=== PATIENT | male | born 1940 | race Caucasian/White ===

== ENCOUNTER 2018-01-20 17:06 | Observation (INO) ==
--- NOTE | 2018-01-20 18:30 | History & Physical Report ---
*Admission Date: 01/20/18 <Margo Manzanares - 01/20/18 18:52> *Chief complaint: low BP <Margo Manzanares 01/20/18 18:52> *History of present illness: Mr Cody is a 78 year old male with a history of HLP, CAD with AMI and CABG in 1991, AAA repair, Atrial fibrillation, recent left frontal lobe stroke 11/18/17 due to critical left ICA stenosis, rehab at [facility] 11/24-12/12/17 and carotid endarectomy 01/12/18 who presented to the office of [facility] with low BP and tachycardia. He was discharged from on O2 for "hypoxic respiratory failure" and with a sellers catheter for inablilty to void. He saw a urologist 01/18/2018 and was started on Flomax and sellers was discontinued. He was able to void after this but his BP decreased. Home Health noted SBP 70-90 with HR 120's. Lisinopril was put on hold. Other meds affecting his BP included metoprolol and Doxazosin. Thus he presented to [facility] for evaluation. He was found to be cool and clammy with bluish lips. BP was 118/70 and HR was regular at a rate of 120. O2 sat was 94%. He was alert and oriented, wearing O2, and walked to the office from his car. He denied CP and SOB. H&H were 12.5/40.2. noted that he was not eating or drinking very well since being home the past week. He had voided twice today. Pt was assessed by Dr. Zhao and decision made to adm him to [facility] for monitoring , gentle hydration, HR control, and med adjustment. <Margo Manzanares 01/20/18 18:52> [facility] History Medical History: Reports:: Aneurysm, Arrhythmia, Atherosclerotic Heart Disease, Atrial Fibrillation, BPH, Coronary Artery Disease, Cerebrovascular Accident, Depression, Home Oxygen, Hyperlipidemia, Hypertension Denies:: Diabetes Mellitus Type 2, Gastrointestinal Bleed, Seizures < Margo Manzanares 01/20/18 18:52> Other Medical History: Reports: Hypothyroidism <Margo Manzanares 01/20/18 18:52 > Laterality Cases: Left: Carotid Endarterectomy <ManzanaresMargo - 01/20/18 18:52 > Other Surgeries: Yes: CABG, Hernia Repair <Margo Manzanares Rustam 01/20/18 18:52> Comment: AAA repair 2000 <Margo Manzanares Rustam 01/20/18 18:52> - *Social History Smoking Status: Never smoker <Margo Manzanares 01/20/18 18:52> *Family Hx:: Cancer, Coronary Artery Disease, Diabetes <Margo Manzanares 18:52> Review of Systems - Constitutional Denies fever(s), Denies headache(s) <LeightonMargo Rustam 01/20/18 18:52> - ENT Denies ear pain, Denies sore throat <LeightonMargo Rustam 01/20/18 18:52> - *Cardiovascular Denies chest pain, Denies shortness of breath <LeightonMargo Rustam 01/20/18 18:52> - *Respiratory Denies chest congestion, Denies cough, Denies shortness of breath <Leighton Margo Easton 01/20/18 18:52> - *Gastrointestinal Denies abdominal pain, Denies constipation, Denies nausea, Denies vomiting < LeightonMargo Rustam 01/20/18 18:52> Comments: poor appetite <Margo Manzanares Rustam 01/20/18 18:52> - *Genitourinary Reports difficulty urinating, Denies blood in urine <Margo Manzanares Rustam 01/20/18 18:52> - *Musculoskeletal Comments: walking with a cane since his stroke <Margo Manzanares Rustam 01/20/18 18:52> - *Neurologic Reports weakness (right sided following stroke) <ManzanaresMargo - 01/20/18 18: 52> - Psychiatric Reports depression <LeightonMargo Rustam 01/20/18 18:52> Meds Home Medications Medication Instructions Recorded Confirmed Type Apixaban [Eliquis] 5 mg PO BID 01/21/18 01/21/18 History Aspirin [Aspirin 325mg Tab] 325 mg PO DAILY 01/21/18 01/21/18 History Atorvastatin Calcium [Atorvastatin 80 mg PO HS 01/21/18 01/21/18 History 80mg Tab] Febuxostat [Uloric 40mg Tab] 40 mg PO DAILY 01/21/18 01/21/18 History Fish Oil/Dha/Epa [Fish Oil 1,200 1 each PO DAILY 01/21/18 01/21/18 History mg Fish Oil] Fluoxetine HCl [Prozac] 10 mg PO DAILY 01/21/18 01/21/18 History Folic Acid [Folic Acid 1mg tablet] 1 mg PO DAILY 01/21/18 01/21/18 History Levothyroxine Sodium 25 mcg PO DAILY 01/21/18 01/21/18 History [Levothyroxine 25mcg (0.025mg) Tab] Metoprolol Tartrate [Lopressor 12.5 mg PO BID 01/21/18 01/21/18 History 25mg tablet] Tamsulosin HCl [Flomax] 0.4 mg PO DAILY 01/21/18 01/21/18 History Vitamin E Acid Succinate [Vitamin 400 units PO DAILY 01/21/18 01/21/18 History E 400 Unit Tab] <Sachin Ndiaye - 01/31/18 16:44> Allergies Allergy/AdvReac Type Severity Reaction Status Date / Time No Known Allergies Allergy Verified 01/21/18 07:50 <Sachin Ndiaye - 01/31/18 16:44> Exam Vital signs and Labs for Last 24 Hours: Temp Pulse Resp BP Pulse Ox 98.0 F 65 16 138/56 98 01/21/18 12:00 01/21/18 12:00 01/21/18 12:00 01/21/18 12:00 01/21/18 12:00 <Sachin Ndiaye - 01/31/18 16:44> Temp Pulse Resp BP Pulse Ox 98.4 F 130 H 20 102/65 98 01/20/18 17:44 01/20/18 17:44 01/20/18 17:44 01/20/18 17:44 01/20/18 17:44 <Margo Manzanares - 01/20/18 18:52> I & O for Last 24 hours: Intake & Output 01/18/18 01/19/18 01/20/18 01/21/18 11:59 11:59 11:59 11:59 Weight 213 lb 7 oz <Margo Manzanares 01/20/18 18:52> - Constitutional Comments: cyanosis of the lips; pale and skin cool and clammy <Margo Manzanares - 01/20/18 18:52> - *Routine HEENT Exam Head: Present: normocephalic, atraumatic <Margo Manzanares 01/20/18 18:52> Eye: Present: PERRL <Margo Manzanares 01/20/18 18:52> ENT: Present: mucous membranes moist, external ear normal, TM's clear bilaterally <Margo Manzanares 01/20/18 18:52> - *Routine Neck Exam Absent: lymphadenopathy, thyromegaly <Margo Manzanares 01/20/18 18:52> Comments: left neck scar appears to be healing; is clean and dry <Margo Manzanares 01/20/18 18:52> - *Routine Respiratory Exam Present: CTA bilaterally (A&P) <Margo Manzanares 01/20/18 18:52> - *Routine Cardiovascular Exam Present: RRR <Margo Manzanares 01/20/18 18:52> Comments: 120/min <Margo Manzanares 01/20/18 18:52> - *Routine Abdominal Exam Present: soft, normoactive bowel sounds, hernia (ventral) <Margo Manzanares 18:52> - *Routine Extremities Exam Present: edema. Absent: calf tenderness <Margo Manzanares 01/20/18 18:52> - *Routine Neurological Exam Present: alert, oriented X3, moving all extremities, normal speech. Absent: altered mental status <Margo Manzanares 01/20/18 18:52> Assessment and Plan (1) Hypotension Status: Acute Category: Medical Code(s): I95.9 - Hypotension, unspecified (2) Tachycardia Status: Acute Category: Medical Code(s): R00.0 - Tachycardia, unspecified (3) Hypovolemia Status: Acute Category: Medical Code(s): E86.1 - Hypovolemia (4) CAD (coronary artery disease) Status: Chronic Category: Medical Code(s): I25.10 - Atherosclerotic heart disease of [place] coronary artery without angina pectoris (5) Hypothyroidism Status: Chronic Category: Medical Code(s): E03.9 - Hypothyroidism, unspecified (6) Carotid arterial disease Status: Chronic Category: Medical Code(s): I77.9 - Disorder of arteries and arterioles, unspecified (7) History of recent stroke Status: Chronic Category: Medical Code(s): Z86.73 - Personal history of transient ischemic attack (TIA), and cerebral infarction without residual deficits (8) S/P carotid endarterectomy Status: Chronic Category: Surgical Code(s): Z98.890 - Other specified postprocedural states (9) BPH with obstruction/lower urinary tract symptoms Status: Acute Category: Medical Code(s): N40.1 - Benign prostatic hyperplasia with lower urinary tract symptoms; N13.8 - Other obstructive and reflux uropathy <Sachin Nidaye - 01/31/18 16:44> (1) Hypotension Status: Acute Category: Medical Code(s): I95.9 - Hypotension, unspecified (2) Tachycardia Status: Acute Category: Medical Code(s): R00.0 - Tachycardia, unspecified (3) Hypovolemia Status: Acute Category: Medical Code(s): E86.1 - Hypovolemia (4) CAD (coronary artery disease) Status: Chronic Category: Medical Code(s): I25.10 - Atherosclerotic heart disease of [place] coronary artery without angina pectoris (5) Hypothyroidism Status: Chronic Category: Medical Code(s): E03.9 - Hypothyroidism, unspecified (6) Carotid arterial disease Status: Chronic Category: Medical Code(s): I77.9 - Disorder of arteries and arterioles, unspecified (7) History of recent stroke Status: Chronic Category: Medical Code(s): Z86.73 - Personal history of transient ischemic attack (TIA), and cerebral infarction without residual deficits (8) S/P carotid endarterectomy Status: Chronic Category: Surgical Code(s): Z98.890 - Other specified postprocedural states (9) Chronic respiratory failure with hypoxia Status: Chronic Category: Medical Code(s): J96.11 - Chronic respiratory failure with hypoxia <Margo Manzanares - 01/21/18 06:33> - Assessment and plan all Dx Assessment and Plan for all problems:: Patient seen and examined. symptoms likely related to drug interaction. Will proceed per plan as outlined <Sachin Ndiaye - 01/31/18 16:44> See orders; gentle hydration; stat metoprolol and continue with 12.5 Bid. Heart , BP and O2 sat monitoring; stop doxazosin; may continue Lisinopril and Flomax in AM if BP is stable. Additional evaluation and treatment will be dependent on pt response <Margo Manzanares - 01/20/18 18:52>
[2018-01-20 18:43] LABS: Basophils % 0.5 % (0.1-2.0); Eosinophils # 0.2 K/mm3 (0.0-0.4); Eosinophils % 2.7 % (0.1-12.0); Hematocrit 42.8 % (42.0-52.0); Hemoglobin 13.9 g/dL (14.1-18.0); Lymphocytes # 1.8 K/mm3 (0.7-4.5); Lymphocytes % 20.6 K/mm3 (10-50); Mean Corpuscular HGB Conc 32.6 g/dL (31.8-35.4); Mean Corpuscular Hemoglobin 32.5 pg (27.0-31.2); Mean Corpuscular Volume 99.7 fl (80-94); Monocytes # 0.5 K/mm3 (0.1-1.0); Monocytes % 5.8 % (1.7-9.3); Neutrophils # 6.1 K/mm3 (1.8-7.8); Neutrophils % 70.5 % (37.0-80.0); Platelet Count 286 K/mm3 (142-424); Red Blood Count 4.29 M/mm3 (4.60-6.20); Red Cell Distribution Width 13.5 % (11.5-17.5); White Blood Count 8.7 K/mm3 (4.8-10.8)
[2018-01-20 19:04] LABS: Albumin Level 3.2 gm/dL (3.4-5.0); Albumin/Globulin Ratio 0.8 (1.1-1.8); Anion Gap 11.7 mEq/L (5-15); Bilirubin,Total 0.4 mg/dL (0.2-1.0); Calcium 9.1 mg/dL (8.5-10.1); Globulin 4.1 gm/dl (1.3-3.2); Potassium 4.7 mmoL/L (3.5-5.1); Total Protein,Serum 7.3 gm/dL (6.4-8.2)
--- NOTE | 2018-01-21 07:37 | Pharmacy Consult Notes ---
[facility] Pharmacy VTE Monitoring - Patient Demographics Admission date: 01/20/18 Report Date: 01/21/18 Time: 07:36 Allergies/Adverse Reactions: Patient Allergies INGREDIENT: NO KNOWN - NO KNOWN DRUG ALLERGY Allergy (Unknown, Uncoded 09/15/17 14:40) Height: 1.88 m Weight: 100.698 kg Patient Problems: Current Active Problems Hypotension (Acute) Tachycardia (Acute) Hypovolemia (Acute) CAD (coronary artery disease) (Chronic) Hypothyroidism (Chronic) Carotid arterial disease (Chronic) History of recent stroke (Chronic) S/P carotid endarterectomy (Chronic) Chronic respiratory failure with hypoxia (Chronic) - VTE Risk Labs: VTE Related Lab Results Hgb 13.9 g/dL (14.1-18.0) L 01/20/18 18:33 Hct 42.8 % (42.0-52.0) 01/20/18 18:33 Plt Count 286 K/mm3 (142-424) 01/20/18 18:33 BUN 31 mg/dL (7-18) H 01/20/18 18:33 Creatinine 1.43 mg/dL (0.70-1.30) H 01/20/18 18:33 Estimated Creat Clear 58 mL/min (0-300) 01/20/18 18:33 Was VTE Risk Assessment Performed: Yes VTE Score: 4 VTE Risk Level: Low Risk - Prophylaxis VTE Prophylaxis Ordered?: Yes Types of VTE Prophylaxis: TEDS Knee High, Pharmacological Location of Applied Device: Bilateral Lower Extremeties Pharmacologic Type: Other (ELIQUIS) - VTE Diagnosis Confirmed Treatment or plan recommended: Continue Current Treatment
--- NOTE | 2018-01-21 08:55 | Progress Note ---
Internal Medicine - PN: Subj *Date: 01/21/18 *Time: 13:37 Interval history: Rested fairly well and eager to go home. VSS have been stable. Has not been OOB to ambulate any Exam Vital signs and Labs for Last 24 Hours: Temp Pulse Resp BP Pulse Ox 98.3 F 57 L 20 128/59 97 01/21/18 04:00 01/21/18 06:00 01/21/18 06:00 01/21/18 06:00 01/21/18 06:00 Laboratory Results - last 24 hr 01/20/18 18:33: WBC 8.7, RBC 4.29 L, Hgb 13.9 L, Hct 42.8, MCV 99.7 H, MCH 32.5 H, MCHC 32.6, RDW 13.5, Plt Count 286, MPV 8.0, Neut % (Auto) 70.5, Lymph % ( Auto) 20.6, [place] % (Auto) 5.8, Eos % (Auto) 2.7, Baso % (Auto) 0.5, Neut # (Auto ) 6.1, Lymph # (Auto) 1.8, [place] # (Auto) 0.5, Eos # (Auto) 0.2, Baso # (Auto) 0.0 01/20/18 18:33: Sodium 142, Potassium 4.7, Chloride 105, Carbon Dioxide 30, Anion Gap 11.7, BUN 31 H, Creatinine 1.43 H, Estimated Creat Clear 58, Estimated GFR 48 L, Est GFR ( Amer) 58 L, Glucose 101, Calcium 9.1, Total Bilirubin 0.4, AST 29, ALT 34, Alkaline Phosphatase 187 H, Total Protein 7.3, Albumin 3.2 L, Globulin 4.1 H, Albumin/Globulin Ratio 0.8 L 01/20/18 18:33: Troponin I 0.04 I & O for Last 24 hours: Intake & Output 01/18/18 01/19/18 01/20/18 01/21/18 11:59 11:59 11:59 11:59 Intake Total 720 / 720 Output Total 1775 / 1775 Balance -1055 / -1055 Weight 222 lb - Constitutional Comments: sitting on edge of bed alert and in NAD - *Routine Neck Exam Comments: left CEA incision healing well - *Routine Respiratory Exam Present: CTA bilaterally - *Routine Cardiovascular Exam Present: RRR - *Routine Extremities Exam Comments: trace edema right leg Assessment and Plan (1) Hypotension Current visit: Yes Status: Acute Category: Medical Code(s): I95.9 - Hypotension, unspecified (2) Tachycardia Current visit: Yes Status: Acute Category: Medical Code(s): R00.0 - Tachycardia, unspecified (3) Hypovolemia Current visit: Yes Status: Acute Category: Medical Code(s): E86.1 - Hypovolemia (4) CAD (coronary artery disease) Current visit: Yes Status: Chronic Category: Medical Code(s): I25.10 - Atherosclerotic heart disease of [place] coronary artery without angina pectoris (5) Hypothyroidism Current visit: Yes Status: Chronic Category: Medical Code(s): E03.9 - Hypothyroidism, unspecified (6) Carotid arterial disease Current visit: Yes Status: Chronic Category: Medical Code(s): I77.9 - Disorder of arteries and arterioles, unspecified (7) History of recent stroke Current visit: Yes Status: Chronic Category: Medical Code(s): Z86.73 - Personal history of transient ischemic attack (TIA), and cerebral infarction without residual deficits (8) S/P carotid endarterectomy Current visit: Yes Status: Chronic Category: Surgical Code(s): Z98.890 - Other specified postprocedural states (9) BPH with obstruction/lower urinary tract symptoms Current visit: Yes Status: Acute Category: Medical Code(s): N40.1 - Benign prostatic hyperplasia with lower urinary tract symptoms; N13.8 - Other obstructive and reflux uropathy - Assessment and plan all Dx Assessment and Plan for all problems:: Admitting symptoms likely precipitated by medication interaction. He has done well over night . Will allow him to be OOB and ambulate this morning and if he is stable, will discharge home later today.
--- NOTE | 2018-01-24 22:17 | Discharge Summary ---
General - General Admission date:: 01/20/18 Discharge date: 01/21/18 HPI HPI: Mr Cody is a 78 year old male with a history of HLP, CAD with AMI and CABG in 1991, AAA repair, Atrial fibrillation, recent left frontal lobe stroke 11/18/17 due to critical left ICA stenosis, rehab at [facility] 11/24-12/12/17 and carotid endarectomy 01/12/18 who presented to the office of [facility] with low BP and tachycardia. He was discharged from on O2 for "hypoxic respiratory failure" and with a sellers catheter for inablilty to void. He saw a urologist 01/18/2018 and was started on Flomax and sellers was discontinued. He was able to void after this but his BP decreased. Home Health noted SBP 70-90 with HR 120's. Lisinopril was put on hold. Other meds affecting his BP included metoprolol and Doxazosin. Thus he presented to [facility] for evaluation. He was found to be cool and clammy with bluish lips. BP was 118/70 and HR was regular at a rate of 120. O2 sat was 94%. He was alert and oriented, wearing O2, and walked to the office from his car. He denied CP and SOB. H&H were 12.5/40.2. noted that he was not eating or drinking very well since being home the past week. He had voided twice today. Pt was assessed by Dr. Zhao and decision made to adm him to [facility] for monitoring , gentle hydration, HR control, and med adjustment. Hospital Course Hospital Course: The patient was started on gentle hydration and metoprolol 12.5 Bid. His heart, BP and O2 sats were monitored. His doxazosin was stopped. The patient rested fairly well throughout the night and was eager to go home. VSS were stable. It was felt his admitting symptoms were likely precipitated by medication interactions. He was stable to be discharged home. Objective Vital signs: Temp Pulse Resp BP Pulse Ox 98.0 F 65 16 138/56 98 01/21/18 12:00 01/21/18 12:00 01/21/18 12:00 01/21/18 12:00 01/21/18 12:00 Narrative: - Constitutional Comments: cyanosis of the lips; pale and skin cool and clammy - *Routine HEENT Exam Head: Present: normocephalic, atraumatic Eye: Present: PERRL ENT: Present: mucous membranes moist, external ear normal, TM's clear bilaterally - *Routine Neck Exam Absent: lymphadenopathy, thyromegaly Comments: left neck scar appears to be healing; is clean and dry - *Routine Respiratory Exam Present: CTA bilaterally (A&P) - *Routine Cardiovascular Exam Present: RRR Comments: 120/min - *Routine Abdominal Exam Present: soft, normoactive bowel sounds, hernia (ventral) - *Routine Extremities Exam Present: edema. Absent: calf tenderness - *Routine Neurological Exam Present: alert, oriented X3, moving all extremities, normal speech. Absent: altered mental status DS: Diagnosis - Discharge Diagnosis (1) Hypotension Status: Acute (2) Tachycardia Status: Acute (3) Hypovolemia Status: Acute (4) CAD (coronary artery disease) Status: Chronic (5) Hypothyroidism Status: Chronic (6) Carotid arterial disease Status: Chronic (7) History of recent stroke Status: Chronic (8) S/P carotid endarterectomy Status: Chronic (9) BPH with obstruction/lower urinary tract symptoms Status: Acute Discharge Plan - Patient Discharge Instructions ACTIVITY: Continue current activity DIET: continue same diet Patient Instructions: Tachycardia, DI for Hypotension - Follow up Plan Follow up with: Sachin Ndiaye MD [Primary Care Provider] - (as scheduled) Disposition: Home, Self-Retirement Medications: Home Medications Medication Instructions Recorded Confirmed Type Apixaban [Eliquis] 5 mg PO BID 01/21/18 01/21/18 History Aspirin [Aspirin 325mg Tab] 325 mg PO DAILY 01/21/18 01/21/18 History Atorvastatin Calcium [Atorvastatin 80 mg PO HS 01/21/18 01/21/18 History 80mg Tab] Febuxostat [Uloric 40mg Tab] 40 mg PO DAILY 01/21/18 01/21/18 History Fish Oil/Dha/Epa [Fish Oil 1,200 1 each PO DAILY 01/21/18 01/21/18 History mg Fish Oil] Fluoxetine HCl [Prozac] 10 mg PO DAILY 01/21/18 01/21/18 History Folic Acid [Folic Acid 1mg tablet] 1 mg PO DAILY 01/21/18 01/21/18 History Levothyroxine Sodium 25 mcg PO DAILY 01/21/18 01/21/18 History [Levothyroxine 25mcg (0.025mg) Tab] Metoprolol Tartrate [Lopressor 12.5 mg PO BID 01/21/18 01/21/18 History 25mg tablet] Tamsulosin HCl [Flomax] 0.4 mg PO DAILY 01/21/18 01/21/18 History Vitamin E Acid Succinate [Vitamin 400 units PO DAILY 01/21/18 01/21/18 History E 400 Unit Tab] Prescriptions/Medication Reconciliation: Continue Aspirin [Aspirin 325mg Tab] 325 mg PO DAILY Febuxostat [Uloric 40mg Tab] 40 mg PO DAILY Fluoxetine HCl [Prozac] 10 mg PO DAILY Folic Acid [Folic Acid 1mg tablet] 1 mg PO DAILY Levothyroxine Sodium [Levothyroxine 25mcg (0.025mg) Tab] 25 mcg PO DAILY Metoprolol Tartrate [Lopressor 25mg tablet] 12.5 mg PO BID Apixaban [Eliquis] 5 mg PO BID Atorvastatin Calcium [Atorvastatin 80mg Tab] 80 mg PO HS Fish Oil/Dha/Epa [Fish Oil 1,200 mg Fish Oil] 1 each PO DAILY Tamsulosin HCl [Flomax] 0.4 mg PO DAILY Vitamin E Acid Succinate [Vitamin E 400 Unit Tab] 400 units PO DAILY Discontinued Lisinopril [Lisinopril 20mg Tab] 20 mg PO DAILY Doxazosin Mesylate [Doxazosin 1mg Tab] 2 mg PO DAILY
== END 2018-01-21 13:40 | disposition home or self-care (01) ==
LOC: 2ND → ICU 19:24
PROVIDERS: ADMIT Family Medicine; ATTEND Family Medicine

== ENCOUNTER → 2018-02-16 11:30 | Outpatient (CLI) | payer MEDICARE, SELFPAY ==
--- NOTE | 2018-02-16 11:40 | XR_ITS ---
XR wrist RT min 3V HISTORY ITS.REASON: RT WRIST PAIN ORDERING PHYSICIAN: Margo Manzanares PATIENT AGE: 78 years Comparison: None FINDINGS: No fracture or dislocation. No lytic or blastic change. There is normal mineralization.. The joint spaces are well-preserved. No significant degenerative/arthritic changes. No erosive changes evident.. IMPRESSION: Negative wrist
== END ==
PROVIDERS: PCP Family Medicine; Visit Provider Nurse Practitioner Family
DX: M25.531 Pain in right wrist (principal)
CPT/HCPCS: 73110

== ENCOUNTER → 2018-03-12 10:23 | Outpatient (CLI) | payer MEDICARE, SELFPAY ==
--- NOTE | 2018-03-12 10:33 | CT_ITS ---
CT chest w con HISTORY: Mediastinal mass, or evidence of breath, abnormal radiograph ITS.REASON: MEDIASINAL MASS ORDERING PHYSICIAN: Sachin Ndiaye MD PATIENT AGE: 78 years COMPARISON: None TECHNIQUE: Axial images obtained following the administration of 75 mL of Isovue 370 . Sagittal, and coronal reformatted images are also generated and reviewed. All CT scans at the facility use one or more dose reduction, viz: automated exposure control; ma/kV adjustment per patient size (including targeted exams where dose is matched to indication; i.e. head); or iterative reconstruction technique. FINDINGS: There is mild enlargement of the lower pole of the thyroid gland on the right with hypoattenuation consistent with a 2 cm nodule. There is dilatation of ascending aorta measuring up to 4.4 cm. No obvious aortic dissection. There is mild dilatation of the root of the main pulmonary artery on the left. No large central pulmonary was. There has been prior CABG. There is extensive coronary artery calcification. No pericardial effusion. There is mild dilatation of the left atrial appendage. There are centrilobular emphysematous changes with prominent thickening of the intralobular septa of the lungs greater in the periphery consistent with interstitial lung disease/pulmonary fibrosis. There is thickening of the right major fissure superiorly. No large pulmonary nodules or masses are evident. Small nodules may easily be obscured by the pulmonary fibrotic changes. No pleural effusions. No acute bony anomalies Upper abdominal images demonstrate cholelithiasis and ventral abdominal wall hernia containing a loop of transverse colon. IMPRESSION: 1. Mild fusiform dilatation of the ascending aorta measuring up to 4.4 cm. 2. Mild dilatation of the left atrial appendage 3. Mild focal dilatation of the anterior aspect of the left aspect of the root of the main pulmonary artery 4. Diffuse pulmonary fibrosis/interstitial lung disease 5. 2 cm right thyroid nodule. This may be better evaluated with ultrasound 6. Upper abdomen images show cholelithiasis and ventral abdominal wall hernia containing colon
== END ==
PROVIDERS: PCP Family Medicine; Visit Provider Family Medicine
DX: J98.59 Other diseases of mediastinum, not elsewhere classified (principal)
CPT/HCPCS: 71260; Q9967

== ENCOUNTER → 2020-02-06 10:20 | Outpatient (CLI) | payer MEDICARE, SELFPAY ==
--- NOTE | 2020-02-06 10:35 | CT_ITS ---
PROCEDURE: CT CHEST W CON CLINCAL INDICATION: PULMONARY FIBROSIS Shortness of air with weakness and pulmonary fibrosis. COMPARISON: CHESTW CT chest w con from 03/12/2018 TECHNIQUE: IV Contrast: 75ml Optiray 350 Axial images obtained with sagittal and coronal reformats. All CT scans at the facility use one or more dose reduction, viz: automated exposure control, ma/kV adjustment per patient size (including targeted exams where dose is matched to indication, i.e. head), or iterative reconstruction technique. FINDINGS: HEART AND MEDIASTINAL STRUCTURES: Thyroid gland is enlarged on both sides as before. Atherosclerotic changes involve the thoracic aorta with mild prominence of the ascending aorta at 4.3 cm there are scattered small mediastinal and hilar lymph nodes. Coronary artery calcifications are present. There is cardiomegaly. There has been a prior CABG. There is a small hiatal hernia. There remains mild prominence of the left atrial appendage LUNGS AND PLEURAL SPACES: There is COPD with pulmonary fibrosis with mild paraseptal and centrilobular emphysema. There is a 9 mm nodular opacity in the right infrahilar region along the major fissure. There is some minimal pleural calcification in the left apex. There is some minimal honeycombing in the periphery of the lungs in the left lung base posteriorly. There is some mild chronic consolidation/pleural thickening along the major fissure superiorly on the right. BONY STRUCTURES: No acute bony abnormalities apparent. UPPER ABDOMEN: Small hiatal hernia. Cholelithiasis. Bilateral renal cysts. There is a ventral abdominal wall hernia as before. There appears to be a defect within mesh in the upper abdomen containing a loop of transverse colon without obstruction. This is incompletely imaged. ADDITIONAL FINDINGS: No other significant abnormalities. IMPRESSION: 1. Overall no significant change in the pulmonary fibrosis as described above. 2. The no change in the mild fusiform dilatation of the ascending aorta. 3. No change in the enlarged thyroid gland with possible nodule along the lower pole. 4. Other nonacute findings as described above including hiatal hernia, cholelithiasis, ventral abdominal wall hernia, coronary artery calcification and mild prominence of the left atrial appendage Dictated by: Dave Carranza MD 02/07/2020 09:08 Electronically signed by Dave Carranza MD in [place] 02/07/2020 09:08
== END ==
PROVIDERS: PCP Family Medicine; Visit Provider Family Medicine
DX: J84.10 Pulmonary fibrosis, unspecified (principal)
CPT/HCPCS: 71260; Q9967

== ENCOUNTER → 2020-04-26 09:59 | Outpatient (CLI) | payer MEDICARE, SELFPAY ==
[2020-04-26 14:24] LABS: Coronavirus 19 IgG Antibody Negative (Negative); Coronavirus 19 IgM Antibody Negative (Negative)
== END ==
PROVIDERS: Visit Provider Internal Medicine Gastroenterology
DX: Z01.818 Encounter for other preprocedural examination (principal); Z12.11 Encounter for screening for malignant neoplasm of colon
CPT/HCPCS: 36415; 86328

== ENCOUNTER 2020-04-27 11:21 | Day surgery (SDC) | payer MEDICARE, SELFPAY ==
[2020-04-23 14:54] VITALS: BMI 27.8
[2020-04-27] VITALS (7 sets, daily range): BP systolic 83–171; BP diastolic 43–81; PULSE 51–65; RESP 15–18; TEMP 36.3–36.6; O2SAT 91–98
--- NOTE | 2020-04-27 13:05 | HMH.ANESCL ---
[facility] Anesthesia Checklist - Patient Identification Patient Identification: Arm Band - Structural Data Admitted From: Home Planned Operative Procedure/s: colonoscopy Consent for Planned Operative Procedure(s) Verified: Yes Verified Documents: Surgical Consent, History and Physical - NPO Status Verified Time NPO: 00:00 - Additional verifications Anesthesia Reactions: No - Airway Assessment C-Spine Mobility Assessed: Yes (mp2) TMJ Mobility Assessed: Yes Dentition: Dentures-good fit - Neurological Assessment Level of Consciousness: Awake, Alert - Anesthesia Plan Anesthesia Risk discussed: Yes Anesthesia Plan: Verified ASA Class: III Anesthesia Type: MAC [facility] History I have reviewed the patient's past medical history: Yes Medical History: Reports:: Aneurysm, Arrhythmia, Atherosclerotic Heart Disease, Atrial Fibrillation, BPH, Coronary Artery Disease, Cerebrovascular Accident, Depression, Home Oxygen, Hyperlipidemia, Hypertension, Myocardial Infarction Denies:: Cancer, Diabetes Mellitus Type 1, Diabetes Mellitus Type 2, Gastrointestinal Bleed, Internal Pacemaker, MRSA, Seizures *Have you ever received a pneumonia vaccine?: Yes *Have you received a flu vaccine this season?: Yes Other Medical History: Reports: Cataracts, Hypothyroidism, Thyroid Disease Anesthesia experience/problems:: nac Laterality Cases: Left: Carotid Endarterectomy Other Surgeries: Yes: CABG, Hernia Repair, Other. No: Pacemaker Amputation: No Fractures: No - *Social History Smoking Status: Never smoker Tobacco Type: cigarettes # Packs/Day (cigarettes): 1 #Yrs smoked (if former smoker): 31 Alcohol Intake: never Substance Use Type: denies use *Occupational Status:: retired Housing: house Household Members: spouse *Travel in the last 8 weeks: None - Psychiatric History Pschychiatric History:: Reports:: Depression Family Hx:: No significant family history
--- NOTE | 2020-04-27 13:30 | HMH.PROC ---
[facility] Procedure Note Procedure Note:: Colonoscopy Procedure Report: Colonoscopy with cold snare polypectomy Endoscopist: Damian Milligan II, MD Referring physician: Colton Ndiaye MD Date of Procedure: April 27, 2020 Equipment: Olympus 180 variable stiffness pediatric colonoscope Sedation: MAC sedation Indication: Mr. Cody is an 80-year-old gentleman who is here for diagnostic colonoscopy secondary to iron deficiency anemia and Hemoccult positive stool. The patient did have a hemoglobin 12.7 and hematocrit 38.5. His iron level was 37.0. His alkaline phosphatase was minimally elevated (121). The patient is on Eliquis and baby aspirin. His bowel movements are dark because of his iron tablet. He reports no rectal bleeding, abdominal pain or change in bowel habits. He reports no family history of colon cancer. He has lost 17 pounds in the last 3 months and does have some reduced appetite. His last colonoscopy was more than 10 years ago. Procedure: Prior to the procedure, a history and physical exam was performed, and patient's medications and allergies were reviewed. The risks, benefits and alternatives of the sedation and procedure were discussed with the patient. All questions were answered and informed consent was obtained. The patient was brought to the procedure room. Patient identification and proposed procedure were verified by the physician and the nurse. The patient was placed in a left lateral decubitus position and the scope was passed under direct vision. Throughout the procedure, the patient's blood pressure, pulse, and oxygen saturations were monitored continuously. The colonoscopy was accomplished without difficulty. The patient tolerated the procedure well. Findings: On digital rectal examination there was normal rectal tone. There were no external hemorrhoids. The colonoscope was introduced through the anal canal to the rectum and advanced to the cecum. The ileocecal valve and appendiceal orifice were identified. The scope was advanced a short distance into the ileum which appeared grossly normal. The scope was then withdrawn into the colon. The cecum and ascending colon were normal. There was a diminutive 4 mm polyp in the transverse colon removed via cold snare polypectomy. There was moderate colonic redundancy. There were extensive scattered diverticuli throughout the colon but more predominantly and extensively in the descending and sigmoid colon (LEFT colon). There was some mild haustral edema/erythema in the sigmoid colon. The rectum itself was normal. Upon retroflexion within the rectum there were grade 2 internal hemorrhoids. The preparation was excellent throughout with Ralph Preparation Score of 9. The cecal time was 14 minutes. Impression: 1. Diminutive transverse colon polyp 2. Extensive pandiverticulosis 3. Grade 2 internal hemorrhoids Plan: There was no source for the patient's iron deficiency anemia or Hemoccult positive stool. I will discuss the findings with the patient and family and we may consider EGD for further evaluation. I will recommend bulk fiber supplementation. The patient will not require any further colonoscopy.
== END 2020-04-27 14:28 | disposition home or self-care (01) ==
LOC: OUTP 11:23
PROVIDERS: PCP Family Medicine; Visit Provider Internal Medicine Gastroenterology
PROC: 0DJD8ZZ Inspection of Lower Intestinal Tract, Via Natural or Artificial Opening Endoscopic (ICD-10-PCS; CPT 45378; principal; 2020-04-27 12:30)
DX: K63.5 Polyp of colon (principal); K57.30 Diverticulosis of large intestine without perforation or abscess without bleeding; K64.1 Second degree hemorrhoids; I25.10 Atherosclerotic heart disease of native coronary artery without angina pectoris; I48.91 Unspecified atrial fibrillation; N40.0 Benign prostatic hyperplasia without lower urinary tract symptoms; I25.2 Old myocardial infarction; E78.5 Hyperlipidemia, unspecified; I10 Essential (primary) hypertension; F32.9 Major depressive disorder, single episode, unspecified; Z99.81 Dependence on supplemental oxygen; Z86.73 Personal history of transient ischemic attack (TIA), and cerebral infarction without residual deficits
CPT/HCPCS: 45385; 88305

== ENCOUNTER → 2020-05-03 09:17 | Outpatient (CLI) | payer MEDICARE, SELFPAY ==
[2020-05-03 10:51] LABS: Coronavirus 19 IgG Antibody Negative (Negative); Coronavirus 19 IgM Antibody Negative (Negative)
== END ==
PROVIDERS: Visit Provider Internal Medicine Gastroenterology
DX: Z01.818 Encounter for other preprocedural examination (principal); D64.9 Anemia, unspecified
CPT/HCPCS: 36415; 86328

== ENCOUNTER 2020-05-04 09:51 | Day surgery (SDC) | payer MEDICARE, SELFPAY ==
[2020-05-01 10:33] VITALS: BMI 29.4
[2020-05-04 10:06] VITALS: BP 173/75; PULSE 60; RESP 20; TEMP 36.8; O2SAT 100
--- NOTE | 2020-05-04 11:15 | P.PN_ITS ---
[facility] Anesthesia Checklist - Structural Data Admitted From: Home Planned Operative Procedure/s: egd Consent for Planned Operative Procedure(s) Verified: Yes - Additional verifications Anesthesia Reactions: No - Airway Assessment C-Spine Mobility Assessed: Yes TMJ Mobility Assessed: Yes Dentition: Partials - Neurological Assessment Level of Consciousness: Awake, Alert, Appropriate - Anesthesia Plan Anesthesia Risk discussed: Yes Anesthesia Plan: Verified ASA Class: III Anesthesia Type: MAC [facility] History I have reviewed the patient's past medical history: Yes Medical History: Reports:: Aneurysm, Arrhythmia, Atherosclerotic Heart Disease, Atrial Fibrillation, BPH, Coronary Artery Disease, Cerebrovascular Accident, Depression, Home Oxygen, Hyperlipidemia, Hypertension, MRSA (nose), Myocardial Infarction Denies:: Cancer, Diabetes Mellitus Type 1, Diabetes Mellitus Type 2, Gastrointestinal Bleed, Internal Pacemaker, Seizures *Have you ever received a pneumonia vaccine?: Yes *Have you received a flu vaccine this season?: Yes Other Medical History: Reports: Cataracts, Hypothyroidism, Thyroid Disease Anesthesia experience/problems:: none Laterality Cases: Left: Carotid Endarterectomy Other Surgeries: Yes: CABG, Hernia Repair, Other. No: Pacemaker Amputation: No Fractures: No - *Social History Last grade of school completed: 9th or 10th Smoking Status: Former smoker Tobacco Type: cigarettes # Packs/Day (cigarettes): 1 #Yrs smoked (if former smoker): 31 Alcohol Intake: never Substance Use Type: denies use *Occupational Status:: retired Housing: house Household Members: spouse *Travel in the last 8 weeks: None - Psychiatric History Pschychiatric History:: Reports:: Depression Family Hx:: Cancer, Heart Attack, Hyperlipidemia, Hypertension
[2020-05-04 11:54] VITALS: O2SAT 95
--- NOTE | 2020-05-04 12:01 | HMH.PROC ---
[facility] Procedure Note Procedure Note:: Upper Endoscopy Procedure Report: Esophagogastroduodenoscopy with cold biopsies Endoscopost: Damian Milligan II, MD Referring Physician: Colton Ndiaye MD Date of Procedure: May 04, 2020 Equipment: Olympus GIF 180 standard upper endoscope Sedation: MAC sedation Indications: Mr. Cody is an 80-year-old gentleman with iron deficiency anemia and Hemoccult positive stool. His iron level was 37.0. He was taking Eliquis and baby aspirin. He had a colonoscopy with ga on April 27, 2020 that showed a diminutive polyp (mucosal prolapse polyp) and extensive pandiverticulosis but no source of bleeding. Upper endoscopy is performed for diagnostic purposes to exclude an upper GI tract source for chronic occult/obscure gastrointestinal blood loss. The patient reports no abdominal pain, dyspepsia or reflux. He has no dysphagia. Procedure: Prior to the procedure, a history and physical exam was performed, and patient's medications and allergies were reviewed. The risks, benefits and alternatives of the sedation and procedure were discussed with the patient. All questions were answered and informed consent was obtained. The patient was brought to the procedure room. Patient identification and proposed procedure were verified by the physician and the nurse. The patient was placed in a left lateral decubitus position and the scope was passed under direct vision. Throughout the procedure, the patient's blood pressure, pulse, and oxygen saturations were monitored continuously. The upper GI endoscopy was accomplished without difficulty. The patient tolerated the procedure well. Findings: The scope was passed directly into the upper esophagus and advanced to the third portion of the duodenum. The post bulbar duodenum and duodenal bulb were normal with normal mucosa and conniventes. Cold biopsies were taken from the post bulbar duodenum to rule out celiac disease. The scope was withdrawn through a normal duodenal bulb and pylorus into the stomach. There was mild linear reactive gastropathy of the prepyloric antrum. There was moderate gastric atrophy/atrophic gastritis of the body and fundus of the stomach. Cold biopsies were obtained from the gastric fundus. There was a diminutive 3 mm polyp in the gastric cardia that was removed via cold biopsy to rule out gastric carcinoid. Upon retroflexion there was no hiatal hernia. The scope was then withdrawn into the esophagus. There was no evidence of reflux esophagitis or Chou's. The remainder of the esophageal mucosa was normal. Impression: 1. Chronic atrophic gastritis with small 3 mm gastric polyp?rule out small gastric carcinoid Plan: Certainly chronic atrophic gastritis results in achlorhydria and in the setting of lack of HCl production from the parietal cells, iron is not absorbed as efficiently. I do feel that this is certainly a reason for some of the iron deficiency anemia but does not explain the Hemoccult positive stools. I am going to repeat Hemoccult testing. If he is strongly Hemoccult positive, I would consider video capsule/M2A video enteroscopy.
[2020-05-04 12:03] VITALS: BP 112/56; PULSE 41; RESP 18; TEMP 36.1; O2SAT 96
[2020-05-04 12:13] VITALS: BP 125/60; PULSE 43; RESP 18; O2SAT 96
[2020-05-04 12:23] VITALS: BP 139/80; PULSE 52; RESP 18; O2SAT 95
[2020-05-04 13:08] VITALS: BP 155/82; PULSE 53; RESP 18; O2SAT 96
--- NOTE | 2020-05-04 13:10 | SUR.PHASEII ---
Lab here to draw blood. Instructions given for collections of hemoccult samples. Order placed.
[2020-05-04 13:34] LABS: Basophils % 0.5 % (0.1-2.0); Eosinophils # 0.2 K/mm3 (0.0-0.4); Eosinophils % 2.3 % (0.1-12.0); Hematocrit 40.6 % (42.0-52.0); Hemoglobin 13.6 g/dL (14.1-18.0); Lymphocytes # 2.1 K/mm3 (0.7-4.5); Lymphocytes % 26.4 % (10-50); Mean Corpuscular HGB Conc 33.4 g/dL (31.8-35.4); Mean Corpuscular Hemoglobin 32.1 pg (27.0-31.2); Mean Corpuscular Volume 96.1 fl (80-94); Mean Platelet Volume 8.2 fl (7.4-10.4); Monocytes # 0.4 K/mm3 (0.1-1.0); Monocytes % 4.6 % (1.7-9.3); Neutrophils # 5.3 K/mm3 (1.8-7.8); Neutrophils % 66.1 % (37.0-80.0); Platelet Count 198 K/mm3 (142-424); Red Blood Count 4.22 M/mm3 (4.60-6.20); Red Cell Distribution Width 18.5 % (11.5-17.5); White Blood Count 7.9 K/mm3 (4.8-10.8)
[2020-05-04 13:40] LABS: Chloride 108 mmol/L (98-107); Sodium 142 mmol/L (136-145)
[2020-05-04 13:43] LABS: Alanine Aminotransferase 16 U/L (12-78); Alkaline Phosphatase 113 U/L (38-126); Aspartate Amino Transferase 25 U/L (17-59); Bilirubin,Total 0.6 mg/dl (0.2-1.3); Blood Urea Nitrogen 20 mg/dl (9-20); Carbon Dioxide 25 mmol/L (22.0-30.0); Creatinine Clearance Estimated 75 mL/min (50-200); Estimated Glomerular Filt Rate 64 ml/min (>60); GFR (African American) 78 ML/MIN (>60); Glucose 98 mg/dl (74-100); Iron 49 ug/dL (49-181)
[2020-05-04 13:44] LABS: Albumin Level 3.5 g/dl (3.5-5.0); Albumin/Globulin Ratio 1.1 (1.1-1.8); Globulin 3.2 g/dL (1.3-3.2); Total Protein,Serum 6.7 g/dl (6.3-8.2)
[2020-05-04 13:53] LABS: Total Iron Binding Capacity 266 ug/dL (261-462)
[2020-05-06 07:25] LABS: Antiparietal Cell Antibody 78.8 Units (0.0-20.0)
== END 2020-05-04 13:14 | disposition home or self-care (01) ==
LOC: OUTP 09:53
PROVIDERS: PCP Family Medicine; Visit Provider Internal Medicine Gastroenterology
PROC: 0DJ08ZZ Inspection of Upper Intestinal Tract, Via Natural or Artificial Opening Endoscopic (ICD-10-PCS; CPT 43235; principal; 2020-05-04 11:00)
DX: K29.40 Chronic atrophic gastritis without bleeding (principal); K31.7 Polyp of stomach and duodenum; I25.10 Atherosclerotic heart disease of native coronary artery without angina pectoris; I25.2 Old myocardial infarction; I48.91 Unspecified atrial fibrillation; I72.9 Aneurysm of unspecified site; I49.9 Cardiac arrhythmia, unspecified; F32.9 Major depressive disorder, single episode, unspecified; E78.5 Hyperlipidemia, unspecified; I10 Essential (primary) hypertension; E03.9 Hypothyroidism, unspecified; Z99.81 Dependence on supplemental oxygen
CPT/HCPCS: 43239; 36415; 80053; 82728; 83516; 83540; 83550; 85025; 88305; 88342

== ENCOUNTER → 2020-05-06 14:30 | Outpatient (CLI) | payer MEDICARE, SELFPAY ==
[2020-05-11 15:10] LABS: Occult Blood,Stool Negative (Negative)
== END ==
PROVIDERS: Visit Provider Internal Medicine Gastroenterology
DX: D64.9 Anemia, unspecified (principal)
CPT/HCPCS: 82272; G0328

== ENCOUNTER → 2020-05-07 14:33 | Outpatient (CLI) | payer MEDICARE, SELFPAY ==
[2020-05-11 15:10] LABS: Occult Blood,Stool Negative (Negative)
== END ==
PROVIDERS: Visit Provider Internal Medicine Gastroenterology
DX: D64.9 Anemia, unspecified (principal)
CPT/HCPCS: 82272; G0328

== ENCOUNTER → 2020-05-10 14:35 | Outpatient (CLI) | payer MEDICARE, SELFPAY ==
[2020-05-11 15:10] LABS: Occult Blood,Stool Negative (Negative)
== END ==
PROVIDERS: Visit Provider Internal Medicine Gastroenterology
DX: D64.9 Anemia, unspecified (principal)
CPT/HCPCS: 82272; G0328

== ENCOUNTER → 2020-11-05 13:30 | Outpatient (CLI) | payer MEDICARE, SELFPAY ==
--- NOTE | 2020-11-05 | CA_ITS ---
APPROVED REPORT EXAM: Comprehensive 2D, Doppler, and color-flow Echocardiogram [employer]: Mackenzie Kiser RCS, RVS Ht: 6 ft 2 in Wt: 205lbs BSA: 2.20 BP: 120/80 mmHg Indications: CAD S/P CABG, AFIB,HOME O2, HX- AAA WITH MULTIPLE HERNIA REPAIRS Echo Enhancing Agent Comments: TECHNICALLY DIFFICULT EXAM DUE TO ABN CARDIAC WINDOWS, NO SUBCOSTAL IMAGES AVAILABLE 2D Dimensions LVDs 4.24 cm LA Volume 141.70 mL LVOT 1.95 cm (M/F) 1.5-2.5 LA Volume Index 64.40 mL/m2 (M/F) 16-34 M-Mode Dimensions LA Diam 4.81 cm (1.9-4.0) LVDd 5.24 cm (3.5-5.7) Ao Diam 3.69 cm (2.0-3.7) LVDs 3.77 cm (3.5-5.7) EF (Teich) 53.90% EPSs 1.01 cm FS 28.10% EDV (Teich) 131.80 mL ESV (Teich) 60.80 mL LV Diastology E Decel Time 397.00 (160-240 msec) E/A Ratio 0.67 MED E' 5.60 (< 7 cm/sec) MED A' 7.60 cm/s E'/MED E' Ratio 10.59 (>14) Aortic Valve AoV Peak Zach. 173.00 (50-130 cm/s) AO Peak GR. 11.90 mmHg AO Mean GR. 5.70 (<5 mmHg) AO VTI 36.84 (18-25 cm) Mitral Valve MV E Max Zach. 59.00 (40-130 cm/s) MV A Velocity 88.00 (40-130 cm/s) E/A Ratio 0.67 MV Decel. Time 397.00 (160-240 ms) MV PHT 116.00 ms Pulmonary Valve PV Peak Velocity 92.00 (50-150 cm/s) Tricuspid Valve TR P. Velocity 262.00 cm/s RAP Estimate 10.00 mmHg RVSP 37.40 mmHg Left Ventricle Left atrium is mildly enlarged, left ventricle is normal size, mild concentric left ventricular hypertrophy, visually estimated ejection fraction approximately 35%, there is abnormal septal motion, grade 1 diastolic dysfunction seen with tissue Doppler evidence of raise left atrial pressure. Right Ventricle Right atrium and right ventricle are mildly enlarged with normal contractility. Aortic Valve Aortic valve is thickened and calcified leaflet continue to display mobility, there is no aortic stenosis or aortic insufficiency. Mitral Valve Mitral valve leaflets are minimally thickened, there is mild mitral regurgitation. Tricuspid Valve Tricuspid valve is grossly normal, there is mild tricuspid regurgitation, tricuspid regurgitation jet velocity is inadequate for calculation of the right ventricular systolic pressure. Pulmonic Valve Pulmonic valve is poorly visualized. Great Vessels Aortic root is normal size. Pericardium No significant pericardial effusion noted. Conclusion 1. Mildly enlarged left atrium, normal left ventricular size, mild concentric left ventricular hypertrophy, visually estimated ejection fraction 35%, there is abnormal septal motion. Grade 1 diastolic dysfunction seen with tissue Doppler evidence of raise left atrial pressure. 2. Thickened and calcified aortic valve without aortic stenosis or aortic insufficiency. 3. Mild mitral and tricuspid regurgitation. 4. No significant pericardial effusion noted. Electronically signed by : Kyle Mclain, 11/05/2020 21:03:21
== END ==
PROVIDERS: PCP Family Medicine; Visit Provider Internal Medicine Cardiovascular Disease
DX: R06.02 Shortness of breath (principal)
CPT/HCPCS: 93306

== ENCOUNTER 2020-12-11 01:32 | Emergency (ER) | payer MEDICARE, SELFPAY ==
[2020-12-11] VITALS (10 sets, daily range): BP systolic 143–178; BP diastolic 47–72; PULSE 53–73; RESP 18–20; TEMP 36.6–36.8; O2SAT 89–100; BMI 26.3
--- NOTE | 2020-12-11 02:07 | CT_ITS ---
PROCEDURE: CT ABDOMEN PELVIS W CON CLINICAL INDICATION: abd pain Abdominal pain and right groin pain COMPARISON: CT CHESTW CT chest w con from 03/12/2018 TECHNIQUE: IV Contrast: 75ML Isovue 370 Oral Contrast None Axial images obtained with sagittal and coronal reformats. All CT scans at the facility use one or more dose reduction, viz: automated exposure control, ma/kV adjustment per patient size (including targeted exams where dose is matched to indication, i.e. head), or iterative reconstruction technique. FINDINGS: LOWER THORAX: There is cardiomegaly. Coronary artery calcifications are present. There has been a prior median sternotomy. Interstitial edema noted in the lung bases. ABDOMEN & PELVIS: Cholelithiasis. The liver, spleen, adrenal glands, pancreas, has an unremarkable appearance. There are small bilateral renal cyst. Atheromatous changes are present involving the abdominal aorta. Distal abdominal iliac graft noted. There is diffuse colonic diverticulosis but no evidence of diverticulitis. There is a large right inguinal hernia containing loops of small and large bowel. The appendix is within the hernia. There is haziness of the abdominal fat within the hernia with also a small amount fluid. Small bowel feces sign noted in the right lower quadrant with mild prominence of small bowel loops in the right lower quadrant. There is a ventral hernia superiorly in the subxiphoid region containing a loop of transverse colon. This hernias contain anteriorly by mesh. Degenerative changes are present in the lumbar spine with 5 mm anterolisthesis of L5. IMPRESSION: 1. Large right inguinal hernia containing loops small and large bowel with fluid and proximal small bowel dilatation with fecalized contents consistent with delayed transit. Partial obstruction is considered. Please correlate clinically for possible incarceration. 2. Ventral abdominal wall hernia in the subxiphoid region containing a loop of transverse colon. No evidence the this is causing obstruction. This hernias contain anteriorly above mesh. 3. Cholelithiasis. 4. Colonic diverticulosis without diverticulitis. 5. Cardiomegaly with interstitial edema in the lung bases. Dictated by: Dave Carranza MD 12/11/2020 05:21 Dave Carranza MD in [place] 12/11/2020 05:21
[2020-12-11 02:31] LABS: Basophils # 0.1 K/mm3 (0-0.2); Basophils % 0.4 % (0.1-2.0); Eosinophils % 0.2 % (0.1-12.0); Hemoglobin 15.1 g/dL (14.1-18.0); Lymphocytes # 0.9 K/mm3 (0.7-4.5); Lymphocytes % 6.2 % (10-50); Mean Corpuscular HGB Conc 32.1 g/dL (31.8-35.4); Mean Corpuscular Hemoglobin 32.5 pg (27.0-31.2); Mean Corpuscular Volume 101.2 fl (80-94); Mean Platelet Volume 8.3 fl (7.4-10.4); Monocytes # 0.5 K/mm3 (0.1-1.0); Monocytes % 3.3 % (1.7-9.3); Neutrophils # 12.6 K/mm3 (1.8-7.8); Platelet Count 269 K/mm3 (142-424); Red Blood Count 4.64 M/mm3 (4.60-6.20); Red Cell Distribution Width 14.7 % (11.5-17.5)
[2020-12-11 02:43] LABS: MANUAL DIFFERENTIAL MANUAL DIFFERENTIAL (MANUAL DIFF)
[2020-12-11 02:51] LABS: Alanine Aminotransferase 21 U/L (12-78); Albumin Level 4.8 g/dl (3.5-5.0); Albumin/Globulin Ratio 1.1 (1.1-1.8); Alkaline Phosphatase 165 U/L (38-126); Amylase 103 U/L (30-110); Anion Gap 15.4 mEq/L (5-15); Aspartate Amino Transferase 34 U/L (17-59); Bilirubin,Total 0.9 mg/dl (0.2-1.3); Blood Urea Nitrogen 21 mg/dl (9-20); Calcium 10.1 mg/dl (8.4-10.2); Carbon Dioxide 25 mmol/L (22.0-30.0); Chloride 107 mmol/L (98-107); Creatinine Clearance Estimated 70 mL/min (50-200); Estimated Glomerular Filt Rate 64 ml/min (>60); GFR (African American) 78 ML/MIN (>60); Globulin 4.4 g/dL (1.3-3.2); Glucose 157 mg/dl (74-100); Potassium 4.4 mmoL/L (3.5-5.1); Sodium 143 mmol/L (136-145); Total Protein,Serum 9.2 g/dl (6.3-8.2)
[2020-12-11 02:55] LABS: Lipase 154 U/L (23-300)
[2020-12-11 02:57] LABS: C-Reactive Protein 1.7 mg/L (0-4)
[2020-12-11 03:11] LABS: Procalcitonin 0.041 ng/mL (0.0-2.0)
[2020-12-11 03:13] LABS: Erythrocyte Sedimentation Rate 16 mm/hr (0-20)
[2020-12-11 03:51] LABS: Lymphocytes % 3 % (10-50); Macrocytosis 1+; Monocytes % 1 % (2-9); Neutrophils % 96 % (42-76); Platelet Estimate Normal; Total Cells Counted 100
[2020-12-11 03:52] LABS: Stomatocytes 1+
[2020-12-11 04:04] LABS: Lactic Acid 1.5 mmol/L (0.7-2.1)
--- NOTE | 2020-12-11 04:08 | HMH.EDNVD ---
ED Disposition Clinical Impression: Inguinal hernia Qualifiers: Obstruction and gangrene presence: with obstruction but without gangrene Laterality: unilateral Recurrence: not specified as recurrent Qualified Code(s): K40.30 - Unilateral inguinal hernia, with obstruction, without gangrene, not specified as recurrent Disposition: Home, Self-Care Condition on Discharge: Good Instructions: DI for Groin Hernia Additional Instructions: see surg and pcp for follow up Referrals: Sachin Ndiaye MD [Primary Care Provider] - Scotty Abad MD [Staff Physician] - - Critical Care Critical Care Time: No Attestation: On 12/11/20, the high probability of a clinically significant, sudden or life threatening deterioration of the following system(s) required my full and direct attention, intervention and personal management. The time I documented below is in addition to time spent performing reported procedures but includes the following listed in this critical care notation. Medical Decision Making - Medical Records Medical records reviewed: Yes: I reviewed the patient's medical records. - Cr Inquiry Pt receiving controlled substance: No Vital Signs: 12/11/20 01:33 12/11/20 03:33 12/11/20 03:40 Temperature 97.8 F Temperature Source Oral Pulse Rate 58 L 53 L Pulse Rate [Right] 62 Respiratory Rate 20 Blood Pressure 178/61 H 143/50 H Blood Pressure [Right Arm] 172/68 H Blood Pressure Mean 92 81 Blood Pressure Mean [Right Arm] 102 02 Sat by Pulse Oximetry 94 L 90 L 95 Oxygen Delivery Method Room Air Oxygen Flow Rate (LPM) 12/11/20 03:45 12/11/20 04:00 12/11/20 04:01 Temperature Temperature Source Pulse Rate Pulse Rate [Right] Respiratory Rate Blood Pressure 147/51 H Blood Pressure [Right Arm] Blood Pressure Mean 83 Blood Pressure Mean [Right Arm] 02 Sat by Pulse Oximetry 89 L 99 99 Oxygen Delivery Method Oxygen Flow Rate (LPM) 12/11/20 04:15 12/11/20 04:30 12/11/20 04:31 Temperature Temperature Source Pulse Rate 53 L Pulse Rate [Right] Respiratory Rate Blood Pressure 150/47 H Blood Pressure [Right Arm] Blood Pressure Mean 90 Blood Pressure Mean [Right Arm] 02 Sat by Pulse Oximetry 100 99 100 Oxygen Delivery Method Nasal Cannula Oxygen Flow Rate (LPM) 2 - Lab Data Lab results reviewed: Yes: I reviewed the patient's lab results. Lab Results 12/11/20 02:20: WBC 14.0 H, RBC 4.64, Hgb 15.1, Hct 47.0, MCV 101.2 H, MCH 32.5 H, MCHC 32.1, RDW 14.7, Plt Count 269, MPV 8.3, Neut % (Auto) 90.0 H, Lymph % (Auto) 6.2 L, Barton % (Auto) 3.3, Eos % (Auto) 0.2, Baso % (Auto) 0.4, Neut # (Auto) 12.6 H, Lymph # (Auto) 0.9, Barton # (Auto) 0.5, Eos # (Auto) 0.0, Baso # (Auto) 0.1, Total Counted 100, Neutrophils % (Manual) 96 H, Lymphocytes % (Manual) 3 L, Monocytes % (Manual) 1 L, Platelet Estimate Normal, RBC Morphology Not Reportable, Macrocytosis 1+, Stomatocytes 1+, ESR 16 12/11/20 02:20: Sodium 143, Potassium 4.4, Chloride 107, Carbon Dioxide 25, Anion Gap 15.4 H, BUN 21 H, Creatinine 1.10, Estimated Creat Clear 70, Estimated GFR 64, Est GFR ( Amer) 78, Glucose 157 H, Calcium 10.1, Total Bilirubin 0.9, AST 34, ALT 21, Alkaline Phosphatase 165 H, C-Reactive Protein 1.7, Total Protein 9.2 H D, Albumin 4.8, Globulin 4.4 H, Albumin/Globulin Ratio 1.1, Amylase 103, Procalcitonin 0.041 12/11/20 02:20: Lipase 154 12/11/20 02:21: Lactate 1.5 Result diagrams: 12/11/20 02:20 12/11/20 02:20 Orders (Tests/Meds): ED MEDICATIONS Generic Name Dose Route Start Last Admin Trade Name Freq PRN Reason Stop Dose Admin Sodium Chloride 1,000 mls @ 999 mls/hr 12/11/20 02:15 12/11/20 02:15 Sod Chlor 0.9% 1000ml Bag IV 12/11/20 03:15 999 mls/hr .Q1H1M DHAVAL Administration Sodium Chloride 1,000 mls @ 999 mls/hr 12/11/20 03:45 12/11/20 03:41 Sod Chlor 0.9% 1000ml Bag IV 12/11/20 04:45 999 mls/hr .Q1H1M DHAVAL Admini
--- NOTE | 2020-12-11 04:37 | PC.NURSE ---
paged dr deluca
--- NOTE | 2020-12-11 04:43 | PC.NURSE ---
on phone with dr deluca at this time
--- NOTE | 2020-12-11 04:47 | PC.NURSE ---
paged dr denton
--- NOTE | 2020-12-11 04:48 | PC.NURSE ---
jacqui on phone with dr Abad @ this time
== END 2020-12-11 05:28 | disposition home or self-care (01) ==
PROVIDERS: Emergency Provider Emergency Medicine; PCP Family Medicine
DX: K40.30 Unilateral inguinal hernia, with obstruction, without gangrene, not specified as recurrent (principal); I10 Essential (primary) hypertension; E78.5 Hyperlipidemia, unspecified; I25.10 Atherosclerotic heart disease of native coronary artery without angina pectoris; I25.2 Old myocardial infarction; I48.91 Unspecified atrial fibrillation; Z86.73 Personal history of transient ischemic attack (TIA), and cerebral infarction without residual deficits; Z20.822 Contact with and (suspected) exposure to COVID-19; F33.1 Major depressive disorder, recurrent, moderate; Z87.891 Personal history of nicotine dependence; Z79.899 Other long term (current) drug therapy
CPT/HCPCS: 74177; 80053; 82150; 83605; 83690; 84145; 85007; 85025; 85651; 86140; 87040; 96365; 96375; 99284; J2405; Q9967; U0003

== ENCOUNTER → 2021-01-14 10:33 | Outpatient (CLI) | payer MEDICARE, SELFPAY ==
[2021-01-14 11:04] LABS: Basophils # 0.1 K/mm3 (0-0.2); Basophils % 0.6 % (0.1-2.0); Eosinophils # 0.2 K/mm3 (0.0-0.4); Eosinophils % 2.2 % (0.1-12.0); Hematocrit 42.3 % (42.0-52.0); Hemoglobin 13.5 g/dL (14.1-18.0); Lymphocytes # 2.2 K/mm3 (0.7-4.5); Lymphocytes % 27.7 % (10-50); Mean Corpuscular HGB Conc 31.8 g/dL (31.8-35.4); Mean Corpuscular Hemoglobin 32.1 pg (27.0-31.2); Mean Corpuscular Volume 100.9 fl (80-94); Mean Platelet Volume 7.7 fl (7.4-10.4); Monocytes # 0.5 K/mm3 (0.1-1.0); Monocytes % 6.2 % (1.7-9.3); Neutrophils # 5.1 K/mm3 (1.8-7.8); Neutrophils % 63.3 % (37.0-80.0); Platelet Count 230 K/mm3 (142-424); Red Blood Count 4.19 M/mm3 (4.60-6.20); Red Cell Distribution Width 14.5 % (11.5-17.5); White Blood Count 8.1 K/mm3 (4.8-10.8)
[2021-01-14 11:45] LABS: Chloride 107 mmol/L (98-107); Potassium 4.4 mmoL/L (3.5-5.1); Sodium 141 mmol/L (136-145)
[2021-01-14 11:48] LABS: Anion Gap 12.4 mEq/L (5-15); Blood Urea Nitrogen 26 mg/dl (9-20); Carbon Dioxide 26 mmol/L (22.0-30.0); Estimated Glomerular Filt Rate 58 ml/min (>60); GFR (African American) 70 ML/MIN (>60)
[2021-01-14 11:51] LABS: Coronavirus 19 IgG Antibody Positive (Negative); Coronavirus 19 IgM Antibody Negative (Negative)
[2021-01-14 11:54] LABS: Glucose 100 mg/dl (74-100)
[2021-01-14 20:35] LABS: Calcium 9.5 mg/dl (8.4-10.2)
== END ==
PROVIDERS: Visit Provider Surgery
DX: K40.90 Unilateral inguinal hernia, without obstruction or gangrene, not specified as recurrent (principal); I95.9 Hypotension, unspecified; Z01.812 Encounter for preprocedural laboratory examination; Z20.822 Contact with and (suspected) exposure to COVID-19
CPT/HCPCS: 36415; 80048; 85025; 86328

== ENCOUNTER 2021-01-15 09:26 | Day surgery (SDC) | payer MEDICARE, SELFPAY ==
[2021-01-09 14:05] VITALS: BMI 25.7
[2021-01-15] VITALS (9 sets, daily range): BP systolic 142–155; BP diastolic 57–74; PULSE 57–74; RESP 16–18; TEMP 36.6–36.8; O2SAT 94–100
--- NOTE | 2021-01-15 11:03 | HMH.ANESCL ---
[facility] Anesthesia Checklist - Patient Identification Patient Identification: Arm Band - Structural Data Admitted From: Home Planned Operative Procedure/s: right open inguinal hernia repair Consent for Planned Operative Procedure(s) Verified: Yes Verified Documents: Surgical Consent, History and Physical - NPO Status Verified Time NPO: 00:00 - Additional verifications Anesthesia Reactions: No Hx Blood Transfusions: No Blood Transfusion Reaction: No - Airway Assessment C-Spine Mobility Assessed: Yes (mp2) TMJ Mobility Assessed: Yes Dentition: Good Dentition - Neurological Assessment Level of Consciousness: Awake, Alert - Anesthesia Plan Anesthesia Risk discussed: Yes Anesthesia Plan: Verified ASA Class: III Anesthesia Type: General [facility] History I have reviewed the patient's past medical history: Yes Medical History: Reports:: Aneurysm, Arrhythmia, Atherosclerotic Heart Disease, Atrial Fibrillation, BPH, Coronary Artery Disease, Cerebrovascular Accident, Depression, Home Oxygen, Hyperlipidemia, Hypertension, MRSA, Myocardial Infarction Denies:: Cancer, Diabetes Mellitus Type 1, Diabetes Mellitus Type 2, Gastrointestinal Bleed, Internal Pacemaker, Seizures *Have you ever received a pneumonia vaccine?: Yes *Have you received a flu vaccine this season?: Yes Other Medical History: Reports: Cataracts, Hypothyroidism, Thyroid Disease. Denies: Blood Transfusion Reaction Anesthesia experience/problems:: nac Laterality Cases: Left: Carotid Endarterectomy Other Surgeries: Yes: CABG, Colonoscopy, Hernia Repair, Other. No: Pacemaker Amputation: No Fractures: No - *Social History Last grade of school completed: High school graduate Smoking Status: Former smoker Tobacco Type: cigarettes # Packs/Day (cigarettes): 1 #Yrs smoked (if former smoker): 31 Alcohol Intake: never Substance Use Type: denies use *Occupational Status:: retired Housing: house Household Members: spouse *Travel in the last 8 weeks: None - Psychiatric History Pschychiatric History:: Reports:: Depression Family Hx:: Cancer, Heart Attack, Hyperlipidemia, Hypertension
--- NOTE | 2021-01-15 15:06 | HMH.OPNOTE ---
Date of procedure: 01/15/21 Pre-op Diagnosis:: Right inguinal hernia Post-op Diagnosis:: Same Procedure performed:: Open repair of right inguinal hernia with placement of large sized Bard prefix mesh plug with onlay mesh Surgeon:: Scotty Abad MD Assistant Professor Nurse Education(s):: Sugey Pabon CUSTOM HOME INSTALLER:: Other Anesthesia: GETA Estimated blood loss (mL): 30 Clinical Note:: Patient is an 80-year-old male referred by the emergency department for essentially right inguinal hernia. His primary care provider is Dr. Colton Ndiaye. Patient had undergone apparent open aortic surgery via midline laparotomy many years ago. He developed a ventral incisional hernia and underwent laparoscopic repair by Dr. Morales using 18 x 24 cm [place] DualMesh in January 2002. He developed a very early recurrence and underwent open repair of recurrent massive hernia on 06/20/[address] Morales. At some point he underwent repair for recurrence by Dr. Levi sims in [place]. On 10/13/2008 patient had undergone open left inguinal hernia repair along with open repair of yet again recurrent ventral hernia by Dr. Morales using 10 x 15 cm Composix LP mesh. For some time patient states that he has had problems with abdominal pains and nausea occurring after eating. He was seen in the emergency department on 12/11/2020 with lower abdominal pain, increased swelling in the right groin, nausea. He underwent CT scan which revealed the following findings: 1. Large right inguinal hernia containing loops small and large bowel with fluid and proximal small bowel dilatation with fecalized contents consistent with delayed transit. Partial obstruction is considered. Please correlate clinically for possible incarceration. 2. Ventral abdominal wall hernia in the subxiphoid region containing a loop of transverse colon. No evidence the this is causing obstruction. This hernias contain anteriorly above mesh. 3. Cholelithiasis. 4. Colonic diverticulosis without diverticulitis. 5. Cardiomegaly with interstitial edema in the lung bases. He was able to be managed as an outpatient and sent for surgical consultation. Based on the CT scan findings and his clinical presentation it was felt the right inguinal hernia possibly has been causing him chronic partial obstruction and symptomatology. I feel that it may be reasonable to consider repair. Patient wished to pursue repair on right inguinal hernia without any surgical intervention on the apparent recurrent incisional hernia. Patient was seen by his car seat maker and deemed an acceptable risk to proceed. I did explain to him that he does have yet another recurrent incisional hernia in the upper mid abdomen. It is possible, although unlikely, that this is causing him some symptomatology. If this required repair he would require likely referral to tertiary facility for complex repair using separation abdominal components and possibly removal of the previously placed mesh. At this time he wishes to pursue merely repair of the right inguinal hernia. Operative findings:: Patient had a large indirect hernia as well as a direct hernia. Tissues were very attenuate. He may have had some degree of a hydrocele. Operative note:: Patient was taken the operating room. Was placed in supine position. General anesthesia was induced. Godfrey catheter was placed. Lower abdomen and perineum were prepped and draped in the standard surgical fashion. Oblique incision was made in the right inguinal area superior to landmarks identifying the inguinal ligament. Dissection was carried down through subcutaneous tissues and Tangela's fascia using electrocautery. External oblique muscle was cleaned free. External oblique muscle was opened sharply along the length of its fibers. The ilioinguinal nerve was identified and preserved. The cord structures were dissected free from the floor of the inguinal canal and encircled with a Pranav drain. Dissection was car
--- NOTE | 2021-01-15 15:35 | ECG_ITS ---
APPROVED REPORT Exam: Resting ECG HR:61 bpm ECG Measurements Heart Rate 61 AXES OK 184 P 49 QRSd 154 QRS -40 QT 496 T 102 QTc 499 Conclusion Normal sinus rhythm Left axis deviation Left bundle branch block Abnormal ECG Electronically signed by : Neil Yoo, 01/16/2021 17:35:16
--- NOTE | 2021-01-17 07:39 | HMH.ANESII ---
[facility] Anesthesia Record Part II Discharge Time: 15:59 Destination: Surgical Day Care (OP Surgery) PACU nurse assessment reviewed?: Yes Patient Condition:: Good Anesthesia Complications:: None Swallowing reflex intact?: Yes Cyanosis?: No Blood Pressure: 142/66 Pulse Rate: 70 Temperature: 97.8 F Mental Status: Alert & Oriented Pain level:: 0 Nausea and/or vomitting:: None Intake, IV Amount: 1,500
[2021-01-17 07:40] VITALS: BP 142/66; PULSE 70; TEMP 36.6
--- NOTE | 2021-01-17 12:13 | P.PN_ITS ---
[facility] Anesthesia Record Part I Intake, IV Amount: 1,500 Estimated blood loss (mL): 2 Urine output (mL): 0 Blood Pressure: 149/82 SaO2: 98 Pulse Rate: 90 Respiratory Rate: 12 Temperature: 99.3 F Patient is:: Awake, Drowsy
[2021-01-17 12:15] VITALS: BP 149/82; PULSE 90; RESP 12; TEMP 37.4; O2SAT 98
== END 2021-01-15 16:33 | disposition home or self-care (01) ==
PROVIDERS: PCP Family Medicine; Visit Provider Surgery
DX: K40.90 Unilateral inguinal hernia, without obstruction or gangrene, not specified as recurrent (principal); K80.20 Calculus of gallbladder without cholecystitis without obstruction; K43.2 Incisional hernia without obstruction or gangrene; K57.30 Diverticulosis of large intestine without perforation or abscess without bleeding; I51.7 Cardiomegaly; J81.1 Chronic pulmonary edema; I25.10 Atherosclerotic heart disease of native coronary artery without angina pectoris; I48.91 Unspecified atrial fibrillation; I10 Essential (primary) hypertension; E78.5 Hyperlipidemia, unspecified; I25.2 Old myocardial infarction; Z86.73 Personal history of transient ischemic attack (TIA), and cerebral infarction without residual deficits
CPT/HCPCS: 49507; 88302; 93005; 96374; J2405

== ENCOUNTER 2021-10-17 09:40 | Inpatient (IN) | payer MEDICARE, SELFPAY ==
[2021-10-17] VITALS (23 sets, daily range): BP systolic 104–145; BP diastolic 69–96; PULSE 88–121; RESP 16–26; TEMP 36.5–36.8; O2SAT 88–99; BMI 26.2; BMI 25.2
--- NOTE | 2021-10-17 09:38 | ECG_ITS ---
APPROVED REPORT Exam: Resting ECG HR:118 bpm ECG Measurements Heart Rate 118 AXES QRSd 167 QRS 141 QT 370 T -48 QTc 440 Conclusion ATRIAL FLUTTER/TACHYCARDIA WITH RAPID VENTRICULAR RESPONSE RIGHT AXIS DEVIATION [QRS AXIS > 100] LEFT BUNDLE BRANCH BLOCK [120+ ms QRS DURATION, 80+ ms Q/S IN V1/V2, 85+ ms R IN I/aVL/V5/V6] ABNORMAL ECG UNCONFIRMED REPORT Electronically signed by : Neil Yoo MD 10/17/2021 21:14:07
--- NOTE | 2021-10-17 09:48 | HMH.EDGENADL ---
ED Disposition Clinical Impression: Pneumonia Qualifiers: Pneumonia type: due to unspecified organism Laterality: bilateral Lung location: unspecified part of lung Qualified Code(s): J18.9 - Pneumonia, unspecified organism Atrial flutter Qualifiers: Atrial flutter type: typical Qualified Code(s): I48.3 - Typical atrial flutter Respiratory failure with hypoxia Qualifiers: Chronicity: acute Qualified Code(s): J96.01 - Acute respiratory failure with hypoxia Disposition: Admitted As Inpatient Condition on Discharge: [facility] - Critical Care Critical Care Time: No Attestation: On 10/17/21, the high probability of a clinically significant, sudden or life threatening deterioration of the following system(s) required my full and direct attention, intervention and personal management. The time I documented below is in addition to time spent performing reported procedures but includes the following listed in this critical care notation. Medical Decision Making - Medical Records Medical records reviewed: Yes: I reviewed the patient's medical records. MR Comment: Reviewed office note from Dr. Abad from today. Reviewed most recent echocardiogram result, see below. - Cr Inquiry Pt receiving controlled substance: No Vital Signs: 10/17/21 09:40 10/17/21 10:00 10/17/21 10:30 Temperature 97.7 F Temperature Source Oral Pulse Rate 120 H 121 H Pulse Rate [Right Radial] 118 H Respiratory Rate 17 25 H 26 H Blood Pressure 135/89 122/84 Blood Pressure [Right Arm] 125/81 Blood Pressure Mean [Right Arm] 95 Blood Pressure Source [Right Arm] Automatic Cuff Blood Pressure Position [Right Arm] Sitting 02 Sat by Pulse Oximetry 88 L 96 95 Oxygen Delivery Method Room Air Nasal Cannula Oxygen Flow Rate (LPM) 2 10/17/21 11:00 10/17/21 11:30 10/17/21 12:00 Temperature Temperature Source Pulse Rate 120 H 120 H 118 H Pulse Rate [Right Radial] Respiratory Rate 26 H 24 26 H Blood Pressure 128/82 126/88 131/84 Blood Pressure [Right Arm] Blood Pressure Mean [Right Arm] Blood Pressure Source [Right Arm] Blood Pressure Position [Right Arm] 02 Sat by Pulse Oximetry 95 96 94 L Oxygen Delivery Method Nasal Cannula Nasal Cannula Oxygen Flow Rate (LPM) 2 2 10/17/21 12:30 10/17/21 13:11 10/17/21 13:15 Temperature Temperature Source Pulse Rate 116 H 111 H 111 H Pulse Rate [Right Radial] Respiratory Rate 21 22 20 Blood Pressure 124/84 108/77 L 104/69 L Blood Pressure [Right Arm] Blood Pressure Mean [Right Arm] Blood Pressure Source [Right Arm] Blood Pressure Position [Right Arm] 02 Sat by Pulse Oximetry 93 L 94 L 95 Oxygen Delivery Method Oxygen Flow Rate (LPM) 10/17/21 14:00 10/17/21 14:30 Temperature Temperature Source Pulse Rate 111 H 114 H Pulse Rate [Right Radial] Respiratory Rate 25 H 21 Blood Pressure 120/81 118/81 Blood Pressure [Right Arm] Blood Pressure Mean [Right Arm] Blood Pressure Source [Right Arm] Blood Pressure Position [Right Arm] 02 Sat by Pulse Oximetry 98 Oxygen Delivery Method Oxygen Flow Rate (LPM) - Lab Data Lab Results 10/17/21 09:30: WBC 8.2, RBC 4.35 L, Hgb 14.8, Hct 46.1, MCV 105.8 H, MCH 34.0 H, MCHC 32.1, RDW 14.2, Plt Count 294, MPV 8.6, Neut % (Auto) 68.8, Lymph % (Auto) 22.7, [place] % (Auto) 5.2, Eos % (Auto) 2.4, Baso % (Auto) 0.9, Neut # (Auto) 5.7, Lymph # (Auto) 1.9, [place] # (Auto) 0.4, Eos # (Auto) 0.2, Baso # (Auto) 0.1 10/17/21 09:30: Sodium 140, Potassium 4.8, Chloride 106, Carbon Dioxide 27, Anion Gap 11.8, BUN 22 H, Creatinine 1.50 H, Estimated Creat Clear 51, Estimated GFR 45 L, Est GFR ( Amer) 54 L, Glucose 110 H, Calcium 9.0, Troponin I 0.04 H, TSH 7.77 H 10/17/21 09:45: NT-Pro-B Natriuret Pep 5170 H 10/17/21 10:07: SARS-CoV-2 (PCR) Not detected, Influenza A Untype (PCR) Not detected, Influenza Type B (PCR) Not detected Result diagrams: 10/17/21 09:30 10/17/21 09:30 Orders (Yslvie
--- NOTE | 2021-10-17 09:51 | XR_ITS ---
FINAL REPORT CLINICAL HISTORY: tachycardia, sob COMPARISON: January 20, 2018 FINDINGS: SINGLE VIEW CHEST. There is cardiomegaly. There has been median sternotomy. The mediastinum is unremarkable. There is worsening bilateral pulmonary opacities some of which may represent scarring/fibrosis. Superimposed pneumonia is not excluded. There is no pneumothorax. IMPRESSION: Worsening bilateral pulmonary opacities, some may represent scarring/fibrosis. Superimposed pneumonia not excluded. Follow-up radiographs or CT may be helpful. Reviewed, Interpreted and Dictated by Scotty Chacon III, MD Transcribed by Coreen Churchill Authenticated by Scotty Chacon III, MD on 10/17/2021 10:32:00 AM [facility]
--- NOTE | 2021-10-17 09:58 | PC.NURSE ---
rad at bedside
[2021-10-17 10:01] LABS: Basophils # 0.1 K/mm3 (0-0.2); Basophils % 0.9 % (0.1-2.0); Eosinophils # 0.2 K/mm3 (0.0-0.4); Eosinophils % 2.4 % (0.1-12.0); Hematocrit 46.1 % (42.0-52.0); Hemoglobin 14.8 g/dL (14.1-18.0); Lymphocytes # 1.9 K/mm3 (0.7-4.5); Lymphocytes % 22.7 % (10-50); Mean Corpuscular HGB Conc 32.1 g/dL (31.8-35.4); Mean Corpuscular Volume 105.8 fl (80-94); Mean Platelet Volume 8.6 fl (7.4-10.4); Monocytes # 0.4 K/mm3 (0.1-1.0); Monocytes % 5.2 % (1.7-9.3); Neutrophils # 5.7 K/mm3 (1.8-7.8); Neutrophils % 68.8 % (37.0-80.0); Platelet Count 294 K/mm3 (142-424); Red Blood Count 4.35 M/mm3 (4.60-6.20); Red Cell Distribution Width 14.2 % (11.5-17.5); White Blood Count 8.2 K/mm3 (4.8-10.8)
[2021-10-17 10:02] LABS: Chloride 106 mmol/L (98-107); Sodium 140 mmol/L (136-145)
[2021-10-17 10:03] LABS: Potassium 4.8 mmoL/L (3.5-5.1)
[2021-10-17 10:05] LABS: Blood Urea Nitrogen 22 mg/dl (9-20); Creatinine Clearance Estimated 51 mL/min (50-200); Estimated Glomerular Filt Rate 45 ml/min (>60); GFR (African American) 54 ML/MIN (>60)
[2021-10-17 10:06] LABS: Anion Gap 11.8 mEq/L (5-15); Carbon Dioxide 27 mmol/L (22.0-30.0); Glucose 110 mg/dl (74-100)
[2021-10-17 10:12] LABS: Coronavirus 19, PCR Not Detected (NotDetected); Influenza A, PCR Not Detected (NotDetected); Influenza B, PCR Not Detected (NotDetected)
[2021-10-17 10:17] LABS: Troponin I 0.04 ng/ml (0.00-0.034)
[2021-10-17 10:36] LABS: Thyroid Stimulating Hormone 7.77 uIU/mL (0.465-4.68)
[2021-10-17 10:37] LABS: NT Pro Brain Natriuretic Pep. 5170 pg/mL (0-450)
--- NOTE | 2021-10-17 11:00 | PC.NURSE ---
calling dr freeman at this time
--- NOTE | 2021-10-17 11:21 | CA_ITS ---
APPROVED REPORT EXAM: Comprehensive 2D, Doppler, and color-flow Echocardiogram Pipe Fitter Apprentice: Jessy Sales RT(R) Ht: 6 ft 2 in Wt: 204lbs BSA: 2.19 BP: 125/86 mmHg Indications: AFIB RVR, CP, COPD, ex smoker, hx CABG, hx AAA repair, SOB, HTN, HLD, CM, LBBB, CVA 2D Dimensions LVOT 2.00 cm (M/F) 1.5-2.5 LVEF (Bond's) 28.00 % M: 52 - 72 LV Volume 168.90 mL M: 62 - 150 LV Volume Index 77.12 mL/m2 M: 34 - 74 LA Volume 113.80 mL LA Volume Index 51.96 mL/m2 (M/F) 16-34 M-Mode Dimensions RVDd 3.15 cm (0.9-2.6) LA Diam 5.41 cm (1.9-4.0) LVDd 5.69 cm (3.5-5.7) Ao Diam 2.93 cm (2.0-3.7) LVDs 4.82 cm (3.5-5.7) IVSd 1.18 cm (0.6-1.1) PWd 1.10 cm (0.6-1.1) EF (Teich) 31.90% FS 15.30% EDV (Teich) 159.40 mL ESV (Teich) 108.60 mL LV Diastology E Decel Time 152.00 (160-240 msec) E/A Ratio 6.3 MED E' 4.10 (< 7 cm/sec) E'/MED E' Ratio 73.88 (>14) LAT E' 12.60 (<10 cm/sec) E/LAT E' Ratio 24.04 (>14) Mitral Valve MV E Max Zach. 303.00 (40-130 cm/s) MV A Velocity 48.00 (40-130 cm/s) E/A Ratio 6.32 MV Decel. Time 152.00 (160-240 ms) MV PHT 44.00 ms Tricuspid Valve TR P. Velocity 274.00 cm/s RAP Estimate 15.00 mmHg RVSP 45.10 mmHg Left Ventricle Left atrium is moderately enlarged, left ventricle is mildly dilated, severe reduced left ventricular systolic function, left ventricular ejection fraction of 25% left ventricle is globally hypokinetic, Doppler evidence of reduced left ventricular end-diastolic pressure. Right Ventricle Right atrium and right ventricle moderately enlarged, contractility of right ventricle is mildly reduced. Aortic Valve Aortic valve is thickened and calcified with restriction to leaflet mobility, aortic outflow Doppler is not indicative of significant aortic stenosis or aortic insufficiency. Mitral Valve Mitral valve leaflets are minimally thickened, there is moderate mitral regurgitation. Tricuspid Valve Tricuspid valve grossly normal, there is mild tricuspid regurgitation, tricuspid regurgitation jet velocity is inadequate for calculation of the right ventricular systolic pressure. Pulmonic Valve Pulmonic valve is poorly visualized. Great Vessels Aortic root is normal size. Inferior vena cava is poorly visualized. Pericardium No significant pericardial effusion noted. Conclusion 1. Biatrial enlargement, dilated left ventricle, mild concentric left ventricular hypertrophy, visually estimated ejection fraction 25% left ventricle is globally hypokinetic, Doppler evidence of raised left ventricular end-diastolic pressure. 2. Moderately enlarged right ventricle with mild reduced contractility. 3. Moderate mitral and mild tricuspid regurgitation. 4. No significant pericardial effusion noted. 5. Inferior vena cava is poorly visualized. Electronically signed by : Kyle Mclain MD 10/18/2021 12:50:12
--- NOTE | 2021-10-17 11:24 | PC.NURSE ---
echo lab aware of orders
--- NOTE | 2021-10-17 11:28 | PC.NURSE ---
David Mccarty at bedside
--- NOTE | 2021-10-17 11:38 | PC.NURSE ---
echo lab at bedside
--- NOTE | 2021-10-17 11:50 | HMH.CNCARD ---
History of Present Illness Consult date: 10/17/21 Requesting physician: Sachin Ndiaye Consult reason: atrial fibrillation (A. fib/flutter with RVR) Chief complaint: Tachycardia, Hypoxemia Additional Medical History:: 1. CAD A. Prior [place], 1985 B. CABG, four-vessel, 1991, Dr. Heath Cline, [facility] C. Cardiac catheterization 09/23/2021, unable to stent lesions. Medical therapy recommended. 2. History of abdominal aortic aneurysm, status post surgery, 11/20/2000, [facility] 3. Chronic atrial fibrillation, on Eliquis therapy A. History of stroke with right side affected, 2017 4. Carotid artery stenosis, status post left carotid endarterectomy, 12/2017 5. COVID antibody (+) , 12/2020 6. Right inguinal hernia, 12/2020 A. Open repair of right inguinal hernia with placement of large sized Bard prefix mesh plug with onlay mesh, Dr. Scotty Abad 7. Ischemic cardiomyopathy A. Echocardiogram, 10/2020, EF 30-35% with left atrial enlargement, concentric LVH and grade 1 diastolic dysfunction. 8. Hypertension 9. Hyperlipidemia History of present illness: Sent from the office of Dr. Abad for elevated heart rate and low oxygen saturation. Heart rate was 120 and pulse ox 87% on room air in the office. States that he was seeing Dr. Abad for problems with hernia. He states that he feels weak and short of breath, but these symptoms have been present since last summer. He has had a bad cold for 2 weeks with a productive cough but no fever, as has his . He has rhinorrhea, but no sore throat. Occasional twinges of chest pain, none currently. His says that on Thursday 5 days ago his heart rate was running 120. She called his primary care provider and spoke with Dr. Walsh. She says he was advised to drink plenty of fluids. He has been drinking close to 1/2 gallon of water a day as instructed. However, he says his heart rate has not changed since then, has continued to be tachycardic. No known exposures to COVID-19. He has been vaccinated and boosted against COVID-19. Neither he nor his have been tested for COVID-19 during this illness. He does not feel any different today than he has been feeling. He says he has been evaluated by his airport driver, Dr. Vincent. He says that he had a stress test before followed by a heart cath after . Heart cath was performed by Dr. Thompson at [facility]. He says he had 2 blockages of 80% but angioplasty was unsuccessful. He was started on Ranexa, Plavix, and amlodipine. He is not supposed to get his amlodipine unless his blood pressure is over 140. His says his blood pressure is usually lower than that and therefore he has only had 1 dose of amlodipine. The above per Dr. Jones. Recent events as noted above. Cardiology consulted for tachycardia (possibly A. fib/flutter) and history of cardiomyopathy with recent LHC at [facility] last month with inability to stent 80% rock-like lesions. Medical therapy recommended. Preliminary echo shows left atrial enlargement with severely reduced EF of approximately 20-30%. EKG is A. flutter with rate of 118 bpm and LBBB. Echo, 10/2020, LVEF 30-35% Pt denies chest pains. He has noted a congested cough recently and some increase in exertional SOA. [facility] History Medical History: Reports:: Aneurysm, Arrhythmia, Atherosclerotic Heart Disease, Atrial Fibrillation, BPH, Coronary Artery Disease, Cerebrovascular Accident, Depression, Home Oxygen, Hyperlipidemia, Hypertension, MRSA, Myocardial Infarction Denies:: Cancer, Diabetes Mellitus Type 1, Diabetes Mellitus Type 2, Gastrointestinal Bleed, Internal Pacemaker, Seizures *Have you ever received a pneumonia vaccine?: Yes *Have you received a flu vaccine this season?: Yes Other Medical History: Reports: Cataracts, Hypothyroidism, Thyroid Disease. Denies: Blood Transfusion Reaction Laterality Cases: Left: Carotid Endarterectomy
[2021-10-17 13:31] LABS: Troponin I 0.03 ng/ml (0.00-0.034)
--- NOTE | 2021-10-17 13:39 | PC.NURSE ---
Called and ordered pt lunch tray. Pt sitting up on side of bed eating lunch. No other needs at this time
--- NOTE | 2021-10-17 14:59 | CT_ITS ---
FINAL REPORT CLINICAL HISTORY: seizure FINDINGS: Axial images of the head were obtained without contrast. Coronal reformatted images were also obtained. This study was performed with techniques to keep radiation doses as low as reasonably achievable (ALARA). Individualized dose reduction techniques using automated exposure control or adjustment of mA and/or kV according to the patient''s size were employed. There is generalized age-appropriate atrophy. Periventricular low-attenuation areas are seen consistent with mild chronic ischemic changes. There is no evidence of intracranial hemorrhage or mass. There is no evidence of acute infarct. There is no evidence of shift of the midline structures. No skull abnormality is seen on the bone window images. IMPRESSION: Atrophy and mild periventricular chronic ischemic changes. No acute intracranial abnormality identified. Reviewed, Interpreted and Dictated by Scotty Chacon III, MD Transcribed by Coreen Churchill Authenticated by Scotty Chacon III, MD on 10/17/2021 03:34:35 PM [facility]
--- NOTE | 2021-10-17 15:00 | PC.NURSE ---
This nurse started Amiodarone bolus on pt. Pt sitting on side of bed when nurse left room. Once nurse got back to nurse's station, pt's screamed for help. Nursing staff entered room to find pt slumped over onto bed, with arms tensing to his side. Medication was stopped and disconnected immediately as staff laid pt back onto bed. V/S remained unchanged and WNL. Pt quickly aroused and become A&O x3. David Mccarty was notified of incident. He come to ED and stayed at bedside with this nurse as we began bolus again after pt and Dr Shabazz agreed. Pt tolerated bolus at this time with no incident. David Mccarty satisfied with result. Continuous drip started.
--- NOTE | 2021-10-17 15:16 | PC.NURSE ---
pt returned from rad
--- NOTE | 2021-10-17 15:29 | PC.NURSE ---
David Mccarty at bedside
[2021-10-17 16:54] LABS: Troponin I 0.03 ng/ml (0.00-0.034)
--- NOTE | 2021-10-17 16:58 | HMH.HP ---
*Admission Date: 10/17/21 <Jenny Hardin - 10/17/21 17:11> *Chief complaint: cough, SOA, tachycardia <Jenny Hardin - 10/17/21 17:11> *History of present illness: Mr. Cody is an 81-year-old male who has felt poorly for the past 2 weeks. He states he has had a cough and congestion along with some shortness of breath. His states his heart rate has been around 115-120bpm for the past 2 weeks. She states she did call the on-call physician at [facility] and spoke with Dr. Walsh. The patient had apparently not been eating or drinking and she was told to push the fluids. He has been drinking close to half a gallon of water a day, however he has continued to feel poorly and his heart rate has been increased. He was being seen this morning by Dr. Abad for problems with a hernia and was found to have an elevated heart rate and low oxygen saturation. His heart rate was 120 and his pulse ox was 87% on room air. They called the office of [facility] and the patient was instructed to go to the emergency room for further evaluation and treatment. He was found in the ER to be in atrial flutter and to have bilateral pneumonia. He has complained of some chest pain on and off over the past few weeks. His COVID test was negative. His split leather department supervisor is Dr. Simon and he had a stress test before followed by heart cath after . He had 2 blockages but angioplasty was unsuccessful, therefore he was started on Ranexa, Plavix, and amlodipine. Cardiology was consulted at [facility]. According to David Mccarty, his EKG showed atrial flutter with a rate of 118 bpm and a left bundle branch block. His preliminary echo showed a severely reduced EF of approximately 20 to 30%. An echo from 11/18 showed an EF of 30 to 35%. He was started on amiodarone and within 10 seconds of starting the medication, his states he slumped over and was not responding. She said his hands katrin up and she called for the nurse. The patient's vitals were apparently all normal during this episode and he had no tonic-clonic signs. He did wake back up and seemed fine. David Mccarty was called and they ran amiodarone again for 10 minutes and patient did not have the same reaction. It is unclear what caused this episode. He will be admitted and started on antibiotics and an amiodarone drip. Cardiology feels if he does not convert with medication they will cardiovert him tomorrow. <Jenny Hardin 10/17/21 17:11> [facility] History Medical History: Reports:: Aneurysm, Arrhythmia, Atherosclerotic Heart Disease, Atrial Fibrillation, BPH, Coronary Artery Disease, Cerebrovascular Accident, Depression, Home Oxygen, Hyperlipidemia, Hypertension, MRSA, Myocardial Infarction Denies:: Cancer, Diabetes Mellitus Type 1, Diabetes Mellitus Type 2, Gastrointestinal Bleed, Internal Pacemaker, Seizures <Jenny Hardin 10/17/21 17:11> *Have you ever received a pneumonia vaccine?: Yes <Jenny Hardin 10/17/21 17:11> *Have you received a flu vaccine this season?: Yes <Jenny Hardin 10/17/21 17:11> Other Medical History: Reports: Cataracts, Hypothyroidism, Thyroid Disease. Denies: Blood Transfusion Reaction <Jenny Hardin 10/17/21 17:11> Laterality Cases: Left: Carotid Endarterectomy <Jaziel Hardin10/17/21 17:11> Other Surgeries: Yes: CABG, Colonoscopy, Hernia Repair, Other. No: Pacemaker <Jenny Hardin 10/17/21 17:11> Amputation: No <Jenny Hardin 10/17/21 17:11> Fractures: No <Jaziel Hardin10/17/21 17:11> - *Social History Smoking Status: Former smoker <Jenny Hardin 10/17/21 17:11> Tobacco Type: cigarettes <Jenny Hardin 10/17/21 17:11> # Packs/Day (cigarettes): 1 <Jenny Hardin 10/17/21 17:11> #Yrs smoked (if former smoker): 31 <Jenny Hardin 10/17/21 17:11> Alcohol Intake: never <Jenny Hardin 10/17/21 17:11> Substance Use Type: denies use <Jenny Hardin 10/17/21 17:11> *Occupational Status:: retired <Jenny Hardin
--- NOTE | 2021-10-17 17:28 | PC.NURSE ---
Pt arrived to the floor at this time
[2021-10-18] VITALS (30 sets, daily range): BP systolic 62–138; BP diastolic 33–91; PULSE 61–111; RESP 12–30; TEMP 36.4–36.9; O2SAT 90–98; BMI 25.2
[2021-10-18 07:06] LABS: Anion Gap 11.3 mEq/L (5-15); Blood Urea Nitrogen 21 mg/dl (9-20); Carbon Dioxide 26 mmol/L (22.0-30.0); Chloride 105 mmol/L (98-107); Creatinine Clearance Estimated 56 mL/min (50-200); Estimated Glomerular Filt Rate 53 ml/min (>60); GFR (African American) 64 ML/MIN (>60); Glucose 113 mg/dl (74-100); Potassium 4.3 mmoL/L (3.5-5.1); Sodium 138 mmol/L (136-145)
--- NOTE | 2021-10-18 07:31 | P.CONPHA_ITS ---
[facility] Pharmacy VTE Monitoring - Patient Demographics Admission date: 10/17/21 Report Date: 10/18/21 Time: 07:31 Allergies/Adverse Reactions: Patient Allergies No Known Allergies Allergy (Verified 10/17/21 09:05) Height: 1.88 m Weight: 89 kg Patient Problems: Current Active Problems CAD (coronary artery disease) (Chronic) Carotid arterial disease (Chronic) S/P carotid endarterectomy (Chronic) Pneumonia (Acute) Atrial flutter (Acute) Respiratory failure with hypoxia (Acute) Atrial flutter with rapid ventricular response (Acute) Ischemic cardiomyopathy (Acute) Acute on chronic systolic congestive heart failure, NYHA class 3 (Acute) HTN (hypertension) (Acute) HLD (hyperlipidemia) (Acute) - VTE Risk Labs: VTE Related Lab Results Hgb 14.8 g/dL (14.1-18.0) 10/17/21 09:30 Hct 46.1 % (42.0-52.0) 10/17/21 09:30 Plt Count 294 K/mm3 (142-424) 10/17/21 09:30 BUN 21 mg/dl (9-20) H 10/18/21 06:09 Creatinine 1.30 mg/dl (0.66-1.25) H 10/18/21 06:09 Estimated Creat Clear 56 mL/min (50-200) 10/18/21 06:09 VTE Score: 5 VTE Risk Level: Low Risk - Prophylaxis VTE Prophylaxis Ordered?: Yes Types of VTE Prophylaxis: Pharmacological Pharmacologic Type: Other (ELIQUIS)
--- NOTE | 2021-10-18 07:53 | HMH.PNCARD ---
Subjective Date: 10/18/21 Time: 07:53 Principal diagnosis: Pneumonia, A. flutter with RVR, CAD Interval history: 81-year-old white male in bedside chair no acute distress. No complaints overnight. He continues on amiodarone without further episode of passing out that was experienced in the ER. Telemetry still shows tachycardia at about 110 bpm. Plan to proceed with cardioversion later this morning. Exam Vital signs and Labs for Last 24 Hours: Temp Pulse Resp BP Pulse Ox 98.4 F 111 H 27 H 130/81 95 10/18/21 00:00 10/18/21 06:00 10/18/21 06:00 10/18/21 06:00 10/18/21 06:00 Laboratory Results - last 24 hr 10/17/21 09:30: WBC 8.2, RBC 4.35 L, Hgb 14.8, Hct 46.1, MCV 105.8 H, MCH 34.0 H, MCHC 32.1, RDW 14.2, Plt Count 294, MPV 8.6, Neut % (Auto) 68.8, Lymph % (Auto) 22.7, [place] % (Auto) 5.2, Eos % (Auto) 2.4, Baso % (Auto) 0.9, Neut # (Auto) 5.7, Lymph # (Auto) 1.9, [place] # (Auto) 0.4, Eos # (Auto) 0.2, Baso # (Auto) 0.1 10/17/21 09:30: Sodium 140, Potassium 4.8, Chloride 106, Carbon Dioxide 27, Anion Gap 11.8, BUN 22 H, Creatinine 1.50 H, Estimated Creat Clear 51, Estimated GFR 45 L, Est GFR ( Amer) 54 L, Glucose 110 H, Calcium 9.0, Troponin I 0.04 H, TSH 7.77 H 10/17/21 09:45: NT-Pro-B Natriuret Pep 5170 H 10/17/21 10:07: SARS-CoV-2 (PCR) Not detected, Influenza A Untype (PCR) Not detected, Influenza Type B (PCR) Not detected 10/17/21 13:00: Troponin I 0.03 10/17/21 16:20: Troponin I 0.03 10/18/21 06:09: Sodium 138, Potassium 4.3, Chloride 105, Carbon Dioxide 26, Anion Gap 11.3, BUN 21 H, Creatinine 1.30 H, Estimated Creat Clear 56, Estimated GFR 53 L, Est GFR ( Amer) 64, Glucose 113 H, Calcium 9.0 I & O for Last 24 hours: Intake & Output 10/15/21 10/16/21 10/17/21 10/18/21 11:59 11:59 11:59 11:59 Intake Total 120 / 120 Balance 120 / 120 Weight 204 lb 196 lb 3.382 oz - *Routine Respiratory Exam Present: crackles - *Routine Cardiovascular Exam Present: tachycardia Progress Note: A&P (1) Atrial flutter with rapid ventricular response Status: Acute (2) Ischemic cardiomyopathy Status: Acute (3) Acute on chronic systolic congestive heart failure, NYHA class 3 Status: Acute (4) Pneumonia Status: Acute (5) CAD (coronary artery disease) Status: Chronic (6) Carotid arterial disease Status: Chronic (7) S/P carotid endarterectomy Status: Chronic (8) HTN (hypertension) Status: Acute (9) HLD (hyperlipidemia) Status: Acute Assessment and Plan for All Diagnoses:: 1. Atrial flutter with rapid ventricular response, rate is improved with amiodarone therapy. Plan to proceed with cardioversion later this morning. Patient has been on long-term apixaban for history of atrial flutter. 2. Ischemic cardiomyopathy, patient tolerating metoprolol and Entresto at this time. Recent cardiac cath last month at [facility] in [place] with recommendation for medical therapy. Continue aspirin and Plavix at this time. Echocardiogram performed yesterday with results pending at this time. 3. Bilateral pneumonia/fibrosis on chest x-ray, antibiotics per primary care team. 4. Possible acute on chronic systolic congestive heart failure with elevated BNP. Clinically patient denies shortness of breath. 5. Hypertension, controlled 6. Hyperlipidemia, on statin therapy
--- NOTE | 2021-10-18 08:14 | HMH.ACPN2 ---
<Jenny Hardin - Last Filed: 10/18/21 08:14> Internal Medicine - PN: Subj *Date: 10/18/21 *Time: 08:14 Interval history: Patient is feeling better this morning. His cough and shortness of breath has improved. He has been able to sit up in a chair. He did not rest well last night. He remains in atrial flutter.. Exam Vital signs and Labs for Last 24 Hours: Temp Pulse Resp BP Pulse Ox 98.4 F 111 H 27 H 130/81 95 10/18/21 00:00 10/18/21 06:00 10/18/21 06:00 10/18/21 06:00 10/18/21 06:00 Laboratory Results - last 24 hr 10/17/21 09:30: WBC 8.2, RBC 4.35 L, Hgb 14.8, Hct 46.1, MCV 105.8 H, MCH 34.0 H, MCHC 32.1, RDW 14.2, Plt Count 294, MPV 8.6, Neut % (Auto) 68.8, Lymph % (Auto) 22.7, [place] % (Auto) 5.2, Eos % (Auto) 2.4, Baso % (Auto) 0.9, Neut # (Auto) 5.7, Lymph # (Auto) 1.9, [place] # (Auto) 0.4, Eos # (Auto) 0.2, Baso # (Auto) 0.1 10/17/21 09:30: Sodium 140, Potassium 4.8, Chloride 106, Carbon Dioxide 27, Anion Gap 11.8, BUN 22 H, Creatinine 1.50 H, Estimated Creat Clear 51, Estimated GFR 45 L, Est GFR ( Amer) 54 L, Glucose 110 H, Calcium 9.0, Troponin I 0.04 H, TSH 7.77 H 10/17/21 09:45: NT-Pro-B Natriuret Pep 5170 H 10/17/21 10:07: SARS-CoV-2 (PCR) Not detected, Influenza A Untype (PCR) Not detected, Influenza Type B (PCR) Not detected 10/17/21 13:00: Troponin I 0.03 10/17/21 16:20: Troponin I 0.03 10/18/21 06:09: Sodium 138, Potassium 4.3, Chloride 105, Carbon Dioxide 26, Anion Gap 11.3, BUN 21 H, Creatinine 1.30 H, Estimated Creat Clear 56, Estimated GFR 53 L, Est GFR ( Amer) 64, Glucose 113 H, Calcium 9.0 I & O for Last 24 hours: Intake & Output 10/15/21 10/16/21 10/17/21 10/18/21 11:59 11:59 11:59 11:59 Intake Total 120 / 120 Balance 120 / 120 Weight 204 lb 196 lb 3.382 oz - Constitutional no acute distress - *Routine Respiratory Exam Present: decreased breath sounds, wheezes (less) - *Routine Cardiovascular Exam Present: irregularly irregular - *Routine Abdominal Exam Present: soft, normoactive bowel sounds. Absent: tenderness - *Routine Extremities Exam Absent: cyanosis, clubbing, edema - *Routine Skin Exam Present: warm. Absent: rash - *Routine Neurological Exam Present: alert, oriented X3 Assessment and Plan (1) Atrial flutter with rapid ventricular response Status: Acute Category: Medical Code(s): I48.92 - Unspecified atrial flutter (2) Ischemic cardiomyopathy Status: Acute Category: Medical Code(s): I25.5 - Ischemic cardiomyopathy (3) Acute on chronic systolic congestive heart failure, NYHA class 3 Status: Acute Category: Medical Code(s): I50.23 - Acute on chronic systolic (congestive) heart failure (4) Pneumonia Status: Acute Qualifiers: Pneumonia type: due to unspecified organism Laterality: bilateral Lung location: unspecified part of lung Qualified Code(s): J18.9 - Pneumonia, unspecified organism Category: Medical Code(s): J18.9 - Pneumonia, unspecified organism (5) CAD (coronary artery disease) Status: Chronic Category: Medical Code(s): I25.10 - Atherosclerotic heart disease of [place] coronary artery without angina pectoris (6) Carotid arterial disease Status: Chronic Category: Medical Code(s): I77.9 - Disorder of arteries and arterioles, unspecified (7) S/P carotid endarterectomy Status: Chronic Category: Surgical Code(s): Z98.890 - Other specified postprocedural states (8) HTN (hypertension) Status: Acute Category: Medical Code(s): I10 - Essential (primary) hypertension (9) HLD (hyperlipidemia) Status: Acute Category: Medical Code(s): E78.5 - Hyperlipidemia, unspecified - Assessment and plan all Dx Assessment and Plan for all problems:: We will continue with current treatment and cardiology plans to take the patient for cardioversion this morning. <Sachin Ndiaye - Last Filed: 10/18/21 08:36> Internal Medicine - PN: Subj *Date: 10/18/21 *[place]
--- NOTE | 2021-10-18 08:16 | ECG_ITS ---
APPROVED REPORT Exam: Resting ECG HR:110 bpm ECG Measurements Heart Rate 110 AXES QRSd 168 QRS 133 QT 391 T -48 QTc 456 Conclusion ATRIAL FIBRILLATION WITH RAPID VENTRICULAR RESPONSE RIGHT AXIS DEVIATION [QRS AXIS > 100] INTRAVENTRICULAR CONDUCTION DELAY [130+ ms QRS DURATION] ABNORMAL ECG UNCONFIRMED REPORT Electronically signed by : Neil Yoo MD 10/18/2021 16:46:52
--- NOTE | 2021-10-18 08:45 | HMH.ANESCL ---
[facility] Anesthesia Checklist - Patient Identification Patient Identification: Arm Band, Verbal (Name & ) - Structural Data Admitted From: Inpatient Planned Operative Procedure/s: NICOL/Cardioversion Consent for Planned Operative Procedure(s) Verified: Yes Verified Documents: Surgical Consent - NPO Status Verified Time NPO: 00:00 - Additional verifications Anesthesia Reactions: No Hx Blood Transfusions: No Blood Transfusion Reaction: No - Airway Assessment C-Spine Mobility Assessed: Yes TMJ Mobility Assessed: Yes - Neurological Assessment Level of Consciousness: Awake, Alert, Appropriate - Anesthesia Plan Anesthesia Risk discussed: Yes ASA Class: III Anesthesia Type: MAC [facility] History Medical History: Reports:: Aneurysm, Arrhythmia, Atherosclerotic Heart Disease, Atrial Fibrillation, BPH, Cardiomyopathy, Congestive Heart Failure, Coronary Artery Disease, Cerebrovascular Accident, Depression, Home Oxygen, Hyperlipidemia, Hypertension, Myocardial Infarction Denies:: Cancer, Diabetes Mellitus Type 1, Diabetes Mellitus Type 2, Gastrointestinal Bleed, Internal Pacemaker, MRSA, Seizures *Have you ever received a pneumonia vaccine?: No *Have you received a flu vaccine this season?: No Other Medical History: Reports: Cataracts, Hypothyroidism, Thyroid Disease. Denies: Blood Transfusion Reaction Anesthesia experience/problems:: none Laterality Cases: Left: Carotid Endarterectomy Other Surgeries: Yes: CABG, Colonoscopy, Hernia Repair, Other. No: Pacemaker Amputation: No Fractures: No - *Social History Smoking Status: Former smoker Tobacco Type: cigarettes # Packs/Day (cigarettes): 1 #Yrs smoked (if former smoker): 31 Alcohol Intake: never Substance Use Type: denies use *Occupational Status:: retired Housing: house Household Members: spouse *Travel in the last 8 weeks: None - Psychiatric History Pschychiatric History:: Reports:: Depression Family Hx:: Cancer, Heart Attack, Hyperlipidemia, Hypertension
--- NOTE | 2021-10-18 09:20 | PC.NURSE ---
back from label paster
--- NOTE | 2021-10-18 10:19 | HMH.CARDIO ---
[facility] Cardioversion Date: 10/18/21 Provider:: CLARK Armendariz Procedure Performed:: Synchronized electrical cardioversion Diagnosis:: Atrial flutter with rapid ventricular response Procedure Summary:: After informed consent was obtained, patient was transported to the cardiac [facility] where anesthesia provided sedation. Patient was then given a single 200 J synchronized shock which converted him from A. Flutter to normal sinus rhythm. Patient tolerated the procedure well. No complications noted. Complications:: None Conculsion:: Successful electrical cardioversion from atrial flutter to normal sinus rhythm.
--- NOTE | 2021-10-18 10:51 | HMH.PHAINT ---
MEDICATION RECONCILIATION COMPLETED ON PATIENT USING EXTERNAL FILL HISTORY FROM PHARMACY. -ALPHONSE SHINE, SOLOD
--- NOTE | 2021-10-18 14:58 | PC.NURSE ---
BP 80s/40s. Contacted Dr. Ndiaye, who requested that cardiology manage this issue. Called David Mccarty, who ordered a 250mL NS bolus, to HOLD Entresto tonight if SBP<100 and to HOLD Metoprolol tomorrow morning if HR<100.
--- NOTE | 2021-10-18 15:22 | PC.NURSE ---
per David Mccarty, pt is to receive Amiodarone 400mg po @ 1530 as scheduled.
--- NOTE | 2021-10-18 16:06 | PC.NURSE ---
SBP 80s. Start Jean Claude gtt and keep SBP>100 per David RODAS.
--- NOTE | 2021-10-18 16:25 | PC.NURSE ---
Jean Claude gtt started @ 30mcg/min
--- NOTE | 2021-10-18 16:45 | PC.NURSE ---
pt instructed to cough to induce sputum. Given sodium chloride to help induce sputum. left cup at cup bedside.
[2021-10-19] VITALS (14 sets, daily range): BP systolic 86–151; BP diastolic 52–85; PULSE 56–71; RESP 16–22; TEMP 36.4–36.9; O2SAT 91–99; BMI 25.2
--- NOTE | 2021-10-19 05:14 | PC.NURSE ---
Pt remains on Jean Claude gtt. Currently infusing @ 50 mcg/min. VSS at this time. Pt is on 2.5 L O2 NC. O2 sats 93%. Pt has denied any soa or syncope. Has ambulated to BR x1 this shift. Had small BM. No other concerns at this time. Will continue to monitor.
--- NOTE | 2021-10-19 09:53 | HMH.ACPN2 ---
Internal Medicine - PN: Subj *Date: 10/19/21 *Time: 09:53 Interval history: He was successfully cardioverted yesterday and remains in sinus rhythm on amiodarone which has been switched to oral dosing. He did become hypotensive last night and was started on Jean Claude-Synephrine drip per cardiology blood pressure has been stable. He feels better this morning. Denies shortness of breath or cough. He ate a good breakfast. O2 sats are stable on the gym but decrease into the 80s on room air. Exam Vital signs and Labs for Last 24 Hours: Temp Pulse Resp BP Pulse Ox 98.5 F 64 18 126/60 98 10/19/21 04:00 10/19/21 08:00 10/19/21 08:00 10/19/21 08:00 10/19/21 08:00 I & O for Last 24 hours: Intake & Output 10/16/21 10/17/21 10/18/21 10/19/21 11:59 11:59 11:59 11:59 Intake Total 120 / 120 2737 / 2737 Output Total 100 / 100 Balance 120 / 120 2637 / 2637 Weight 204 lb 196 lb 3.382 oz 196 lb 4 oz Microbiology Reports for the Last 24 Hours: Microbiology 10/18/21 17:20 Sputum - Expectorated Sputum Gram Stain - Final Narrative: He is sitting up in the chair and is alert and oriented. Color is improved. No respiratory distress. Chest with occasional rhonchi. No wheezes. Heart is regular. Abdomen soft and nondistended with no tenderness. Extremities no edema. Assessment and Plan (1) Atrial flutter with rapid ventricular response Status: Acute Category: Medical Code(s): I48.92 - Unspecified atrial flutter (2) Ischemic cardiomyopathy Status: Acute Category: Medical Code(s): I25.5 - Ischemic cardiomyopathy (3) Acute on chronic systolic congestive heart failure, NYHA class 3 Status: Acute Category: Medical Code(s): I50.23 - Acute on chronic systolic (congestive) heart failure (4) Pneumonia Status: Acute Qualifiers: Pneumonia type: due to unspecified organism Laterality: bilateral Lung location: unspecified part of lung Qualified Code(s): J18.9 - Pneumonia, unspecified organism Category: Medical Code(s): J18.9 - Pneumonia, unspecified organism (5) CAD (coronary artery disease) Status: Chronic Category: Medical Code(s): I25.10 - Atherosclerotic heart disease of [place] coronary artery without angina pectoris (6) Carotid arterial disease Status: Chronic Category: Medical Code(s): I77.9 - Disorder of arteries and arterioles, unspecified (7) S/P carotid endarterectomy Status: Chronic Category: Surgical Code(s): Z98.890 - Other specified postprocedural states (8) HTN (hypertension) Status: Acute Category: Medical Code(s): I10 - Essential (primary) hypertension (9) HLD (hyperlipidemia) Status: Acute Category: Medical Code(s): E78.5 - Hyperlipidemia, unspecified - Assessment and plan all Dx Assessment and Plan for all problems:: Jean Claude-Synephrine drip is being weaned. Entresto and metoprolol are being held pending further cardiology recommendations. Continue IV antibiotics treatments for pneumonia pending cultures. Monitor labs.
--- NOTE | 2021-10-19 19:30 | PC.NURSE ---
1000- bradley drip titrated to off at this time
[2021-10-20] VITALS (10 sets, daily range): BP systolic 90–120; BP diastolic 57–75; PULSE 57–107; RESP 16–22; TEMP 36.3–37.1; O2SAT 90–100; BMI 26.2
--- NOTE | 2021-10-20 08:08 | PC.NURSE ---
pt has rested well this shift, tele has shown BBB, HR has remained 57-73, systolic BP 102-139
[2021-10-20 08:58] LABS: Basophils # 0.1 K/mm3 (0-0.2); Basophils % 0.5 % (0.1-2.0); Eosinophils # 0.2 K/mm3 (0.0-0.4); Eosinophils % 1.9 % (0.1-12.0); Hematocrit 41.5 % (42.0-52.0); Hemoglobin 13.1 g/dL (14.1-18.0); Lymphocytes # 1.5 K/mm3 (0.7-4.5); Lymphocytes % 14.9 % (10-50); Mean Corpuscular HGB Conc 31.6 g/dL (31.8-35.4); Mean Corpuscular Hemoglobin 33.6 pg (27.0-31.2); Mean Corpuscular Volume 106.1 fl (80-94); Mean Platelet Volume 8.9 fl (7.4-10.4); Monocytes # 0.6 K/mm3 (0.1-1.0); Monocytes % 6.1 % (1.7-9.3); Neutrophils # 7.4 K/mm3 (1.8-7.8); Neutrophils % 76.5 % (37.0-80.0); Platelet Count 235 K/mm3 (142-424); Red Blood Count 3.91 M/mm3 (4.60-6.20); Red Cell Distribution Width 14.4 % (11.5-17.5); White Blood Count 9.7 K/mm3 (4.8-10.8)
[2021-10-20 09:09] LABS: Chloride 110 mmol/L (98-107); Potassium 4.4 mmoL/L (3.5-5.1); Sodium 139 mmol/L (136-145)
[2021-10-20 09:11] LABS: Blood Urea Nitrogen 27 mg/dl (9-20); Creatinine Clearance Estimated 58 mL/min (50-200); Estimated Glomerular Filt Rate 53 ml/min (>60); GFR (African American) 64 ML/MIN (>60)
[2021-10-20 09:12] LABS: Anion Gap 10.4 mEq/L (5-15); Calcium 8.4 mg/dl (8.4-10.2); Carbon Dioxide 23 mmol/L (22.0-30.0); Glucose 101 mg/dl (74-100); Magnesium 1.9 mg/dl (1.6-2.3)
--- NOTE | 2021-10-20 09:18 | HMH.ACPN2 ---
Internal Medicine - PN: Subj *Date: 10/20/21 *Time: 09:18 Interval history: States he rested really well last night and feels better this morning. Denies chest pain or shortness of breath. O2 sats are ranging in the upper 80s to low 90s with supplemental oxygen. Only minimal cough. He has been off Jean Claude-Synephrine for 24 hours blood pressure is stable. He is tolerating his diet. Exam Vital signs and Labs for Last 24 Hours: Temp Pulse Resp BP Pulse Ox 97.6 F 60 20 115/64 95 10/20/21 04:00 10/20/21 06:00 10/20/21 06:00 10/20/21 06:00 10/20/21 06:00 Laboratory Results - last 24 hr 10/20/21 08:30: WBC 9.7, RBC 3.91 L, Hgb 13.1 L, Hct 41.5 L, MCV 106.1 H, MCH 33.6 H, MCHC 31.6 L, RDW 14.4, Plt Count 235, MPV 8.9, Neut % (Auto) 76.5, Lymph % (Auto) 14.9, [place] % (Auto) 6.1, Eos % (Auto) 1.9, Baso % (Auto) 0.5, Neut # (Auto) 7.4, Lymph # (Auto) 1.5, [place] # (Auto) 0.6, Eos # (Auto) 0.2, Baso # (Auto) 0.1 10/20/21 08:30: Sodium 139, Potassium 4.4, Chloride 110 H, Carbon Dioxide 23, Anion Gap 10.4, BUN 27 H D, Creatinine 1.30 H, Estimated Creat Clear 58, Estimated GFR 53 L, Est GFR ( Amer) 64, Glucose 101 H, Calcium 8.4, Magnesium 1.9 I & O for Last 24 hours: Intake & Output 10/17/21 10/18/21 10/19/21 10/20/21 11:59 11:59 11:59 11:59 Intake Total 120 / 120 2737 / 2737 1163 / 1163 Output Total 100 / 100 Balance 120 / 120 2637 / 2637 1163 / 1163 Weight 204 lb 196 lb 3.382 oz 196 lb 4 oz 203 lb 14.841 oz Microbiology Reports for the Last 24 Hours: Microbiology 10/18/21 17:20 Sputum - Expectorated Sputum Gram Stain - Final 10/18/21 17:20 Sputum - Expectorated Sputum Sputum Culture - Preliminary Narrative: He is sitting up in the chair. He is alert and oriented. No respiratory distress. Lungs are clear to auscultation. Heart is regular. Abdomen soft and nondistended with no tenderness. Extremities no edema. Assessment and Plan (1) Atrial flutter with rapid ventricular response Status: Acute Category: Medical Code(s): I48.92 - Unspecified atrial flutter (2) Ischemic cardiomyopathy Status: Acute Category: Medical Code(s): I25.5 - Ischemic cardiomyopathy (3) Acute on chronic systolic congestive heart failure, NYHA class 3 Status: Acute Category: Medical Code(s): I50.23 - Acute on chronic systolic (congestive) heart failure (4) Pneumonia Status: Acute Qualifiers: Pneumonia type: due to unspecified organism Laterality: bilateral Lung location: unspecified part of lung Qualified Code(s): J18.9 - Pneumonia, unspecified organism Category: Medical Code(s): J18.9 - Pneumonia, unspecified organism (5) CAD (coronary artery disease) Status: Chronic Category: Medical Code(s): I25.10 - Atherosclerotic heart disease of [place] coronary artery without angina pectoris (6) Carotid arterial disease Status: Chronic Category: Medical Code(s): I77.9 - Disorder of arteries and arterioles, unspecified (7) S/P carotid endarterectomy Status: Chronic Category: Surgical Code(s): Z98.890 - Other specified postprocedural states (8) HTN (hypertension) Status: Acute Category: Medical Code(s): I10 - Essential (primary) hypertension (9) HLD (hyperlipidemia) Status: Acute Category: Medical Code(s): E78.5 - Hyperlipidemia, unspecified - Assessment and plan all Dx Assessment and Plan for all problems:: Continue current treatment. Morning labs are pending. Sputum culture is pending. We will discontinue IV fluids as he is eating well. Continue supplemental oxygen. Consider CT scan if he remains hypoxic
--- NOTE | 2021-10-20 15:34 | P.PN_ITS ---
Internal Medicine - PN: Subj *Date: 10/20/21 *Time: 15:34 Exam Vital signs and Labs for Last 24 Hours: Temp Pulse Resp BP Pulse Ox 97.6 F 60 20 115/64 90 L 10/20/21 04:00 10/20/21 12:00 10/20/21 06:00 10/20/21 06:00 10/20/21 08:00 Laboratory Results - last 24 hr 10/20/21 08:30: WBC 9.7, RBC 3.91 L, Hgb 13.1 L, Hct 41.5 L, MCV 106.1 H, MCH 33.6 H, MCHC 31.6 L, RDW 14.4, Plt Count 235, MPV 8.9, Neut % (Auto) 76.5, Lymph % (Auto) 14.9, [place] % (Auto) 6.1, Eos % (Auto) 1.9, Baso % (Auto) 0.5, Neut # (Auto) 7.4, Lymph # (Auto) 1.5, [place] # (Auto) 0.6, Eos # (Auto) 0.2, Baso # (Auto) 0.1 10/20/21 08:30: Sodium 139, Potassium 4.4, Chloride 110 H, Carbon Dioxide 23, Anion Gap 10.4, BUN 27 H D, Creatinine 1.30 H, Estimated Creat Clear 58, Estimated GFR 53 L, Est GFR ( Amer) 64, Glucose 101 H, Calcium 8.4, Magnesium 1.9 I & O for Last 24 hours: Intake & Output 10/17/21 10/18/21 10/19/21 10/20/21 23:59 23:59 23:59 23:59 Intake Total 120 / 120 2352 / 2497 1488 / 1548 60 / 60 Output Total 100 / 100 Balance 120 / 120 2252 / 2397 1488 / 1548 60 / 60 Weight 89 kg 89 kg 89.018 kg 92.5 kg Microbiology Reports for the Last 24 Hours: Microbiology 10/18/21 17:20 Sputum - Expectorated Sputum Gram Stain - Final 10/18/21 17:20 Sputum - Expectorated Sputum Sputum Culture - Preliminary Assessment and Plan (1) Atrial flutter with rapid ventricular response Status: Acute Category: Medical Code(s): I48.92 - Unspecified atrial flutter (2) Ischemic cardiomyopathy Status: Acute Category: Medical Code(s): I25.5 - Ischemic cardiomyopathy (3) Acute on chronic systolic congestive heart failure, NYHA class 3 Status: Acute Category: Medical Code(s): I50.23 - Acute on chronic systolic (congestive) heart failure (4) Pneumonia Status: Acute Qualifiers: Pneumonia type: due to unspecified organism Laterality: bilateral Lung location: unspecified part of lung Qualified Code(s): J18.9 - Pneumonia, unspecified organism Category: Medical Code(s): J18.9 - Pneumonia, unspecified organism (5) CAD (coronary artery disease) Status: Chronic Category: Medical Code(s): I25.10 - Atherosclerotic heart disease of [place] coronary artery without angina pectoris (6) Carotid arterial disease Status: Chronic Category: Medical Code(s): I77.9 - Disorder of arteries and arterioles, unspecified (7) S/P carotid endarterectomy Status: Chronic Category: Surgical Code(s): Z98.890 - Other specified postprocedural states (8) HTN (hypertension) Status: Acute Category: Medical Code(s): I10 - Essential (primary) hypertension (9) HLD (hyperlipidemia) Status: Acute Category: Medical Code(s): E78.5 - Hyperlipidemia, unspecified The patient's infection will respond to the chosen ABx?: Yes Is the patient receiving the right drug, dose, and route?: Yes Could a more targeted ABx be ordered?: No
--- NOTE | 2021-10-20 17:24 | ECG_ITS ---
APPROVED REPORT Exam: Resting ECG HR:105 bpm ECG Measurements Heart Rate 105 AXES QRSd 170 QRS 91 QT 414 T -58 QTc 475 Conclusion ATRIAL FIBRILLATION WITH RAPID VENTRICULAR RESPONSE BORDERLINE RIGHT AXIS DEVIATION [QRS AXIS > 90] INTRAVENTRICULAR CONDUCTION DELAY [130+ ms QRS DURATION] ABNORMAL ECG UNCONFIRMED REPORT Electronically signed by : Neil Yoo MD 10/21/2021 18:35:31
--- NOTE | 2021-10-20 17:36 | PC.NURSE ---
EKG ordered d/t possible rhythm change EKG read afib w/ RVR 1733- MD Shabazz contacted. Amio gtt ordered, pt back into stepdown
--- NOTE | 2021-10-20 18:05 | PC.NURSE ---
Amio bolus started at this time
--- NOTE | 2021-10-20 18:46 | PC.NURSE ---
Pt has required 2-4LNC this shift. Pt got up to go to the bathroom and dropped to 64% on RA but quickly rebounded to 90% in less than a minute with 4LNC. Pt did go back into afib RVR (SEE PREVIOUS NOTE FOR DETAILS). No other acute changes or complaints, will continue to monitor.
[2021-10-21] VITALS (18 sets, daily range): BP systolic 90–136; BP diastolic 46–90; PULSE 63–134; RESP 18–20; TEMP 36.3–37.1; O2SAT 91–100; BMI 22.9
--- NOTE | 2021-10-21 06:52 | PC.NURSE ---
Amiodarone drip was titrated to 0.5mg/min @ 00:20. Pt has tolerated well. Pt rested well this shift. Pt remains on 3L NC with O2 sats >90%. Pt has had no c/o of pain. Pt has been ambulating to bathroom independently with no issues. Pt's rhythm remains in A-fib at this time.
--- NOTE | 2021-10-21 08:23 | CT_ITS ---
FINAL REPORT TECHNIQUE: Axial images through the chest were performed by computed tomography before and after the administration of IV contrast. This study was performed with techniques to keep radiation doses as low as reasonably achievable, (ALARA). Individualized dose reduction techniques using automated exposure control or adjustment of mA and/or kV according to the patient's size were employed. CLINICAL HISTORY: pneumonia, fibrosis FINDINGS: There is no axillary adenopathy. The mediastinal vasculature is adequately opacified. No pulmonary artery filling defects are seen. There is no hilar or mediastinal adenopathy. The heart size is normal. There is no pericardial effusion. There are small to moderate bilateral pleural effusions. Limited images of the upper abdomen demonstrates gallstones in the dependent portion of the gallbladder. There are patchy ground-glass opacities throughout both lungs. No suspicious infiltrate or nodule identified. IMPRESSION: No pulmonary embolism. Bilateral pleural effusions. Bilateral patchy airspace infiltrates. 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 Reviewed, Interpreted and Dictated by Radhames Gong MD Transcribed by Coreen Churchill Authenticated by Radhames Gong MD on 10/22/2021 06:56:[address] [facility]
--- NOTE | 2021-10-21 08:26 | HMH.ACPN2 ---
<Margo Manzanares - Last Filed: 10/21/21 08:26> Internal Medicine - PN: Subj *Date: 10/21/21 *Time: 08:26 Interval history: Patient again developed atrial fib flutter and was restarted on amiodarone drip. Also requiring O2 to maintain sats greater than 90. Patient denies chest pain and shortness of breath. He is hungry for breakfast. He states he did sleep during the night. Exam Vital signs and Labs for Last 24 Hours: Temp Pulse Resp BP Pulse Ox 98.7 F 100 H 18 116/66 100 10/21/21 06:00 10/21/21 06:00 10/21/21 06:00 10/21/21 06:00 10/21/21 06:00 Laboratory Results - last 24 hr 10/20/21 08:30: WBC 9.7, RBC 3.91 L, Hgb 13.1 L, Hct 41.5 L, MCV 106.1 H, MCH 33.6 H, MCHC 31.6 L, RDW 14.4, Plt Count 235, MPV 8.9, Neut % (Auto) 76.5, Lymph % (Auto) 14.9, [place] % (Auto) 6.1, Eos % (Auto) 1.9, Baso % (Auto) 0.5, Neut # (Auto) 7.4, Lymph # (Auto) 1.5, [place] # (Auto) 0.6, Eos # (Auto) 0.2, Baso # (Auto) 0.1 10/20/21 08:30: Sodium 139, Potassium 4.4, Chloride 110 H, Carbon Dioxide 23, Anion Gap 10.4, BUN 27 H D, Creatinine 1.30 H, Estimated Creat Clear 58, Estimated GFR 53 L, Est GFR ( Amer) 64, Glucose 101 H, Calcium 8.4, Magnesium 1.9 I & O for Last 24 hours: Intake & Output 10/18/21 10/19/21 10/20/21 10/21/21 11:59 11:59 11:59 11:59 Intake Total 120 / 120 2737 / 2737 1403 / 1403 720 / 720 Output Total 100 / 100 0 / 0 Balance 120 / 120 2637 / 2637 1403 / 1403 720 / 720 Weight 196 lb 3.382 oz 196 lb 4 oz 203 lb 14.841 oz 179 lb 0.246 oz Microbiology Reports for the Last 24 Hours: Microbiology 10/18/21 17:20 Sputum - Expectorated Sputum Gram Stain - Final 10/18/21 17:20 Sputum - Expectorated Sputum Sputum Culture - Final Normal Respiratory Marion - Constitutional no acute distress - *Routine Respiratory Exam Present: CTA bilaterally, diminished air movement (In bases) - *Routine Cardiovascular Exam Present: irregular rhythm - *Routine Abdominal Exam Present: soft, normoactive bowel sounds. Absent: tenderness - *Routine Extremities Exam Present: edema (Trace bilaterally) - *Routine Neurological Exam Present: alert, oriented X3 Assessment and Plan (1) Atrial flutter with rapid ventricular response Status: Acute Category: Medical Code(s): I48.92 - Unspecified atrial flutter (2) Ischemic cardiomyopathy Status: Acute Category: Medical Code(s): I25.5 - Ischemic cardiomyopathy (3) Acute on chronic systolic congestive heart failure, NYHA class 3 Status: Acute Category: Medical Code(s): I50.23 - Acute on chronic systolic (congestive) heart failure (4) Pneumonia Status: Acute Qualifiers: Pneumonia type: due to unspecified organism Laterality: bilateral Lung location: unspecified part of lung Qualified Code(s): J18.9 - Pneumonia, unspecified organism Category: Medical Code(s): J18.9 - Pneumonia, unspecified organism (5) CAD (coronary artery disease) Status: Chronic Category: Medical Code(s): I25.10 - Atherosclerotic heart disease of [place] coronary artery without angina pectoris (6) Carotid arterial disease Status: Chronic Category: Medical Code(s): I77.9 - Disorder of arteries and arterioles, unspecified (7) S/P carotid endarterectomy Status: Chronic Category: Surgical Code(s): Z98.890 - Other specified postprocedural states (8) HTN (hypertension) Status: Acute Category: Medical Code(s): I10 - Essential (primary) hypertension (9) HLD (hyperlipidemia) Status: Acute Category: Medical Code(s): E78.5 - Hyperlipidemia, unspecified (10) Hypoxia Status: Acute Category: Medical Code(s): R09.02 - Hypoxemia - Assessment and plan all Dx Assessment and Plan for all problems:: We will do a chest CT. Cardiology to follow as well. Continue with amiodarone drip as directed. Remains on Zithromax and Rocephin. <Sachin Ndiaye - Last Filed: 10/21/21 13:24> Inte
--- NOTE | 2021-10-21 09:44 | HMH.ITSTN ---
Spoke with nurse and patient is on a drip untill 6pm tonight so she will have to come down with patient. At this time she unable to come down and will call me when she is able.
--- NOTE | 2021-10-21 11:34 | HMH.PNCARD ---
Subjective Date: 10/21/21 Time: 11:34 Principal diagnosis: Pneumonia, A. flutter with RVR, CAD Interval history: This is an 81-year-old white gentleman who was admitted to the hospital and found to be in atrial flutter with RVR. The patient was cardioverted on Thursday and has subsequently went back into atrial fibrillation. He is on an amiodarone drip and remains in atrial fibrillation/flutter with a heart rate around 110 beats this morning. He denies any chest pain or pressure. He denies any shortness of breath. He denies any palpitations or racing of the heart. He does complain of some mild edema in his bilateral lower extremities. He denies any fever, chills, nausea, vomiting, diarrhea, PND or orthopnea. The patient does have ischemic cardiomyopathy with an ejection fraction of 25%. Exam Vital signs and Labs for Last 24 Hours: Temp Pulse Resp BP Pulse Ox 98.7 F 100 H 18 116/66 100 10/21/21 06:00 10/21/21 06:00 10/21/21 06:00 10/21/21 06:00 10/21/21 06:00 I & O for Last 24 hours: Intake & Output 10/18/21 10/19/21 10/20/21 10/21/21 23:59 23:59 23:59 23:59 Intake Total 2352 / 2497 1488 / 1548 1020 / 1020 Output Total 100 / 100 0 / 0 Balance 2252 / 2397 1488 / 1548 1020 / 1020 0 / 0 Weight 196 lb 3.382 oz 196 lb 4 oz 203 lb 14.841 oz 179 lb 0.246 oz Microbiology Reports for the Last 24 Hours: Microbiology 10/18/21 17:20 Sputum - Expectorated Sputum Gram Stain - Final 10/18/21 17:20 Sputum - Expectorated Sputum Sputum Culture - Final Normal Respiratory Marion Narrative: Laboratory strip shows atrial fibrillation with a rate of 110. - Constitutional no acute distress, average body habitus - *Routine HEENT Exam Head: Present: normocephalic, atraumatic Eye: Present: EOMI, PERRL ENT: Present: mucous membranes moist - *Routine Neck Exam Present: supple, full ROM, normal carotid upstroke. Absent: JVD, carotid bruit, lymphadenopathy - *Routine Respiratory Exam Present: CTA bilaterally - *Routine Cardiovascular Exam Present: Normal S1, Normal S2, tachycardia, irregularly irregular. Absent: murmur - *Routine Abdominal Exam Present: soft, normoactive bowel sounds. Absent: tenderness, distended - *Routine Extremities Exam Present: edema (Trace bilateral lower extremity edema), full ROM, pulses intact, normal capillary refill. Absent: cyanosis, clubbing - *Routine Skin Exam Present: intact, warm. Absent: erythema, rash - *Routine Neurological Exam Present: alert, oriented X3, CN II-XII intact. Absent: sensory deficit, motor deficit Progress Note: A&P (1) Atrial flutter with rapid ventricular response Status: Acute (2) Ischemic cardiomyopathy Status: Acute (3) Acute on chronic systolic congestive heart failure, NYHA class 3 Status: Acute (4) Pneumonia Status: Acute (5) CAD (coronary artery disease) Status: Chronic (6) Carotid arterial disease Status: Chronic (7) S/P carotid endarterectomy Status: Chronic (8) HTN (hypertension) Status: Acute (9) HLD (hyperlipidemia) Status: Acute (10) Hypoxia Status: Acute Assessment and Plan for All Diagnoses:: Plan: 1. The patient was in atrial flutter with RVR. He was cardioverted on Thursday and went into sinus rhythm. He has since went back into atrial flutter/fibrillation with RVR and has been put on an amiodarone drip. The patient remains in atrial fibrillation with a heart rate around 110 this morning. After his metoprolol his heart rate did decrease to around the 80s and 90s but is now back in the low 100s. Continue the amiodarone drip for now. 2. The patient does have ischemic cardiomyopathy. He is on metoprolol and Entresto. The patient had a recent cardiac catheterization at [facility] [place] in [place] which recommended medical management. He remains on aspirin and Plavix at this time. His echocardiogram here shows he has an ejection fraction th
--- NOTE | 2021-10-21 12:02 | ECG_ITS ---
APPROVED REPORT Exam: Resting ECG HR:65 bpm ECG Measurements Heart Rate [address] 223 P 8 QRSd 177 QRS 144 QT 485 T -25 QTc 496 Conclusion SINUS RHYTHM WITH FIRST DEGREE AV BLOCK RIGHT AXIS DEVIATION [QRS AXIS > 100] LEFT BUNDLE BRANCH BLOCK [120+ ms QRS DURATION, 80+ ms Q/S IN V1/V2, 85+ ms R IN I/aVL/V5/V6] ABNORMAL ECG UNCONFIRMED REPORT Electronically signed by : Neil Yoo MD 10/21/2021 18:32:18
--- NOTE | 2021-10-21 13:49 | PC.NURSE ---
charles bañuelos stated that felix wants the amio drip to continue until he has his pacemaker placed tomorrow.
--- NOTE | 2021-10-21 16:22 | PC.NURSE ---
patient has done okay this shift. noted earlier around 0900 patient heart rate increased to 134. morning dose of metoprolol given and heart rate went back to normal sinus in the 60s at 1200. plan to keep on amiodarone until pacemaker procedure. patient is independent. at times bp noted to be on lower side but patient remains unsymptomatic. has been at bedside. no complaints noted besides desire to go home. rings out as needed. remains on o2. vitals stable.
[2021-10-22] VITALS (22 sets, daily range): BP systolic 101–153; BP diastolic 58–86; PULSE 58–75; RESP 15–25; TEMP 36.3–36.8; O2SAT 92–100; BMI 25.9
--- NOTE | 2021-10-22 | IR_ITS ---
APPROVED REPORT Patient Location: Inpatient Physical Science Technician: THANG Villatoro RT (R) PROCEDURES 1. Pocket formation for biventricular pacemaker generator with cardiac resynchronization/defibrillator therapy. 2. Placement of atrial sensing and pacing lead into the right atrial appendage. 3. Placement of a right ventricular sensing, pacing and shocking lead in the right ventricular apex. 4. Placement of left ventricular sensing pacing lead via the coronary sinus. 5. Permanent cardiac resynchronization therapy with ICD implantation/biventricular pacemaker. INDICATION Systolic Congestive Heart Failure, ejection <35%, Wide QRS >120ms, [place] Heart Assoication Class 3 Congestive Heart Failure Informed consent was obtained prior to the procedure. COMPLICATIONS None Estimated Blood Loss: Less than 10 ML TECHNIQUE 1% Lidocaine with epinephrine used to anesthetized the left anterior aspect of the chest. Scalpel was used to make the initial cutaneous incision while electrocautery was used to dissect down tinto the fascia. The fascia was lifted off the pectoralis muscle and digitally manipulated creating a pocket for the defibrillator. The patient was then placed in Trendelenburg position and the subclavian vein was accessed 3 times via the Selinger technique. A 8 [place] sheath was placed under fluoroscopic guidance into the subclavian vein. The dilator was removed from the sheath. Using fluoroscopic guidance, the ventricular lead was placed into the right ventricular apex, screwed and secured into place. Electronic interrogation proved acceptable thresholds and voltage within the lead. Using 3-0 silk, the ventricular lead was then secured into place and sheath peeled away. Following this, a 9.5 [place] sheath and dilator was then placed over one of the wires while keeping the other wire in place within the subclavian vein. The dilator was removed from the sheath. Using fluoroscopic guidance, contrast was used to visualize the coronary sinus, the left ventricular lead was placed into the coronary sinus. Electronic interrogation proved acceptable thresholds and voltage within the lead. Using 3-0 silk, the left ventricular lead was then secured into place and sheath peeled away.An additional 6 [place] fresh sheath and dilator was placed over the existing wire. Using fluoroscopic guidance, the atrial lead was then placed into the right atrial appendage and screwed and secured in place. Electrical interrogation demonstrated acceptable thresholds and voltage number. The atrial lead was then secured into place using 3-0 silk and sheath peeled away. 1 gram of Ancef was used to flush the pocket. All 3 leads were connected to generator and tested via computer. The defibrillator then secured to the fascia. Monocryl was used to close the subcutaneous layers while bruce were used to close the cutaneous layer. A pressure dressing was placed and the patient was transferred to the postop holding area in stable condition for postoperative care. INTERROGATION Generator Model number: Vigilant X4 INFECTION CONTROL PREVENTIONIST-D IS-1/DF4/IS4 G247 Generator Serial number: [id number] Atrial lead model number: Ingevity +IS-1 Bi Positive Fix RA/RV 52cm 7841 Atrial lead serial number: [id number] P-wave: 3.9 mV Impedence: 514 Ohms Threshold: 1.2V @ 0.4ms Current: 2.4 mA Left Ventricular lead model number: Acuity X4 Straight LVA Quad Electrode IS4 Passive 86 cm 4671 Left Ventricular lead serial number: [id number] R-wave: 14.0 mV Impedence: 769 Ohms Threshold: 2.0V @ 1.0ms Current: 2.6 mA Right Ventricular lead model number: [place] 4-FRONT Acitve Fix Dual Coil 59cm 0675 Right Ventricular lead serial number: [id number]
[2021-10-22 05:46] LABS: Basophils % 0.5 % (0.1-2.0); Eosinophils # 0.2 K/mm3 (0.0-0.4); Eosinophils % 2.6 % (0.1-12.0); Hematocrit 40.1 % (42.0-52.0); Hemoglobin 12.6 g/dL (14.1-18.0); Lymphocytes # 1.9 K/mm3 (0.7-4.5); Lymphocytes % 20.6 % (10-50); Mean Corpuscular HGB Conc 31.3 g/dL (31.8-35.4); Mean Corpuscular Hemoglobin 33.4 pg (27.0-31.2); Mean Corpuscular Volume 106.6 fl (80-94); Mean Platelet Volume 8.5 fl (7.4-10.4); Monocytes # 0.5 K/mm3 (0.1-1.0); Monocytes % 5.8 % (1.7-9.3); Neutrophils # 6.4 K/mm3 (1.8-7.8); Neutrophils % 70.5 % (37.0-80.0); Platelet Count 288 K/mm3 (142-424); Red Blood Count 3.76 M/mm3 (4.60-6.20); Red Cell Distribution Width 14.7 % (11.5-17.5); White Blood Count 9.1 K/mm3 (4.8-10.8)
[2021-10-22 05:54] LABS: Alanine Aminotransferase 22 U/L (12-78); Alkaline Phosphatase 121 U/L (38-126); Aspartate Amino Transferase 29 U/L (17-59); Bilirubin,Direct 0.1 mg/dl (0.0-0.4); Bilirubin,Indirect 0.5 mg/dL (0.0-0.9); Bilirubin,Total 0.6 mg/dl (0.2-1.3); Bilirubin,Unconjugated 0.5 mg/dL (0.0-1.1); Chol/HDL Ratio 3.6 (1-3.5); Cholesterol 94 mg/dl (140-200); HDL Cholesterol 26 mg/dl (40-60); Total Protein,Serum 6.1 g/dl (6.3-8.2); Triglycerides 70 mg/dl (30-150); VLDL Cholesterol 14 mg/dL (0-40)
[2021-10-22 05:57] LABS: Anion Gap 10.7 mEq/L (5-15); Blood Urea Nitrogen 30 mg/dl (9-20); Calcium 8.7 mg/dl (8.4-10.2); Carbon Dioxide 22 mmol/L (22.0-30.0); Chloride 109 mmol/L (98-107); Creatinine Clearance Estimated 48 mL/min (50-200); Estimated Glomerular Filt Rate 49 ml/min (>60); GFR (African American) 59 ML/MIN (>60); Glucose 99 mg/dl (74-100); Potassium 4.7 mmoL/L (3.5-5.1); Sodium 137 mmol/L (136-145)
[2021-10-22 06:16] LABS: Direct LDL Cholesterol 48.74 mg/dL (100-129)
--- NOTE | 2021-10-22 08:29 | HMH.ACPN2 ---
<Margo Manzanares - Last Filed: 10/22/21 08:29> Internal Medicine - PN: Subj *Date: 10/22/21 *Time: 08:29 Interval history: Patient states he is doing great. He did sleep. He is n.p.o. for TAILMAN-D today. Currently in sinus rhythm and on amiodarone drip. Patient denies chest pain and shortness of breath. O2 sats stable at 93 and greater on oxygen per nasal cannula at 3 L/min CT of the chest completed 10/21/2021 with the following results: IMPRESSION: No pulmonary embolism. Bilateral pleural effusions. Bilateral patchy airspace infiltrates. 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 Exam Vital signs and Labs for Last 24 Hours: Temp Pulse Resp BP Pulse Ox 97.6 F 63 15 121/73 96 10/22/21 08:00 10/22/21 08:00 10/22/21 08:00 10/22/21 08:00 10/22/21 08:00 Laboratory Results - last 24 hr 10/22/21 05:17: WBC 9.1, RBC 3.76 L, Hgb 12.6 L, Hct 40.1 L, MCV 106.6 H, MCH 33.4 H, MCHC 31.3 L, RDW 14.7, Plt Count 288, MPV 8.5, Neut % (Auto) 70.5, Lymph % (Auto) 20.6, [place] % (Auto) 5.8, Eos % (Auto) 2.6, Baso % (Auto) 0.5, Neut # (Auto) 6.4, Lymph # (Auto) 1.9, [place] # (Auto) 0.5, Eos # (Auto) 0.2, Baso # (Auto) 0.0 10/22/21 05:17: Sodium 137, Potassium 4.7, Chloride 109 H, Carbon Dioxide 22, Anion Gap 10.7, BUN 30 H, Creatinine 1.40 H, Estimated Creat Clear 48, Estimated GFR 49 L, Est GFR ( Amer) 59, Glucose 99, Calcium 8.7 10/22/21 05:17: Total Bilirubin 0.6, Direct Bilirubin 0.1, Conjugated Bilirubin 0.0, Indirect Bilirubin 0.5, Unconjugated Bilirubin 0.5, AST 29, ALT 22, Alkaline Phosphatase 121, Total Protein 6.1 L D, Albumin 3.0 L, Triglycerides 70, Cholesterol 94 L, LDL Cholesterol Direct 48.74 L, VLDL Cholesterol 14, HDL Cholesterol 26 L, Cholesterol/HDL Ratio 3.6 H I & O for Last 24 hours: Intake & Output 10/19/21 10/20/21 10/21/21 10/22/21 11:59 11:59 11:59 11:59 Intake Total 2737 / 2737 1403 / 1403 960 / 960 501 / 501 Output Total 100 / 100 0 / 0 300 / 300 Balance 2637 / 2637 1403 / 1403 960 / 960 201 / 201 Weight 196 lb 4 oz 203 lb 14.841 oz 179 lb 0.246 oz 202 lb 9.677 oz Microbiology Reports for the Last 24 Hours: Microbiology 10/18/21 17:20 Sputum - Expectorated Sputum Gram Stain - Final 10/18/21 17:20 Sputum - Expectorated Sputum Sputum Culture - Final Normal Respiratory Marion - Constitutional no acute distress Comments: Appears comfortable - *Routine Respiratory Exam Present: crackles (Fine bibasilar) - *Routine Cardiovascular Exam Present: RRR - *Routine Abdominal Exam Present: soft, normoactive bowel sounds. Absent: tenderness - *Routine Extremities Exam Present: edema. Absent: calf tenderness - *Routine Neurological Exam Present: alert, oriented X3 Assessment and Plan (1) Atrial flutter with rapid ventricular response Status: Acute Category: Medical Code(s): I48.92 - Unspecified atrial flutter (2) Ischemic cardiomyopathy Status: Acute Category: Medical Code(s): I25.5 - Ischemic cardiomyopathy (3) Acute on chronic systolic congestive heart failure, NYHA class 3 Status: Acute Category: Medical Code(s): I50.23 - Acute on chronic systolic (congestive) heart failure (4) Pneumonia Status: Acute Qualifiers: Pneumonia type: due to unspecified organism Laterality: bilateral Lung location: unspecified part of lung Qualified Code(s): J18.9 - Pneumonia, unspecified organism Category: Medical Code(s): J18.9 - Pneumonia, unspecified organism (5) CAD (coronary artery disease) Status: Chronic Category: Medical Code(s): I25.10 - Atherosclerotic heart disease of [place] coronary artery without angina pectoris (6) Carotid arterial disease Status: Chronic Category: Medical Code(s): I77.9 - Disorder of arteries and arterioles, unspecified (7) S/P carotid endarterectomy Status: Chronic Category: Surgical Code(s): Z98.890 - Other specified postprocedural stat
--- NOTE | 2021-10-22 08:46 | HMH.PNCARD ---
Subjective Date: 10/22/21 Time: 08:30 Principal diagnosis: Pneumonia, A. flutter with RVR, CAD Interval history: This is an 81-year-old white gentleman who was admitted to the hospital and found to be in atrial fibrillation with RVR. He was cardioverted on Thursday and then went back into atrial fibrillation over the weekend. He is on amiodarone drip currently. The patient has converted back to sinus rhythm. He remains in sinus rhythm with a heart rate in the 60s this morning. He remains on the amiodarone drip. He is currently awaiting placement of a HOSPICE MUSIC THERAPY-D this morning for ischemic cardiomyopathy with an ejection fraction of 25%. He denies any chest pain or pressure. He denies any shortness of breath or edema this morning. He denies any fever, chills, nausea, vomiting, diarrhea, PND or orthopnea. He denies any palpitations or racing of the heart. Exam Vital signs and Labs for Last 24 Hours: Temp Pulse Resp BP Pulse Ox 97.6 F 63 15 121/73 96 10/22/21 08:00 10/22/21 08:00 10/22/21 08:00 10/22/21 08:00 10/22/21 08:00 Laboratory Results - last 24 hr 10/22/21 05:17: WBC 9.1, RBC 3.76 L, Hgb 12.6 L, Hct 40.1 L, MCV 106.6 H, MCH 33.4 H, MCHC 31.3 L, RDW 14.7, Plt Count 288, MPV 8.5, Neut % (Auto) 70.5, Lymph % (Auto) 20.6, [place] % (Auto) 5.8, Eos % (Auto) 2.6, Baso % (Auto) 0.5, Neut # (Auto) 6.4, Lymph # (Auto) 1.9, [place] # (Auto) 0.5, Eos # (Auto) 0.2, Baso # (Auto) 0.0 10/22/21 05:17: Sodium 137, Potassium 4.7, Chloride 109 H, Carbon Dioxide 22, Anion Gap 10.7, BUN 30 H, Creatinine 1.40 H, Estimated Creat Clear 48, Estimated GFR 49 L, Est GFR ( Amer) 59, Glucose 99, Calcium 8.7 10/22/21 05:17: Total Bilirubin 0.6, Direct Bilirubin 0.1, Conjugated Bilirubin 0.0, Indirect Bilirubin 0.5, Unconjugated Bilirubin 0.5, AST 29, ALT 22, Alkaline Phosphatase 121, Total Protein 6.1 L D, Albumin 3.0 L, Triglycerides 70, Cholesterol 94 L, LDL Cholesterol Direct 48.74 L, VLDL Cholesterol 14, HDL Cholesterol 26 L, Cholesterol/HDL Ratio 3.6 H I & O for Last 24 hours: Intake & Output 10/19/21 10/20/21 10/21/21 10/22/21 23:59 23:59 23:59 23:59 Intake Total 1488 / 1548 1020 / 1020 480 / 540 261 / 261 Output Total 0 / 0 300 / 300 Balance 1488 / 1548 1020 / 1020 480 / 540 -39 / -39 Weight 196 lb 4 oz 203 lb 14.841 oz 179 lb 0.246 oz 202 lb 9.677 oz Microbiology Reports for the Last 24 Hours: Microbiology 10/18/21 17:20 Sputum - Expectorated Sputum Gram Stain - Final 10/18/21 17:20 Sputum - Expectorated Sputum Sputum Culture - Final Normal Respiratory Marion Narrative: Telemetry strip shows sinus rhythm with a rate of 63. - Constitutional no acute distress, average body habitus - *Routine HEENT Exam Head: Present: normocephalic, atraumatic Eye: Present: EOMI, PERRL ENT: Present: mucous membranes moist - *Routine Neck Exam Present: supple, full ROM, normal carotid upstroke. Absent: JVD, carotid bruit, lymphadenopathy - *Routine Respiratory Exam Present: CTA bilaterally - *Routine Cardiovascular Exam Present: RRR, Normal S1, Normal S2, murmur - *Routine Abdominal Exam Present: soft, normoactive bowel sounds. Absent: tenderness, distended - *Routine Extremities Exam Present: full ROM, pulses intact, normal capillary refill. Absent: cyanosis, clubbing, edema - *Routine Skin Exam Present: intact, warm. Absent: erythema, rash - *Routine Neurological Exam Present: alert, oriented X3, CN II-XII intact. Absent: sensory deficit, motor deficit Progress Note: A&P (1) Ischemic cardiomyopathy Status: Acute (2) Atrial flutter with rapid ventricular response Status: Resolved (3) Acute on chronic systolic congestive heart failure, NYHA class 3 Status: Acute (4) Pneumonia Status: Acute (5) CAD (coronary artery disease) Status: Chronic (6) Carotid arterial disease Status: Chronic (7) S/P carotid endarterectomy Status: Chronic (8) HTN (hy
--- NOTE | 2021-10-22 09:50 | PC.NURSE ---
pt to cathlab for pacemaker insertion
--- NOTE | 2021-10-22 09:51 | HMH.ANESCL ---
[facility] Anesthesia Checklist - Patient Identification Patient Identification: Arm Band - Structural Data Admitted From: Inpatient Planned Operative Procedure/s: Biventricular Pacemaker Placement Consent for Planned Operative Procedure(s) Verified: Yes Verified Documents: Surgical Consent, History and Physical - NPO Status Verified Time NPO: 00:00 - Additional verifications Anesthesia Reactions: No Hx Blood Transfusions: No Blood Transfusion Reaction: No - Airway Assessment C-Spine Mobility Assessed: Yes (mp2) TMJ Mobility Assessed: Yes Dentition: Edentulous - Neurological Assessment Level of Consciousness: Awake, Alert - Anesthesia Plan Anesthesia Risk discussed: Yes Anesthesia Plan: Verified ASA Class: III Anesthesia Type: MAC [facility] History I have reviewed the patient's past medical history: Yes Medical History: Reports:: Aneurysm, Arrhythmia, Atherosclerotic Heart Disease, Atrial Fibrillation, BPH, Cardiomyopathy, Congestive Heart Failure, Coronary Artery Disease, Cerebrovascular Accident, Depression, Home Oxygen, Hyperlipidemia, Hypertension, Myocardial Infarction Denies:: Cancer, Diabetes Mellitus Type 1, Diabetes Mellitus Type 2, Gastrointestinal Bleed, Internal Pacemaker, MRSA, Seizures *Have you ever received a pneumonia vaccine?: No *Have you received a flu vaccine this season?: No Other Medical History: Reports: Cataracts, Hypothyroidism, Thyroid Disease. Denies: Blood Transfusion Reaction Anesthesia experience/problems:: none Laterality Cases: Left: Carotid Endarterectomy Other Surgeries: Yes: CABG, Colonoscopy, Hernia Repair, Other. No: Pacemaker Amputation: No Fractures: No - *Social History Smoking Status: Former smoker Tobacco Type: cigarettes # Packs/Day (cigarettes): 1 #Yrs smoked (if former smoker): 31 Alcohol Intake: never Substance Use Type: denies use *Occupational Status:: retired Housing: house Household Members: spouse *Travel in the last 8 weeks: None - Psychiatric History Pschychiatric History:: Reports:: Depression Family Hx:: Cancer, Heart Attack, Hyperlipidemia, Hypertension
--- NOTE | 2021-10-22 11:49 | XR_ITS ---
FINAL REPORT CLINICAL HISTORY: post pacemaker FINDINGS: There is moderate cardiomegaly. There are multiple sternotomy wires. There is a left-sided biventricular pacemaker. The mediastinum is normal. There are bilateral airspace infiltrates with diffuse interstitial opacity concerning for acute pneumonia or edema. There is a small left pleural effusion. There is no pneumothorax. There is no osseous abnormality. IMPRESSION: Bilateral airspace infiltrates and diffuse interstitial opacity concerning for acute pneumonia or edema. Pacemaker in place without pneumothorax. Reviewed, Interpreted and Dictated by Radhames Gong MD Transcribed by Kalin Bo Authenticated by Radhames Gong MD on 10/22/2021 12:45:12 PM [facility]
--- NOTE | 2021-10-22 18:50 | PC.NURSE ---
pt complains of right eye pain as if he has an eyelash inside the lid. Nothing seen during assessment. Sclera is inflammed and eye is watering. Dr. Ndiaye updated and thinks that he has a corneal abrasion. 4x4 gauze folded in half and taped over the eye for protection and rest. Erythromycin ointment will be applied tomorrow when available from pharmacy.
[2021-10-23] VITALS: BP 137/70; PULSE 60; PULSE 66; RESP 20; TEMP 36.8; O2SAT 96
--- NOTE | 2021-10-23 03:47 | PC.NURSE ---
Pt had no c/o throughout shift. pt has rested quietly throughout shift. Paced on tele VSS
[2021-10-23 04:00] VITALS: BP 134/66; PULSE 64; PULSE 70; RESP 19; TEMP 37.2; O2SAT 95
[2021-10-23 04:42] VITALS: BMI 26.6
[2021-10-23 08:00] VITALS: BP 132/62; PULSE 70; RESP 18; TEMP 36.8; O2SAT 91; O2SAT 95
--- NOTE | 2021-10-23 08:35 | HMH.ACPN2 ---
<Margo Manzanares - Last Filed: 10/23/21 08:35> Internal Medicine - PN: Subj *Date: 10/23/21 *Time: 08:35 Interval history: Patient states he feels good. He slept till 3 AM. He enjoyed breakfast. He is sitting up in a chair at bedside talking with his . He denies chest pain and shortness of air. He continues with oxygen though. Site of pacer is slightly sore. O2 sats are 95% on 3 L of nasal oxygen. Repeat chest x-ray yesterday revealed bilateral airspace infiltrates and diffuse interstitial opacity concerning for acute pneumonia or edema. Exam Vital signs and Labs for Last 24 Hours: Temp Pulse Resp BP Pulse Ox 98.9 F 64 19 134/66 95 10/23/21 04:00 10/23/21 04:00 10/23/21 04:00 10/23/21 04:00 10/23/21 04:00 I & O for Last 24 hours: Intake & Output 10/20/21 10/21/21 10/22/21 10/23/21 11:59 11:59 11:59 11:59 Intake Total 1403 / 1403 960 / 960 501 / 501 565 / 565 Output Total 0 / 0 300 / 300 150 / 150 Balance 1403 / 1403 960 / 960 201 / 201 415 / 415 Weight 203 lb 14.841 oz 179 lb 0.246 oz 202 lb 9.677 oz 207 lb 7.28 oz - Constitutional no acute distress Comments: Appears comfortable sitting in comfort chair at bedside talking with his . He has completed his breakfast. - *Routine Respiratory Exam Present: crackles (Few fine bibasilar crackles greater on the left.) - *Routine Cardiovascular Exam Present: RRR (Paced rhythm) - *Routine Abdominal Exam Present: soft, normoactive bowel sounds. Absent: tenderness - *Routine Extremities Exam Present: edema (Left lower leg). Absent: calf tenderness - *Routine Neurological Exam Present: alert, oriented X3 Assessment and Plan (1) Ischemic cardiomyopathy Status: Acute Category: Medical Code(s): I25.5 - Ischemic cardiomyopathy (2) Atrial flutter with rapid ventricular response Status: Resolved Category: Medical Code(s): I48.92 - Unspecified atrial flutter (3) Acute on chronic systolic congestive heart failure, NYHA class 3 Status: Acute Category: Medical Code(s): I50.23 - Acute on chronic systolic (congestive) heart failure (4) Pneumonia Status: Acute Qualifiers: Pneumonia type: due to unspecified organism Laterality: bilateral Lung location: unspecified part of lung Qualified Code(s): J18.9 - Pneumonia, unspecified organism Category: Medical Code(s): J18.9 - Pneumonia, unspecified organism (5) CAD (coronary artery disease) Status: Chronic Category: Medical Code(s): I25.10 - Atherosclerotic heart disease of [place] coronary artery without angina pectoris (6) Carotid arterial disease Status: Chronic Category: Medical Code(s): I77.9 - Disorder of arteries and arterioles, unspecified (7) S/P carotid endarterectomy Status: Chronic Category: Surgical Code(s): Z98.890 - Other specified postprocedural states (8) HTN (hypertension) Status: Acute Category: Medical Code(s): I10 - Essential (primary) hypertension (9) HLD (hyperlipidemia) Status: Acute Category: Medical Code(s): E78.5 - Hyperlipidemia, unspecified (10) Hypoxia Status: Acute Category: Medical Code(s): R09.02 - Hypoxemia (11) Paroxysmal atrial fibrillation Status: Acute Category: Medical Code(s): I48.0 - Paroxysmal atrial fibrillation - Assessment and plan all Dx Assessment and Plan for all problems:: We will try to wean from oxygen. If okay with cardiology may discharge with home O2 if necessary. <Sachin Ndiaye - Last Filed: 10/26/21 22:26> Internal Medicine - PN: Subj *Date: 10/26/21 *Time: 22:25 Exam Vital signs and Labs for Last 24 Hours: Temp Pulse Resp BP Pulse Ox 98.3 F 70 18 132/62 82 L 10/23/21 08:00 10/23/21 08:00 10/23/21 08:00 10/23/21 08:00 10/23/21 09:37 Assessment and Plan (1) Ischemic cardiomyopathy Status: Acute Category: Medical Code(s): I25.5 - Ischemic cardiomyopathy (2) Acute on chronic systolic jared
[2021-10-23 09:37] VITALS: O2SAT 82
--- NOTE | 2021-10-23 09:43 | HMH.PNCARD ---
Subjective Date: 10/23/21 Time: 09:00 Principal diagnosis: Pneumonia, A. flutter with RVR, CAD Interval history: This is an 81-year-old white gentleman who was admitted to the hospital and was found to be in atrial fibrillation with RVR. The patient has converted to sinus rhythm. And is on metoprolol for atrial fibrillation suppression. His amiodarone has been stopped since having the FINISHER PLATE-D placed and he was LV pacing only which we hope is enough to keep him out of atrial fibrillation. The patient did undergo FINISHER PLATE-D placement yesterday for ischemic cardiomyopathy. He tolerated the procedure well. He does have some soreness at the insertion site with palpation but denies any pain. He denies any chest pain or pressure. He denies any shortness of breath or edema. He denies any fever, chills, nausea, vomiting, diarrhea, PND or orthopnea. He states that he feels better today already than he did yesterday. Exam Vital signs and Labs for Last 24 Hours: Temp Pulse Resp BP Pulse Ox 98.3 F 70 18 132/62 82 L 10/23/21 08:00 10/23/21 08:00 10/23/21 08:00 10/23/21 08:00 10/23/21 09:37 I & O for Last 24 hours: Intake & Output 10/20/21 10/21/21 10/22/21 10/23/21 23:59 23:59 23:59 23:59 Intake Total 1020 / 1020 480 / 540 826 / 826 240 / 240 Output Total 0 / 0 300 / 450 150 / 150 Balance 1020 / 1020 480 / 540 526 / 376 90 / 90 Weight 203 lb 14.841 oz 179 lb 0.246 oz 202 lb 9.677 oz 207 lb 7.28 oz Narrative: Telemetry strip is sinus rhythm with a rate of 70. - Constitutional no acute distress, average body habitus - *Routine HEENT Exam Head: Present: normocephalic, atraumatic Eye: Present: EOMI, PERRL ENT: Present: mucous membranes moist - *Routine Neck Exam Present: supple, full ROM, JVD. Absent: carotid bruit, normal carotid upstroke, lymphadenopathy - *Routine Respiratory Exam Present: CTA bilaterally - *Routine Cardiovascular Exam Present: RRR, Normal S1, Normal S2, murmur - *Routine Abdominal Exam Present: soft, normoactive bowel sounds. Absent: tenderness, distended - *Routine Extremities Exam Present: full ROM, pulses intact, normal capillary refill. Absent: cyanosis, clubbing, edema - *Routine Skin Exam Present: intact, warm. Absent: erythema, rash - *Routine Neurological Exam Present: alert, oriented X3, CN II-XII intact. Absent: sensory deficit, motor deficit Progress Note: A&P (1) Ischemic cardiomyopathy Status: Acute (2) Acute on chronic systolic congestive heart failure, NYHA class 3 Status: Acute (3) Pneumonia Status: Acute (4) CAD (coronary artery disease) Status: Chronic (5) Carotid arterial disease Status: Chronic (6) S/P carotid endarterectomy Status: Chronic (7) HTN (hypertension) Status: Acute (8) HLD (hyperlipidemia) Status: Acute (9) Hypoxia Status: Acute (10) Paroxysmal atrial fibrillation Status: Acute Assessment and Plan for All Diagnoses:: Plan: 1. The patient was in atrial fibrillation with RVR. He has converted to sinus rhythm. He is on metoprolol currently for suppression of his atrial fibrillation. The amiodarone has been stopped since having the FINISHER PLATE-D placed. Dr. Shabazz is hopeful that if he continues to ventricular pace/LV paced then he will stay out of atrial fibrillation. 2. The patient is on long-term anticoagulation with Eliquis for paroxysmal atrial fibrillation. This has been restarted. 3. The patient does have ischemic cardiomyopathy. He is on Entresto and metoprolol. Recent cardiac catheterization at [facility] in [place] recommended medical management. Because of his ischemic cardiomyopathy, wide left bundle branch block, atrial fibrillation with RVR and hypotension the patient underwent FINISHER PLATE-D placement to help improve his ejection fraction. 4. The patient's blood pressure is well controlled. 5. His LDL goal is less than 55. His LDL is currently 48. He is on a statin. 6. His burk
--- NOTE | 2021-10-23 10:12 | SW/DCPLANNER ---
Addendum entered by Deedee Jean-Baptiste 10/23/21 11:46: [facility]/ [facility] has stated that services will begin tomorrow for this patient. Addendum entered by Deedee Jean-Baptiste 10/23/21 10:48: [facility]/ [facility] has stated that O2 will be delivered. Original Note: The plan is for this patient to discharge home with his . Patient will need home O2 + portable tank prior to discharge: information has been faxed to [facility]. I will follow up with [facility] once patient information/order is reviewed. Patient information/order will also be faxed to [facility] for PT,OT and assisted. I will follow up with [facility] once information is reviewed. This patient will discharge home later today.
--- NOTE | 2021-10-28 22:15 | HMH.DCSUM ---
General - General Admission date:: 10/17/21 <Sachin Ndiaye - 11/10/21 15:10> 10/17/21 <Jenny Hardin - 10/28/21 22:29> Discharge date: 10/23/21 <Jenny Hardin - 10/28/21 22:29> HPI HPI: Mr. Cody is an 81-year-old male who has felt poorly for the past 2 weeks. He states he has had a cough and congestion along with some shortness of breath. His states his heart rate has been around 115-120bpm for the past 2 weeks. She states she did call the on-call physician at [facility] and spoke with Dr. Walsh. The patient had apparently not been eating or drinking and she was told to push the fluids. He has been drinking close to half a gallon of water a day, however he has continued to feel poorly and his heart rate has been increased. He was being seen this morning by Dr. Abad for problems with a hernia and was found to have an elevated heart rate and low oxygen saturation. His heart rate was 120 and his pulse ox was 87% on room air. They called the office of [facility] and the patient was instructed to go to the emergency room for further evaluation and treatment. He was found in the ER to be in atrial flutter and to have bilateral pneumonia. He has complained of some chest pain on and off over the past few weeks. His COVID test was negative. His centerpuncher is Dr. Simon and he had a stress test before followed by heart cath after . He had 2 blockages but angioplasty was unsuccessful, therefore he was started on Ranexa, Plavix, and amlodipine. Cardiology was consulted at [facility]. According to David Mccarty, his EKG showed atrial flutter with a rate of 118 bpm and a left bundle branch block. His preliminary echo showed a severely reduced EF of approximately 20 to 30%. An echo from 11/18 showed an EF of 30 to 35%. He was started on amiodarone and within 10 seconds of starting the medication, his states he slumped over and was not responding. She said his hands katrin up and she called for the nurse. The patient's vitals were apparently all normal during this episode and he had no tonic-clonic signs. He did wake back up and seemed fine. David Mccarty was called and they ran amiodarone again for 10 minutes and patient did not have the same reaction. It is unclear what caused this episode. He will be admitted and started on antibiotics and an amiodarone drip. Cardiology feels if he does not convert with medication they will cardiovert him tomorrow. <Jenny Hardin - 10/28/21 22:29> Hospital Course Hospital Course: The patient was started on antibiotics for his pneumonia. Cardiology kept him on an amiodarone drip and recommended starting Entresto, metoprolol, Lasix, and spironolactone if his blood pressure and heart rate would tolerate. They felt if his LVEF was less than 35% after 3 months, he would be a candidate for AICD implantation. The patient's cough and shortness of breath improved but he remained in atrial flutter. He was therefore cardioverted by cardiology. He was successfully cardioverted and remained in normal sinus rhythm, however he became hypotensive and had to be started on Jean Claude-Synephrine. His blood pressure stabilized and his drip was weaned. He was able to tolerate a diet. His oxygen continued to remain in the upper 80s and low 90s with supplemental oxygen. He therefore had a chest CT which showed no PE, but bilateral pleural effusions and bilateral patchy airspace infiltrates. Radiology felt this was acute pneumonia superimposed on chronic fibrosis. On 10/21/2021, the patient again developed atrial fib/flutter and was restarted on an amiodarone drip. His echo showed an EF of 25%. Dr. Shabazz recommended he have an AICD placed due to his ischemic cardiomyopathy. They also felt if the patient had any hope of improving his ejection fraction, he would need cardiac resynchronization therapy. The patient did convert back into sinus rhythm, but his amio
== END 2021-10-23 13:24 | disposition home health service (06) | DRG 226 ==
LOC: ER 11:12 → ICU 12:42 → 2ND 19:29
PROVIDERS: Internal Medicine; Internal Medicine Cardiovascular Disease; Nurse Practitioner Family; Admitting Provider Family Medicine; Emergency Provider Emergency Medicine; PCP Family Medicine; Visit Provider Family Medicine
PROC: 0JH609Z Insertion of Cardiac Resynchronization Defibrillator Pulse Generator into Chest Subcutaneous Tissue and Fascia, Open Approach (ICD-10-PCS; CPT 33249; principal; 2021-10-22 10:00)
DX: I48.3 Typical atrial flutter (principal); J18.9 Pneumonia, unspecified organism; I50.23 Acute on chronic systolic (congestive) heart failure; I69.153 Hemiplegia and hemiparesis following nontraumatic intracerebral hemorrhage affecting right non-dominant side; I48.0 Paroxysmal atrial fibrillation; I25.5 Ischemic cardiomyopathy; I25.10 Atherosclerotic heart disease of native coronary artery without angina pectoris; Z20.822 Contact with and (suspected) exposure to COVID-19; Z99.81 Dependence on supplemental oxygen; Z95.1 Presence of aortocoronary bypass graft; Z79.899 Other long term (current) drug therapy; I11.0 Hypertensive heart disease with heart failure; Z79.01 Long term (current) use of anticoagulants
CPT/HCPCS: 33249; 36415; 70450; 71045; 71270; 80048; 80061; 80076; 83735; 83880; 84443; 84484; 85025; 87070; 87205; 92960; 93005; 93306; 96365; 96367; 99284; C1769; C1882; C1895; C1898; C1900; C9803; J0282; J0456; J0696; J2704; J7060; Q9967; U0003; U0005

== ENCOUNTER → 2021-10-28 14:49 | Outpatient (CLI) | payer MEDICARE, SELFPAY ==
[2021-10-28 15:17] LABS: Basophils # 0.1 K/mm3 (0-0.2); Basophils % 0.5 % (0.1-2.0); Eosinophils # 0.2 K/mm3 (0.0-0.4); Eosinophils % 1.7 % (0.1-12.0); Lymphocytes # 1.6 K/mm3 (0.7-4.5); Lymphocytes % 16.5 % (10-50); Mean Corpuscular HGB Conc 31.6 g/dL (31.8-35.4); Mean Corpuscular Volume 104.3 fl (80-94); Mean Platelet Volume 8.2 fl (7.4-10.4); Monocytes # 0.6 K/mm3 (0.1-1.0); Monocytes % 5.7 % (1.7-9.3); Neutrophils # 7.3 K/mm3 (1.8-7.8); Neutrophils % 75.7 % (37.0-80.0); Platelet Count 279 K/mm3 (142-424); Red Blood Count 3.93 M/mm3 (4.60-6.20); Red Cell Distribution Width 14.6 % (11.5-17.5); White Blood Count 9.6 K/mm3 (4.8-10.8)
[2021-10-28 16:31] LABS: Chloride 105 mmol/L (98-107)
[2021-10-28 16:32] LABS: Potassium 4.5 mmoL/L (3.5-5.1); Sodium 137 mmol/L (136-145)
[2021-10-28 16:34] LABS: Blood Urea Nitrogen 22 mg/dl (9-20); Estimated Glomerular Filt Rate 53 ml/min (>60); GFR (African American) 64 ML/MIN (>60)
[2021-10-28 16:35] LABS: Anion Gap 9.5 mEq/L (5-15); Calcium 8.1 mg/dl (8.4-10.2); Carbon Dioxide 27 mmol/L (22.0-30.0); Glucose 105 mg/dl (74-100)
== END ==
PROVIDERS: PCP Family Medicine; Visit Provider Nurse Practitioner Family
DX: E78.5 Hyperlipidemia, unspecified (principal); I10 Essential (primary) hypertension; I25.10 Atherosclerotic heart disease of native coronary artery without angina pectoris; I25.5 Ischemic cardiomyopathy; I48.0 Paroxysmal atrial fibrillation; I50.23 Acute on chronic systolic (congestive) heart failure; I77.9 Disorder of arteries and arterioles, unspecified; R06.00 Dyspnea, unspecified; R42 Dizziness and giddiness; Z86.73 Personal history of transient ischemic attack (TIA), and cerebral infarction without residual deficits; Z98.890 Other specified postprocedural states
CPT/HCPCS: 36415; 80048; 85025

== ENCOUNTER → 2021-10-30 14:25 | Day surgery (SDC) | payer MEDICARE, SELFPAY ==
[2021-10-30 14:52] VITALS: BP 128/80; PULSE 94; RESP 18; TEMP 37.1; O2SAT 99
[2021-10-30 15:25] VITALS: BP 116/59; PULSE 70; RESP 22; O2SAT 96
--- NOTE | 2021-10-30 15:29 | SUR.OPER ---
cardioversion performed in post op. pt placed on zoll defibrillator.
[2021-10-30 15:35] VITALS: BP 109/55; PULSE 70; RESP 18; O2SAT 100
[2021-10-30 15:45] VITALS: BP 116/62; PULSE 70; RESP 20; O2SAT 100
[2021-10-30 15:48] VITALS: O2SAT 100
== END ==
PROVIDERS: PCP Family Medicine; Visit Provider Internal Medicine
DX: I48.0 Paroxysmal atrial fibrillation (principal)
CPT/HCPCS: 92960

== ENCOUNTER → 2021-12-04 15:14 | Outpatient (CLI) | payer MEDICARE, SELFPAY ==
--- NOTE | 2021-12-04 15:18 | XR_ITS ---
FINAL REPORT CLINICAL HISTORY: PNM COMPARISON: October 22, 2021 FINDINGS: Two views of the chest were obtained. There is cardiomegaly. There has been median sternotomy. A left subclavian ICD is present. There is mild pulmonary vascular congestion. The mediastinum is normal. There are bilateral pulmonary opacities which is likely edema which has improved. There is no pneumothorax. The bony thorax is intact. IMPRESSION: Mild pulmonary vascular congestion. Findings of pulmonary edema have improved from the prior. Reviewed, Interpreted and Dictated by Scotty Chacon III, MD Transcribed by Coreen Churchill Authenticated by Scotty Chacon III, MD on 12/04/2021 04:02:20 PM [facility]
[2021-12-04 16:10] LABS: Basophils # 0.1 K/mm3 (0-0.2); Eosinophils # 0.2 K/mm3 (0.0-0.4); Eosinophils % 2.7 % (0.1-12.0); Hematocrit 46.7 % (42.0-52.0); Hemoglobin 14.6 g/dL (14.1-18.0); Lymphocytes # 2.1 K/mm3 (0.7-4.5); Lymphocytes % 24.4 % (10-50); Mean Corpuscular HGB Conc 31.2 g/dL (31.8-35.4); Mean Corpuscular Hemoglobin 33.2 pg (27.0-31.2); Mean Corpuscular Volume 106.4 fl (80-94); Mean Platelet Volume 8.8 fl (7.4-10.4); Monocytes # 0.5 K/mm3 (0.1-1.0); Neutrophils # 5.8 K/mm3 (1.8-7.8); Neutrophils % 65.8 % (37.0-80.0); Platelet Count 250 K/mm3 (142-424); Red Blood Count 4.39 M/mm3 (4.60-6.20); Red Cell Distribution Width 15.4 % (11.5-17.5); White Blood Count 8.8 K/mm3 (4.8-10.8)
[2021-12-04 19:53] LABS: C-Reactive Protein 7.5 mg/L (0-4)
[2021-12-08 21:07] LABS: Anti-Cyclic Citrullinated Pept 13 units (0-19)
[2021-12-10 09:56] LABS: Cytoplasmic (C-ANCA) <1:20 titer (Neg:<1:20); Perinuclear (P-ANCA) <1:20 titer (Neg:<1:20)
[2021-12-11 11:30] LABS: Aspergillus fumigatus IgG Negative (Negative); Pigeon Serum Abs Negative (Negative)
[2021-12-31 21:43] LABS: Antinuclear Antibodies, IFA POSITIVE
== END ==
PROVIDERS: PCP Family Medicine; Visit Provider Internal Medicine Pulmonary Disease
DX: R06.02 Shortness of breath (principal); J84.9 Interstitial pulmonary disease, unspecified; R06.00 Dyspnea, unspecified; J45.909 Unspecified asthma, uncomplicated
CPT/HCPCS: 36415; 71046; 85025; 86038; 86140; 86200; 86256; 86331; 86431; 86602; 86606; 86609

== ENCOUNTER → 2021-12-25 07:16 | Outpatient (CLI) | payer MEDICARE, SELFPAY ==
--- NOTE | 2021-12-25 07:16 | CT_ITS ---
FINAL REPORT CLINICAL HISTORY: chf..soa COMPARISON: 10/21/2021 FINDINGS: Thin section axial CT images of the chest were obtained with contrast. High-resolution protocol was used with inspiration, expiration, and prone imaging. 3D reformatted images were also obtained. This study was performed with techniques to keep radiation doses as low as reasonably achievable (ALARA). Individualized dose reduction techniques using automated exposure control or adjustment of mA and/or kV according to the patient's size were employed. The patient is status post median sternotomy. A left subclavian pacemaker is present. There are severe coronary artery calcifications. There is no axillary mass or adenopathy. There is moderate to severe interstitial fibrosis, greatest in the periphery. This appears stable as compared to the prior exam. There is mild emphysema. There is no significant honeycombing. There is no evidence of bronchiectasis. There is no significant air trapping on the expiration images. There has been partial improvement of the ground-glass opacities seen on the prior exam. Limited images of the upper abdomen demonstrate gallstones in the gallbladder. IMPRESSION: Stable interstitial fibrosis. Partial improvement of ground-glass opacity seen on the prior exam. Cholelithiasis. Reviewed, Interpreted and Dictated by Scotty Chacon III, MD Transcribed by Berkley Wiley Authenticated by Scotty Chacon III, MD on 12/25/2021 10:07:46 AM [facility]
[2021-12-25 08:55] VITALS: PULSE 68; PULSE 70
[2021-12-26 14:13] LABS: Anti-Centromere B Antibodies <0.2 AI (0.0-0.9); Anti-DNA (DS) Ab Qn 9 IU/mL (0-9); Antiscleroderma-70 Antibodies <0.2 AI (0.0-0.9); Sjogren's Anti-SS-A <0.2 AI (0.0-0.9); Sjogren's Anti-SS-B <0.2 AI (0.0-0.9); Smith/RNP Antibodies <0.2 AI (0.0-0.9)
[2021-12-28 19:12] LABS: Antiproteinase 3 (PR-3) Abs <3.5 U/mL (0.0-3.5); Myeloperoxidase Antibody <9.0 U/mL (0.0-9.0)
== END ==
PROVIDERS: PCP Family Medicine; Visit Provider Internal Medicine Pulmonary Disease
DX: R06.02 Shortness of breath (principal); J84.9 Interstitial pulmonary disease, unspecified; J84.10 Pulmonary fibrosis, unspecified
CPT/HCPCS: 36415; 71250; 83520; 86225; 86235; 94060; 94618; 94640; 94727; 94729

== ENCOUNTER → 2022-01-29 11:14 | Outpatient (CLI) | payer MEDICARE, SELFPAY | PROVIDERS: Visit Provider Internal Medicine Pulmonary Disease | DX: R06.02 Shortness of breath (principal) | CPT/HCPCS: 94762 ==

== ENCOUNTER 2022-02-03 12:18 | Emergency (ER) | payer MEDICARE, SELFPAY ==
[2022-02-03 12:19] VITALS: BP 156/86; PULSE 70; RESP 16; TEMP 36.8; O2SAT 98; BMI 26.0
--- NOTE | 2022-02-03 12:25 | HMH.EDGENADL ---
ED Disposition Clinical Impression: Transient hypotension Disposition: Home, Self-Care Condition on Discharge: Fair Additional Instructions: Please follow-up with your primary care doctor and/or your food production machine operator to discuss management of your blood pressure medications. Your blood pressure today in the emergency department was normal. I recommend that you decrease your metoprolol dose from 50 mg twice a day to 25 mg twice a day. Electrolytes and other blood work did not show anything immediately dangerous. Please return to the emergency department if you feel worse in any way. Referrals: Sachin Ndiaye MD [Primary Care Provider] - - Critical Care Critical Care Time: No Attestation: On , the high probability of a clinically significant, sudden or life threatening deterioration of the following system(s) required my full and direct attention, intervention and personal management. The time I documented below is in addition to time spent performing reported procedures but includes the following listed in this critical care notation. Medical Decision Making - Medical Records Medical records reviewed: Yes: I reviewed the patient's medical records. - Cr Inquiry Pt receiving controlled substance: No Vital Signs: 02/03/22 12:19 Temperature 98.2 F Temperature Source Oral Pulse Rate [Right Radial] 70 Respiratory Rate 16 Blood Pressure [Right Arm] 156/86 H Blood Pressure Mean [Right Arm] 109 Blood Pressure Source [Right Arm] Automatic Cuff Blood Pressure Position [Right Arm] Sitting 02 Sat by Pulse Oximetry 98 Oxygen Delivery Method Room Air - Lab Data Lab results reviewed: Yes: I reviewed the patient's lab results. Lab Results 02/03/22 12:40: WBC 9.7, RBC 4.30 L, Hgb 14.8, Hct 46.4, MCV 107.9 H, MCH 34.4 H, MCHC 31.9, RDW 16.6, Plt Count 114 L, MPV 8.8, Neut % (Auto) 79.2, Lymph % (Auto) 14.2, Turner % (Auto) 4.3, Eos % (Auto) 1.4, Baso % (Auto) 0.8, Neut # (Auto) 7.7, Lymph # (Auto) 1.4, Turner # (Auto) 0.4, Eos # (Auto) 0.1, Baso # (Auto) 0.1 02/03/22 12:40: Sodium 136, Potassium 4.6, Chloride 103, Carbon Dioxide 31 H, Anion Gap 6.6, BUN 39 H, Creatinine 1.40 H, Estimated GFR 49 L, Est GFR ( Amer) 59, Glucose 92, Calcium 8.2 L, Total Bilirubin 1.1, AST 121 H, ALT 157 H, Alkaline Phosphatase 94, Total Protein 5.6 L, Albumin 2.9 L, Globulin 2.7, Albumin/Globulin Ratio 1.1 Result diagrams: 02/03/22 12:40 02/03/22 12:40 Orders (Tests/Meds): ORDERS Category Date Time Status ECG Request by /Ena Stat Y 02/03/22 12:27 Ordered - ECG Data Tracing #1 I reviewed this ECG and interpreted as documented below: The patient's EKG was performed at 12:38 PM. It shows a paced rhythm with a ventricular rate of 70 bpm. The remainder is difficult to interpret due to the pacing. No acute disease is seen. Normal Sinus Rhythm: No (Atrial ventricular pacing) Medical Decision Narrative: The patient's work-up in the emergency department did not reveal any life-threatening or dangerous causes for the patient's symptoms. His blood pressure in the emergency department is not low. It appears that this is an intermittent issue. It may have to do with the patient's blood pressure medications. However, it does not appear that he needs immediate life saving intervention in the emergency department for this. He will be discharged in stable condition with instructions to follow-up with his primary care and or food production machine operator to discuss management of antihypertensive medication. General Adult HPI - General Stated complaint: low bp, lightheaded Time Seen by Provider: 02/03/22 12:25 Mode of Arrival: Family Vehicle Source of Information: Patient, Spouse - History of Present Illness HPI narrative: The patient presents to the emergency department accompanied by his because he has had several episodes of near syncope in the last week and today his blood pressure was in the 80s. The patient is on blood p
--- NOTE | 2022-02-03 12:28 | ECG_ITS ---
APPROVED REPORT Exam: Resting ECG HR:70 bpm ECG Measurements Heart Rate 70 AXES OH 236 P 246 QRSd 180 QRS 153 QT 425 T -31 QTc 445 Conclusion ELECTRONIC ATRIAL PACEMAKER ELECTRONIC VENTRICULAR PACEMAKER ABNORMAL RHYTHM ECG UNCONFIRMED REPORT Electronically signed by : Neil Yoo MD 02/04/2022 21:10:25
[2022-02-03 12:58] LABS: Basophils # 0.1 K/mm3 (0-0.2); Basophils % 0.8 % (0.1-2.0); Eosinophils # 0.1 K/mm3 (0.0-0.4); Eosinophils % 1.4 % (0.1-12.0); Hematocrit 46.4 % (42.0-52.0); Hemoglobin 14.8 g/dL (14.1-18.0); Lymphocytes # 1.4 K/mm3 (0.7-4.5); Lymphocytes % 14.2 % (10-50); Mean Corpuscular HGB Conc 31.9 g/dL (31.8-35.4); Mean Corpuscular Hemoglobin 34.4 pg (27.0-31.2); Mean Corpuscular Volume 107.9 fl (80-94); Mean Platelet Volume 8.8 fl (7.4-10.4); Monocytes # 0.4 K/mm3 (0.1-1.0); Monocytes % 4.3 % (1.7-9.3); Neutrophils # 7.7 K/mm3 (1.8-7.8); Neutrophils % 79.2 % (37.0-80.0); Platelet Count 114 K/mm3 (142-424); Red Cell Distribution Width 16.6 % (11.5-17.5); White Blood Count 9.7 K/mm3 (4.8-10.8)
[2022-02-03 13:00] VITALS: BP 130/71; PULSE 70; RESP 20; O2SAT 99
[2022-02-03 13:05] LABS: Alanine Aminotransferase 157 U/L (12-78); Albumin Level 2.9 g/dl (3.5-5.0); Albumin/Globulin Ratio 1.1 (1.1-1.8); Alkaline Phosphatase 94 U/L (38-126); Anion Gap 6.6 mEq/L (5-15); Aspartate Amino Transferase 121 U/L (17-59); Bilirubin,Total 1.1 mg/dl (0.2-1.3); Blood Urea Nitrogen 39 mg/dl (9-20); Calcium 8.2 mg/dl (8.4-10.2); Carbon Dioxide 31 mmol/L (22.0-30.0); Chloride 103 mmol/L (98-107); Estimated Glomerular Filt Rate 49 ml/min (>60); GFR (African American) 59 ML/MIN (>60); Globulin 2.7 g/dL (1.3-3.2); Glucose 92 mg/dl (74-100); Potassium 4.6 mmoL/L (3.5-5.1); Sodium 136 mmol/L (136-145); Total Protein,Serum 5.6 g/dl (6.3-8.2)
[2022-02-03 13:29] VITALS: BP 130/71; PULSE 70; RESP 16; TEMP 36.8; O2SAT 98
== END 2022-02-03 13:45 | disposition home or self-care (01) ==
PROVIDERS: Emergency Provider Emergency Medicine; PCP Family Medicine
DX: I95.89 Other hypotension (principal); I48.0 Paroxysmal atrial fibrillation; I25.10 Atherosclerotic heart disease of native coronary artery without angina pectoris; E78.5 Hyperlipidemia, unspecified; I10 Essential (primary) hypertension; I25.2 Old myocardial infarction; Z87.891 Personal history of nicotine dependence; Z79.899 Other long term (current) drug therapy
CPT/HCPCS: 80053; 85025; 93005; 99283

== ENCOUNTER → 2022-02-10 12:57 | Outpatient (CLI) | payer MEDICARE, SELFPAY ==
[2022-02-10 21:34] LABS: Free T4 (Free Thyroxine) 1.91 ng/dl (0.78-2.19)
[2022-02-10 23:52] LABS: Thyroid Stimulating Hormone 5.61 uIU/mL (0.465-4.68)
== END ==
PROVIDERS: PCP Family Medicine; Visit Provider Physician Assistant
DX: E78.5 Hyperlipidemia, unspecified (principal); I25.10 Atherosclerotic heart disease of native coronary artery without angina pectoris; I25.5 Ischemic cardiomyopathy; I48.0 Paroxysmal atrial fibrillation; I50.23 Acute on chronic systolic (congestive) heart failure; I77.9 Disorder of arteries and arterioles, unspecified; R06.00 Dyspnea, unspecified; R42 Dizziness and giddiness; Z86.73 Personal history of transient ischemic attack (TIA), and cerebral infarction without residual deficits; Z95.810 Presence of automatic (implantable) cardiac defibrillator; Z98.890 Other specified postprocedural states; I11.0 Hypertensive heart disease with heart failure
CPT/HCPCS: 36415; 84439; 84443

== ENCOUNTER → 2022-02-12 13:32 | Outpatient (CLI) | payer MEDICARE, SELFPAY ==
--- NOTE | 2022-02-12 13:32 | US_ITS ---
FINAL REPORT CLINICAL HISTORY: dysphagia FINDINGS: THYROID ULTRASOUND The right lobe of the thyroid measures 3.4 x 1.6 x 1.3 cm. The left lobe of the thyroid measures 3.1 x 1.6 x 0.9 cm. The parenchyma shows normal echogenicity. There is a 5 mm calcification in the left lobe of the thyroid consistent with a TI-RADS 1. IMPRESSION: Single 5 mm TI-RADS 1 calcification in the left lobe of the thyroid. No follow-up required. Reviewed, Interpreted and Dictated by Scotty Chacon III, MD Transcribed by Kalin Bo Authenticated by Scotty Chacon III, MD on 02/13/2022 02:42:47 PM [facility]
== END ==
PROVIDERS: PCP Family Medicine; Visit Provider Internal Medicine
DX: I10 Essential (primary) hypertension; I25.10 Atherosclerotic heart disease of native coronary artery without angina pectoris; R06.00 Dyspnea, unspecified; R13.10 Dysphagia, unspecified; R42 Dizziness and giddiness
CPT/HCPCS: 76536

== ENCOUNTER 2022-04-09 20:36 | Inpatient (IN) | payer MEDICARE, SELFPAY ==
[2022-04-09 20:43] VITALS: BMI 23.8
--- NOTE | 2022-04-09 20:43 | PC.NURSE ---
patient up to floor via EMS @ this time.
[2022-04-09 20:45] VITALS: BP 157/90; PULSE 76; RESP 20; TEMP 37; O2SAT 87; BMI 23.9
[2022-04-09 21:59] VITALS: O2SAT 95
--- NOTE | 2022-04-09 22:19 | XR_ITS ---
PROCEDURE INFORMATION: Exam: XR Chest Exam date and time: 04/09/2022 10:21 PM Age: 82 years old Clinical indication: Other: Hypoxia; Prior surgery; Surgery date: 6+ months; Surgery type: Pacemaker, open heart TECHNIQUE: Imaging protocol: Radiologic exam of the chest. Views: 1 view. COMPARISON: CT HR CHEST X3 12/25/2021 7:26 AM FINDINGS: Tubes, catheters and devices: Multi lead left-sided cardiac pacemaker. Lungs: Extensive interstitial opacities in both lungs could reflect interstitial edema versus interstitial pneumonia. Granulomatous change. Pleural spaces: Tiny bilateral pleural effusions. Heart/Mediastinum: Cardiomegaly. Bones/joints: Midline sternotomy. IMPRESSION: Interstitial opacities bilaterally could reflect edema versus pneumonia. Correlate clinically.
--- NOTE | 2022-04-09 22:41 | HMH.HP ---
*Admission Date: 04/09/22 *Chief complaint: Respiratory problems *History of present illness: This 82-year-old white male is a patient of Dr. Colton Castellanos. He is seen in consultation by Dr. Debbie Poon, field applications specialist at [facility]. He has been diagnosed with pulmonary fibrosis. He became acutely ill 2 days ago. His says he has spells where he nearly passes out. He was taken by ambulance to [facility] in [place]. He has been hospitalized there for several days. Dr. Poon was contacted regarding the patient and he agreed to transfer to [facility] for further evaluation and treatment. The patient arrived at [facility] late on the evening of 04/09/2002. He states that he is not feeling that badly right now. His describes the spells. He was on IV antibiotics at [place]: Cefepime 1 g IV every 12 hours and azithromycin 500 mg p.o. daily. He has been on 5 L by nasal cannula according to the record that accompanies him. He has coronary artery disease and has had CABG with four-vessel bypass in 1991 he is also had left carotid angioplasty in 2018 he had an aortic aneurysm repair in 2000. He is under the care of Dr. Shabazz, cardiology. He has had a pacer defibrillator placed in September 2021. He is on multiple cardiac medications including digoxin, clopidogrel, amiodarone, Eliquis, ranolazine, and metoprolol. He takes Ofev 150 mg twice a day for his pulmonary fibrosis. [facility] History Medical History: Reports:: Aneurysm, Arrhythmia, Atherosclerotic Heart Disease, Atrial Fibrillation, BPH, Cardiomyopathy, Congestive Heart Failure, Coronary Artery Disease, Cerebrovascular Accident, Depression, Home Oxygen, Hyperlipidemia, Hypertension, Internal Pacemaker, Myocardial Infarction Denies:: Cancer, Diabetes Mellitus Type 1, Diabetes Mellitus Type 2, Gastrointestinal Bleed, MRSA, Seizures *Have you ever received a pneumonia vaccine?: Yes *Have you received a flu vaccine this season?: Yes Other Medical History: Reports: Cataracts, Hypothyroidism, Thyroid Disease. Denies: Blood Transfusion Reaction Laterality Cases: Left: Carotid Endarterectomy Other Surgeries: Yes: CABG, Cardiac Surgery, Colonoscopy, Hernia Repair, Pacemaker, Other Amputation: No Fractures: No - *Social History Last grade of school completed: 7th or 8th Smoking Status: Former smoker Tobacco Type: cigarettes # Packs/Day (cigarettes): 1 #Yrs smoked (if former smoker): 31 Alcohol Intake: never Substance Use Type: denies use *Occupational Status:: unemployed, disabled Housing: house Household Members: spouse *Travel in the last 8 weeks: None - Psychiatric History Pschychiatric History:: Reports:: Depression Family Hx:: Cancer, Heart Attack, Hyperlipidemia, Hypertension Review of Systems - Constitutional Denies anorexia, Denies body ache(s), Denies chills - Eyes Denies change in vision - ENT Reports abnormal hearing, Reports poor balance - *Cardiovascular Reports chest pain (When he coughs), Denies chest pain at rest - *Respiratory Reports coughing up blood - *Gastrointestinal Denies abdominal pain, Denies change in bowel habits - *Genitourinary Denies difficulty urinating - *Musculoskeletal Reports abnormal walking, Reports muscle weakness, Denies joint pain - Integumentary/Breasts Denies bleeding lesions - *Neurologic Reports unsteadiness, Reports localized weakness (Legs), Reports frequent falls, Reports tremor(s) (Mainly right hand and arm), Denies memory loss - Psychiatric Reports anxiety - Endocrine Denies rapid, pounding, or irregular heartbeat - Hematologic/Lymphatic Reports easy bruising - Allergic/Immunologic Denies GI upset with certain foods Meds Home Medications Medication Instructions Recorded Confirmed Type Apixaban [Eliquis] 5 mg PO BID 01/21/18 04/09/22 History Atorvastatin Calcium [Lipitor 80mg 80 mg PO HS 01/21/18 04/09/22 History Tab
[2022-04-09 22:48] LABS: ABG Base Excess -3.9 mmol/L (-2.4-2.3); ABG HCO3 20.5 mmhg (22.0-26.0); ABG Oxygen Saturation 98 % (90-100); ABG PCO2 32.1 mmhg (35.0-45.0); ABG PH 7.42 mmol/L (7.35-7.45); ABG PO2 107.1 mmhg (80-100); ABG TCO2 21.5 mmhg (23-27)
[2022-04-09 22:51] LABS: Allen's Test Acceptable; Oxygen 100 %; Source Left Radial
[2022-04-09 23:00] VITALS: O2SAT 93
--- NOTE | 2022-04-09 23:00 | PC.NURSE ---
Pt made aware of need and instructed for sputum sample. Specimen cup left at bedside. Pt to call out when sample collected.
--- NOTE | 2022-04-09 23:12 | HMH.ITSTN ---
Spoke to RN @2311, per MD CT scan to be done in the morning.
[2022-04-09 23:20] LABS: MANUAL DIFFERENTIAL MANUAL DIFFERENTIAL (MANUAL DIFF)
[2022-04-09 23:20] LABS: Adenovirus,PCR Not Detected (NotDetected); Bordetella Pertussis Not Detected (NotDetected); Chlamydophila Pneumoniae, PCR Not Detected (NotDetected); Coronavirus 19, PCR Not Detected (NotDetected); Coronavirus 229E Not Detected (NotDetected); Coronavirus NL63 Not Detected (NotDetected); Coronavirus OC43 Not Detected (NotDetected); Coronovirus HKU1,PCR Not Detected (NotDetected); Human Metapneumovirus Not Detected (NotDetected); Influenza A, PCR Not Detected (NotDetected); Influenza AH1, 2009 Not Detected (NotDetected); Influenza AH1, PCR Not Detected (NotDetected); Influenza AH3,PCR Not Detected (NotDetected); Influenza B, PCR Not Detected (NotDetected); Mycoplasma Pneumoniae, PCR Not Detected (NotDetected); Parainfluenza 1, PCR Not Detected (NotDetected); Parainfluenza 2, PCR Not Detected (NotDetected); Parainfluenza 3, PCR Not Detected (NotDetected); Parainfluenza 4, PCR Not Detected (NotDetected); Respiratory Syncytial Virus Not Detected (NotDetected); Rhinovirus/Enterovirus Not Detected (NotDetected)
[2022-04-09 23:30] LABS: Basophils % 0.3 % (0.1-2.0); Eosinophils # 0.1 K/mm3 (0.0-0.4); Eosinophils % 0.7 % (0.1-12.0); Hematocrit 40.6 % (42.0-52.0); Hemoglobin 12.4 g/dL (14.1-18.0); Lymphocytes # 0.7 K/mm3 (0.7-4.5); Lymphocytes % 5.1 % (10-50); Mean Corpuscular HGB Conc 30.7 g/dL (31.8-35.4); Mean Corpuscular Hemoglobin 33.3 pg (27.0-31.2); Mean Corpuscular Volume 108.5 fl (80-94); Mean Platelet Volume 9.6 fl (7.4-10.4); Monocytes # 0.4 K/mm3 (0.1-1.0); Monocytes % 3.2 % (1.7-9.3); Neutrophils # 12.7 K/mm3 (1.8-7.8); Neutrophils % 90.8 % (37.0-80.0); Platelet Count 215 K/mm3 (142-424); Red Blood Count 3.74 M/mm3 (4.60-6.20); Red Cell Distribution Width 15.1 % (11.5-17.5)
[2022-04-09 23:41] LABS: NT Pro Brain Natriuretic Pep. 5500 pg/mL (0-450)
[2022-04-09 23:47] LABS: Alanine Aminotransferase 28 U/L (12-78); Alkaline Phosphatase 118 U/L (38-126); Anion Gap 10.6 mEq/L (5-15); Aspartate Amino Transferase 56 U/L (17-59); Bilirubin,Total 0.8 mg/dl (0.2-1.3); Blood Urea Nitrogen 35 mg/dl (9-20); Calcium 8.9 mg/dl (8.4-10.2); Carbon Dioxide 28 mmol/L (22.0-30.0); Chloride 105 mmol/L (98-107); Creatinine Clearance Estimated 52 mL/min (50-200); Estimated Glomerular Filt Rate 53 ml/min (>60); GFR (African American) 64 ML/MIN (>60); Globulin 3.1 g/dL (1.3-3.2); Glucose 174 mg/dl (74-100); Potassium 5.6 mmoL/L (3.5-5.1); Sodium 138 mmol/L (136-145); Total Protein,Serum 6.1 g/dl (6.3-8.2)
[2022-04-09 23:55] VITALS: O2SAT 93
[2022-04-10] VITALS (14 sets, daily range): BP systolic 129–152; BP diastolic 62–81; PULSE 70–71; RESP 17–20; TEMP 36.4–36.9; O2SAT 92–99; BMI 23.9
[2022-04-10 00:21] LABS: Thyroid Stimulating Hormone 1.01 uIU/mL (0.465-4.68)
[2022-04-10 00:40] LABS: Vitamin B12 738 pg/mL (239-931)
[2022-04-10 00:50] LABS: Magnesium 2.1 mg/dl (1.6-2.3); Phosphorous 3.8 mg/dl (2.5-4.5)
[2022-04-10 00:55] LABS: C-Reactive Protein 132.5 mg/L (0-4)
--- NOTE | 2022-04-10 01:31 | PC.NURSE ---
2049 Pt arrived to floor on 5L nc with optimizer satting 87%. Pt titrated up to 6L nc [facility] optimizer. 2239 Dr Poon ordered to place pt on nc, goal of o2 >90%. Switch to highflow nc if not able to reach 90%. 2249 RT placed pt on 15 L nc. 2301 pt sat 100%, titrated down to 10 l nc. 0000 pt sat 99%, titrated down to 8L nc. 0020 Pt sat 99, titrated down to 6 nc. Pt sat 93% at this time.
[2022-04-10 02:00] LABS: Lymphocytes % 5 % (10-50); Monocytes % 7 % (2-9); Neutrophils % 88 % (42-76); Total Cells Counted 100
[2022-04-10 02:01] LABS: Hypochromasia 2+; Platelet Estimate Normal
--- NOTE | 2022-04-10 05:34 | PC.NURSE ---
Pt a+o x3. Pt is confused about the past few days. Pt has been titrated down to 5 L nc, tolerating well with sats >90%. Pt has not voiced any complaints to staff. at bedside. Call light within reach.
--- NOTE | 2022-04-10 07:17 | HMH.PHAVTE ---
[facility] Pharmacy VTE Monitoring - Patient Demographics Admission date: 04/09/22 Report Date: 04/10/22 Time: 07:17 Allergies/Adverse Reactions: Patient Allergies No Known Allergies Allergy (Verified 02/10/22 15:28) Height: 1.88 m Weight: 84.504 kg Patient Problems: Current Active Problems Muscle weakness (Acute) Tremor (Acute) Pulmonary fibrosis (Acute) Acute on chronic systolic congestive heart failure, NYHA class 3 (Acute) Automatic implantable cardioverter-defibrillator in situ (Acute) - VTE Risk Labs: VTE Related Lab Results Hgb 12.4 g/dL (14.1-18.0) L 04/09/22 23:04 Hct 40.6 % (42.0-52.0) L 04/09/22 23:04 Plt Count 215 K/mm3 (142-424) 04/09/22 23:04 BUN 35 mg/dl (9-20) H 04/09/22 23:04 Creatinine 1.30 mg/dl (0.66-1.25) H 04/09/22 23:04 Estimated Creat Clear 52 mL/min (50-200) 04/09/22 23:04 - Prophylaxis VTE Prophylaxis Ordered?: Yes Types of VTE Prophylaxis: TEDS Knee High, Pharmacological Location of Applied Device: Bilateral Lower Extremeties Pharmacologic Type: Other (ELIQUIS)
--- NOTE | 2022-04-10 07:46 | HMH.PHAINT ---
MEDICATION RECONCILIATION COMPLETED ON PATIENT USING EXTERNAL FILL HISTORY FROM PHARMACY AND LIST FROM CARDIOLOGY OFFICE. -SOLO DELGADOD
--- NOTE | 2022-04-10 08:00 | CT_ITS ---
FINAL REPORT CLINICAL HISTORY: Hypoxia, soa COMPARISON: December 25, 2021 FINDINGS: Axial images were obtained from the lung apex to the mid abdomen by computed tomography. Coronal reformatted images were obtained. This study was performed with techniques to keep radiation doses as low as reasonably achievable, (ALARA). Individualized dose reduction techniques using automated exposure control or adjustment of mA and/or kV according to the patient's size were employed. There is a left upper anterior chest wall pacemaker. There is no axillary adenopathy. There is no hilar or mediastinal adenopathy. Heart size is normal. There is dense vascular calcification. There is marked calcification of the coronary arteries. There is no pericardial or pleural effusion. Images of the upper abdomen demonstrate multiple gallstones in a contracted gallbladder. There is a large amount of ingested material in the stomach. There is moderate bilateral chronic pulmonary fibrosis. There are patchy ground-glass opacities bilaterally probably due to superimposed pneumonitis. IMPRESSION: Chronic fibrosis with worsening ground-glass opacities probably due to acute infectious or inflammatory pneumonitis. Mild edema would be an alternative consideration. Cholelithiasis. Reviewed, Interpreted and Dictated by Radhames Gong MD Transcribed by Kalin Bo Authenticated and [facility]
--- NOTE | 2022-04-10 09:11 | HMH.ACPN2 ---
<Jenny Hardin - Last Filed: 04/10/22 09:11> Internal Medicine - PN: Subj *Date: 04/10/22 *Time: 09:11 Interval history: Patient states he is feeling a little bit better today. He has had no syncopal episodes this morning. He denies any chest pain. He feels like his shortness of breath is improved. He is tired because he did not sleep all night. Exam Vital signs and Labs for Last 24 Hours: Temp Pulse Resp BP Pulse Ox 97.7 F 70 17 129/69 96 04/10/22 08:00 04/10/22 08:00 04/10/22 08:00 04/10/22 08:00 04/10/22 08:00 Laboratory Results - last 24 hr 04/09/22 22:06: Specimen Source Left radial, O2 % 100, ABG pH 7.42, ABG pCO2 32.1 L, ABG pO2 107.1 H, ABG HCO3 20.5 L, ABG Total CO2 21.5 L, ABG O2 Saturation 98, ABG Base Excess -3.9 L, Dave Test Acceptable 04/09/22 23:04: Sodium 138, Potassium 5.6 H, Chloride 105, Carbon Dioxide 28, Anion Gap 10.6, BUN 35 H, Creatinine 1.30 H, Estimated Creat Clear 52, Estimated GFR 53 L, Est GFR ( Amer) 64, Glucose 174 H, Calcium 8.9, Total Bilirubin 0.8, AST 56, ALT 28, Alkaline Phosphatase 118, Total Protein 6.1 L, Albumin 3.0 L, Globulin 3.1, Albumin/Globulin Ratio 1.0 L 04/09/22 23:04: WBC 14.0 H, RBC 3.74 L, Hgb 12.4 L, Hct 40.6 L, MCV 108.5 H, MCH 33.3 H, MCHC 30.7 L, RDW 15.1, Plt Count 215, MPV 9.6, Neut % (Auto) 90.8 H, Lymph % (Auto) 5.1 L, Stephenson % (Auto) 3.2, Eos % (Auto) 0.7, Baso % (Auto) 0.3, Neut # (Auto) 12.7 H, Lymph # (Auto) 0.7, Stephenson # (Auto) 0.4, Eos # (Auto) 0.1, Baso # (Auto) 0.0, Total Counted 100, Neutrophils % (Manual) 88 H, Lymphocytes % (Manual) 5 L, Monocytes % (Manual) 7, Platelet Estimate Normal, Hypochromasia 2+ 04/09/22 23:04: Phosphorus 3.8, Magnesium 2.1, C-Reactive Protein 132.5 H 04/09/22 23:04: NT-Pro-B Natriuret Pep 5500 H 04/09/22 23:04: Vitamin B12 738, TSH 1.01 04/09/22 23:04: Digoxin 1.10 04/09/22 23:06: Chlamy pneumoniae PCR Not detected, Adenovirus (PCR) Not detected, B. pertussis DNA (PCR) Not detected, Coronavirus OC43 (PCR) Not detected, Coronavirus HKU1 (PCR) Not detected, Coronavirus 229E (PCR) Not detected, SARS-CoV-2 (PCR) Not detected, Coronavirus NL63 (PCR) Not detected, Human Metapneumovir PCR Not detected, Influenza A (H1) PCR Not detected, Influ A (H1N1/09) PCR Not detected, Influenza A (H3) PCR Not detected, Influenza Type A (PCR) Not detected, Influenza Type B (PCR) Not detected, M. pneumoniae (PCR) Not detected, Parainfluenza 1 (PCR) Not detected, Parainfluenza 2 (PCR) Not detected, Parainfluenza 3 (PCR) Not detected, Parainfluenza 4 (PCR) Not detected, RSV (PCR) Not detected, Entero/Rhino (PCR) Not detected I & O for Last 24 hours: Intake & Output 04/07/22 04/08/22 04/09/22 04/10/22 11:59 11:59 11:59 11:59 Intake Total 590 / 590 Output Total 100 / 100 Balance 490 / 490 Weight 186 lb 4.8 oz Radiology Reports for the Last 24 Hours: CXR - Interstitial opacities bilaterally could reflect edema versus pneumonia. - Constitutional no acute distress - *Routine Respiratory Exam Present: rales (Bibasilar) - *Routine Cardiovascular Exam Present: RRR - *Routine Abdominal Exam Present: soft, normoactive bowel sounds. Absent: tenderness - *Routine Extremities Exam Absent: cyanosis, clubbing, edema - *Routine Skin Exam Present: warm. Absent: rash - *Routine Neurological Exam Present: alert, oriented X3 Assessment and Plan (1) Pulmonary fibrosis Status: Acute Category: Medical Code(s): J84.10 - Pulmonary fibrosis, unspecified (2) Acute on chronic systolic congestive heart failure, NYHA class 3 Status: Acute Category: Medical Code(s): I50.23 - Acute on chronic systolic (congestive) heart failure (3) Muscle weakness Status: Acute Category: Medical Code(s): M62.81 - Muscle weakness (generalized) (4) Automatic implantable cardioverter-defibrillator in situ Status: Acute Category: Medical Code(s): Z95.810 - Presence of automatic (implantable) cardiac defibrillator (5
--- NOTE | 2022-04-10 09:31 | HMH.PULMCON ---
*Admission Date: 04/09/22 *Reason for consult:: Acute on chronic hypoxic respiratory failure *History of present illness: Mr. Cody is a 82-year-old male history of CT ILD recently started on Ofev, CAD, A. fib RVR was transferred from an outside hospital for acute on chronic hypoxic respiratory failure and was transferred for further management [facility] History Medical History: Reports:: Aneurysm, Arrhythmia, Atherosclerotic Heart Disease, Atrial Fibrillation, BPH, Cardiomyopathy, Congestive Heart Failure, Coronary Artery Disease, Cerebrovascular Accident, Depression, Home Oxygen, Hyperlipidemia, Hypertension, Internal Pacemaker, Myocardial Infarction Denies:: Cancer, Diabetes Mellitus Type 1, Diabetes Mellitus Type 2, Gastrointestinal Bleed, MRSA, Seizures *Have you ever received a pneumonia vaccine?: Yes *Have you received a flu vaccine this season?: Yes Other Medical History: Reports: Cataracts, Hypothyroidism, Thyroid Disease. Denies: Blood Transfusion Reaction Laterality Cases: Left: Carotid Endarterectomy Other Surgeries: Yes: CABG, Cardiac Surgery, Colonoscopy, Hernia Repair, Pacemaker, Other Amputation: No Fractures: No - *Social History Last grade of school completed: 7th or 8th Smoking Status: Former smoker Tobacco Type: cigarettes # Packs/Day (cigarettes): 1 #Yrs smoked (if former smoker): 31 Alcohol Intake: never Substance Use Type: denies use *Occupational Status:: unemployed, disabled Housing: house Household Members: spouse *Travel in the last 8 weeks: None - Psychiatric History Pschychiatric History:: Reports:: Depression Family Hx:: Cancer, Heart Attack, Hyperlipidemia, Hypertension ROS - Cons Reports anorexia, Reports fatigue, Reports lack of energy, Reports weakness - ENT Reports difficulty swallowing - Card Reports shortness of breath, Reports shortness of breath with activity, Reports leg swelling - Resp Respiratory: Reports shortness of breath, Denies chest congestion, Denies cough, Reports dyspnea, Reports dyspnea on exertion, Denies excessive phlegm production, Denies pain on inspiration, Denies snoring, Denies wheezing - GI Gastrointestingal: Reports: nausea - Musk Musculoskeletal: Reports muscle weakness - Psych Denies thoughts of hurting/killing others, Denies thoughts of hurting/killing yourself Meds Home Medications Medication Instructions Recorded Confirmed Type Apixaban [Eliquis] 5 mg PO BID 01/21/18 04/09/22 History Atorvastatin Calcium [Lipitor 80mg 80 mg PO HS 01/21/18 04/09/22 History Tab] Fish Oil/Dha/Epa [Fish Oil 1,200 1 each PO DAILY 01/21/18 04/09/22 History mg Fish Oil] Fluoxetine HCl [Prozac] 10 mg PO DAILY 01/21/18 04/09/22 History Folic Acid [Folic Acid 1mg tablet] 1 mg PO DAILY 01/21/18 04/09/22 History Tamsulosin HCl [Flomax] 0.4 mg PO DAILY 01/21/18 04/09/22 History Vitamin E Acid Succinate [Vitamin 400 units PO DAILY 01/21/18 04/09/22 History E 400 Unit Tab] Ferrous Sulfate 325 mg PO DAILY 01/15/21 04/09/22 History Mecobalamin [B12 Active] 1,000 mcg PO DAILY 01/15/21 04/09/22 History Multivitamin [One-Daily 1 each PO DAILY 01/15/21 04/09/22 History Multi-Vitamin] Vit C/E/Zn/Coppr/Lutein/Zeaxan 1 each PO DAILY 01/15/21 04/09/22 History [Preservision Areds 2 Softgel] Levothyroxine Sodium 125 mcg PO DAILY 10/18/21 04/09/22 History [Levothyroxine 125mcg (0.125mg) Tab] Digoxin 125 mcg PO DAILY 10/30/21 04/09/22 History clopidogrel 75 mg tablet 75 mg PO DAILY #30 tab 11/22/21 04/09/22 Rx ondansetron HCl 4 mg tablet 4 mg PO Q8H PRN #30 tab 03/10/22 04/09/22 Rx loperamide 2 mg capsule 2 mg PO Q8H PRN #30 cap 03/14/22 04/09/22 Rx Amiodarone HCl [Pacerone 200mg Tab] 200 mg PO DAILY 04/09/22 04/09/22 History Ranolazine [Ranexa 500mg ER tablet] 500 mg PO BID 04/09/22 04/09/22 History Metoprolol Succinate [Metoprolol 50 mg PO BID 04/10/22 04/10/22 History Succinate 50mg Tablet*] Nintedanib Esylate [Ofev] 150 mg PO BID 0
--- NOTE | 2022-04-10 10:15 | HMH.CNCARD ---
History of Present Illness Consult date: 04/10/22 Requesting physician: Tressa Zhao Consult reason: shortness of breath Chief complaint: SOA, Pulmonary Fibrosis, CAD, AICD Additional Medical History:: 1. CAD A. Prior MA, 1985 B. CABG, four-vessel, 1991, Dr. Heath Cline, [facility], 09/23/2021, [facility], Dr. Roshan Cheney 50% left main 80% proximal LAD supplying a diagonal branch. Unsuccessful Attempt at balloon angioplasty. Cutting balloon would not cross. Medical therapy recommended. [place] to LAD, patent. Sequentaial SVG to Ramus and OM branches, patent. Occluded RCA and SVG to RCA but large, brisk left to right collaterals. LVEDP of 17 mm Hg. Recommended medical therapy with plavix and continued apixaban therapy for one month then stop plavix and switch back to ASA 81 mg. 2. History of abdominal aortic aneurysm, status post surgery, 11/20/2000, [facility] 3. Chronic atrial fibrillation, on Eliquis therapy A. History of stroke with right side affected, 2017 B. Cardioverted to NSR, 10/19/2021 but reverted back to A. flutter thereafter requiring IV Amiodarone then oral amiodarone for maintenance of NSR 4. Carotid artery stenosis, status post left carotid endarterectomy, 12/2017 5. COVID antibody (+) , 12/2020 6. Right inguinal hernia, 12/2020 A. Open repair of right inguinal hernia with placement of large sized Bard prefix mesh plug with onlay mesh, Dr. Scotty Abad 7. Ischemic cardiomyopathy with systolic congestive heart failure A. Echocardiogram, 10/2020, EF 30-35% with left atrial enlargement, concentric LVH and grade 1 diastolic dysfunction. B. [employer] BICYCLE RACER-D implanted, 10/22/2021 8. Hypertension 9. Hyperlipidemia 10. Essential tremor 11. 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 Colton Castellanos. He is seen in consultation by Dr. Debbie Poon, ocularist at [facility]. He has been diagnosed with pulmonary fibrosis. He became acutely ill 2 days ago. His says he has spells where he nearly passes out. He was taken by ambulance to [facility] in [place]. He has been hospitalized there for several days. Dr. Poon was contacted regarding the patient and he agreed to transfer to [facility] for further evaluation and treatment. The patient arrived at [facility] late on the evening of 04/09/2002. He states that he is not feeling that badly right now. His describes the spells. He was on IV antibiotics at [place]: Cefepime 1 g IV every 12 hours and azithromycin 500 mg p.o. daily. He has been on 5 L by nasal cannula according to the record that accompanies him. He has coronary artery disease and has had CABG with four-vessel bypass in 1991 he is also had left carotid angioplasty in 2017 he had an aortic aneurysm repair in 2000. He is under the care of Dr. Shabazz, cardiology. He has had a pacer defibrillator placed in September 2021. He is on multiple cardiac medications including digoxin, clopidogrel, amiodarone, Eliquis, ranolazine, and metoprolol. He takes Ofev 150 mg twice a day for his pulmonary fibrosis. The above per Jenny Hardin PA-C, for Dr. Zhao. Patient relates recent nausea, vomiting and diarrhea after starting Ofev for pulmonary fibrosis. He has decreased his intake and began losing weight with subsequent episodes of lightheadedness dizziness and likely near syncopal episodes due to low blood pressure. states home blood pressure readings have been as low as 70s and 80s systolic at times. Even his metoprolol has been intermittently held due to low blood pressure. He discontinued the Ofev about 2 weeks after starting it but the side effects have been slow to improve. He does relate a cough recently with some chest soreness related to mindy
--- NOTE | 2022-04-10 10:41 | PC.NURSE ---
Rounded on pt, dr in room at this time. No needs voiced.
--- NOTE | 2022-04-10 11:30 | PC.NURSE ---
pt up to chair for lunch. family at bedside. no needs/concerns voiced at this time.
--- NOTE | 2022-04-10 13:41 | PC.NURSE ---
rounded on patient. assisted marsha brown rn with getting patient up to chair for lunch. patient and family at bedside had no concerns, or questions at this time in regards to meds or plan of care. . encouraged them to ring out as needed.
--- NOTE | 2022-04-10 15:04 | SW/DCPLANNER ---
Addendum entered by [facility] 04/11/22 13:39: [facility]/ [facility] stated that information/order was reviewed and services will start first of next week. Addendum entered by [facility] 04/11/22 11:09: Patient/family has decided to discharge home with home health services due to improvement. Patient information/order will be faxed to [facility]. I will follow up with [facility] once patient information/order is reviewed. Patient may discharge home later today. Addendum entered by [facility] 04/11/22 09:48: [facility]/ [facility] CM stated that they do not have beds available this AM. Patient information will be faxed to [facility]/ [facility]. Original Note: I spoke with this patient and his regarding plans once medically stable for discharge. Patient and both agreed that patient could benefit from SNF level of care once medically stable for discharge. stated that they are interested in swingbed unit at [facility] or [facility]. I explained to patient/ that PT/OT will evaluate once ordered by MD and once they give their recommendations I will follow up with patient, family and facilities. Per [facility] CM Dept they are accepting swingbeds at this time. Patient information has been faxed pending PT/OT evaluation.. [facility] fax: [phone]
--- NOTE | 2022-04-10 15:38 | PC.NURSE ---
Pt is A/O x4. He has been up to chair a few times, and has tolerated it well. He is eating well during meal times. There are no changes since last assessment.
--- NOTE | 2022-04-10 17:09 | HMH.PTEV ---
Physical Therapy Evaluation Rehab PT IP Evaluation Start: 04/10/22 15:14 Freq: ONCE Status: Active Protocol: Document 04/10/22 16:56 LOUISA (Rec: 04/10/22 17:08 LOUISA [id number]) Subjective/History History History This is the initial IP PT evaluation for Scotty Cody. Pt is an 82 y/o male w/ extensive hx of cardiovascular problems including CABG, pacemaker/defibrillator, aneurysm, CVA, CHF, cardiomyopathy, and pulmonary fibrosis. Pt was admitted from [facility] for Pulmonary care. Subjective Subjective Pt and describe falling spells at home. Reports pt does not trrip, he will get up , walk for 20-30 seconds and then looks like he is in a different world and then start to collapse - This sounded like orthostatic hypotension BP's were taken, sitting, standing and after walking. BP seated 158/97, stand 146/72, after walk 120/ 64 Rehab PT IP Eval Objective Appearance Patient Behavior Appropriate,Cooperative Patient Orientation Place,Name,Birthday,Year, Situation Difficulty following instructions none Speech Pattern Clear,Appropriate Ambulation Patient Able to Ambulate Yes Ambulation Observation IP General Gait Pattern Observation No Deviations/Normal Ambulation Distance (feet) 25 Ambulation Assistive Device Rolling Walker Ambulation Ability Supervision/Stand by,Contact Guard/Hand Hold Balance Ability to Arise Able, uses arms to help Standing Balance Steady, wide stance Dynamic Sitting Balance Ability Good Dynamic Standing Balance Ability Fair Transfers Bed Transfer Ability Independent,Supervision/Stand by Chair Transfer Ability Independent,Supervision/Stand by Sit to Stand Bed Transfer Ability Independent,Supervision/Stand by Sit to Stand Chair Transfer Ability Independent,Supervision/Stand by ROM All Extremities PT ROM Status WFL MMT All Extremities PT MMT
[2022-04-11] VITALS: BP 155/75; PULSE 70; PULSE 78; RESP 16; TEMP 36.7; O2SAT 96
[2022-04-11 04:00] VITALS: BP 143/74; PULSE 70; RESP 16; TEMP 36.6; O2SAT 97
[2022-04-11 05:00] VITALS: BMI 23.5
--- NOTE | 2022-04-11 05:45 | PC.NURSE ---
No acute changes. Pt tolerating 4 L nc well with sats >90%. Pt has not voiced any complaints to staff. at bedside. Call light within reach. Bed alarm on for pt safety.
[2022-04-11 08:00] VITALS: BP 124/63; PULSE 70; RESP 18; TEMP 36.6; O2SAT 95
--- NOTE | 2022-04-11 08:08 | P.PN_ITS ---
Subjective Date: 04/11/22 Time: 08:08 Principal diagnosis: SOA Interval history: 82-year-old white male sitting in bed in no acute distress. Breathing has significantly improved with significant diuresis last evening. Still with some lower extremity edema. Exam Vital signs and Labs for Last 24 Hours: Temp Pulse Resp BP Pulse Ox 97.9 F 70 16 143/74 H 97 04/11/22 04:00 04/11/22 04:00 04/11/22 04:00 04/11/22 04:00 04/11/22 04:00 I & O for Last 24 hours: Intake & Output 04/08/22 04/09/22 04/10/22 04/11/22 11:59 11:59 11:59 11:59 Intake Total 590 / 590 1050 / 1050 Output Total 100 / 500 2600 / 2600 Balance 490 / 90 -1550 / -1550 Weight 186 lb 4.65 oz 183 lb 6.4 oz - Constitutional no acute distress - *Routine Respiratory Exam Present: crackles Comments: Fibrotic crackles noted throughout. - *Routine Cardiovascular Exam Present: RRR - *Routine Extremities Exam Present: edema. Absent: cyanosis, clubbing - *Routine Neurological Exam Present: alert, oriented X3 Progress Note: A&P (1) Pulmonary fibrosis Status: Acute (2) Acute on chronic systolic congestive heart failure, NYHA class 3 Status: Acute (3) Muscle weakness Status: Acute (4) Automatic implantable cardioverter-defibrillator in situ Status: Acute (5) Tremor Status: Acute Assessment and Plan for All Diagnoses:: 1. SOA likely multifactorial (Pulmonary fibrosis, CHF and possible pulmonary infection). Improved with diuresis overnight. Will hold off on further diuretic due to CARLEEN. 2. Pulmonary fibrosis, per Pulmonary 3. Paroxysmal atrial fibrillation/flutter with telemetry showing continued sinus rhythm with pacing, controlled on amiodarone, beta-krystian, digoxin and eliquis. 4. Ischemic cardiomyopathy with implanted [place] [employer] device. Continue metoprolol, ranexa, digoxin and plavix. 5. Acute on chronic systolic congestive heart failure, AM labs pending. Due to CARLEEN will hold any additional lasix today. Recommend lasix 20 mg and spironolactone 25 mg daily PRN for edema, wt gain along with worsening SOA. 6. Mild hyperkalemia, resolved with diuresis. 7. Mild anemia, stable. 8. CKD, stage II, slightly worse after diuresis with BUN 58, Cr 1.9 and GFR 34 wants patient to go to rehab due to unsteadiness at home recently. Nothing further to add at this time. Follow up in office in 2-4 wks. Home med recommendations: plavix 75 mg daily Amiodarone 200 mg daily digoxin 0.125 mg daily metoprolol succinate 50 mg daily Ranexa 500 mg BID eliquis 5 mg BID atorvastatin 80 mg daily Lasix 20 mg and spironolactone 25 mg daily PRN edema, wt gain, SOA BMP in one week.
[2022-04-11 08:29] LABS: Basophils % 0.1 % (0.1-2.0); Eosinophils % 0.1 % (0.1-12.0); Hematocrit 39.9 % (42.0-52.0); Hemoglobin 12.5 g/dL (14.1-18.0); Lymphocytes # 1.4 K/mm3 (0.7-4.5); Lymphocytes % 8.9 % (10-50); Mean Corpuscular HGB Conc 31.4 g/dL (31.8-35.4); Mean Corpuscular Hemoglobin 33.4 pg (27.0-31.2); Mean Corpuscular Volume 106.6 fl (80-94); Mean Platelet Volume 8.8 fl (7.4-10.4); Monocytes # 0.9 K/mm3 (0.1-1.0); Monocytes % 5.8 % (1.7-9.3); Neutrophils # 13.1 K/mm3 (1.8-7.8); Neutrophils % 85.1 % (37.0-80.0); Platelet Count 307 K/mm3 (142-424); Red Blood Count 3.75 M/mm3 (4.60-6.20); White Blood Count 15.4 K/mm3 (4.8-10.8)
[2022-04-11 08:34] LABS: MANUAL DIFFERENTIAL MANUAL DIFFERENTIAL (MANUAL DIFF)
--- NOTE | 2022-04-11 08:34 | HMH.ACPN2 ---
<Jenny Hardin - Last Filed: 04/11/22 08:34> Internal Medicine - PN: Subj *Date: 04/11/22 *Time: 08:34 Interval history: Patient is feeling much better today. Breathing has improved. He denies any pain. He slept well and is eating well. Exam Vital signs and Labs for Last 24 Hours: Temp Pulse Resp BP Pulse Ox 97.8 F 70 18 124/63 95 04/11/22 08:00 04/11/22 08:00 04/11/22 08:00 04/11/22 08:00 04/11/22 08:00 I & O for Last 24 hours: Intake & Output 04/08/22 04/09/22 04/10/22 04/11/22 11:59 11:59 11:59 11:59 Intake Total 590 / 590 1290 / 1290 Output Total 100 / 500 2600 / 2600 Balance 490 / 90 -1310 / -1310 Weight 186 lb 4.65 oz 183 lb 6.4 oz - Constitutional no acute distress - *Routine Respiratory Exam Present: decreased breath sounds, CTA bilaterally - *Routine Cardiovascular Exam Present: RRR - *Routine Abdominal Exam Present: soft, normoactive bowel sounds. Absent: tenderness - *Routine Extremities Exam Present: edema (trace). Absent: cyanosis, clubbing - *Routine Skin Exam Present: warm. Absent: rash - *Routine Neurological Exam Present: alert, oriented X3 Assessment and Plan (1) Pulmonary fibrosis Status: Acute Category: Medical Code(s): J84.10 - Pulmonary fibrosis, unspecified (2) Acute on chronic systolic congestive heart failure, NYHA class 3 Status: Acute Category: Medical Code(s): I50.23 - Acute on chronic systolic (congestive) heart failure (3) Muscle weakness Status: Acute Category: Medical Code(s): M62.81 - Muscle weakness (generalized) (4) Automatic implantable cardioverter-defibrillator in situ Status: Acute Category: Medical Code(s): Z95.810 - Presence of automatic (implantable) cardiac defibrillator (5) Tremor Status: Acute Category: Medical Code(s): R25.1 - Tremor, unspecified - Assessment and plan all Dx Assessment and Plan for all problems:: Patient has diuresed well. Additional Lasix has been ordered today by cardiology. Pulmonology to follow as well. Possible discharge home today. <ZeldaSachin Segura - Last Filed: 04/14/22 23:53> Internal Medicine - PN: Subj *Date: 04/14/22 *Time: 23:53 Exam Vital signs and Labs for Last 24 Hours: Temp Pulse Resp BP Pulse Ox 97.7 F 70 17 142/77 H 97 04/11/22 11:30 04/11/22 12:00 04/11/22 11:30 04/11/22 11:30 04/11/22 11:30 I & O for Last 24 hours: Intake & Output 04/12/22 04/13/22 04/14/22 04/15/22 11:59 11:59 11:59 11:59 Intake Total 240 / 240 Balance 240 / 240 Microbiology Reports for the Last 24 Hours: Microbiology 04/09/22 23:04 Blood Blood Culture - Final NO GROWTH AFTER 5 DAYS 04/09/22 23:04 Blood Blood Culture - Final NO GROWTH AFTER 5 DAYS Assessment and Plan (1) Pulmonary fibrosis Status: Acute Category: Medical Code(s): J84.10 - Pulmonary fibrosis, unspecified (2) Acute on chronic systolic congestive heart failure, NYHA class 3 Status: Acute Category: Medical Code(s): I50.23 - Acute on chronic systolic (congestive) heart failure (3) Muscle weakness Status: Acute Category: Medical Code(s): M62.81 - Muscle weakness (generalized) (4) Automatic implantable cardioverter-defibrillator in situ Status: Acute Category: Medical Code(s): Z95.810 - Presence of automatic (implantable) cardiac defibrillator (5) Tremor Status: Acute Category: Medical Code(s): R25.1 - Tremor, unspecified - Assessment and plan all Dx Assessment and Plan for all problems:: Patient seen and examined this AM. Concur with above. He is ready for discharge.
[2022-04-11 08:36] LABS: Chloride 103 mmol/L (98-107); Sodium 139 mmol/L (136-145)
[2022-04-11 08:39] LABS: Blood Urea Nitrogen 58 mg/dl (9-20); Calcium 9.1 mg/dl (8.4-10.2); Carbon Dioxide 30 mmol/L (22.0-30.0); Creatinine Clearance Estimated 35 mL/min (50-200); Estimated Glomerular Filt Rate 34 ml/min (>60); GFR (African American) 41 ML/MIN (>60); Glucose 128 mg/dl (74-100)
[2022-04-11 08:48] VITALS: PULSE 70
[2022-04-11 09:01] LABS: Lymphocytes % 16 % (10-50); Monocytes % 2 % (2-9); Neutrophils % 82 % (42-76); Total Cells Counted 100
[2022-04-11 09:02] LABS: Macrocytosis 2+; Platelet Estimate Normal
--- NOTE | 2022-04-11 09:20 | HMH.PULMPN ---
Internal Medicine - PN: Subj *Date: 04/11/22 *Time: 11:00 Interval history: No acute respiratory vents overnight. Patient admits continued improvement in her symptoms. Exam - Constitutional Constitutional:: Present: no acute distress, comfortable - HENMT Exam HENMT: Present: normocephalic - Eye Exam Eyes:: Present: normal appearance both eyes and related structures - Neck Exam Neck:: Present: normal visual inspection - Respiratory Exam Respiratory:: Present: able to speak in complete sentences, no respiratory distress, respiratory distress, rales. Absent: wheezing - Cardiovascular Exam Cardiac:: Present: S1, S2 - GI Exam GI:: Present: soft - Skin Exam Skin: Present: warm, no rash - Neurological Exam Neurological: Present: alert, awake, normal cognition - Extremities Exam Extremities: Present: no cyanosis, no clubbing, edema Assessment and Plan (1) Pulmonary fibrosis Status: Acute Category: Medical Code(s): J84.10 - Pulmonary fibrosis, unspecified (2) Acute on chronic systolic congestive heart failure, NYHA class 3 Status: Acute Category: Medical Code(s): I50.23 - Acute on chronic systolic (congestive) heart failure (3) Muscle weakness Status: Acute Category: Medical Code(s): M62.81 - Muscle weakness (generalized) (4) Automatic implantable cardioverter-defibrillator in situ Status: Acute Category: Medical Code(s): Z95.810 - Presence of automatic (implantable) cardiac defibrillator (5) Tremor Status: Acute Category: Medical Code(s): R25.1 - Tremor, unspecified - Assessment and plan all Dx Assessment and Plan for all problems:: #Acute on chronic hypoxic respiratory failure: #CHF exacerbation: 82-year-old female history of pulmonary fibrosis, CT ILD, chronic A. fib,CHF with a EF of 30-35%, presented with acute on chronic hypoxic respiratory failure. He was admitted at [facility], got a CT PE negative for pulmonary embolism initiated on broad-spectrum antibiotics did not see any clinical improvement and was [facility]. CT chest reviewed and compared with most recent HRCT, bilateral diffuse interstitial changes with honeycombing and lower lobe predominant groundglass changes present right lower lobe, which appears to be slightly worse from prior. No dense consolidation noted. Continued noted to have lymphadenopathy unchanged from prior. Physical exam on admission revealed bilateral worsening lower extremity edema. BNP elevated. Patient could not tolerate Ofev and have discontinued the medication. He is also currently receiving amiodarone however his pulmonary fibrosis was seen on his CAT scan since 2018 prior to initiation of amiodorone. On admissio n Mild leukocytosis with white count of 14. BNP elevated. BUN/creatinine stable from his most recent hospital admission from January. CRP elevated at 132.5. Comprehensive respiratory viral PCR negative. Interval update: Patient received Lasix yesterday adequate diuresis, creatinine increased to 1.9. We will hold off on diuresis today. Continue to receive prednisone 40 mg daily along with cefepime. Wean antibiotics levofloxacin. Culture so far negative. Clinically patient appears to be having significant improvement patient stated he is almost back to his baseline with respect to his respiratory status. Plan: -Continue nasal oxygen supplementation to maintain O2 saturation goal of 89% and above. Currently on 4 L saturating 90% and above. Patient home oxygen therapy include 3 to 4 L. -Wean antibiotics to levofloxacin -Continue prednisone 40 mg daily x14 days -DuoNebs every 6 hours as needed. -Recommend strict I's and O's and low salt diet -F/U cardiology recs #Thank you for involving pulmonary in this patient care. We will continue to follow. Appreciate primary team's support in managing non-pulmonary comorbidities
[2022-04-11 11:30] VITALS: BP 142/77; PULSE 70; RESP 17; TEMP 36.5; O2SAT 97
[2022-04-11 12:00] VITALS: PULSE 70
--- NOTE | 2022-04-11 12:20 | PC.NURSE ---
Pt has to get IV abx before he is able to leave. He is currently getting medication.
--- NOTE | 2022-04-11 13:44 | PC.NURSE ---
Pt has about 20 mins left on IV abx.
--- NOTE | 2022-04-11 13:51 | HMH.PHAINT ---
DISCHARGE MEDICATION COUNSELING PROVIDED. DISCUSSED THE FOLLOWING: -PREDNISONE (TAKE DAILY PREFERABLY IN THE MORNING, SHORT-COURSE THERAPY, MAY CAUSE UPSET STOMACH, INSOMNIA) -SPIRONOLACTONE (TAKE DAILY NEEDED FOR EDEMA, BREAST PAIN, POTASSIUM SPARING EFFECT, DIZZINESS/LIGHTHEADEDNESS) -FUROSEMIDE (TAKE DAILY NEEDED FOR EDEMA, POTASSIUM WASTING EFFECT, DIZZINESS/LIGHTHEADEDNESS) -LEVOFLOXACIN (TAKE DAILY WITH OR WITHOUT FOOD, MAY CAUSE UPSET STOMACH, DIARRHEA, RISK OF TENDON RUPTURE)
--- NOTE | 2022-04-13 23:14 | HMH.DCSUM ---
General - General Admission date:: 04/09/22 <ZeldaSachin Colton - 04/15/22 22:36> 04/09/22 <CullenJenny edwards - 04/13/22 23:23> Discharge date: 04/11/22 <Jenny Hardin - 04/13/22 23:23> HPI HPI: This 82-year-old white male is a patient of Dr. Colton Castellanos. He is seen in consultation by Dr. Debbie Poon, floor hand at [facility]. He has been diagnosed with pulmonary fibrosis. He became acutely ill 2 days ago. His says he has spells where he nearly passes out. He was taken by ambulance to [facility] in [place]. He has been hospitalized there for several days. Dr. Poon was contacted regarding the patient and he agreed to transfer to [facility] for further evaluation and treatment. The patient arrived at [facility] late on the evening of 04/09/2002. He states that he is not feeling that badly right now. His describes the spells. He was on IV antibiotics at [place]: Cefepime 1 g IV every 12 hours and azithromycin 500 mg p.o. daily. He has been on 5 L by nasal cannula according to the record that accompanies him. He has coronary artery disease and has had CABG with four-vessel bypass in 1991 he is also had left carotid angioplasty in 2017 he had an aortic aneurysm repair in 2000. He is under the care of Dr. Shabazz, cardiology. He has had a pacer defibrillator placed in September 2021. He is on multiple cardiac medications including digoxin, clopidogrel, amiodarone, Eliquis, ranolazine, and metoprolol. He takes Ofev 150 mg twice a day for his pulmonary fibrosis. <CullenJenny edwards - 04/13/22 23:23> Hospital Course Hospital Course: The patient was admitted and initial chest x-ray showed interstitial opacities bilaterally reflecting edema versus pneumonia. A chest CT was ordered and it showed chronic fibrosis with worsening groundglass opacities possibly due to acute infectious or inflammatory pneumonitis. Mild edema was also a consideration. The patient had no further syncopal episodes and denied any chest pain. His shortness of breath did begin improving. His respiratory panel was negative. He was seen by pulmonology. His chest CT compared with most recent HRCT showed bilateral diffuse interstitial changes with honeycombing and lower lobe predominant groundglass changes present in the right lower lobe. Physical exam revealed bilateral worsening lower extremity edema and his BNP was elevated. He could not tolerate the Ofev and it was therefore discontinued. His CRP was elevated 132.5. Pulmonology felt the patient's respiratory failure was likely a combination of volume overload and IPF exacerbation. He wanted him continued on cefepime and Zithromax along with prednisone 40 mg daily for 14 days. He was given IV Lasix as well as duo nebs. Cardiology was also consulted. They agreed with the IV Lasix. Patient had an implanted [place] [employer]D device. Interrogation showed brief atrial tachycardia episodes and one brief nonsustained V. tach episode. They did not feel any further cardiac testing would be needed. By 04/11/2022, the patient's breathing had significantly improved with diuresis. Diuretics were held due to renal function. Cardiology did recommend Lasix 20 mg daily and spironolactone 25 mg daily as needed for edema. He was continued on prednisone along with cefepime. Pulmonology felt his antibiotics could be weaned to Levaquin. The patient's wanted the patient discharged to rehab facility, however no beds were available at the swing bed unit in [facility]. The patient and his family decided to discharge home with home health services. <Jenny Hardin - 04/13/22 23:23> Objective Vital signs: Temp Pulse Resp BP Pulse Ox 97.7 F 70 17 142/77 H 97 04/11/22 11:30 04/11/22 12:00 04/11/22 11:30 04/11/22 11:30 04/11/22 11:30 <Sachin Ndiaye - 04/15/22 22:36> Temp Pulse Resp BP Pu
--- NOTE | 2022-04-14 15:33 | CARE MANAGER ---
Spoke with patient family regarding discharge interview, she states that patient is good and has no needs at this time.
[2022-04-18 22:33] LABS: MRSA DNA PCR NEGATIVE
== END 2022-04-11 14:43 | disposition home health service (06) | DRG 196 ==
PROVIDERS: Internal Medicine Pulmonary Disease; Physician Assistant; Admitting Provider Family Medicine; PCP Family Medicine; Visit Provider Family Medicine
DX: J84.10 Pulmonary fibrosis, unspecified (principal); I50.23 Acute on chronic systolic (congestive) heart failure; J96.21 Acute and chronic respiratory failure with hypoxia; I42.9 Cardiomyopathy, unspecified; I48.20 Chronic atrial fibrillation, unspecified; I13.0 Hypertensive heart and chronic kidney disease with heart failure and stage 1 through stage 4 chronic kidney disease, or unspecified chronic kidney disease; Z20.822 Contact with and (suspected) exposure to COVID-19; I25.10 Atherosclerotic heart disease of native coronary artery without angina pectoris; Z95.1 Presence of aortocoronary bypass graft; I48.91 Unspecified atrial fibrillation; N40.0 Benign prostatic hyperplasia without lower urinary tract symptoms; I50.9 Heart failure, unspecified; Z86.73 Personal history of transient ischemic attack (TIA), and cerebral infarction without residual deficits; Z99.81 Dependence on supplemental oxygen; Z95.810 Presence of automatic (implantable) cardiac defibrillator; Z86.16 Personal history of COVID-19; I65.29 Occlusion and stenosis of unspecified carotid artery; N18.2 Chronic kidney disease, stage 2 (mild); I25.2 Old myocardial infarction
CPT/HCPCS: 36415; 71045; 71250; 80048; 80053; 80162; 82607; 82803; 83735; 83880; 84100; 84443; 85007; 85014; 85018; 85025; 85048; 85049; 86140; 87040; 87081; 87581; 87632; 87641; 87798; 94640; 94760; 94761; 97116; 97162; 97165; 97530; C9803; J0456; J1956; U0003; U0005

== ENCOUNTER → 2022-05-06 09:41 | Outpatient (CLI) | payer MEDICARE, SELFPAY ==
[2022-05-06 10:35] VITALS: PULSE 70; PULSE 74
== END ==
PROVIDERS: PCP Family Medicine; Visit Provider Internal Medicine Pulmonary Disease
DX: R06.00 Dyspnea, unspecified (principal)
CPT/HCPCS: 94060; 94618; 94640; 94727; 94729

== ENCOUNTER 2022-06-27 17:20 | Inpatient (IN) | payer MEDICARE, SELFPAY ==
[2022-06-27 16:50] VITALS: BMI 23.4
[2022-06-27 16:51] VITALS: RESP 16; RESP 31; O2SAT 100
[2022-06-27 16:57] VITALS: PULSE 70; O2SAT 100
--- NOTE | 2022-06-27 17:02 | EXP.HP ---
History of Present Illness *Admission Date: 06/27/22 *Reason for visit:: shortness of breath *History of present illness: Mr. Cody is an 82yo male with a hx of pulmonary fibrosis and CHF. Patient's states he was doing well and actually saw Dr. Ndiaye in the office on 06/24/2022. He had also been to see pulmonology recently for follow-up on his interstitial pulmonary fibrosis. He is oxygen dependent using anywhere from 3 to 5 L/min depending on his level of activity. He was just recently hospitalized in [place] 2 weeks prior for an episode of congestive heart failure. He was given several doses of Lasix and his breathing got better after diuresis and he was discharged. His states on he began getting more short of breath. This morning he was not able to breathe and his oxygen saturations were in the 30s. She called 911 and he was rushed to [place]. He was given 2 doses of Lasix and placed on BiPAP. He does feel like his breathing is better at this time. He was transferred to [facility] to be placed under the care of Dr. Ndiaye. [facility] Medical History Automatic implantable cardioverter-defibrillator in situ CAD (coronary artery disease) Carotid arterial disease CHF (congestive heart failure), NYHA class II Dizziness Dyspnea Dyspnea on exertion History of atrial flutter HLD (hyperlipidemia) HTN (hypertension) Hypothyroidism ILD (interstitial lung disease) Ischemic cardiomyopathy Ischemic cardiomyopathy with implantable cardioverter-defibrillator (ICD) On home oxygen therapy Paroxysmal atrial fibrillation Pulmonary fibrosis Pulmonary fibrosis, unspecified Respiratory failure with hypoxia Shortness of breath Surgical History History of AAA (abdominal aortic aneurysm) repair History of carotid endarterectomy History of colonoscopy History of coronary artery bypass graft History of esophagogastroduodenoscopy (EGD) History of hernia repair History of implantable cardiac defibrillator (ICD) S/P carotid endarterectomy Family History Hyperlipidemia Heart attack Cancer Hypertension Social History Smoking Status: Former smoker pack-years: 31 second hand exposure: No alcohol intake: never substance use type: denies use current occupational status: unemployed and disabled Travel in the last 8 weeks: None household members: spouse housing: house lives independently: Yes marital status: current occupational exposures/hazards: No caffeine: Yes Review of Systems Constitutional Constitutional: Reports fatigue, Denies headache(s) and Reports weakness Eyes Eyes: Denies blurry vision and Denies diplopia ENT Ears, Nose, Mouth, and Throat: Denies headache(s), Denies nasal congestion, Denies sore throat and Reports vertigo *Cardiovascular Cardiovascular: Denies chest pain, Reports dyspnea and Reports leg edema *Respiratory Respiratory: Denies cough and Reports dyspnea *Gastrointestinal Gastrointestinal: Reports abdominal pain, Denies loose stools, Denies nausea and Denies vomiting *Genitourinary Genitourinary: Denies difficulty urinating, Denies dysuria and Reports oliguria *Musculoskeletal Musculoskeletal: Denies arthralgias and Denies myalgias *Neurologic Neurologic: Denies headache(s), Reports vertigo and Reports weakness Endocrine Endocrine: Reports fatigue Meds Home Medications and Allergies Home Medications Medication Instructions Recorded Confirmed Type apixaban 5 mg tablet 5 mg PO BID AFIB 01/21/18 06/27/22 History atorvastatin 80 mg tablet 80 mg PO HS Cholesterol 01/21/18 06/27/22 History fish oil-dha-epa 1,200 mg-144 1 each PO DAILY Supplement 01/21/18 06/27/22 History mg-216 mg capsule fluoxetine 10 mg capsule 10 mg PO PEG
--- NOTE | 2022-06-27 17:11 | PC.NURSE ---
orders requested at this time from Dr Ndiaye face to face
[2022-06-27 19:16] LABS: Coronavirus 19, PCR Not Detected (NotDetected); Influenza A, PCR Not Detected (NotDetected); Influenza B, PCR Not Detected (NotDetected)
[2022-06-27 20:00] VITALS: BP 146/63; PULSE 70; PULSE 95; RESP 22; TEMP 36.2; O2SAT 100
[2022-06-27 21:02] VITALS: RESP 16; RESP 36
[2022-06-27 22:00] VITALS: BP 152/73; PULSE 70; RESP 20; O2SAT 98
[2022-06-28] VITALS (15 sets, daily range): BP systolic 105–150; BP diastolic 63–91; PULSE 70–71; RESP 14–26; TEMP 36.6–36.8; O2SAT 92–99; BMI 23.2
--- NOTE | 2022-06-28 06:26 | PC.NURSE ---
pt has rested well t/o shift, has tolerated bipap well with O2 sats 95-100%, has been incontinent of bowel one time this shift, SBP 122-152, no complaints of pain or SOA
[2022-06-28 06:46] LABS: Basophils % 0.1 % (0.1-2.0); Hematocrit 33.5 % (42.0-52.0); Hemoglobin 11.1 g/dL (14.1-18.0); Lymphocytes # 1.3 K/mm3 (0.7-4.5); Mean Corpuscular HGB Conc 33.1 g/dL (31.8-35.4); Mean Corpuscular Volume 99.9 fl (80-94); Mean Platelet Volume 9.6 fl (7.4-10.4); Monocytes # 0.6 K/mm3 (0.1-1.0); Monocytes % 5.3 % (1.7-9.3); Neutrophils # 8.7 K/mm3 (1.8-7.8); Neutrophils % 82.5 % (37.0-80.0); Platelet Count 207 K/mm3 (142-424); Red Blood Count 3.36 M/mm3 (4.60-6.20); Red Cell Distribution Width 17.1 % (11.5-17.5); White Blood Count 10.5 K/mm3 (4.8-10.8)
[2022-06-28 06:55] LABS: Chloride 104 mmol/L (98-107); Potassium 4.1 mmoL/L (3.5-5.1); Sodium 144 mmol/L (136-145)
[2022-06-28 06:58] LABS: Alanine Aminotransferase 17 U/L (12-78); Albumin Level 3.1 g/dl (3.5-5.0); Albumin/Globulin Ratio 1.1 (1.1-1.8); Alkaline Phosphatase 133 U/L (38-126); Anion Gap 10.1 mEq/L (5-15); Aspartate Amino Transferase 33 U/L (17-59); Bilirubin,Total 1.4 mg/dl (0.2-1.3); Blood Urea Nitrogen 31 mg/dl (9-20); Carbon Dioxide 34 mmol/L (22.0-30.0); Creatinine Clearance Estimated 51 mL/min (50-200); Estimated Glomerular Filt Rate 53 ml/min (>60); GFR (African American) 64 ML/MIN (>60); Globulin 2.8 g/dL (1.3-3.2); Total Protein,Serum 5.9 g/dl (6.3-8.2)
[2022-06-28 06:59] LABS: Calcium 8.6 mg/dl (8.4-10.2); Glucose 115 mg/dl (74-100)
--- NOTE | 2022-06-28 11:45 | P.CONPHA_ITS ---
[facility] Pharmacy VTE Monitoring Patient Demographics Admission date: 06/27/22 Report Date: 06/28/22 Time: 11:45 Patient Allergies No Known Allergies Allergy (Verified 06/19/22 13:24) Height: 1.88 m Weight: 82.236 kg Current Active Problems (Updated 06/27/22 @ 17:10 by CLARK Montejo) Ischemic cardiomyopathy with implantable cardioverter-defibrillator (ICD) (Acu te) HTN (hypertension) (Acute) HLD (hyperlipidemia) (Acute) CHF (congestive heart failure), NYHA class II (Acute) CAD (coronary artery disease) (Chronic) Hypothyroidism (Chronic) Pulmonary fibrosis, unspecified (Acute) On home oxygen therapy (Chronic) Respiratory failure with hypoxia (Acute) VTE Risk Labs: VTE Related Lab Results Hgb 11.1 g/dL (14.1-18.0) L 06/28/22 05:30 Hct 33.5 % (42.0-52.0) L 06/28/22 05:30 Plt Count 207 K/mm3 (142-424) 06/28/22 05:30 BUN 31 mg/dl (9-20) H 06/28/22 05:30 Creatinine 1.30 mg/dl (0.66-1.25) H 06/28/22 05:30 Estimated Creat Clear 51 mL/min (50-200) 06/28/22 05:30 Was VTE Risk Assessment Performed: Yes VTE Score: 4 VTE Risk Level: Low Risk Prophylaxis VTE Prophylaxis Ordered?: Yes Types of VTE Prophylaxis: Pharmacological Pharmacologic Type: Other (ELIQUIS)
--- NOTE | 2022-06-28 11:48 | HMH.PHAINT1 ---
Pharmacy Intervention Comments: MEDICATION RECONCILIATION COMPLETED ON PATIENT USING EXTERNAL FILL HISTORY FROM PHARMACY. -[facility]PHON[facility] SHINE, SOLOD
--- NOTE | 2022-06-28 13:46 | EXP.PN ---
Subjective *Date: 06/28/22 *Time: 13:46 Interval history: And was compliant with wearing his BiPAP. He has been weaned to nasal cannula this morning and is tolerating this well with satisfactory O2 sats in the mid to upper 90s. He has not been out of bed. He denies chest pain. Exam Data for Last 24 hours Vital signs and Labs for Last 24 Hours: Temp Pulse Resp BP Pulse Ox FiO2 97.8 F 70 26 H 105/91 L 92 L 40 06/28/22 12:00 06/28/22 12:00 06/28/22 12:00 06/28/22 12:00 06/28/22 12:00 06/28/22 03:35 Laboratory Results - last 24 hr 06/27/22 19:15: SARS-CoV-2 (PCR) Not detected, Influenza A Untype (PCR) Not detected, Influenza Type B (PCR) Not detected 06/28/22 05:30: WBC 10.5, RBC 3.36 L, Hgb 11.1 L, Hct 33.5 L, MCV 99.9 H, MCH 33.0 H, MCHC 33.1, RDW 17.1, Plt Count 207, MPV 9.6, Neut % (Auto) 82.5 H, Lymph % (Auto) 12.0, Dillon % (Auto) 5.3, Eos % (Auto) 0.0 L, Baso % (Auto) 0.1, Neut # (Auto) 8.7 H, Lymph # (Auto) 1.3, Dillon # (Auto) 0.6, Eos # (Auto) 0.0, Baso # (Auto) 0.0 06/28/22 05:30: Sodium 144, Potassium 4.1, Chloride 104, Carbon Dioxide 34 H, Anion Gap 10.1, BUN 31 H, Creatinine 1.30 H, Estimated Creat Clear 51, Estimated GFR 53 L, Est GFR ( Amer) 64, Glucose 115 H, Calcium 8.6, Total Bilirubin 1.4 H, AST 33, ALT 17, Alkaline Phosphatase 133 H, Total Protein 5.9 L, Albumin 3.1 L, Globulin 2.8, Albumin/Globulin Ratio 1.1 I & O for Last 24 hours: Intake & Output 06/26/22 06/27/22 06/28/22 06/29/22 11:59 11:59 11:59 11:59 Intake Total 1370 / 1370 480 / 480 Output Total 925 / 1225 300 / 300 Balance 445 / 145 180 / 180 Weight 181 lb 4.8 oz Constitutional Comments: He is resting comfortably in bed. Color is good. No respiratory distress. He is in good spirits. Lungs reveal generally diminished breath sounds. No rales or wheezes. Heart is regular. Extremities show trace pretibial edema. Assessment and Plan *Assessment and plan (1) Respiratory failure with hypoxia: Status: Acute Qualifiers: Chronicity: acute Qualified Code(s): J96.01 - Acute respiratory failure with hypoxia Category: Medical Code(s): J96.91 - Respiratory failure, unspecified with hypoxia (2) CHF (congestive heart failure), NYHA class II: Status: Acute Qualifiers: Congestive heart failure type: systolic Congestive heart failure chronicity: chronic Qualified Code(s): I50.22 - Chronic systolic (congestive) heart failure Category: Medical Code(s): I50.9 - Heart failure, unspecified (3) Ischemic cardiomyopathy with implantable cardioverter-defibrillator (ICD): Status: Acute Category: Medical Code(s): I25.5 - Ischemic cardiomyopathy; Z95.810 - Presence of automatic (implantable) cardiac defibrillator (4) HTN (hypertension): Status: Acute Qualifiers: Hypertension type: primary hypertension Qualified Code(s): I10 - Essential (primary) hypertension Category: Medical Code(s): I10 - Essential (primary) hypertension (5) HLD (hyperlipidemia): Status: Acute Qualifiers: Hyperlipidemia type: mixed hyperlipidemia Qualified Code(s): E78.2 - Mixed hyperlipidemia Category: Medical Code(s): E78.5 - Hyperlipidemia, unspecified (6) CAD (coronary artery disease): Status: Chronic Qualifiers: Coronary Disease-Associated Artery/Lesion type: [place] artery [place] vs. transplanted heart: [place] heart Associated angina: without angina Qualified Code(s): I25.10 - Atherosclerotic heart disease of [place] coronary artery without angina pectoris Category: Medical Code(s): I25.10 - Atherosclerotic heart disease of [place] coronary artery without angina pectoris (7) Hypothyroidism: Status: Chronic Category: Medical Code(s): E03.9 - Hypothyroidism, unspecified (8) Pulmonary fibrosis, unspecified: Status: Acute Category: Medical
--- NOTE | 2022-06-28 18:20 | PC.NURSE ---
Patient has been up to the chair for most of the day today, has been on 5LNC for most of the day and tolerated well, lung sounds diminished t/o, resp unlabored, HR reg, given lasix with good results, denies any cp or soa, vss, bed in lowest position with call light in reach.
[2022-06-29] VITALS (8 sets, daily range): BP systolic 107–140; BP diastolic 57–61; PULSE 67–70; RESP 14–24; TEMP 36.5–36.8; O2SAT 92–99; BMI 22.8
--- NOTE | 2022-06-29 05:49 | PC.NURSE ---
pt has rested well this shift. A&OX4. O2 sats remain >90% on 5L per NC. no c/o pain or SOA this shift. has remained at bedside t/o his shift. CB in reach.
--- NOTE | 2022-06-29 08:08 | XR_ITS ---
PROCEDURE INFORMATION: Exam: XR Chest Exam date and time: 06/29/2022 8:43 AM Age: 82 years old Clinical indication: Shortness of breath; Additional info: Chf, pulmonary fibrosis TECHNIQUE: Imaging protocol: Radiologic exam of the chest. Views: 1 view. Portable AP exam 8:43 a.m. COMPARISON: CT CHEST WO CON 04/10/2022 7:54 AM FINDINGS: Lungs: Chronic interstitial lung disease similar to prior exam from 04/10/2022. Ground-glass disease seen on the prior CT is not well demonstrated on plain x-ray. There is worsened left basilar/retrocardiac airspace disease today with medial left diaphragm partially obscured, suggesting retrocardiac atelectasis or consolidation. Mild hypoventilation/low lung volumes. Prominence of the central bronchovascular markings and peribronchial thickening, which could be mild vascular congestion. Pulmonary ground-glass disease seen on the prior CT is not well demonstrated on portable chest x-ray. Pleural spaces: Chronic left apical pleural thickening/scarring with calcific pleural plaque. No significant pleural effusion visualized. No pneumothorax. Heart/Mediastinum: Chronic cardiomegaly. Left subclavian pacer/AICD. Mediastinal surgical changes post CABG. Calcified plaques in the aortic arch. Bones/joints: Osteopenia. Sternotomy wires.There are spinal degenerative changes, with multilevel disc narrrowing and spondylosis. IMPRESSION: 1. Chronic cardiomegaly, surgical changes post CABG, AICD/pacer device, mild vascular congestion. 2. Chronic diffuse bilateral interstitial lung disease. Worsened left basilar/retrocardiac airspace opacity compared with the prior exam, which could be atelectasis or consolidation such as pneumonia. 3. Additional nonemergency and chronic findings as above.
[2022-06-29 08:40] LABS: Chloride 101 mmol/L (98-107)
[2022-06-29 08:41] LABS: Potassium 3.7 mmoL/L (3.5-5.1); Sodium 142 mmol/L (136-145)
[2022-06-29 08:43] LABS: Alanine Aminotransferase 19 U/L (12-78); Alkaline Phosphatase 122 U/L (38-126); Anion Gap 8.7 mEq/L (5-15); Aspartate Amino Transferase 37 U/L (17-59); Bilirubin,Total 1.1 mg/dl (0.2-1.3); Blood Urea Nitrogen 34 mg/dl (9-20); Carbon Dioxide 36 mmol/L (22.0-30.0); Creatinine Clearance Estimated 46 mL/min (50-200); Estimated Glomerular Filt Rate 49 ml/min (>60); GFR (African American) 59 ML/MIN (>60)
[2022-06-29 08:44] LABS: Albumin Level 3.1 g/dl (3.5-5.0); Albumin/Globulin Ratio 1.1 (1.1-1.8); Calcium 8.5 mg/dl (8.4-10.2); Globulin 2.7 g/dL (1.3-3.2); Glucose 104 mg/dl (74-100); Total Protein,Serum 5.8 g/dl (6.3-8.2)
--- NOTE | 2022-06-29 09:14 | EXP.PN ---
Subjective *Date: 06/29/22 *Time: 09:14 Interval history: He rested well last night on 5 L of nasal cannula. No new complaints this morning. He sat up in the chair most of the day yesterday and tolerated well. He is still dyspneic with exertion. Good urine output. His weight is down 5 pounds from admission. Exam Data for Last 24 hours Vital signs and Labs for Last 24 Hours: Temp Pulse Resp BP Pulse Ox FiO2 98.1 F 70 21 140/61 92 L 40 06/29/22 08:00 06/29/22 08:38 06/29/22 08:00 06/29/22 08:00 06/29/22 08:00 06/28/22 03:35 Laboratory Results - last 24 hr 06/29/22 07:58: Sodium 142, Potassium 3.7, Chloride 101, Carbon Dioxide 36 H, Anion Gap 8.7, BUN 34 H, Creatinine 1.40 H, Estimated Creat Clear 46, Estimated GFR 49 L, Est GFR ( Amer) 59, Glucose 104 H, Calcium 8.5, Total Bilirubin 1.1, AST 37, ALT 19, Alkaline Phosphatase 122, Total Protein 5.8 L, Albumin 3.1 L, Globulin 2.7, Albumin/Globulin Ratio 1.1 I & O for Last 24 hours: Intake & Output 06/26/22 06/27/22 06/28/22 06/29/22 11:59 11:59 11:59 11:59 Intake Total 1370 / 1370 1010 / 1010 Output Total 925 / 1225 2800 / 2800 Balance 445 / 145 -1790 / -1790 Weight 181 lb 4.8 oz 177 lb 14.4 oz Constitutional Comments: He appears in no distress at rest. Chest with coarse breath sounds but no rales or wheezes. Extremities no edema. Assessment and Plan *Assessment and plan (1) Respiratory failure with hypoxia: Status: Acute Qualifiers: Chronicity: acute Qualified Code(s): J96.01 - Acute respiratory failure with hypoxia Category: Medical Code(s): J96.91 - Respiratory failure, unspecified with hypoxia (2) CHF (congestive heart failure), NYHA class II: Status: Acute Qualifiers: Congestive heart failure type: systolic Congestive heart failure chronicity: chronic Qualified Code(s): I50.22 - Chronic systolic (congestive) heart failure Category: Medical Code(s): I50.9 - Heart failure, unspecified (3) Ischemic cardiomyopathy with implantable cardioverter-defibrillator (ICD): Status: Acute Category: Medical Code(s): I25.5 - Ischemic cardiomyopathy; Z95.810 - Presence of automatic (implantable) cardiac defibrillator (4) HTN (hypertension): Status: Acute Qualifiers: Hypertension type: primary hypertension Qualified Code(s): I10 - Essential (primary) hypertension Category: Medical Code(s): I10 - Essential (primary) hypertension (5) HLD (hyperlipidemia): Status: Acute Qualifiers: Hyperlipidemia type: mixed hyperlipidemia Qualified Code(s): E78.2 - Mixed hyperlipidemia Category: Medical Code(s): E78.5 - Hyperlipidemia, unspecified (6) CAD (coronary artery disease): Status: Chronic Qualifiers: Coronary Disease-Associated Artery/Lesion type: [place] artery [place] vs. transplanted heart: [place] heart Associated angina: without angina Qualified Code(s): I25.10 - Atherosclerotic heart disease of [place] coronary artery without angina pectoris Category: Medical Code(s): I25.10 - Atherosclerotic heart disease of [place] coronary artery without angina pectoris (7) Hypothyroidism: Status: Chronic Category: Medical Code(s): E03.9 - Hypothyroidism, unspecified (8) Pulmonary fibrosis, unspecified: Status: Acute Category: Medical Code(s): J84.10 - Pulmonary fibrosis, unspecified (9) On home oxygen therapy: Status: Chronic Category: Medical Code(s): Z99.81 - Dependence on supplemental oxygen Plan Continue diuresis. Renal function and electrolytes are stable. Follow-up pulmonary and cardiology consults tomorrow.
--- NOTE | 2022-06-29 17:07 | PC.NURSE ---
Patient VSS, O2 5L NC sats >96% decreased O2 to 4L NC sats >94%. Lung sounds diminished and clear. Family at bedside. Had shower today tolerated well. Shows no s/s of acute distress, call light within reach, bed at lowest level for safety.
--- NOTE | 2022-06-29 17:27 | PC.NURSE ---
O2 sat 4L NC >95 decreased to 3L NC
[2022-06-30] VITALS (9 sets, daily range): BP systolic 107–131; BP diastolic 62–75; PULSE 70–72; RESP 16–23; TEMP 36.7–36.9; O2SAT 91–94; BMI 22.8
--- NOTE | 2022-06-30 04:29 | PC.NURSE ---
Pt has rested well this shift. No complaints of discomfort. Remains on O2 NC ranging 3-4L. O2 sats low to mid 90s while at rest. With any exertion, O2 sats decline as low as 79%. Pt has used urinal. Total urine output 500 ml thus far. Urine is dark with strong odor. Call ight within reach. remains at bedside.
[2022-06-30 06:30] LABS: Chloride 100 mmol/L (98-107); Potassium 3.7 mmoL/L (3.5-5.1); Sodium 140 mmol/L (136-145)
[2022-06-30 06:33] LABS: Anion Gap 8.7 mEq/L (5-15); Blood Urea Nitrogen 42 mg/dl (9-20); Calcium 8.1 mg/dl (8.4-10.2); Carbon Dioxide 35 mmol/L (22.0-30.0); Creatinine Clearance Estimated 50 mL/min (50-200); Estimated Glomerular Filt Rate 53 ml/min (>60); GFR (African American) 64 ML/MIN (>60); Glucose 88 mg/dl (74-100)
--- NOTE | 2022-06-30 08:38 | EXP.PN ---
Subjective *Date: 06/30/22 *Time: 13:37 Interval history: Patient feels he is better. Remains on O2 at 4 L/min per nasal cannula with O2 sats at 94%. He has been eating satisfactory. He is voiding QS. CXR 06/29/2022 IMPRESSION: 1. Chronic cardiomegaly, surgical changes post CABG, AICD/pacer device, mild vascular congestion. 2. Chronic diffuse bilateral interstitial lung disease. Worsened left basilar/retrocardiac airspace opacity compared with the prior exam, which could be atelectasis or consolidation such as pneumonia. 3. Additional nonemergency and chronic findings as above. Exam Data for Last 24 hours Vital signs and Labs for Last 24 Hours: Temp Pulse Resp BP Pulse Ox FiO2 98.4 F 70 18 113/68 94 L 40 06/30/22 08:00 06/30/22 08:00 06/30/22 08:00 06/30/22 08:00 06/30/22 08:00 06/28/22 03:35 Laboratory Results - last 24 hr 06/29/22 07:58: Sodium 142, Potassium 3.7, Chloride 101, Carbon Dioxide 36 H, Anion Gap 8.7, BUN 34 H, Creatinine 1.40 H, Estimated Creat Clear 46, Estimated GFR 49 L, Est GFR ( Amer) 59, Glucose 104 H, Calcium 8.5, Total Bilirubin 1.1, AST 37, ALT 19, Alkaline Phosphatase 122, Total Protein 5.8 L, Albumin 3.1 L, Globulin 2.7, Albumin/Globulin Ratio 1.1 06/30/22 05:41: Sodium 140, Potassium 3.7, Chloride 100, Carbon Dioxide 35 H, Anion Gap 8.7, BUN 42 H, Creatinine 1.30 H, Estimated Creat Clear 50, Estimated GFR 53 L, Est GFR ( Amer) 64, Glucose 88, Calcium 8.1 L I & O for Last 24 hours: Intake & Output 06/27/22 06/28/22 06/29/22 06/30/22 11:59 11:59 11:59 11:59 Intake Total 1370 / 1370 1010 / 1010 1180 / 1180 Output Total 925 / 925 3750 / 3750 1225 / 1225 Balance 445 / 445 -2740 / -2740 -45 / -45 Weight 181 lb 4.8 oz 177 lb 14.4 oz 178 lb Constitutional Constitutional: no acute distress Comments: Sitting up in the bed and appears comfortable. is at bedside. *Routine Respiratory Exam Respiratory: Present crackles (Bibasilar Crackles greater on the left.) *Routine Cardiovascular Exam Cardiovascular: Present other (Paced rhythm) *Routine Abdominal Exam Abdominal: Present soft and normoactive bowel sounds; Absent tenderness or distended *Routine Extremities Exam Extremities: Present edema *Routine Neurological Exam Neurological: Present alert and oriented X3 Assessment and Plan *Assessment and plan (1) Respiratory failure with hypoxia: Status: Acute Qualifiers: Chronicity: acute Qualified Code(s): J96.01 - Acute respiratory failure with hypoxia Category: Medical Code(s): J96.91 - Respiratory failure, unspecified with hypoxia (2) CHF (congestive heart failure), NYHA class II: Status: Acute Qualifiers: Congestive heart failure type: systolic Congestive heart failure chronicity: chronic Qualified Code(s): I50.22 - Chronic systolic (congestive) heart failure Category: Medical Code(s): I50.9 - Heart failure, unspecified (3) Pneumonia: Status: Acute Qualifiers: Laterality: bilateral Lung location: unspecified part of lung Pneumonia type: due to unspecified organism Qualified Code(s): J18.9 - Pneumonia, unspecified organism Category: Medical Code(s): J18.9 - Pneumonia, unspecified organism (4) Pulmonary fibrosis, unspecified: Status: Acute Category: Medical Code(s): J84.10 - Pulmonary fibrosis, unspecified (5) Ischemic cardiomyopathy with implantable cardioverter-defibrillator (ICD): Status: Acute Category: Medical Code(s): I25.5 - Ischemic cardiomyopathy; Z95.810 - Presence of automatic (implantable) cardiac defibrillator (6) HTN (hypertension): Status: Acute Qualifiers: Hypertension type: primary hypertension Qualified Code(s): I10 - Essential (primary) hypertension Category: Medical Code(s): I10 - Essential (primary) hypertension (7) CAD (coronary artery disease): Statu
--- NOTE | 2022-06-30 10:28 | EXP.CARD.CON ---
History of Present Illness History of Present Illness Consult date: 06/30/22 Requesting physician: Sachin Ndiaye Consult reason: shortness of breath Chief complaint: Shortness of breath Additional Medical History:: Pulmonary fibrosis-oxygen dependent usually wears anywhere between 3 to 5 L Dyspnea on exertion Chronic systolic heart failure [place] heart association class III-status post AICD-[place] [employer]-D Coronary artery disease Recent stroke Next hyperlipidemia History of ischemic cardiomyopathy Carotid artery disease-status post carotid endarterectomy PAF-on Eliquis Primary hypertension Episodes of hypotension Echo 09/2021 Conclusion 1.? Biatrial enlargement, dilated left ventricle, mild concentric left ventricular hypertrophy, visually estimated ejection fraction 25% left ventricle is globally hypokinetic, Doppler evidence of raised left ventricular end-diastolic pressure. 2.? Moderately enlarged right ventricle with mild reduced contractility. 3.? Moderate mitral and mild tricuspid regurgitation. 4.? No significant pericardial effusion noted. 5.? Inferior vena cava is poorly visualized. LHC 09/23/2021 at [facility], Dr. Roshan Cheney showed: 50% left main, 80% proximal LAD supplying a diagonal branch. Unsuccessful Attempt at balloon angioplasty. Cutting balloon would not cross. Medical therapy recommended. [place] to LAD is patent. Sequential SVG to Ramus and OM branches, patent. Occluded RCA and SVG to RCA but large, brisk left to right collaterals. LVEDP 17 mmHg. History of present illness: 82-year-old white male with previous history as noted above was transferred to [facility] from [facility] with complaint of worsening shortness of breath x3 days. Patient reports 2 weeks ago he was hospitalized in [facility] for acute exacerbation of CHF. Reports was diuresed with IV Lasix and symptoms improved. reports after discharge was doing well up until evening when patient became short of air while on oxygen and at rest. She states Thursday he started experiencing increased swelling in lower extremities and continued to have shortness of breath worse than his baseline. states that his oxygen saturation dropped into the 30s prompting her to call EMS. Upon arrival to ED patient was giving 2 doses of IV Lasix and placed on BiPAP. Patient was transferred to this facility for higher level of care and management under Dr. Rosario and for cardiology evaluation. Patient currently reports he feels much better. States lower extremity edema is resolving. Patient's sats are in the low 90s on 3 L nasal cannula. Patient denies chest pain. [facility] Medical History Automatic implantable cardioverter-defibrillator in situ CAD (coronary artery disease) Carotid arterial disease CHF (congestive heart failure), NYHA class II Dizziness Dyspnea Dyspnea on exertion History of atrial flutter HLD (hyperlipidemia) HTN (hypertension) Hypothyroidism ILD (interstitial lung disease) Ischemic cardiomyopathy Ischemic cardiomyopathy with implantable cardioverter-defibrillator (ICD) On home oxygen therapy Paroxysmal atrial fibrillation Pulmonary fibrosis Pulmonary fibrosis, unspecified Respiratory failure with hypoxia Shortness of breath Surgical History History of AAA (abdominal aortic aneurysm) repair History of carotid endarterectomy History of colonoscopy History of coronary artery bypass graft History of esophagogastroduodenoscopy (EGD) History of hernia repair History of implantable cardiac defibrillator (ICD) S/P carotid endarterectomy Family History Hyperlipidemia Heart attack Cancer Hypertension Social History Smoking Status: Former smoker pack-years: 31 second hand expo
--- NOTE | 2022-06-30 10:46 | CA_ITS ---
APPROVED REPORT EXAM: Comprehensive 2D, Doppler, and color-flow Echocardiogram Dean Of Students: Jessy Sales, RT(R) Ht: 6 ft 2 in Wt: 178lbs BSA: 2.07 BP: 113/68 mmHg Indications: CHF, AFIB, CABG, AAA repair, CM, CVA, LBBB, pulmonary fibrosis, o2 dependent, AICD, 25% ef on echo 09/29/21 2D Dimensions LVOT 2.10 cm (M/F) 1.5-2.5 LA Volume 64.50 mL LA Volume Index 31.31 mL/m2 (M/F) 16-34 M-Mode Dimensions RVDd 3.00 cm (0.9-2.6) LA Diam 3.93 cm (1.9-4.0) LVDd 5.16 cm (3.5-5.7) Ao Diam 2.90 cm (2.0-3.7) LVDs 3.99 cm (3.5-5.7) IVSd 1.18 cm (0.6-1.1) PWd 0.91 cm (0.6-1.1) EF (Teich) 45.30% FS 22.70% EDV (Teich) 127.20 mL ESV (Teich) 69.60 mL LV Diastology E Decel Time 150.00 (160-240 msec) E/A Ratio 0.3 MED E' 7.20 (< 7 cm/sec) E'/MED E' Ratio 3.36 (>14) LAT E' 7.60 (<10 cm/sec) E/LAT E' Ratio 3.18 (>14) Mitral Valve MV E Max Zach. 24.00 (40-130 cm/s) MV A Velocity 79.00 (40-130 cm/s) E/A Ratio 0.31 MV Decel. Time 150.00 (160-240 ms) MV PHT 44.00 ms Tricuspid Valve TR P. Velocity 295.00 cm/s RAP Estimate 15.00 mmHg RVSP 49.90 mmHg Left Ventricle Left atrium is mildly enlarged, left ventricle is normal size mild concentric left ventricular hypertrophy, estimated ejection fraction approximately 45% there is abnormal septal motion. Diastolic parameters are inconclusive. Right Ventricle Right atrium and right ventricle are normal size and contractility, there is an AICD lead seen in right ventricle. Aortic Valve Aortic valve is thickened and calcified without aortic stenosis or aortic insufficiency. Mitral Valve Mitral valve leaflets are minimally thickened, there is mild mitral regurgitation. Tricuspid Valve Tricuspid valve is grossly normal, there is mild tricuspid regurgitation, tricuspid regurgitation jet velocity is inadequate for calculation of the right ventricular systolic pressure. Pulmonic Valve Pulmonic valve is poorly visualized. Great Vessels Aortic root is normal size. Inferior vena cava is not well visualized. Pericardium No significant pericardial effusion noted. Conclusion 1. Mildly enlarged left atrium, normal left ventricular size, mild concentric left ventricular hypertrophy, estimated ejection fraction 45% there is abnormal septal motion. Diastolic parameters are inconclusive. 2. AICD lead seen in right ventricle. 3. Mild mitral and tricuspid regurgitation. 4. No significant pericardial effusion. 5. Inferior vena cava is poorly visualized. Electronically signed by : Kyle Mclain MD 07/01/2022 06:00:26
--- NOTE | 2022-06-30 11:57 | ECG_ITS ---
APPROVED REPORT Exam: Resting ECG HR:70 bpm ECG Measurements Heart Rate 70 AXES IL 239 P 234 QRSd 161 QRS 158 QT 450 T 79 QTc 470 Conclusion ELECTRONIC ATRIAL PACEMAKER ELECTRONIC VENTRICULAR PACEMAKER ABNORMAL RHYTHM ECG UNCONFIRMED REPORT Electronically signed by : Neil Yoo MD 07/01/2022 19:59:05
--- NOTE | 2022-06-30 13:01 | XR_ITS ---
FINAL REPORT CLINICAL HISTORY: Pneumonia COMPARISON: 06/29/2022 FINDINGS: A single view of the chest was obtained. There is cardiomegaly. The patient is status post median sternotomy. A left subclavian ICD is present. There is pulmonary vascular congestion. There are persistent bilateral pulmonary opacities which may represent pneumonia or edema. There is partially improved aeration at the left lung base. There is no pneumothorax. There is no acute osseous abnormality. IMPRESSION: Persistent bilateral pulmonary opacities may represent pneumonia or edema with partially improved aeration at the lung base. Reviewed, Interpreted and Dictated by Scotty Chacon III, MD Transcribed by Berkley Wiley Authenticated and [facility]
--- NOTE | 2022-06-30 14:14 | EXP.PULM.CON ---
History of Present Illness History of present illness: Mr. Cody is a 82-year-old male prior smoker greater than [id number] smoker history of pulmonary fibrosis, A. fib presented to hospital with 2-day history of worsening respiratory distress not associated with cough or any productive phlegm, associated with worsening lower extremity swelling and weight gain. [facility] Medical History (Updated 06/30/22 @ 14:15 by Megan Poon MD) Acute and chronic respiratory failure with hypoxia Automatic implantable cardioverter-defibrillator in situ CAD (coronary artery disease) Carotid arterial disease CHF (congestive heart failure), NYHA class II Dizziness Dyspnea Dyspnea on exertion History of atrial flutter HLD (hyperlipidemia) HTN (hypertension) Hypothyroidism ILD (interstitial lung disease) Ischemic cardiomyopathy Ischemic cardiomyopathy with implantable cardioverter-defibrillator (ICD) On home oxygen therapy Paroxysmal atrial fibrillation Pneumonia Pulmonary fibrosis Pulmonary fibrosis, unspecified Respiratory failure with hypoxia Shortness of breath Surgical History History of AAA (abdominal aortic aneurysm) repair History of carotid endarterectomy History of colonoscopy History of coronary artery bypass graft History of esophagogastroduodenoscopy (EGD) History of hernia repair History of implantable cardiac defibrillator (ICD) S/P carotid endarterectomy Family History Hyperlipidemia Heart attack Cancer Hypertension Social History Smoking Status: Former smoker pack-years: 31 second hand exposure: No alcohol intake: never substance use type: denies use current occupational status: unemployed and disabled Travel in the last 8 weeks: None household members: spouse housing: house lives independently: Yes marital status: current occupational exposures/hazards: No caffeine: Yes Review of Systems Constitutional Constitutional: Reports fatigue, Denies headache(s), Reports weakness and Reports weight gain Eyes Eyes: Denies eye discharge, Denies dry eyes, Denies irritation and Denies itchy eyes ENT Ears, Nose, Mouth, and Throat: Denies headache(s), Denies lip swelling and Denies throat swelling *Cardiovascular Cardiovascular: Reports dyspnea, Reports dyspnea on exertion and Reports leg edema *Respiratory Respiratory: Denies change in phlegm color, Denies chest congestion, Reports cough, Reports dyspnea, Reports dyspnea on exertion, Denies excessive phlegm production, Denies hemoptysis, Denies pain on inspiration, Denies pain with cough and Denies wheezing *Gastrointestinal Gastrointestinal: Denies abdominal pain, Denies belching and Denies cramping *Musculoskeletal Musculoskeletal: Reports back pain, Reports myalgias and Reports other (No small joint swelling or Pain) *Neurologic Neurologic: Denies headache(s) and Reports weakness Psychiatric Psychiatric: Denies homicidal ideation and Denies suicidal ideation Endocrine Endocrine: Reports fatigue and Denies heat intolerance Hematologic/Lymphatic Hematologic/Lymphatic: Denies easy bleeding and Denies lymphadenopathy Allergic/Immunologic Allergic/Immunologic: Denies itchy eyes, Denies lip swelling, Denies throat swelling and Denies wheezing Pulmonology Exam Inpatient Vital signs and Labs for Last 24 Hours: Temp Pulse Resp BP Pulse Ox FiO2 98.0 F 70 18 118/64 93 L 40 06/30/22 12:00 06/30/22 12:00 06/30/22 12:00 06/30/22 12:00 06/30/22 12:00 06/28/22 03:35 Laboratory Results - last 24 hr 06/30/22 05:41: Sodium 140, Potassium 3.7, Chloride 100, Carbon Dioxide 35 H, Anion Gap 8.7, BUN 42 H, Creatinine 1.30 H, Estimated Creat Clear 50, Estimated GFR 53 L, Est GFR ( Amer) 64, Glucose 88, Calcium 8.1 L I & O for Labs for Last 24 Hours: Intake & Output
--- NOTE | 2022-06-30 17:57 | PC.NURSE ---
shift summary: GCS 15. Sat in chair for aprox 4hrs today. Bilateral lungs diminished. Dry hacky cough that is non-productive. AV paced on tele with rate 70. On 3L NC with O2 sat > 90%. Wears 3-5L continuously @ home. Tolerates a cardiac diet. Had large BM today. Uses urinal. Denies n/v/d, pain, and dyspnea. Mild edema to RLE.
[2022-07-01] VITALS: BP 117/65; PULSE 70; RESP 18; TEMP 36.9; O2SAT 89
[2022-07-01 00:05] VITALS: O2SAT 92
[2022-07-01 04:00] VITALS: BP 110/58; PULSE 65; PULSE 70; RESP 18; TEMP 36.4; O2SAT 97
[2022-07-01 04:15] VITALS: BMI 22.7
--- NOTE | 2022-07-01 04:57 | PC.NURSE ---
Pt has rested well this shift. No complaints stated. Currently on 3.5 L O2 NC. Pt has had some episodes of o2 sats declining to upper 80s shortly, but O2 rebounds quickly. Crackles noted to bilateral bases. Urine output has declined. Call light within reach. remains at bedside.
[2022-07-01 06:19] LABS: Chloride 99 mmol/L (98-107); Potassium 3.7 mmoL/L (3.5-5.1); Sodium 141 mmol/L (136-145)
[2022-07-01 06:22] LABS: Anion Gap 10.7 mEq/L (5-15); Blood Urea Nitrogen 39 mg/dl (9-20); Carbon Dioxide 35 mmol/L (22.0-30.0); Creatinine Clearance Estimated 50 mL/min (50-200); Estimated Glomerular Filt Rate 53 ml/min (>60); GFR (African American) 64 ML/MIN (>60)
[2022-07-01 06:23] LABS: Calcium 8.2 mg/dl (8.4-10.2); Glucose 84 mg/dl (74-100)
[2022-07-01 08:00] VITALS: BP 101/50; PULSE 70; RESP 18; TEMP 36.7; O2SAT 92; O2SAT 95
--- NOTE | 2022-07-01 08:34 | EXP.PN ---
Subjective *Date: 07/02/22 *Time: 08:16 Interval history: Patient states he is feeling better today. He had a good breakfast. He sat up in the chair yesterday. He was able to have a shower this morning and tolerated well. Remains on oxygen at 3-1/2 L/min with satisfactory O2 sats. He denies chest pain. Bowels did move yesterday. He is voiding QS. Patient was seen by cardiology yesterday with the following plan: Acute on chronic systolic heart failure-[place] [facility] IV on presentation, currently III -EF 09/2021 noted to be at 25 -Repeat echo pending, prelim shows EF 20-25 -AICD device downloaded today- Positive heart logic at 32, no new events, afib burden < 1 percent. -Continue Lasix 40mg QD. Add entresto , start with once a day. If tolerates then will increase to BID (hx of hypotension). Cannot tolerate BB due to weakness -Start aldactone 25mg QD -Consider Jardiance prior to DC home. CAD ccs 0 -See recent cath report above -Continue Plavix 75mg QD -Continue Lipitor 80mg QD -No bb-cannot tolerate Hx of PAF -Contnue Eliquis -Continue Dig and amio. Patient has been unable to achieve rate control without amio. Of note, he is on lowest tolerated dose for rate control. Pulmonary is following for pulmonary fibrosis. Discussed continuing Amio with Dr. Shabazz, he feels its reasonable to do so at this time. Patient was also seen by pulmonology who recommended to continue to Try and decrease oxygen, To maintain O2 sats 90% and above; to wean antibiotics to Augmentin to complete a total 7-day course, and to continue diuretic therapy with daily IV Lasix. Exam Data for Last 24 hours Vital signs and Labs for Last 24 Hours: Temp Pulse Resp BP Pulse Ox FiO2 98.1 F 70 18 101/50 L 92 L 40 07/01/22 08:00 07/01/22 08:00 07/01/22 08:00 07/01/22 08:00 07/01/22 08:00 06/28/22 03:35 Laboratory Results - last 24 hr 07/01/22 05:53: Sodium 141, Potassium 3.7, Chloride 99, Carbon Dioxide 35 H, Anion Gap 10.7, BUN 39 H, Creatinine 1.30 H, Estimated Creat Clear 50, Estimated GFR 53 L, Est GFR ( Amer) 64, Glucose 84, Calcium 8.2 L I & O for Last 24 hours: Intake & Output 06/28/22 06/29/22 06/30/22 07/01/22 11:59 11:59 11:59 11:59 Intake Total 1370 / 1370 1010 / 1010 1180 / 1180 720 / 720 Output Total 925 / 925 3750 / 3750 1500 / 1500 1550 / 1550 Balance 445 / 445 -2740 / -2740 -320 / -320 -830 / -830 Weight 181 lb 4.8 oz 177 lb 14.4 oz 178 lb 177 lb 8 oz Constitutional Constitutional: no acute distress Comments: Sitting up in the bed and appears comfortable. *Routine Respiratory Exam Respiratory: Present decreased breath sounds ( less on the left) and crackles (Bilateral basilar) *Routine Cardiovascular Exam Cardiovascular: Present RRR (Paced) *Routine Abdominal Exam Abdominal: Present soft and normoactive bowel sounds; Absent tenderness *Routine Extremities Exam Extremities: Present edema (Trace bilateral) *Routine Neurological Exam Neurological: Present alert and oriented X3 Assessment and Plan *Assessment and plan (1) Acute and chronic respiratory failure with hypoxia: Status: Acute Category: Medical Code(s): J96.21 - Acute and chronic respiratory failure with hypoxia (2) CHF (congestive heart failure), NYHA class II: Status: Acute Qualifiers: Congestive heart failure chronicity: chronic Congestive heart failure type: systolic Qualified Code(s): I50.22 - Chronic systolic (congestive) heart failure Category: Medical Code(s): I50.9 - Heart failure, unspecified (3) Pulmonary fibrosis, unspecified: Status: Acute Category: Medical Code(s): J84.10 - Pulmonary fibrosis, unspecified (4) Pneumonia: Status: Acute Qualifiers: Laterality: left Lung location: lower lobe of lung Pneumonia type: due to unspecified organism Qualified Code(s): J18.9 - Pneumonia, unspecified organism Category:
--- NOTE | 2022-07-01 08:42 | EXP.CARD.PN ---
Subjective Subjective Date: 07/01/22 Time: 08:00 Principal diagnosis: acute on chronic systolic heart failure Interval history: Patient reports feeling well today, denies any complaint. SOA has greatly improved, maintaining saturation in the low 90s on 3 Liters, good uop noted, le edema resolved. Requesting to go home. BP stable in the low 100s. Exam Data for Last 24 hours Vital signs and Labs for Last 24 Hours: Temp Pulse Resp BP Pulse Ox FiO2 98.1 F 70 18 101/50 L 92 L 40 07/01/22 08:00 07/01/22 08:00 07/01/22 08:00 07/01/22 08:00 07/01/22 08:00 06/28/22 03:35 Laboratory Results - last 24 hr 07/01/22 05:53: Sodium 141, Potassium 3.7, Chloride 99, Carbon Dioxide 35 H, Anion Gap 10.7, BUN 39 H, Creatinine 1.30 H, Estimated Creat Clear 50, Estimated GFR 53 L, Est GFR ( Amer) 64, Glucose 84, Calcium 8.2 L I & O for Last 24 hours: Intake & Output 06/28/22 06/29/22 06/30/22 07/01/22 23:59 23:59 23:59 23:59 Intake Total 1780 / 1780 1060 / 1060 1080 / 1080 Output Total 2500 / 2500 1925 / 2125 2275 / 2375 100 / 100 Balance -720 / -720 -865 / -1065 -1195 / -1295 -100 / -100 Weight 181 lb 4.8 oz 177 lb 14.4 oz 177 lb 15.667 oz 177 lb 8 oz Constitutional Constitutional: no acute distress *Routine Respiratory Exam Respiratory: Present symmetric chest movement Comments: mild wheezing present *Routine Cardiovascular Exam Cardiovascular: Present RRR, Normal S1 and Normal S2 *Routine Abdominal Exam Abdominal: Present soft and normoactive bowel sounds; Absent tenderness *Routine Extremities Exam Extremities: Present full ROM and normal capillary refill; Absent edema *Routine Skin Exam Skin: Present intact, dry and warm Detailed Neck Exam: Thyroids Thyroid: Absent bruit Progress Note: A&P Assessment and plan (1) Acute and chronic respiratory failure with hypoxia: Status: Acute (2) Pneumonia: Status: Acute Assessment and Plan Assessment and Plan for All Diagnoses:: Acute on chronic systolic heart failure-[place] [facility] IV on presentation, currently III -EF 09/2021 noted to be at 25 -Repeat echo pending, prelim shows EF 20-25 -AICD device downloaded today- Positive heart logic at 32, no new events, afib burden < 1 percent. -Continue Lasix 40mg QD. Add entresto , start with once a day. If tolerates then will increase to BID (hx of hypotension). Cannot tolerate BB due to weakness -Start aldactone 25mg QD -Consider Jardiance prior to DC home. 07/01- Symptoms greatly improved, maintaining sats low 90s on 3 liters, LE edema resolved. Echo 06/30 45%. Tolerated the addition of entreso and aldactone. Continue both, see med list below. CAD ccs 0 -See recent cath report above -Continue Plavix 75mg QD -Continue Lipitor 80mg QD -No bb-cannot tolerate Hx of PAF -Contnue Eliquis -Continue Dig and amio. Patient has been unable to achieve rate control without amio. Of note, he is on lowest tolerated dose for rate control. Pulmonary is following for pulmonary fibrosis. Discussed continuing Amio with Dr. Shabazz, he feels its reasonable to do so at this time. Hx of pulmonary fibrosis -Sees Dr. Poon who is following HTN with epidsodes of hypotension -Well controlled 07/01- Patient BP systolic in the low 100s but patient is asymptomatic. Would like to keep patient on entresto if we can, if BP remains low and patient experiences dizziness can add midodrine for BP support HLD -Lipitor 80mg QD. CV stable for dc home. Please have patient follow up in office on Thursday, get labs Thursday morning before office visit. I placed the orders. Continue the below cardiac medications. IF bp runs low can consider addition of midodrine. Cardiac meds to continue: Lasix 40mg QD Entresto / QD, will try to increase to BID as BP can tolerate Aldactone 25mg QD Consider addition of jardiance later Plavix 75mg QD Lipitor 80mg QD Eliquis 5mg BID Dig .125mcg QD Amio 200mg QD
[2022-07-01 09:05] VITALS: PULSE 70
--- NOTE | 2022-07-01 10:16 | EXP.PULM.PN ---
Subjective *Date: 07/01/22 *Time: 10:16 Interval history: No acute respiratory vents overnight. Admits continued improvement in symptoms. Pulmonology Exam Inpatient Vital signs and Labs for Last 24 Hours: Temp Pulse Resp BP Pulse Ox FiO2 98.1 F 70 18 101/50 L 92 L 40 07/01/22 08:00 07/01/22 09:05 07/01/22 08:00 07/01/22 08:00 07/01/22 08:00 06/28/22 03:35 Laboratory Results - last 24 hr 07/01/22 05:53: Sodium 141, Potassium 3.7, Chloride 99, Carbon Dioxide 35 H, Anion Gap 10.7, BUN 39 H, Creatinine 1.30 H, Estimated Creat Clear 50, Estimated GFR 53 L, Est GFR ( Amer) 64, Glucose 84, Calcium 8.2 L I & O for Labs for Last 24 Hours: Intake & Output 06/28/22 06/29/22 06/30/22 07/01/22 23:59 23:59 23:59 23:59 Intake Total 1780 / 1780 1060 / 1060 1080 / 1080 Output Total 2500 / 2500 1925 / 2125 2275 / 2375 100 / 100 Balance -720 / -720 -865 / -1065 -1195 / -1295 -100 / -100 Weight 181 lb 4.8 oz 177 lb 14.4 oz 177 lb 15.667 oz 177 lb 8 oz Head: Present normocephalic and atraumatic ENT: Present normal exam, normal oropharynx and mucous membranes moist Neck: Present normal inspection and full ROM Respiratory: Present able to speak in complete sentences; Absent respiratory distress, wheezes, crackles or diminished air movement Cardiac: Present S1/S2, Tachycardia and radial pulses present GI: Present soft and distention; Absent tenderness or guarding Skin: Present intact; Absent cyanosis or jaundice Neuro: Present alert, awake and oriented x 3 Extremities: Present normal inspection; Absent clubbing or cyanosis Psychiatric: Present normal affect and cooperative Assessment and Plan *Assessment and plan (1) Acute and chronic respiratory failure with hypoxia: Status: Acute Category: Medical Code(s): J96.21 - Acute and chronic respiratory failure with hypoxia (2) Pneumonia: Status: Acute Qualifiers: Pneumonia type: due to unspecified organism Laterality: left Lung location: lower lobe of lung Qualified Code(s): J18.9 - Pneumonia, unspecified organism Category: Medical Code(s): J18.9 - Pneumonia, unspecified organism Plan #Acute on chronic respiratory failure: #Interstitial lung disease: #Pneumonia: 82-year-old male prior smoker greater than [id number] smoking history, history of AIF ILD pulmonary fibrosis chronic hypoxic respiratory failure, CHF (EF 20 to 25%), A. fib RVR presented hospital with worsening respiratory distress. Patient denies any fevers or chills, cough or productive phlegm. Denies any known sick contacts. Admits to worsening lower extremity swelling and weight gain prior to this admission. Patient has similar admissions recently that improved within 24 to 48 hours with diuretics. Patient did not receive any steroids on this admission. Chest x-ray from admission and today patient with bilateral diffuse increased interstitial markings highly concerning for volume overload with no evidence of dense consolidation. The reported retrocardiac opacity cannot be Readily appreciated. No evidence of leukocytosis. Afebrile. Hemodynamically stable. Receiving 40 IV Lasix. Patient examination today on 4 L saturating 98%. Weaned to 2.5 L with saturations maintained at 94% and above. Interval update: Antibiotics weaned to Augmentin extubated continue to receive diuresis with continued improvement in respiratory symptoms. Patient saturating 95% on 3 L nasal cannula, weaned to 2 L, resting saturations stayed 92% and above. Plan: -Continue oxygen supplementation to maintain O2 saturation goal of 90% and above - Augmentin to complete a total of 7-day course -Continue diuretic therapy, patient currently receiving IV Lasix daily. Patient will benefit from scheduled diuretics upon discharge as he has been having multiple admissions recently for volume overload while he was on as needed Lasix #Thank for involving pulmonary in this patient care. We will follow
[2022-07-01 12:00] VITALS: BP 122/64; PULSE 70; RESP 20; TEMP 36.6; O2SAT 96
[2022-07-01 12:07] VITALS: BMI 22.8
--- NOTE | 2022-07-02 08:43 | EXP.DC.SUM ---
General Admission date:: 06/27/22 Discharge date: 07/01/22 HPI HPI HPI: Mr. Cody is an 82yo male with a hx of pulmonary fibrosis and CHF. Patient's stated he was doing well and actually saw Dr. Ndiaye in the office on 06/24/2022. He had also been to see pulmonology recently for follow-up on his interstitial pulmonary fibrosis. He was oxygen dependent using anywhere from 3 to 5 L/min depending on his level of activity. He was just recently hospitalized in [place] 2 weeks prior for an episode of congestive heart failure. He was given several doses of Lasix and his breathing got better after diuresis and he was discharged. His stated on he began getting more short of breath. The morning of admission he was not able to breathe and his oxygen saturations were in the 30s. She called 911 and he was rushed to [facility]. He was given 2 doses of Lasix and placed on BiPAP. He then felt like his breathing was better at this time. He was transferred to [facility] to be placed under the care of Dr. Ndiaye. Hospital Course Hospital Course Hospital Course: On admission patient was on BiPAP and continued on diuretics. He was weaned to nasal cannula the following morning and was tolerating well with satisfactory O2 sats in the mid to upper 90s. Diuresis continued. Laboratory data was satisfactory. He was able to sit up in a chair. He was seen by cardiology who agreed with continuing 40 of Lasix daily. Entresto was added daily with plans to increase if vital signs remained stable. Also spironolactone 25 mg was added daily. Jardiance was to be considered. Also patient was to continue with Eliquis, digoxin, and amiodarone. These seem to control his heart rate. Patient was also seen in consultation by pulmonology who noted bilateral diffuse increased interstitial markings with latest chest x-ray. He felt this was highly concerning for volume overload with no evidence of dense consolidation. Plan was to wean antibiotics to Augmentin to complete a total 7-day course and to continue with diuretic therapy. He felt patient would benefit with at least every other day schedule diuretics after discharge. And on 07/01/2022 cardiology felt patient was stable to be discharged to home from cardiovascular standpoint. He was to follow-up with them with labs the following week. Patient was also followed by pulmonology who noted decrease in O2 to 3 L per nasal cannula with sats about 92%. He also felt patient was stable to be discharged home. On 07/01/2022 patient was discharged to home in stable and satisfactory condition. He will continue with nasal oxygen at home. See discharge orders. To follow-up with Dr. Ndiaye in the office as well. Meds as listed on reconciliation sheet. Exam Data for Last 24 hours Vital signs and Labs for Last 24 Hours: Temp Pulse Resp BP Pulse Ox FiO2 97.9 F 70 20 122/64 96 40 07/01/22 12:00 07/01/22 12:00 07/01/22 12:00 07/01/22 12:00 07/01/22 12:00 06/28/22 03:35 I & O for Last 24 hours: Intake & Output 06/29/22 06/30/22 07/01/22 07/02/22 11:59 11:59 11:59 11:59 Intake Total 1010 / 1010 1180 / 1180 720 / 720 Output Total 3750 / 3750 1500 / 1500 1970 / 1970 400 / 400 Balance -2740 / -2740 -320 / -320 -1250 / -1250 -400 / -400 Weight 177 lb 14.4 oz 178 lb 177 lb 8 oz 178 lb Narrative: Constitutional Constitutional: no acute distress Comments: Sitting up in the bed and appears comfortable. *Routine Respiratory Exam Respiratory: Present decreased breath sounds ( less on the left) and crackles (Bilateral basilar) *Routine Cardiovascular Exam Cardiovascular: Present RRR (Paced) *Routine Abdominal Exam Abdominal: Present soft and normoactive bowel sounds; Absent tenderness *Routine Extremities Exam Extremities: Present edema (Trace bilateral) *Routine Neurological Exam Neurological: Present alert and oriented X3 Results Data Completed and Pending Complet
--- NOTE | 2022-07-02 15:21 | CARE MANAGER ---
Spoke with patient regarding post-discharge phone interview. No problems noted and no new orders.
== END 2022-07-01 14:12 | disposition home or self-care (01) | DRG 291 ==
PROVIDERS: Admitting Provider Family Medicine; PCP Family Medicine; Visit Provider Family Medicine
DX: I11.0 Hypertensive heart disease with heart failure (principal); I50.23 Acute on chronic systolic (congestive) heart failure; J96.01 Acute respiratory failure with hypoxia; I25.5 Ischemic cardiomyopathy; I25.10 Atherosclerotic heart disease of native coronary artery without angina pectoris; Z95.810 Presence of automatic (implantable) cardiac defibrillator; J84.10 Pulmonary fibrosis, unspecified; Z95.1 Presence of aortocoronary bypass graft; I48.0 Paroxysmal atrial fibrillation; Z79.01 Long term (current) use of anticoagulants; Z79.899 Other long term (current) drug therapy; Z99.81 Dependence on supplemental oxygen
CPT/HCPCS: 36415; 71045; 80048; 80053; 85025; 93005; 93306; 94660; 94760; C9803; J0692; U0003; U0005

== ENCOUNTER → 2022-07-07 10:24 | Outpatient (CLI) | payer MEDICARE, SELFPAY ==
[2022-07-07 11:30] LABS: Basophils # 0.1 K/mm3 (0-0.2); Basophils % 0.6 % (0.1-2.0); Eosinophils # 0.2 K/mm3 (0.0-0.4); Eosinophils % 1.7 % (0.1-12.0); Hematocrit 39.2 % (42.0-52.0); Hemoglobin 12.5 g/dL (14.1-18.0); Lymphocytes # 1.8 K/mm3 (0.7-4.5); Lymphocytes % 16.4 % (10-50); Mean Corpuscular HGB Conc 31.9 g/dL (31.8-35.4); Mean Corpuscular Hemoglobin 31.8 pg (27.0-31.2); Mean Corpuscular Volume 99.8 fl (80-94); Mean Platelet Volume 8.7 fl (7.4-10.4); Monocytes # 0.6 K/mm3 (0.1-1.0); Monocytes % 5.1 % (1.7-9.3); Neutrophils # 8.2 K/mm3 (1.8-7.8); Neutrophils % 76.3 % (37.0-80.0); Platelet Count 275 K/mm3 (142-424); Red Blood Count 3.93 M/mm3 (4.60-6.20); Red Cell Distribution Width 16.7 % (11.5-17.5); White Blood Count 10.8 K/mm3 (4.8-10.8)
[2022-07-07 12:00] LABS: Chloride 99 mmol/L (98-107); Sodium 141 mmol/L (136-145)
[2022-07-07 12:01] LABS: Potassium 3.9 mmoL/L (3.5-5.1)
[2022-07-07 12:03] LABS: Anion Gap 12.9 mEq/L (5-15); Blood Urea Nitrogen 30 mg/dl (9-20); Carbon Dioxide 33 mmol/L (22.0-30.0); Estimated Glomerular Filt Rate 42 ml/min (>60); GFR (African American) 50 ML/MIN (>60)
[2022-07-07 12:04] LABS: Glucose 107 mg/dl (74-100)
== END ==
PROVIDERS: PCP Family Medicine; Visit Provider Physician Assistant
DX: E78.2 Mixed hyperlipidemia (principal); I25.10 Atherosclerotic heart disease of native coronary artery without angina pectoris; I25.5 Ischemic cardiomyopathy; I48.0 Paroxysmal atrial fibrillation; I50.22 Chronic systolic (congestive) heart failure; I50.23 Acute on chronic systolic (congestive) heart failure; I65.23 Occlusion and stenosis of bilateral carotid arteries; J84.10 Pulmonary fibrosis, unspecified; R41.0 Disorientation, unspecified; Z95.810 Presence of automatic (implantable) cardiac defibrillator; Z98.890 Other specified postprocedural states; I11.0 Hypertensive heart disease with heart failure
CPT/HCPCS: 36415; 80048; 85025

== ENCOUNTER → 2022-09-08 12:42 | Outpatient (CLI) | payer MEDICARE, SELFPAY ==
[2022-09-08 13:25] VITALS: PULSE 67; PULSE 70
== END ==
PROVIDERS: PCP Family Medicine; Visit Provider Internal Medicine Pulmonary Disease
DX: R06.09 Other forms of dyspnea (principal)
CPT/HCPCS: 94060; 94640

== ENCOUNTER → 2023-03-11 09:53 | Outpatient (CLI) | payer MEDICARE, SELFPAY ==
--- NOTE | 2023-03-11 10:17 | PC.NURSE ---
Pt attempted FVC multiple times, stated he did not think he could tolerate the test or 6MWT. Pt's oxygen on 3.5L was 89%.
== END ==
PROVIDERS: PCP Internal Medicine; Visit Provider Internal Medicine Pulmonary Disease
DX: R06.02 Shortness of breath (principal)

== ENCOUNTER → 2023-04-22 09:44 | Outpatient (CLI) | payer MEDICARE, SELFPAY ==
--- NOTE | 2023-04-22 10:06 | PC.NURSE ---
Pt unable to complete PFT due to just being diagnosed with a respiratory infection, was started on antibiotics and steroids. Scheduling called to book pt back in 3 weeks.
== END ==
PROVIDERS: PCP Internal Medicine; Visit Provider Internal Medicine Pulmonary Disease
DX: R06.02 Shortness of breath (principal)

== ENCOUNTER → 2023-05-13 14:46 | Outpatient (CLI) | payer MEDICARE, SELFPAY | PROVIDERS: PCP Family Medicine; Visit Provider Internal Medicine Pulmonary Disease | DX: R06.09 Other forms of dyspnea (principal) | CPT/HCPCS: 94060 ==

== ENCOUNTER → 2023-05-20 10:45 | Outpatient (CLI) | payer MEDICARE, SELFPAY ==
[2023-05-20 12:29] LABS: Alanine Aminotransferase 78 U/L (12-78); Albumin Level 3.6 g/dl (3.5-5.0); Alkaline Phosphatase 171 U/L (38-126); Aspartate Amino Transferase 115 U/L (17-59); Bilirubin,Direct 0.3 mg/dl (0.0-0.4); Bilirubin,Indirect 0.5 mg/dL (0.0-0.9); Bilirubin,Total 0.8 mg/dl (0.2-1.3); Bilirubin,Unconjugated 0.5 mg/dL (0.0-1.1); Total Protein,Serum 6.6 g/dl (6.3-8.2)
[2023-05-20 12:45] LABS: Free Thyroxine Index 5.1 ug/dL (5.93-13.13); T4 (Thyroxine) 12.5 ug/dl (5.53-11.0); Triiodothryronine (T3) Uptake 41 % (23.5-40.5)
[2023-05-20 15:26] LABS: Thyroid Stimulating Hormone 9.69 uIU/mL (0.465-4.68)
== END ==
PROVIDERS: PCP Family Medicine; Visit Provider Nurse Practitioner Family
DX: Z79.899 Other long term (current) drug therapy (principal)
CPT/HCPCS: 36415; 80076; 84436; 84443; 84479

== ENCOUNTER → 2023-06-30 13:36 | Outpatient (CLI) | payer MEDICARE, SELFPAY ==
[2023-06-30 15:14] LABS: Chloride 104 mmol/L (98-107)
[2023-06-30 15:15] LABS: Potassium 4.5 mmoL/L (3.5-5.1); Sodium 138 mmol/L (136-145)
[2023-06-30 15:17] LABS: Alanine Aminotransferase 26 U/L (12-78); Alkaline Phosphatase 132 U/L (38-126); Anion Gap 8.5 mEq/L (5-15); Aspartate Amino Transferase 41 U/L (17-59); Bilirubin,Total 0.7 mg/dl (0.2-1.3); Blood Urea Nitrogen 24 mg/dl (9-20); Carbon Dioxide 30 mmol/L (22.0-30.0); Estimated Glomerular Filt Rate 48 ml/min (>60); GFR (African American) 59 ML/MIN (>60)
[2023-06-30 15:18] LABS: Albumin Level 3.2 g/dl (3.5-5.0); Albumin/Globulin Ratio 1.3 (1.1-1.8); Calcium 8.4 mg/dl (8.4-10.2); Globulin 2.5 g/dL (1.3-3.2); Glucose 80 mg/dl (74-100); Total Protein,Serum 5.7 g/dl (6.3-8.2)
[2023-07-02 16:39] LABS: C-Reactive Protein 9.3 mg/L (0-4)
== END ==
PROVIDERS: PCP Family Medicine; Visit Provider Internal Medicine Pulmonary Disease
DX: J84.9 Interstitial pulmonary disease, unspecified (principal); R06.09 Other forms of dyspnea
CPT/HCPCS: 36415; 80053; 86140

== ENCOUNTER 2023-10-06 12:50 | Outpatient (CLI) | payer MEDICARE, SELFPAY ==
--- NOTE | 2023-10-06 12:58 | CT_ITS ---
FINAL REPORT CLINICAL HISTORY: interstitial lung disease COMPARISON: March 2022 FINDINGS: Axial images through the chest was performed by computed tomography. Sagittal and coronal reformatted images were obtained and reviewed. High-resolution technique was performed with supine and prone inspiration and expiration. There is a left chest wall pacemaker. The heart size is normal. There is moderate to severe interstitial fibrosis greatest in the periphery. There are multiple areas of honeycombing which are greatest in the periphery. There is no evidence of bronchiectasis or air trapping. No effusions are identified. Images through the upper abdomen demonstrate multiple gallstones. IMPRESSION: Moderate to severe interstitial fibrosis. No evidence of bronchiectasis. Reviewed, Interpreted and Dictated by Scotty Chacon III, MD Transcribed by Kalin Bo Authenticated and [facility]
[2023-10-06 14:20] VITALS: PULSE 104; PULSE 109
[2023-10-06] MEDS: ALBUTEROL 0.083% 2.5 MG/3 ML NEB IH (14:20)
== END 2023-10-06 23:59 ==
PROVIDERS: PCP Family Medicine; Visit Provider Internal Medicine Pulmonary Disease
DX: J84.10 Pulmonary fibrosis, unspecified (principal); J84.9 Interstitial pulmonary disease, unspecified; J96.11 Chronic respiratory failure with hypoxia; Z99.81 Dependence on supplemental oxygen
CPT/HCPCS: 71250; 94060; 94618; 94640

== ENCOUNTER 2023-10-13 16:55 | Inpatient (IN) | payer MEDICARE, SELFPAY ==
[2023-10-13] VITALS (14 sets, daily range): BP systolic 99–136; BP diastolic 43–71; PULSE 68–89; RESP 16–36; TEMP 36.9; O2SAT 83–100; BMI 18.6
--- NOTE | 2023-10-13 17:04 | ECG_ITS ---
APPROVED REPORT Exam: Resting ECG HR:74 bpm ECG Measurements Heart Rate 74 AXES AL 244 P 252 QRSd 156 QRS 183 QT 386 T 240 QTc 414 Conclusion ELECTRONIC ATRIAL PACEMAKER ELECTRONIC VENTRICULAR PACEMAKER MARKED ST DEPRESSION, CONSIDER SUBENDOCARDIAL INJURY [0.2+ mV ST DEPRESSION] ACUTE [place] UNCONFIRMED REPORT Electronically signed by : Neil Yoo MD 10/14/2023 08:36:37
--- NOTE | 2023-10-13 17:08 | XR_ITS ---
PROCEDURE INFORMATION: Exam: XR Chest Exam date and time: 10/13/2023 5:07 PM Age: 83 years old Clinical indication: Condition or disease; Lung condition and disease; Hypoxia; Shortness of breath; Additional info: SOA, hypox TECHNIQUE: Imaging protocol: Radiologic exam of the chest. Views: 1 view. COMPARISON: CT HR CHEST X3 10/06/2023 1:11 PM FINDINGS: Lungs: Low lung volumes. Coarse bilateral pulmonary opacities are again seen and have slightly worsened. Pleural spaces: Normal No pleural effusion. No pneumothorax. Heart/Mediastinum: Mild cardiomegaly. Pacer leads extend to the right atrium, right ventricle, and left ventricle. Left chest wall pacemaker/AICD in place. Status post CABG. Vasculature: Tortuous atherosclerotic thoracic aorta. Bones/joints: Status post sternotomy. IMPRESSION: Low lung volumes. Coarse bilateral pulmonary opacities are again seen and have slightly worsened. Findings are consistent with interstitial lung disease. Cannot exclude superimposed infection.
[2023-10-13] MEDS: IPRATROPIUM/ALBUTEROL 3 ML NEB 6 ML IH (17:19)
[2023-10-13] MEDS: METHYLPREDNISOLONE SOD SUCC 125MG VIAL 125 MG IV (17:20)
[2023-10-13] MEDS: MAGNESIUM SULFATE IN WATER 2 GM/50 ML PIGGYBACK IV (17:30)
[2023-10-13] MEDS: VANCOMYCIN CONSULT REQUEST 1 EACH NOTAPPLIC (17:30)
[2023-10-13 17:33] LABS: Basophils % 0.2 % (0.1-2.0); Eosinophils % 0.1 % (0.1-12.0); Hemoglobin 16.2 g/dL (14.1-18.0); Lymphocytes % 7.3 % (10-50); MANUAL DIFFERENTIAL MANUAL DIFFERENTIAL (MANUAL DIFF); Mean Corpuscular HGB Conc 31.8 g/dL (31.8-35.4); Mean Corpuscular Hemoglobin 34.4 pg (27.0-31.2); Mean Corpuscular Volume 108.3 fl (80-94); Monocytes # 0.4 K/mm3 (0.1-1.0); Monocytes % 3.2 % (1.7-9.3); Neutrophils # 12.3 K/mm3 (1.8-7.8); Neutrophils % 89.3 % (37.0-80.0); Platelet Count 190 K/mm3 (142-424); Red Blood Count 4.71 M/mm3 (4.60-6.20); Red Cell Distribution Width 14.8 % (11.5-17.5); White Blood Count 13.8 K/mm3 (4.8-10.8)
[2023-10-13] MEDS: AMPICILLIN/SULBACTAM 3 GM in 0.9 % SODIUM CHLORIDE 100 ML IV (17:34)
[2023-10-13 17:37] LABS: VBG Base Excess -1.2 mmol/L (-2.4-2.3); VBG HCO3 25.7 mmol/L (23-30); VBG Oxygen Saturation 46.2 % (50-70); VBG PCO2 57.5 mmol/L (35-51); VBG PH 7.27 mmol/L (7.31-7.41); VBG PO2 28.6 mmol/L (28-40); VBG Total CO2 27.5 mmol/L (23-27)
[2023-10-13 17:37] LABS: Chloride 100 mmol/L (98-107); Sodium 137 mmol/L (136-145)
[2023-10-13 17:38] LABS: Potassium 4.4 mmoL/L (3.5-5.1)
[2023-10-13 17:40] LABS: Alanine Aminotransferase 234 U/L (12-78); Albumin Level 3.6 g/dl (3.5-5.0); Albumin/Globulin Ratio 1.1 (1.1-1.8); Alkaline Phosphatase 159 U/L (38-126); Anion Gap 13.4 mEq/L (5-15); Aspartate Amino Transferase 246 U/L (17-59); Blood Urea Nitrogen 42 mg/dl (9-20); Carbon Dioxide 28 mmol/L (22.0-30.0); Creatinine Clearance Estimated 33 mL/min (50-200); Estimated Glomerular Filt Rate 41 ml/min (>60); GFR (African American) 50 ML/MIN (>60); Globulin 3.4 g/dL (1.3-3.2)
[2023-10-13 17:41] LABS: Calcium 8.9 mg/dl (8.4-10.2); Glucose 130 mg/dl (74-100)
[2023-10-13] MEDS: VANCOMYCIN/WATER FOR INJ (PEG) 1.25 GM/250 ML PIGGYBACK IV (17:45)
[2023-10-13 17:50] LABS: NT Pro Brain Natriuretic Pep. 8500 pg/mL (0-450)
[2023-10-13 17:51] LABS: Lymphocytes % 10 % (10-50); Macrocytosis 2+; Monocytes % 1 % (2-9); Neutrophils % 89 % (42-76); Platelet Estimate Normal; Total Cells Counted 100
[2023-10-13 17:52] LABS: Troponin I 0.13 ng/ml (0.00-0.034)
[2023-10-13] MEDS: LACTATED RINGERS 1000ML 2,470 ML 1235 ML IV (17:52)
--- NOTE | 2023-10-13 17:57 | ED_ITS ---
Discharge Plan Disposition Patient Disposition: Admitted Chief Complaint: Shortness of Breath/Dyspnea Prescriptions Prescriptions: No Action prednisone 20 mg tablet See Rx Instructions .Route .COMPLEX Qty: 120 1RF Rx Instructions: Take 20mg (1 tab) oral twice daily for 21 days followed by 20mg (1 tabs) oral once daily there after loperamide 2 mg capsule 2 mg PO Q6H PRN (Reason: loose stool) Qty: 60 0RF furosemide 40 mg tablet 40 mg PO DIRECTED Qty: 30 3RF Rx Instructions: MWF ONLY spironolactone [Aldactone] 25 mg tablet 25 mg PO DIRECTED Qty: 30 2RF Rx Instructions: MWF only digoxin 125 mcg (0.125 mg) tablet 125 mcg PO DAILY Qty: 90 3RF Eliquis 2.5 mg tablet See Rx Instructions .ROUTE .COMPLEX Qty: 60 5RF Dose Instruction: TAKE ONE (1) TABLET BY MOUTH TWO TIMES A DAY. Rx Instructions: TAKE ONE (1) TABLET BY MOUTH TWO TIMES A DAY. levothyroxine 150 mcg tablet 150 mcg PO DAILY Qty: 30 5RF ipratropium-albuterol 0.5 mg-3 mg(2.5 mg base)/3 mL solution for nebulization 3 ml IH QID PRN (Reason: shortness of breath or wheezing) 90 Days Qty: 270 3RF clopidogrel 75 mg tablet See Rx Instructions .ROUTE .COMPLEX Qty: 30 11RF Dose Instruction: TAKE 1 TABLET BY MOUTH DAILY. Rx Instructions: TAKE 1 TABLET BY MOUTH DAILY. amiodarone 200 mg tablet See Rx Instructions .ROUTE .COMPLEX Qty: 90 3RF Dose Instruction: TAKE ONE (1) TABLET BY MOUTH ONE TIME A DAY. Rx Instructions: TAKE ONE (1) TABLET BY MOUTH ONE TIME A DAY. ferrous sulfate 325 MG tablet 325 mg PO DAILY multivitamin 1 EACH powder in packet 1 each PO DAILY mecobalamin (vitamin B12) 1,000 MCG tablet,chewable 1,000 mcg PO DAILY atorvastatin 80 MG tablet 80 mg PO HS fish oil-dha-epa 1 EACH capsule 1 each PO DAILY fluoxetine 10 MG capsule 10 mg PO DAILY tamsulosin 0.4 MG capsule 0.4 mg PO DAILY vitamin E succinate 400 UNIT tablet 400 units PO DAILY Referrals Follow up/Referrals: Abraham Ndiaye [facility] [Primary Care Provider] - See instructions Clinical Impressions Clinical Impression: Acute on chronic respiratory failure with hypoxemia, Right middle lobe pneumonia Sepsis Qualifiers: Sepsis type: sepsis due to unspecified organism Sepsis acute organ dysfunction status: with acute organ dysfunction Severe sepsis acute organ dysfunction type: acute respiratory failure Acute respiratory failure type: with hypoxia Severe sepsis shock status: with septic shock Qualified Code(s): A41.9 - Sepsis, u nspecified organism; R65.21 - Severe sepsis with septic shock; J96.01 - Acute respiratory failure with hypoxia Discharge ED Provider: Travis Dumont HPI General Chief Complaint: Shortness of Breath/Dyspnea Stated Complaint: SOA Time Seen by Provider: 10/13/23 17:01 Mode of Arrival: Wheelchair Source of Information: Patient Limitations: No Limitations Description of Symptoms (Recalled from ER Triage Doc. by RN): Patient reports increased shortness of breath and generally not feeling well for a couple of days. states she thinks he may have had a fever today. Patient wears oxygen continuously. History of Present Illness HPI narrative: 83-year-old male history of pulmonary fibrosis, interstitial lung disease, COPD no longer smoking on 3 to 5 L nasal cannula at home presenting with shortness of breath. states the patient was short of breath the last 2 or 3 days. She stated that his oxygen usually sits mid to high 80s, today it dropped down into the 50s. He has been coughing up greenish-brown sputum for the last couple of days and she thought he had been running a fever, patient denies any febrile symptoms. Cough is new as of 24 hours prior to this visit. No vomiting, diarrhea, patient is having significant shortness of breath. Increased oxygen to 5 to 6 L via oxygen concentrator today. Related Data Home Medications Medication Instructions Recorded Confirmed atorvastatin 80 mg tablet 80 mg PO HS Cholesterol 01/21/18 10/06/23 fish oil-dha-epa 1,200 mg-144 1 each PO DAILY Supplement 01/21/18 10/06/23 mg-216 mg capsule fluoxetine 10 mg capsule 10 mg PO DAILY MOOD 01/21/18 10/06/23 tamsulosin 0.4 mg capsule 0.4 mg PO DAILY PROSTATE 01/21/18 10/06/23 vitamin E succinate 268 mg (400 400 units PO DAILY Supplement 01/21/18 10/06/23 unit) tablet ferrous sulfate 325 mg (65 mg 325 mg PO DAILY Supplement 01/15/21 10/06/23 iron) tablet mecobalamin (vitamin B12) 1,000 1,000 mcg PO DAILY Supplement 01/15/21 10/06/23 mcg chewable tablet multivitamin 1 each PO DAILY Supplement 01/15/21 10/06/23 Previous Rx's Medication Instructions Recorded furosemide 40 mg tablet 40 mg PO DIRECTED #30 tabs 07/08/22 spironolactone 25 mg tablet 25 mg PO DIRECTED #30 tabs 03/11/23 (Aldactone) digoxin 125 mcg (0.125 mg) tablet 125 mcg PO DAILY HEART RATE #90 05/06/23 tabs loperamide 2 mg capsule 2 mg PO Q6H PRN loose stool #60 05/14/23 caps apixaban 2.5 mg tablet (Eliquis) See Rx Instructions .Route 05/18/23 .COMPLEX #60 tabs levothyroxine 150 mcg tablet 150 mcg PO DAILY #30 tabs 05/21/23 ipratropium 0.5 mg-albuterol 3 mg 3 ml inhalation QID PRN shortness 06/08/23 (2.5 mg base)/3 mL nebulization of breath or wheezing 90 days #270 soln mL clopidogrel 75 mg tablet See Rx Instructions .Route 07/31/23 .COMPLEX #30 tabs amiodarone 200 mg tablet See Rx Instructions .Route 08/06/23 .COMPLEX #90 tabs prednisone 20 mg tablet See Rx Instructions .Route 10/06/23 .COMPLEX #120 tabs Allergies Allergy/AdvReac Type Severity Reaction Status Date / Time No Known Allergies Allergy Verified 10/06/23 15:17 [facility] Disclaimer: The information contained in this section may have been updated after the patient was seen, as this information can be updated by other users. 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 CAD (coronary artery disease) Carotid arterial disease CHF (congestive heart failure), NYHA class II Chronic respiratory failure with hypoxia Diarrhea due to drug History of atrial fibrillation History of atrial flutter HLD (hyperlipidemia) HTN (hypertension) Hypothyroidism ILD (interstitial lung disease) Inguinal hernia Ischemic cardiomyopathy Ischemic cardiomyopathy with implantable cardioverter-defibrillator (ICD) On home oxygen therapy Paroxysmal atrial fibrillation Pneumonia Pulmonary fibrosis Respiratory failure with hypoxia Restrictive lung disease Shortness of breath Surgical History History of AAA (abdominal aortic aneurysm) repair History of carotid endarterectomy History of colonoscopy History of coronary artery bypass graft History of esophagogastroduodenoscopy (EGD) History of hernia repair History of implantable cardiac defibrillator (ICD) S/P carotid endarterectomy Family History Other Cancer Heart attack Hyperlipidemia Hypertension Social History Smoking Status: Unknown if ever smoked second hand exposure: No alcohol intake: never substance use type: denies use current occupational status: unemployed and disabled Travel in the last 8 weeks: None household members: spouse housing: house lives independently: Yes marital status: current occupational exposures/hazards: No caffeine: Yes ROS Obtained: Yes All systems reviewed & no additional complaints except as documented Physical Exam General General appearance: alert and in distress (In respiratory distress, cyanotic) Eye Eye exam: Absent conjunctival redness ENT ENT exam: Present other (Dentures) Chest Chest inspection: Present normal inspection Respiratory Respiratory exam: Present respiratory distress, wheezes, accessory muscle use, prolonged expiratory phase and other (Rales and concern for pneumonia right middle lobe) Cardiovascular Cardiovascular exam: Present regular rate, normal rhythm and Pacemaker w/paced rhythm Abdominal Exam Abdominal exam: Present soft; Absent distention Extremities Exam Extremities exam: Absent edema Neurological Exam Neurological exam: Present alert, oriented X3 and CN II-XII intact Skin Skin exam: Present cyanosis HEART Score HEART Score HEART Score assessment performed?: No Critical Care Critical Care Time Critical Care Time: Yes (respiratory) Attestation: On 10/13/23, the high probability of a clinically significant, sudden or life threatening deterioration of the following system(s) required my full and direct attention, intervention and personal management. The time I documented below is in addition to time spent performing reported procedures but includes the following listed in this critical care notation. Total Time Total Critical Care Time: 60 Medical Decision Making Medical Records Medical records reviewed: Yes I reviewed the patient's medical records. Cr Inquiry Pt receiving controlled substance: No Cr was queried for this patient: No Vital Signs Vital Signs: 10/13/23 16:55 10/13/23 17:15 10/13/23 17:59 Pulse Rate 72 76 Pulse Rate [Radial] 89 Respiratory Rate 36 H 34 H 32 H Blood Pressure 124/64 99/52 L Blood Pressure [Right Arm] 124/64 Blood Pressure Mean 76 Blood Pressure Mean [Right Arm] 84 Blood Pressure Source [Right Arm] Automatic Cuff Blood Pressure Position [Right Arm] Supine 02 Sat by Pulse Oximetry 86 L 83 L 97 Oxygen Delivery Method Non-Rebreather Non-Rebreather 10/13/23 18:00 10/13/23 18:10 10/13/23 18:17 Pulse Rate 76 73 70 Pulse Rate [Radial] Respiratory Rate 33 H 36 H 28 H Blood Pressure 104/49 L 102/54 L 104/45 L Blood Pressure [Right Arm] Blood Pressure Mean Blood Pressure Mean [Right Arm] Blood Pressure Source [Right Arm] Blood Pressure Position [Right Arm] 02 Sat by Pulse Oximetry 97 97 98 Oxygen Delivery Method BiPAP BiPAP BiPAP 10/13/23 18:20 Pulse Rate 68 Pulse Rate [Radial] Respiratory Rate 27 H Blood Pressure 102/43 L Blood Pressure [Right Arm] Blood Pressure Mean Blood Pressure Mean [Right Arm] Blood Pressure Source [Right Arm] Blood Pressure Position [Right Arm] 02 Sat by Pulse Oximetry 97 Oxygen Delivery Method Vapotherm Lab Data Labs: Lab Results 10/13/23 17:05: WBC 13.8 H, RBC 4.71, Hgb 16.2, Hct 51.0, MCV 108.3 H, MCH 34.4 H, MCHC 31.8, RDW 14.8, Plt Count 190, MPV 10.0, Neut % (Auto) 89.3 H, Lymph % (Auto) 7.3 L, [place] % (Auto) 3.2, Eos % (Auto) 0.1, Baso % (Auto) 0.2, Neut # (Auto) 12.3 H, Lymph # (Auto) 1.0, [place] # (Auto) 0.4, Eos # (Auto) 0.0, Baso # (Auto) 0.0, Total Counted 100, Neutrophils % (Manual) 89 H, Lymphocytes % (Manual) 10, Monocytes % (Manual) 1 L, Platelet Estimate Normal, RBC Morphology Not Reportable, Macrocytosis 2+, Sodium 137, Potassium 4.4, Chloride 100, Carbon Dioxide 28, Anion Gap 13.4, BUN 42 H, Creatinine 1.60 H, Estimated Creat Clear 33, Estimated GFR 41 L, Est GFR ( Amer) 50 L, Glucose 130 H, Lactate 5.0 H, Calcium 8.9, Total Bilirubin 1.0, AST 246 H, ALT 234 H, Alkaline Phosphatase 159 H, Troponin I 0.13 H, NT-Pro-B Natriuret Pep 8500 H, Total Protein 7.0, Albumin 3.6, Globulin 3.4 H, Albumin/Globulin Ratio 1.1 10/13/23 17:36: VBG pH 7.27 L, VBG pCO2 57.5 H, VBG pO2 28.6, VBG HCO3 25.7, VBG Total CO2 27.5 H, VBG O2 Saturation 46.2 L, VBG Base Excess -1.2 10/13/23 17:05 10/13/23 17:05 Response Orders (Tests/Meds): ED MEDICATIONS Generic Name Dose Route Start Last Admin Trade Name Freq PRN Reason Stop Dose Admin Albuterol/Ipratropium 6 ml 10/13/23 18:51 Ipratropium/Albuterol 3 Ml Neb IH 11/12/23 18:47 Q4HP PRN Shortness Of Breath Or Wheezing Hydrocortisone Sodium Succinate 100 mg 10/14/23 12:00 Hydrocortisone Sod Succinate 100mg Vial IV 10/14/23 12:01 ONCE ONE Vancomycin/PEG/NADA/Lysine/Water 1.25 gm in 250 mls @ 125 mls/hr 10/13/23 17:45 10/13/23 17:45 Vancomycin 1.25gm/250ml (Peg) Premix IV 10/13/23 19:44 125 mls/hr ONCE ONE Administration Lactated Ringer's 2,470 mls @ 1,235 mls/hr 10/13/23 17:47 10/13/23 17:52 Lactated Ringer's 1000 Ml Bag 30 ml/kg infuse over 2 hr (2470 ml) 10/13/23 19:46 1,235 mls/hr IV Administration .Q2H ONE Norepinephrine Bitartrate 8 mg 258 mls @ 3.87 mls/hr 10/13/23 18:51 / Dextrose IV 11/12/23 18:44 .Q24H [facility]AL Protocol 2 MCG/MIN Lactated Ringer's 1,000 mls @ 50 mls/hr 10/13/23 19:00 Lactated Ringer's 1000 Ml Bag IV 11/12/23 18:59 .Q20H [facility] Miscellaneous 1 each 10/13/23 18:51 Vancomycin Consult Request NOTAPPLIC 11/12/23 17:29 CONSULT PHARMACY [facility] Discontinued Medications Generic Name Dose Route Start Last Admin Trade Name Freq PRN Reason Stop Dose Admin Albuterol/Ipratropium 6 ml 10/13/23 17:08 10/13/23 17:19 Ipratropium/Albuterol 3 Ml [facility] 10/13/23 17:09 6 ml ONCE ONE Administration Albuterol/Ipratropium 6 ml 10/13/23 18:48 Ipratropium/Albuterol 3 Ml [facility] 11/12/23 18:47 Q4HP PRN Shortness Of Breath Or Wheezing Hydrocortisone Sodium Succinate 100 mg 10/14/23 12:00 Hydrocortisone Sod Succinate 100mg Vial IV 10/14/23 12:01 ONCE ONE Magnesium Sulfate 2 gm in 50 mls @ 50 mls/hr 10/13/23 17:20 10/13/23 17:30 Magnesium Sulfate 2gm/50ml Premix IV 10/13/23 18:19 50 mls/hr ONCE ONE Administration Ampicillin Sodium/Sulbactam 100 mls @ 200 mls/hr 10/13/23 17:22 10/13/23 17:34 Sodium 3 gm/ Sodium Chloride IV 10/13/23 17:23 200 mls/hr ONCE ONE Administration Norepinephrine Bitartrate 8 mg 258 mls @ 3.87 mls/hr 10/13/23 18:45 / Dextrose IV 11/12/23 18:44 .Q24H [facility] Protocol 2 MCG/MIN Lactated Ringer's 1,000 mls @ 50 mls/hr 10/13/23 19:00 Lactated Ringer's 1000 Ml Bag IV 11/12/23 18:59 .Q20H [facility] Methylprednisolone Sodium Succinate 125 mg 10/13/23 17:08 10/13/23 17:20 Methylprednisolone Sod Succ 125mg Vial IV 10/13/23 17:09 125 mg ONCE ONE Administration Miscellaneous 1 each 10/13/23 17:30 10/13/23 17:30 Vancomycin Consult Request NOTAPPLIC 11/12/23 17:29 1 each CONSULT PHARMACY [facility] Administration Morphine Sulfate 2 mg 10/13/23 18:03 10/13/23 18:15 Morphine 4mg/Ml Syringe IV 10/13/23 18:04 2 mg ONCE ONE Administration Ondansetron HCl 4 mg 10/13/23 18:03 10/13/23 18:15 Ondansetron 4mg/2ml Vial IV 10/13/23 18:04 4 mg ONCE ONE Administration ORDERS Category Date Time Status CXR --portable [XR chest portable] Stat Exams 10/13/23 17:08 Completed Brain Natriuretic Peptide Stat Lab 10/13/23 17:05 Completed Complete Blood Count Auto Diff Stat Lab 10/13/23 17:05 Completed Comprehensive Metabolic Panel Stat Lab 10/13/23 17:05 Completed Lactic Acid Stat Lab 10/13/23 17:05 Completed Troponin I Q3H Lab 10/13/23 20:30 Ordered Troponin I Q3H Lab 10/13/23 23:30 Ordered Troponin I Stat Lab 10/13/23 17:05 Completed Blood Culture Stat Micro 10/13/23 17:25 Received ABG [Arterial Blood Gas] Stat RT 10/13/23 17:32 Ordered Venous Blood Gas Routine RT 10/13/23 17:36 Completed MDM Narrative Medical Decision Narrative: 83-year-old male history of pulmonary fibrosis, interstitial lung disease, COPD no longer smoking on 3 to 5 L nasal cannula at home presenting with shortness of breath. states the patient was short of breath the last 2 or 3 days. She stated that his oxygen usually sits mid to high 80s, today it dropped down into the 50s. He has been coughing up greenish-brown sputum for the last couple of days and she thought he had been running a fever, patient denies any febrile symptoms. Cough is new as of 24 hours prior to this visit. No vomiting, diarr hea, patient is having significant shortness of breath. Increased oxygen to 5 to 6 L via oxygen concentrator today. To be noted that patient has severe end- stage lung disease which is complicating care. History was obtained via conversation with patient, . On arrival, patient hemodynamically stable, alert, oriented x4, appropriate, GCS 15, moving all extremities spontaneously, pupils equal and reactive to light. Full physical exam performed and significant for severe respiratory distress. Maintaining blood pressure, but patient initially about 53% on room air. This did not improve with nasal cannula oxygen. Patient was placed on nonrebreather immediately and oxygen saturation improved to around 70 or 80. Patient has bilateral breath sounds and symmetric chest rise, so low concern for pneumothorax at this time. Because of this, patient was placed on BiPAP 12/8 with 80% FiO2. Patient's saturations immediately improved to mid 90s, but patient becoming increasingly intolerant. He does have diffuse bilateral wheezes with rales in the right middle lung freedman. No lower extremity edema. Answering questions, patient is also cyanotic. Differential includes pneumonia, bronchitis, PE, pneumothorax, pleural effusion, ACS, [place], dissection, among others. Patient was given DuoNebs, Solu-Medrol, 2 g magnesium IV, BiPAP, 2 mg morphine, Zofran 4 mg, IV fluids, vancomycin, Unasyn for symptomatic management and correction of underlying abnormalities. Workup independently interpreted and significant for leukocytosis 13.8 with lactate elevated at 5.0. Kidney function 1.6. VBG demonstrated respiratory acidosis with pH 7.27, CO2 elevated 57. Patient hypoxemic on VBG with oxygen low at 29. Lactate 6.2 on VBG. Chest x-ray with concern for right middle versus right lower lobe pneumonia see radiology read for full review of final results. Independent interpretation of EKG shows ventricularly paced rhythm 74 beats a minute. Wide QRS at 156 ms with Sgarbossa negative criteria concerning for STEMI. Patient having intermittent ectopic ventricular beats with ST de pressions, but inconsistent throughout and nonconcerning for acute, geographic ischemia. Rightward axis. Repeat EKG after patient stabilized on BiPAP demonstrated ventricularly paced rhythm at about 71 bpm. Sgarbossa negative. Patient does have T wave inversions in V6, 1, aVL concerning for subendocardial ischemia, but now reciprocal change. On reevaluation, patient intolerant of BiPAP, switched to heated high flow nasal cannula. Saturating 99% with heart rate 70. Blood pressure 96/50 and breathing about 20 times a minute when more comfortably. Patient mentating without issue. Admitting physician contacted for further definitive management, agreeable to admission. Because patient high risk for clinical decompensation, deemed appropriate for inpatient admission. Results were relayed to patient who voiced understanding and patient was agreeable to inpatient admission and management. Patient was admitted to the hospital for further definitive management.
--- NOTE | 2023-10-13 18:13 | ECG_ITS ---
APPROVED REPORT Exam: Resting ECG HR:71 bpm ECG Measurements Heart Rate 71 AXES ND 127 P 106 QRSd 148 QRS 235 QT 409 T 115 QTc 431 Conclusion ELECTRONIC VENTRICULAR PACEMAKER ABNORMAL RHYTHM ECG UNCONFIRMED REPORT Electronically signed by : Neil Yoo MD 10/14/2023 08:36:30
[2023-10-13] MEDS: ONDANSETRON 4MG/2ML VIAL 4 MG IV (18:15)
[2023-10-13] MEDS: MORPHINE 4MG/ML SYRINGE 2 MG IV (18:15)
--- NOTE | 2023-10-13 18:50 | PC.NURSE ---
warehouse assistant called for bed placement
--- NOTE | 2023-10-13 19:26 | PC.NURSE ---
attempted to call report to NIKOLE Mixon.
--- NOTE | 2023-10-13 19:33 | PC.NURSE ---
report called to Cedric Mixon. Patient and family updated.
--- NOTE | 2023-10-13 19:50 | PC.NURSE ---
call placed to med/surg re: who was coming for patient.
[2023-10-13 21:10] LABS: Reflex Lactic Add Lactic Reflex
[2023-10-13 21:17] LABS: Troponin I 0.19 ng/ml (0.00-0.034)
[2023-10-13] MEDS: LACTATED RINGERS 1000ML 1,000 ML 50 ML IV (21:53)
[2023-10-13 22:01] LABS: Lactic Acid Follow Up (RFLX 1) 2.3 mmol/L (0.7-2.1)
[2023-10-13 23:42] LABS: Reflex Lactic (2 hrs) Add Lactic Reflex
[2023-10-13 23:53] LABS: Troponin I 0.19 ng/ml (0.00-0.034)
[2023-10-14] VITALS (13 sets, daily range): BP systolic 109–151; BP diastolic 59–85; PULSE 70–96; RESP 16–20; TEMP 36.5–36.8; O2SAT 90–99; BMI 18.8
[2023-10-14 00:36] LABS: Lactic Acid Follow up (RFLX 2) 1.3 mmol/L (0.7-2.1)
--- NOTE | 2023-10-14 07:39 | P.CONPHA_ITS ---
Pharmacy Consult Date: 10/14/23 Time: 07:39 Referring provider: DR CHAVARRIA Reason for Consult:: VANCOMYCIN DOSING CONSULT Allergies Allergy/AdvReac Type Severity Reaction Status Date / Time No Known Allergies Allergy Verified 10/06/23 15:17 Home Medications Medication Instructions Recorded Confirmed Type atorvastatin 80 mg tablet 80 mg PO HS 01/21/18 10/13/23 History fish oil-dha-epa 1,200 mg-144 1 each PO DAILY Supplement 01/21/18 10/13/23 History mg-216 mg capsule fluoxetine 10 mg capsule 10 mg PO DAILY 01/21/18 10/13/23 History tamsulosin 0.4 mg capsule 0.4 mg PO DAILY 01/21/18 10/13/23 History vitamin E succinate 268 mg (400 400 units PO DAILY Supplement 01/21/18 10/13/23 History unit) tablet ferrous sulfate 325 mg (65 mg 325 mg PO DAILY 01/15/21 10/13/23 History iron) tablet mecobalamin (vitamin B12) 1,000 1,000 mcg PO DAILY Supplement 01/15/21 10/13/23 History mcg chewable tablet multivitamin 1 each PO DAILY Supplement 01/15/21 10/13/23 History loperamide 2 mg capsule 2 mg PO Q6H PRN loose stool #60 05/14/23 10/13/23 Rx caps apixaban 2.5 mg tablet (Eliquis) 2.5 mg PO BID 10/13/23 10/13/23 History clopidogrel 75 mg tablet 75 mg PO DAILY 10/13/23 10/13/23 History furosemide 40 mg tablet 40 mg PO DAILY PRN Edema 10/13/23 History amiodarone 200 mg tablet 200 mg PO DAILY 10/14/23 10/14/23 History digoxin 125 mcg (0.125 mg) tablet 125 mcg PO DAILY 10/14/23 10/13/23 History levothyroxine 150 mcg tablet 150 mcg PO AM 10/14/23 10/14/23 History prednisone 20 mg tablet 20 mg PO DAILY 10/14/23 10/14/23 History spironolactone 25 mg tablet 25 mg PO MOWEFR 10/14/23 10/14/23 History New Prescriptions to Start Prescriptions: Height: 1.88 m Weight: 66.587 kg Laboratory Results:: Laboratory Results - last 24 hr 10/13/23 17:05: WBC 13.8 H, RBC 4.71, Hgb 16.2, Hct 51.0, MCV 108.3 H, MCH 34.4 H, MCHC 31.8, RDW 14.8, Plt Count 190, MPV 10.0, Neut % (Auto) 89.3 H, Lymph % (Auto) 7.3 L, [place] % (Auto) 3.2, Eos % (Auto) 0.1, Baso % (Auto) 0.2, Neut # (Auto) 12.3 H, Lymph # (Auto) 1.0, [place] # (Auto) 0.4, Eos # (Auto) 0.0, Baso # (Auto) 0.0, Total Counted 100, Neutrophils % (Manual) 89 H, Lymphocytes % (Manual) 10, Monocytes % (Manual) 1 L, Platelet Estimate Normal, RBC Morphology Not Reportable, Macrocytosis 2+, Sodium 137, Potassium 4.4, Chloride 100, Carbon Dioxide 28, Anion Gap 13.4, BUN 42 H, Creatinine 1.60 H, Estimated Creat Clear 33, Estimated GFR 41 L, Est GFR ( Amer) 50 L, Glucose 130 H, Lactate 5.0 H, Calcium 8.9, Total Bilirubin 1.0, AST 246 H, ALT 234 H, Alkaline Phosphatase 159 H, Troponin I 0.13 H, NT-Pro-B Natriuret Pep 8500 H, Total Protein 7.0, Albumin 3.6, Globulin 3.4 H, Albumin/Globulin Ratio 1.1 10/13/23 17:36: VBG pH 7.27 L, VBG pCO2 57.5 H, VBG pO2 28.6, VBG HCO3 25.7, VBG Total CO2 27.5 H, VBG O2 Saturation 46.2 L, VBG Base Excess -1.2 10/13/23 20:43: Troponin I 0.19 H 10/13/23 21:07: Troponin I 0.19 H 10/13/23 21:27: Lactate 2.3 H 10/14/23 00:20: Lactate 1.3 Medical History: Medical History (Updated 10/13/23 @ 18:56 by Travis Dumont MD) Acute and chronic respiratory failure with hypoxia 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 CAD (coronary artery disease) Carotid arterial disease CHF (congestive heart failure), NYHA class II Chronic respiratory failure with hypoxia Diarrhea due to drug History of atrial fibrillation History of atrial flutter HLD (hyperlipidemia) HTN (hypertension) Hypothyroidism ILD (interstitial lung disease) Inguinal hernia Ischemic cardiomyopathy Ischemic cardiomyopathy with implantable cardioverter-defibrillator (ICD) On home oxygen therapy Paroxysmal atrial fibrillation Pneumonia Pulmonary fibrosis Respiratory failure with hypoxia Restrictive lung disease Shortness of breath Assessment and Plan Assessment and plan all Dx Assessment and Plan for all problems:: Pharmacokinetic dosing service Objective: Age: 83 yo Serum creatinine: 1.6 mg/dL Height: 74.0 Inches Weight (kg): 66.58 Diagnosis: PNEUMONIA Assessment: IBW (kg): 82.20 Dosing wt(kg): 66.58 Estimated Creatinine clearance (ml/min): 32.9 CRCL method: Cockcroft and Gault using ibw(default). Drug selected: Vancomycin Vd (liters): 46.6 (factor used: 0.7 L/kg) Simon (hr-1): 0.032 Half life (hrs): 21.66 CLvanco=?? 1.491 L/hr Recommended dose: 1250 mg Interval: 36 hrs Infusion time (hrs): 2.0 Predicted peak (mcg/mL): 38.0 Predicted trough (mcg/mL): 12.80 Total body weight is being used for vancomycin dosing. Recommendations: Give Vancomycin 1250 mg q 36 hrs with an expected Cpeak of 38.0 mcg/ml and an expected Ctrough of 12.80 mcg/ml AUC 0-24 /FADIA Data: FADIA 0.5 mcg/mL:?? AUC/FADIA:? 1117.8 FADIA 1.0 mcg/mL:?? AUC/FADIA:? 558.9 --------- FADIA 1.5 mcg/mL:?? AUC/FADIA:? 372.6 FADIA 2.0 mcg/mL:?? AUC/FADIA:? 279.5 Thank you for the consult
--- NOTE | 2023-10-14 08:44 | P.HP_ITS ---
History of Present Illness *Admission Date: 10/14/23 *Reason for visit:: shortness of breath *History of present illness: 83-year-old male history of pulmonary fibrosis, interstitial lung disease, COPD no longer smoking on 3 to 5 L nasal cannula at home presenting with shortness of breath. states the patient was short of breath the last 2 or 3 days. She stated that his oxygen usually sits mid to high 80s, today it dropped down into the 50s. He has been coughing up greenish-brown sputum for the last couple of days and she thought he had been running a fever, patient denies any febrile symptoms. Cough is new as of 24 hours prior to this visit. No vomiting, diarrhea, patient is having significant shortness of breath. Increased oxygen to 5 to 6 L via oxygen concentrator today. To be noted that patient has severe end-stage lung disease which is complicating care. History was obtained via conversation with patient, . On arrival, patient hemodynamically stable, alert, oriented x4, appropriate, GCS 15, moving all extremities spontaneously, pupils equal and reactive to light. Full physical exam performed and significant for severe respiratory distress. Maintaining blood pressure, but patient initially about 53% on room air. This did not improve with nasal cannula oxygen. Patient was placed on nonrebreather immediately and oxygen saturation improved to around 70 or 80. Patient has bilateral breath sounds and symmetric chest rise, so low concern for pne umothorax at this time. Because of this, patient was placed on BiPAP 12/8 with 80% FiO2. Patient's saturations immediately improved to mid 90s, but patient becoming increasingly intolerant. He does have diffuse bilateral wheezes with rales in the right middle lung freedman. No lower extremity edema. Answering questions, patient is also cyanotic. Differential includes pneumonia, bronchitis, PE, pneumothorax, pleural effusion, ACS, NM, dissection, among others. Patient was given DuoNebs, Solu-Medrol, 2 g magnesium IV, BiPAP, 2 mg morphine, Zofran 4 mg, IV fluids, vancomycin, Unasyn for symptomatic management and correction of underlying abnormalities. Workup independently interpreted and significant for leukocytosis 13.8 with lactate elevated at 5.0. Kidney function 1.6. VBG demonstrated respiratory acidosis with pH 7.27, CO2 elevated 57. Patient hypoxemic on VBG with oxygen low at 29. Lactate 6.2 on VBG. Chest x-ray with concern for right middle versus right lower lobe pneumonia see radiology read for full review of final results. Independent interpretation of EKG shows ventricularly paced rhythm 74 beats a minute. Wide QRS at 156 ms with Sgarbossa negative criteria concerning for STEMI. Patient having intermittent ectopic ventricular beats with ST depressions, but inconsistent throughout and nonconcerning for acute, geographic ischemia. Rightward axis. Repeat EKG after patient stabilized on BiPAP demonstrated ventricularly paced rhythm at about 71 bpm. Sgarbossa negative. Patient does have T wave inversions in V6, 1, aVL concerning for subendocardial ischemia, but now reciprocal change. On reevaluation, patient intolerant of BiPAP, switched to heated high flow nasal cannula. Saturating 99% with heart rate 70. Blood pressure 96/50 and breathing about 20 times a minute when more comfortably. Patient mentating without issue. Admitting physician contacted for further definitive management, agreeable to admission. Because patient high risk for clinical decompensation, deemed appropriate for inpatient admission. Results were relayed to patient who voiced understanding and patient was agreeable to inpatient admission and management. Patient was admitted to the hospital for further definitive management. (above as per ER physician) The patient states he has been feeling poorly for the past 4 days. He has been running fever and getting progressively more SOA. He was coughing up thick sputum. He has also had difficulty swallowing solid foods. He got to the point where he was unable to get out of the bed because his oxygen sats were dropping so low. [facility] Disclaimer: The information contained in this section may have been updated after the patient was seen, as this information can be updated by other users. 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 CAD (coronary artery disease) Carotid arterial disease CHF (congestive heart failure), NYHA class II Chronic respiratory failure with hypoxia Diarrhea due to drug History of atrial fibrillation History of atrial flutter HLD (hyperlipidemia) HTN (hypertension) Hypothyroidism ILD (interstitial lung disease) Inguinal hernia Ischemic cardiomyopathy Ischemic cardiomyopathy with implantable cardioverter-defibrillator (ICD) On home oxygen therapy Paroxysmal atrial fibrillation Pneumonia Pulmonary fibrosis Respiratory failure with hypoxia Restrictive lung disease Shortness of breath Surgical History History of AAA (abdominal aortic aneurysm) repair History of carotid endarterectomy History of colonoscopy History of coronary artery bypass graft History of esophagogastroduodenoscopy (EGD) History of hernia repair History of implantable cardiac defibrillator (ICD) S/P carotid endarterectomy Family History Hyperlipidemia Heart attack Cancer Hypertension Social History Smoking Status: Former smoker tobacco type: cigarettes packs per day: 1 smoking status start date: 1954 years smoked: 30 smoking status stop date: 1984 second hand exposure: No alcohol intake: never substance use type: denies use current occupational status: unemployed and disabled Travel in the last 8 weeks: None household members: spouse housing: house lives independently: Yes marital status: current occupational exposures/hazards: No caffeine: Yes Review of Systems Constitutional Constitutional: Reports body ache(s), Reports fatigue, Reports fever(s), Reports headache(s), Reports poor appetite, Reports lethargy, Reports malaise and Reports weakness Eyes Eyes: Denies blurry vision and Denies diplopia ENT Ears, Nose, Mouth, and Throat: Reports headache(s), Denies nasal congestion, Denies sore throat and Reports vertigo *Cardiovascular Cardiovascular: Reports chest pain, Reports dyspnea, Reports dyspnea on exertion, Denies leg edema and Reports lightheadedness *Respiratory Respiratory: Reports chest congestion, Reports cough, Reports dyspnea, Reports dyspnea on exertion, Reports pain with cough and Reports wheezing *Gastrointestinal Gastrointestinal: Reports abdominal pain, Reports loose stools, Denies nausea and Denies vomiting *Genitourinary Genitourinary: Denies difficulty urinating and Denies dysuria *Musculoskeletal Musculoskeletal: Reports myalgias *Neurologic Neurologic: Reports headache(s), Reports vertigo and Reports weakness Endocrine Endocrine: Reports fatigue Allergic/Immunologic Allergic/Immunologic: Reports wheezing Meds Home Medications and Allergies Home Medications Medication Instructions Recorded Confirmed Type atorvastatin 80 mg tablet 80 mg PO HS 01/21/18 10/13/23 History fish oil-dha-epa 1,200 mg-144 1 each PO DAILY Supplement 01/21/18 10/13/23 History mg-216 mg capsule fluoxetine 10 mg capsule 10 mg PO DAILY 01/21/18 10/13/23 History tamsulosin 0.4 mg capsule 0.4 mg PO DAILY 01/21/18 10/13/23 History vitamin E succinate 268 mg (400 400 units PO DAILY Supplement 01/21/18 10/13/23 History unit) tablet ferrous sulfate 325 mg (65 mg 325 mg PO DAILY 01/15/21 10/13/23 History iron) tablet mecobalamin (vitamin B12) 1,000 1,000 mcg PO DAILY Supplement 01/15/21 10/13/23 History mcg chewable tablet multivitamin 1 each PO DAILY Supplement 01/15/21 10/13/23 History loperamide 2 mg capsule 2 mg PO Q6H PRN loose stool #60 05/14/23 10/13/23 Rx caps apixaban 2.5 mg tablet (Eliquis) 2.5 mg PO BID 10/13/23 10/13/23 History clopidogrel 75 mg tablet 75 mg PO DAILY 10/13/23 10/13/23 History furosemide 40 mg tablet 40 mg PO DAILY PRN Edema 10/13/23 History amiodarone 200 mg tablet 200 mg PO DAILY 10/14/23 10/14/23 History digoxin 125 mcg (0.125 mg) tablet 125 mcg PO DAILY 10/14/23 10/13/23 History levothyroxine 150 mcg tablet 150 mcg PO AM 10/14/23 10/14/23 History prednisone 20 mg tablet 20 mg PO DAILY 10/14/23 10/14/23 History spironolactone 25 mg tablet 25 mg PO MOWEFR 10/14/23 10/14/23 History New Prescriptions to Start Prescriptions: Allergies Allergy/AdvReac Type Severity Reaction Status Date / Time No Known Allergies Allergy Verified 10/06/23 15:17 Exam Data for Last 24 hours Vital signs and Labs for Last 24 Hours: Temp Pulse Resp BP Pulse Ox O2 Del Method O2 Flow Rate 98 F 96 H 18 114/67 97 Vapotherm 15 10/14/23 08:00 10/14/23 06:00 10/14/23 06:00 10/14/23 06:00 10/14/23 06:45 10/14/23 07:25 10/14/23 07:25 FiO2 70 10/14/23 07:25 Laboratory Results - last 24 hr 10/13/23 17:05: WBC 13.8 H, RBC 4.71, Hgb 16.2, Hct 51.0, MCV 108.3 H, MCH 34.4 H, MCHC 31.8, RDW 14.8, Plt Count 190, MPV 10.0, Neut % (Auto) 89.3 H, Lymph % (Auto) 7.3 L, Bea[place]gard % (Auto) 3.2, Eos % (Auto) 0.1, Baso % (Auto) 0.2, Neut # (Auto) 12.3 H, Lymph # (Auto) 1.0, Bea[place]gard # (Auto) 0.4, Eos # (Auto) 0.0, Baso # (Auto) 0.0, Total Counted 100, Neutrophils % (Manual) 89 H, Lymphocytes % (Manua l) 10, Monocytes % (Manual) 1 L, Platelet Estimate Normal, RBC Morphology Not Reportable, Macrocytosis 2+, Sodium 137, Potassium 4.4, Chloride 100, Carbon Dioxide 28, Anion Gap 13.4, BUN 42 H, Creatinine 1.60 H, Estimated Creat Clear 33, Estimated GFR 41 L, Est GFR ( Amer) 50 L, Glucose 130 H, Lactate 5.0 H, Calcium 8.9, Total Bilirubin 1.0, AST 246 H, ALT 234 H, Alkaline Phosphatase 159 H, Troponin I 0.13 H, NT-Pro-B Natriuret Pep 8500 H, Total Protein 7.0, Albumin 3.6, Globulin 3.4 H, Albumin/Globulin Ratio 1.1 10/13/23 17:36: VBG pH 7.27 L, VBG pCO2 57.5 H, VBG pO2 28.6, VBG HCO3 25.7, VBG Total CO2 27.5 H, VBG O2 Saturation 46.2 L, VBG Base Excess -1.2 10/13/23 20:43: Troponin I 0.19 H 10/13/23 21:07: Troponin I 0.19 H 10/13/23 21:27: Lactate 2.3 H 10/14/23 00:20: Lactate 1.3 I & O for Last 24 hours: Intake & Output 10/11/23 10/12/23 10/13/23 10/14/23 11:59 11:59 11:59 11:59 Intake Total 863 / 863 Balance 863 / 863 Weight 146 lb 12.8 oz Constitutional Constitutional: no acute distress *Routine HEENT Exam Head: Present normocephalic and atraumatic Eye: Present EOMI and PERRL ENT: Present mucous membranes dry *Routine Neck Exam Neck: Present supple and full ROM *Routine Respiratory Exam Respiratory: Present decreased breath sounds and wheezes *Routine Cardiovascular Exam Cardiovascular: Present RRR *Routine Abdominal Exam Abdominal: Present soft, normoactive bowel sounds and tenderness (diffuse) *Routine Rectal Exam Rectal:: deferred *Routine Genitalia Exam Genitalia:: deferred *Routine Extremities Exam Extremities: Present edema (trace bilateral LE's); Absent cyanosis or clubbing *Routine Skin Exam Skin: Present intact; Absent erythema *Routine Neurological Exam Neurological: Present alert and oriented X3 H&P: Result Impressions CXR - Low lung volumes. Coarse bilateral pulmonary opacities are again seen and have slightly worsened. Findings are consistent with interstitial lung disease. Cannot exclude superimposed infection. Assessment and Plan *Assessment and plan (1) Acute on chronic respiratory failure with hypoxemia: Status: Acute Category: Medical Code(s): J96.21 - Acute and chronic respiratory failure with hypoxia (2) Sepsis: Status: Acute Qualifiers: Acute respiratory failure type: with hypoxia Sepsis acute organ dysfunction status: with acute organ dysfunction Sepsis type: sepsis due to unspecified organism Severe sepsis acute organ dysfunction type: acute respiratory failure Severe sepsis shock status: with septic shock Qualified Code(s): A41.9 - Sepsis, unspecified organism; R65.21 - Severe sepsis with septic shock; J96.01 - Acute respiratory failure with hypoxia Category: Medical Code(s): A41.9 - Sepsis, unspecified organism (3) Asthma: Status: Chronic Category: Medical Code(s): J45.909 - Unspecified asthma, uncomplicated (4) Restrictive lung disease: Status: Chronic Category: Medical Code(s): J98.4 - Other disorders of lung (5) Shortness of breath: Status: Chronic Category: Medical Code(s): R06.02 - Shortness of breath (6) Ischemic cardiomyopathy with implantable cardioverter-defibrillator (ICD): Status: Acute Category: Medical Code(s): I25.5 - Ischemic cardiomyopathy; Z95.810 - Presence of automatic (implantable) cardiac defibrillator (7) Carotid arterial disease: Status: Chronic Qualifiers: Carotid artery disease type: stenosis Laterality: bilateral Qualified Code(s): I65.23 - Occlusion and stenosis of bilateral carotid arteries Category: Medical Code(s): I77.9 - Disorder of arteries and arterioles, unspecified (8) S/P carotid endarterectomy: Status: Chronic Category: Surgical Code(s): Z98.890 - Other specified postprocedural states (9) HTN (hypertension): Status: Acute Qualifiers: Hypertension type: primary hypertension Qualified Code(s): I10 - Essential (primary) hypertension Category: Medical Code(s): I10 - Essential (primary) hypertension (10) HLD (hyperlipidemia): Status: Acute Qualifiers: Hyperlipidemia type: mixed hyperlipidemia Qualified Code(s): E78.2 - Mixed hyperlipidemia Category: Medical Code(s): E78.5 - Hyperlipidemia, unspecified (11) Paroxysmal atrial fibrillation: Status: Acute Category: Medical Code(s): I48.0 - Paroxysmal atrial fibrillation (12) CAD (coronary artery disease): Status: Chronic Qualifiers: Associated angina: without angina Coronary Disease-Associated Artery/Lesion type: [place] artery [place] vs. transplanted heart: [place] heart Qualified Code(s): I25.10 - Atherosclerotic heart disease of [place] coronary artery without angina pectoris Category: Medical Code(s): I25.10 - Atherosclerotic heart disease of [place] coronary artery without angina pectoris (13) Hypothyroidism: Status: Chronic Category: Medical Code(s): E03.9 - Hypothyroidism, unspecified (14) On home oxygen therapy: Status: Chronic Category: Medical Code(s): Z99.81 - Dependence on supplemental oxygen (15) ILD (interstitial lung disease): Status: Chronic Category: Medical Code(s): J84.9 - Interstitial pulmonary disease, unspecified (16) Pulmonary fibrosis: Status: Chronic Category: Medical Code(s): J84.10 - Pulmonary fibrosis, unspecified Plan Patient states he was just in to see pulmonology last week. He has not had a respiratory panel since admission. Will get both a respiratory panel and rapid covid/flu test. Will continue vapotherm as his sats have improved and he is much more comfortable. Will continue abx. Will discuss further care with Dr. Walsh. Dr. Walsh entry - Saw patient, agree with above note. Continue current treatment.
--- NOTE | 2023-10-14 09:35 | HMH.PHAINT1 ---
Pharmacy Intervention Comments: Home med list verified with patient and patient's spouse at bedside and with external pharmacy list.
[2023-10-14 09:40] LABS: Adenovirus,PCR Not Detected (NotDetected); Coronavirus 19, PCR Not Detected (NotDetected); Coronavirus 229E Not Detected (NotDetected); Coronavirus NL63 Not Detected (NotDetected); Coronavirus OC43 Not Detected (NotDetected); Coronovirus HKU1,PCR Not Detected (NotDetected); Human Metapneumovirus Not Detected (NotDetected); Influenza A, PCR Not Detected (NotDetected); Influenza AH1, PCR Not Detected (NotDetected); Influenza AH3,PCR Not Detected (NotDetected); Influenza B, PCR Not Detected (NotDetected); Parainfluenza 1, PCR Not Detected (NotDetected); Parainfluenza 2, PCR Not Detected (NotDetected); Parainfluenza 3, PCR Not Detected (NotDetected); Parainfluenza 4, PCR Not Detected (NotDetected); Respiratory Syncytial Virus Not Detected (NotDetected); Rhinovirus/Enterovirus Not Detected (NotDetected)
[2023-10-14] MEDS: METHYLPREDNISOLONE SOD SUCC 125MG VIAL 80 MG IV ×2 (10:39→17:34)
[2023-10-14] MEDS: LACTATED RINGERS 1000ML 1,000 ML 50 ML IV (10:39)
[2023-10-14 11:39] LABS: Influenza AH1, 2009 Detected (NotDetected)
--- NOTE | 2023-10-14 11:48 | PC.NURSE ---
Pt is awake. A&O x3. Tolerating Bipap at this time. Educated on importance of wearing Bipap when sleeping and napping. Levophed is currently infusing @ 2 mcg/min. Titrated per protocol. Call light within reach. Safety measures in place.
--- NOTE | 2023-10-14 11:53 | PC.NURSE ---
Pt placed in contact and droplet precautions for positive Flu A.
--- OUTSIDE RECORDS SUMMARY | 2023-10-14 13:23 | XMS_ITS | Summary of Care ---
Author Name Unknown Organization [facility] Address [address] [place] [address]- Encounter 06/08/18 - 06/08/18 [facility] [address] [place] [address] Discharge Disposition: Discharged to Home or Self Care Attending Physician: Keisha Hyman MD Referring Physician: Keisha Hyman MD Vital Signs Most recent to oldest [Reference Range]: 1 Peripheral Pulse Rate [60-100 bpm] 60 bp m (06/08/18 1:30 PM) Blood Pressure [90-140/60-90 mmHg] 155/8 1mmHg *HI* (06/08/18 1:30 PM) Problem List Condition Effective Dates Status Health Status Inform ant ADL deficits(Confirmed) Active 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) 1 Active Balance impairment(Confirmed) Active 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 accident(Confirmed) 2 Active Gait abnormality(Confirmed) Active 1minimal impairment 2minimal impairment Allergies, Adverse Reactions, Alerts No Known Medication Allergies Medications apixaban 5 mg oral tablet 5 mg = 1 tab, Tab, Oral, BID, 60 tab, 0 Refill(s), Print Requisition Start Date: 12/10/17 Status: Ordered aspirin 325 mg oral tablet 325 mg = 1 tab, Tab, Oral, Daily, 30 tab, 0 Refill(s), Print Requisition Start Date: 12/10/17 Status: Ordered aspirin 81 mg oral tablet 81 mg = 1 tab, Oral, Daily, 30 tab, 0 Refill(s) Start Date: 06/08/18 Status: Ordered atorvastatin 80 mg oral tablet 80 mg = 1 tab, Tab, Oral, QHS, 30 tab, 0 Refill(s), Print Requisition Start Date: 12/10/17 Status: Ordered cholecalciferol 1000 intl units oral tablet 1,000 IntlUnit = 1 tab, Tab, Oral, Daily, 30 tab, 0 Refill(s), Print Requisition Start Date: 12/10/17 Status: Ordered doxazosin 1 mg oral tablet 2 mg = 2 tab, Tab, Oral, Daily, 60 tab, 0 Refill(s), Print Requisition Start Date: 12/10/17 Status: Ordered Fish Oil 1200 mg oral capsule 1,200 mg = 1 cap, Cap, Oral, Daily, 30 cap, 0 Refill(s), Print Requisition Start Date: 12/10/17 Status: Ordered FLUoxetine 10 mg oral capsule 10 mg = 1 cap, Cap, Oral, Daily, 30 cap, 0 Refill(s), Print Requisition Start Date: 12/10/17 Status: Ordered folic acid 1 mg oral tablet 1 mg = 1 tab, Tab, Oral, Daily, 30 tab, 0 Refill(s), Print Requisition Start Date: 12/10/17 Status: Ordered lisinopril 20 mg oral tablet 20 mg = 1 tab, Tab, Oral, Daily, 30 tab, 0 Refill(s), Print Requisition Start Date: 12/10/17 Status: Ordered metoprolol tartrate 25 mg oral tablet 12.5 mg, 0.5 tab, Tab, Oral, BID, 30 tab, 0 Refill(s), Print Requisition Start Date: 12/10/17 Status: Ordered Miscellaneous Non Medication See Instructions, Outpatient OT - evaluate and treat, 1, EA, 0 Refill(s), Maintenance, Print Requisition, Instructions Replace Required Details, [id number], Constant Indicator Start Date: 03/29/18 Status: Ordered Miscellaneous Non-Medication See Instructions, OT reevaluation and treatment for hemiparesis following stroke with worse deficits after acute illness/endarterectomy, 1, EA, 0 Refill(s), Maintenance, Print Requisition, Instructions Replace Required Details, [id number], Cons... Start Date: 02/09/18 Status: Ordered multivitamin 1 tab, Tab, Oral, Daily, 30 tab, 0 Refill(s) Start Date: 11/26/17 Status: Ordered Synthroid 25 mcg (0.025 mg) oral tablet 25 mcg = 1 tab, Tab, Oral, Before breakfast, 30 tab, 0 Refill(s), Print Requisition Start Date: 12/10/17 Status: Ordered tamsulosin 0.4 mg oral capsule 0.4 mg = 1 cap, Cap, Oral, Daily, 30 cap, 0 Refill(s) Start Date: 02/09/18 Status: Ordered Uloric 40 mg oral tablet 40 mg = 1 tab, Tab, Oral, Daily, 30 tab, 0 Refill(s), Print Requisition Start Date: 12/10/17 Status: Ordered vitamin E 400 intl units oral capsule 400 IntlUnit = 1 cap, Oral, Daily, 0 Refill(s) Start Date: 11/26/17 Status: Ordered
--- OUTSIDE RECORDS SUMMARY | 2023-10-14 13:24 | XMS_ITS | Summary of Care ---
Author Name Unknown Organization [facility] Address [address] [place] [address]- Encounter 02/09/18 - 02/09/18 [facility] [address] [place] [address] Discharge Disposition: Discharged to Home or Self Care Attending Physician: Keisha Hyman MD Referring Physician: Keisha Hyman MD Vital Signs Most recent to oldest [Reference Range]: 1 Peripheral Pulse Rate [60-100 bpm] 67 bp m (02/09/18 2:23 PM) Blood Pressure [90-140/60-90 mmHg] 130/7 0mmHg (02/09/18 2:23 PM) Problem List Condition Effective Dates Status [...] Print Requisition Start Date: 12/10/17 Status: Ordered atorvastatin 80 mg oral tablet [...] Requisition Start Date: 12/10/17 Status: Ordered Miscellaneous Non-Medication See Instructions, OT reevaluation and treatment for hemiparesis following stroke with worse deficits after acute illness/endarterectomy, 1, EA, 0 Refill(s), Maintenance, Print Requisition, Instructions Replace Required Details, [id number], Cons... Start Date: 02/09/18 Status: Ordered multivitamin 1 tab, Tab, Oral, Daily, 30 tab, 0 Refill(s) Start Date: 11/26/17 Status: Ordered Ocuvite 1 tab, Oral, Daily, 30 tab, 0 [...]
--- OUTSIDE RECORDS SUMMARY | 2023-10-14 13:24 | XMS_ITS | Summary of Care ---
Author Name Unknown Organization [facility] Address [address] [place] [address]- Encounter 11/24/17 - 12/12/17 [facility] [address] [place] [address] Attending Physician: Keisha Hyman MD Vital Signs Most recent to oldest [Reference Range]: 1 2 3 Temperature Oral F [96.4-99.1 DegF] 97.3 DegF (12/12/17 8:27 AM) 98.1 DegF (12/11/17 7:56 PM) 98.1 DegF (12/11/17 8:34 AM) Apical Heart Rate [60-100 bpm] 61 bpm (12/10/17 8:32 AM) 54 bpm *LOW* (12/09/17 8:19 PM) Peripheral Pulse Rate [60-100 bpm] 68 bpm (12/12/17 8:27 AM) 60 bpm (12/11/17 7:56 PM) 68 bpm (12/11/17 8:34 AM) Respiratory Rate [14-20 br/min] 16 br/min (12/12/17 8:27 AM) 18 br/min (12/11/17 7:56 PM) 16 br/min (12/11/17 8:34 AM) Blood Pressure [90-140/60-90 mmHg] 144/62mmHg *HI* (12/11/17 8:34 AM) Systolic Blood Pressure [90-140 mmHg] 128 mmHg (12/12/17 8:27 AM) 158 mmHg *HI* (12/11/17 7:56 PM) Diastolic Blood Pressure [60-90 mmHg] 80 mmHg (12/12/17 8:27 AM) 68 mmHg (12/11/17 7:56 PM) Temperature Oral [35.8-37.3 DegC] 36.3 DegC (12/12/17 8:27 AM) 36.7 DegC (12/11/17 7:56 PM) 36.9 DegC (12/10/17 8:32 AM) Problem List Condition Effective Dates Status Health [...] Print Requisition Start Date: 12/10/17 Status: Ordered multivitamin 1 tab, Tab, Oral, Daily, 30 tab, 0 Refill(s) Start Date: 11/26/17 Status: Ordered Ocuvite 1 tab, Oral, Daily, 30 tab, 0 Refill(s) Start Date: 11/26/17 Status: Ordered Synthroid 25 mcg (0.025 mg) oral tablet 25 mcg = 1 tab, Tab, Oral, Before breakfast, 30 tab, 0 Refill(s), Print Requisition Start Date: 12/10/17 Status: Ordered Uloric 40 mg oral tablet 40 mg = 1 tab, Tab, Oral, Daily, 30 tab, 0 Refill(s), Print Requisition Start Date: 12/10/17 Status: Ordered vitamin E 400 intl units oral capsule 400 IntlUnit = 1 cap, Oral, Daily, 0 Refill(s) Start Date: 11/26/17 Status: Ordered Zaditor 0.025% ophthalmic solution 1 drop, Soln-Opth, Eye-Both, BID PRN, 1 bottle, 0 Refill(s), Dispense: 10 day, Dry or itching eyes,Stop date 12/20/17 19:27:00 EDT, Print Requisition Start Date: 12/10/17 Stop Date: 12/20/17 Status: Ordered Results LABORATORY Most recent to oldest [Reference Range]: 1 2 3 4 Vitamin B12 - QST [200-1100 pg/mL] 559 pg/mL 1 *NA* (11/25/17 5:53 AM) Vitamin D, 25-OH, Total - QST [30-100 ng/mL] 30 ng/mL 2 *NA* (11/25/17 5:53 AM) Vitamin D, 25-OH, D3 - QST 30 ng/mL 3 *NA* (11/25/17 5:53 AM) Vitamin D, 25-OH, D2 - QST <4 ng/mL 4 *NA* (11/25/17 5:53 AM) Glucose POC RALS [74-106 mg/dL] 102 mg/dL (12/08/17 6:56 AM) Color UR HSL [yellow] yellow (11/25/17 3:24 PM) Appearance UR HSL [clear] clear (11/25/17 3:24 PM) Specific [place] UR HSL [1.010-1.040] 1.010 (11/25/17 3:24 PM) pH UR HSL [5] 6 (11/25/17 3:24 PM) Glucose UR HSL [Normal] Normal (11/25/17 3:24 PM) Bilirubin UR HSL [Neg] Neg (11/25/17 3:24 PM) Ketones UR HSL [Neg] Neg (11/25/17 3:24 PM) Blood UR HSL [Neg] Neg (11/25/17 3:24 PM) Protein UR HSL [Neg] Neg (11/25/17 3:24 PM) Urobilinogen UR HSL [Normal] Normal (11/25/17 3:24 PM) Nitrite UR HSL [Neg] Neg (11/25/17 3:24 PM) Leukocyte Esterase UR HSL [Neg] Neg (11/25/17 3:24 PM) Squamous Epithelials UR HSL [0-5] Rare (11/25/17 3:24 PM) Bacteria UR HSL None Seen (11/25/17 3:24 PM) WBC UR HSL [None Seen] None Seen (11/25/17 3:24 PM) RBC UR HSL [None Seen] None Seen (11/25/17 3:24 PM) Specimen Source UR HSL Clean Catch (11/25/17 3:24 PM) WBC HSL [4.5-11.5 x10(3)/mcL] 7.1 x10(3)/mcL (12/10/17 5:02 AM) 7.1 x10(3)/mcL (12/07/17 3:51 AM) 6.7 x10(3)/mcL (12/03/17 4:44 AM) RBC HSL [4.10-5.80 x10(6)/mcL] 4.16 x10(6)/mcL (12/10/17 5:02 AM) 3.93 x10(6)/mcL *LOW* (12/07/17 3:51 AM) 4.04 x10(6)/mcL *LOW* (12/03/17 4:44 AM) Hemoglobin HSL [13.5-17.5 gm/dL] 13.4 gm/dL *LOW* (12/10/17 5:02 AM) 12.4 gm/dL *LOW* (12/07/17 3:51 AM) 12.8 gm/dL *LOW* (12/03/17 4:44 AM) Hematocrit HSL [40.0-53.0 %] 40.6 % (12/10/17 5:02 AM) 38.4 % *LOW* (12/07/17 3:51 AM) 39.3 % *LOW* (12/03/17 4:44 AM) MCV HSL [80.0-103.4 fL] 97.6 fL (12/10/17 5:02 AM) 97.7 fL (12/07/17 3:51 AM) 97.3 fL (12/03/17 4:44 AM) MCH HSL [26.0-34.0 pg] 32.2 pg (12/10/17 5:02 AM) 31.6 pg (12/07/17 3:51 AM) 31.7 pg (12/03/17 4:44 AM) MCHC HSL [31.5-35.0 gm/dL] 33.0 gm/dL (12/10/17 5:02 AM) 32.3 gm/dL (12/07/17 3:51 AM) 32.6 gm/dL (12/03/17 4:44 AM) Platelet HSL [150-450 x10(3)/mcL] 285 x10(3)/mcL (12/10/17 5:02 AM) 289 x10(3)/mcL (12/07/17 3:51 AM) 305 x10(3)/mcL (12/03/17 4:44 AM) RDW-CV% HSL [11.6-14.4 %] 14.2 % (12/10/17 5:02 AM) 14.3 % (12/07/17 3:51 AM) 14.1 % (12/03/17 4:44 AM) RDW-SD HSL [35.1-43.9 fL] 48.8 fL *HI* (12/10/17 5:02 AM) 48.8 fL *HI* (12/10/17 5:02 AM) 49.3 fL *HI* (12/07/17 3:51 AM) 49.3 fL *HI* (12/07/17 3:51 AM) MPV HSL 10.5 *NA* (12/10/17 5:02 AM) 10.4 *NA* (12/07/17 3:51 AM) 10.3 *NA* (12/03/17 4:44 AM) Neutrophil Auto HSL [39.7-77.3 %] 60.4 % (12/10/17 5:02 AM) 56.4 % (12/07/17 3:51 AM) 54.6 % (12/03/17 4:44 AM) Lymphocyte Auto HSL [17.8-51.8 %] 25.5 % (12/10/17 5:02 AM) 28.3 % (12/07/17 3:51 AM) 29.8 % (12/03/17 4:44 AM) Monocyte Auto HSL [3.0-10.4 %] 9.5 % (12/10/17 5:02 AM) 10.4 % (12/07/17 3:51 AM) 9.8 % (12/03/17 4:44 AM) Eosinophil Auto HSL [0.0-7.0 %] 4.1 % (12/10/17 5:02 AM) 3.8 % (12/07/17 3:51 AM) 4.9 % (12/03/17 4:44 AM) Basophil Auto HSL [0.0-0.9 %] 0.4 % (12/10/17 5:02 AM) 0.8 % (12/07/17 3:51 AM) 0.6 % (12/03/17 4:44 AM) Immature Gran Auto HSL [0.0-0.5 %] 0.1 % (12/10/17 5:02 AM) 0.3 % (12/07/17 3:51 AM) 0.3 % (12/03/17 4:44 AM) Neutrophil Absolute HSL [1.20-5.30 x10(3)/mcL] 4.26 x10(3)/mcL (12/10/17 5:02 AM) 4.00 x10(3)/mcL (12/07/17 3:51 AM) 3.68 x10(3)/mcL (12/03/17 4:44 AM) Lymphocyte Absolute HSL [0.8-2.7 x10(3)/mcL] 1.8 x10(3)/mcL (12/10/17 5:02 AM) 2.0 x10(3)/mcL (12/07/17 3:51 AM) 2.0 x10(3)/mcL (12/03/17 4:44 AM) Monocyte Absolute HSL [<=1.00 x10(3)/mcL] 0.67 x10(3)/mcL (12/10/17 5:02 AM) 0.74 x10(3)/mcL (12/07/17 3:51 AM) 0.66 x10(3)/mcL (12/03/17 4:44 AM) Eosinophil Absolute HSL [0.00-0.40 x10(3)/mcL] 0.29 x10(3)/mcL (12/10/17 5:02 AM) 0.27 x10(3)/mcL (12/07/17 3:51 AM) 0.33 x10(3)/mcL (12/03/17 4:44 AM) Basophil Absolute HSL [0.00-0.05 x10(3)/mcL] 0.03 x10(3)/mcL (12/10/17 5:02 AM) 0.06 x10(3)/mcL *HI* (12/07/17 3:51 AM) 0.04 x10(3)/mcL (12/03/17 4:44 AM) Immature Gran Absolute HSL [0.00-0.04 x10(3)/mcL] 0.01 x10(3)/mcL (12/10/17 5:02 AM) 0.02 x10(3)/mcL (12/07/17 3:51 AM) 0.02 x10(3)/mcL (12/03/17 4:44 AM) Estimated Creatinine Clearance 67.55 mL/min (12/10/17 8:32 AM) 52.71 mL/min (12/10/17 6:21 AM) 52.71 mL/min (12/07/17 9:15 AM) Creatinine Level 1.03 mg/dL (12/10/17 5:02 AM) 1.32 mg/dL (12/07/17 3:51 AM) 1.11 mg/dL (12/03/17 4:44 AM) Sodium HSL [138-146 mmol/L] 140 mmol/L (12/10/17 5:02 AM) 139 mmol/L (12/07/17 3:51 AM) 141 mmol/L (12/03/17 4:44 AM) Potassium HSL [3.6-5.1 mmol/L] 3.6 mmol/L (12/10/17 5:02 AM) 3.8 mmol/L (12/07/17 3:51 AM) 3.7 mmol/L (12/03/17 4:44 AM) Chloride HSL [101-111 mmol/L] 109 mmol/L (12/10/17 5:02 AM) 107 mmol/L (12/07/17 3:51 AM) 109 mmol/L (12/03/17 4:44 AM) Carbon Dioxide HSL [22.0-32.0 mmol/L] 23.0 mmol/L (12/10/17 5:02 AM) 25.0 mmol/L (12/07/17 3:51 AM) 25.0 mmol/L (12/03/17 4:44 AM) Anion Gap HSL [8-16 mmol/L] 12 mmol/L (12/10/17 5:02 AM) 11 mmol/L (12/07/17 3:51 AM) 11 mmol/L (12/03/17 4:44 AM) Glucose HSL [74-118 mg/dL] 97 mg/dL (12/10/17 5:02 AM) 74 mg/dL (12/07/17 3:51 AM) 76 mg/dL (12/03/17 4:44 AM) BUN HSL [8.0-26.0 mg/dL] 21.0 mg/dL (12/10/17 5:02 AM) 21.0 mg/dL (12/07/17 3:51 AM) 16.0 mg/dL (12/03/17 4:44 AM) Creatinine HSL [0.61-1.24 mg/dL] 1.03 mg/dL (12/10/17 5:02 AM) 1.32 mg/dL *HI* (12/07/17 3:51 AM) 1.11 mg/dL (12/03/17 4:44 AM) eGFR-AA HSL 58 *NA* (12/10/17 5:02 AM) 44 *NA* (12/07/17 3:51 AM) 53 *NA* (12/03/17 4:44 AM) eGFR-Non AA HSL 70 *NA* (12/10/17 5:02 AM) 53 *NA* (12/07/17 3:51 AM) 64 *NA* (12/03/17 4:44 AM) BUN/Creat Ratio HSL [5.0-20.0 ratio] 20.4 ratio *HI* (12/10/17 5:02 AM) 15.9 ratio (12/07/17 3:51 AM) 14.4 ratio (12/03/17 4:44 AM) Calcium Total HSL [8.9-10.3 mg/dL] 9.1 mg/dL (12/10/17 5:02 AM) 8.9 mg/dL (12/07/17 3:51 AM) 9.0 mg/dL (12/03/17 4:44 AM) Albumin HSL [3.5-5.0 gm/dL] 3.0 gm/dL *LOW* (11/25/17 5:53 AM) Prealbumin HSL [18-38 mg/dL] 14 mg/dL *LOW* (11/25/17 5:53 AM) Protein Total HSL [6.5-8.1 gm/dL] 6.5 gm/dL (11/25/17 5:53 AM) Bilirubin Total HSL [0.30-1.20 mg/dL] 0.82 mg/dL (11/25/17 5:53 AM) Alkaline Phosphatase HSL [32-91 IU/L] 73 IU/L (11/25/17 5:53 AM) AST HSL [15-41 IU/L] 37 IU/L (11/25/17 5:53 AM) ALT HSL [17-63 IU/L] 30 IU/L (11/25/17 5:53 AM) Folate, Serum - QST >24.0 ng/mL 5 *NA* (11/25/17 5:53 AM) Free T4 Index(T7) - QST [1.4-3.8] 2.0 6 *NA* (11/25/17 5:53 AM) T3 Uptake - QST [22-35 %] 32 % *NA* (11/25/17 5:53 AM) T4 (Thyroxine), Total - QST [4.5-12.0 mcg/dL] 6.4 mcg/dL *NA* (11/25/17 5:53 AM) TSH - QST [0.40-4.50 mIUnits/L] 18.09 mIUnits/L 7 *HI* (11/25/17 5:53 AM) 1Result Comment: Lab test performed by: Lab Mnemonic: [facility] [place] [address] [place] [address] JEAN MARIE GREEN MD 2Result Comment: For more information on this test, go to: [email or web address] (This link is being provided for informational/educational purposes only.) 25-OHD3 indicates both endogenous production and supplementation. 25-OHD2 is an indicator of exogenous sources, such as diet or supplementation. Therapy is based on measurement of Total 25-OHD, with levels <20 ng/mL indicative of Vitamin D deficiency, while levels between 20 ng/mL and 30 ng/mL suggest insufficiency. Optimal levels are > or = 30 ng/mL. 3Result Comment: Reference Range Not established 4Result Comment: Reference Range Not established Lab test performed by: Lab Mnemonic: [facility] [place] [address] [place] [address] JEAN MARIE GREEN MD 5Result Comment: Reference Range Low: <3.4 Borderline: 3.4-5.4 Normal: >5.4 Lab test performed by: Lab Mnemonic: [facility] [place] [address] [place] [address] JEAN MARIE GREEN MD 6Result Comment: Lab test performed by: Lab Mnemonic: [facility] [place] [address] [facility] [place] [address] JEAN MARIE GREEN MD 7Result Comment: Lab test performed by: Lab Mnemonic: [facility] [place] [address] [place] [address] JEAN MARIE GREEN MD
[2023-10-14] MEDS: OSELTAMIVIR 75MG CAPSULE 75 MG PO (13:41)
--- NOTE | 2023-10-14 15:12 | PC.NURSE ---
Pt A&Ox3. Resting in bed. No complaints this shift. Remains on Vapotherm 15L 70%. VS currently stable. Voiding per urinal. Family at bedside. Call light within reach. Safety measures in place.
[2023-10-14] MEDS: OSELTAMIVIR PHOSPHATE 6MG/ML ORAL SUSP 60ML 30 MG PO (21:09)
[2023-10-15] VITALS (10 sets, daily range): BP systolic 133–164; BP diastolic 67–83; PULSE 70–71; RESP 16–24; TEMP 36.6–37; O2SAT 94–98; BMI 18.8
[2023-10-15] MEDS: LACTATED RINGERS 1000ML 1,000 ML 50 ML IV (00:14)
[2023-10-15] MEDS: METHYLPREDNISOLONE SOD SUCC 125MG VIAL 80 MG IV ×3 (01:42→18:36)
[2023-10-15] MEDS: VANCOMYCIN/WATER FOR INJ (PEG) 1.25 GM/250 ML PIGGYBACK IV (05:00)
--- NOTE | 2023-10-15 05:55 | PC.NURSE ---
patient has remained on vapotherm t/o shift w/o complications. denies any pain, soa, or other issues at this time. patient slept most of the night. Wheezy/rhonci lung sounds
[2023-10-15 06:22] LABS: MANUAL DIFFERENTIAL MANUAL DIFFERENTIAL (MANUAL DIFF)
[2023-10-15 06:29] LABS: Basophils % 0.1 % (0.1-2.0); Eosinophils % 0.1 % (0.1-12.0); Hematocrit 36.6 % (42.0-52.0); Hemoglobin 12.2 g/dL (14.1-18.0); Lymphocytes # 0.5 K/mm3 (0.7-4.5); Lymphocytes % 5.3 % (10-50); Mean Corpuscular HGB Conc 33.2 g/dL (31.8-35.4); Mean Corpuscular Hemoglobin 34.4 pg (27.0-31.2); Mean Corpuscular Volume 103.4 fl (80-94); Mean Platelet Volume 9.3 fl (7.4-10.4); Monocytes # 0.2 K/mm3 (0.1-1.0); Neutrophils # 8.7 K/mm3 (1.8-7.8); Neutrophils % 92.5 % (37.0-80.0); Platelet Count 129 K/mm3 (142-424); Red Blood Count 3.54 M/mm3 (4.60-6.20); Red Cell Distribution Width 14.6 % (11.5-17.5); White Blood Count 9.4 K/mm3 (4.8-10.8)
[2023-10-15 06:43] LABS: Anion Gap 7.7 mEq/L (5-15); Blood Urea Nitrogen 44 mg/dl (9-20); Calcium 7.7 mg/dl (8.4-10.2); Carbon Dioxide 27 mmol/L (22.0-30.0); Chloride 104 mmol/L (98-107); Creatinine Clearance Estimated 44 mL/min (50-200); Estimated Glomerular Filt Rate 58 ml/min (>60); GFR (African American) 70 ML/MIN (>60); Glucose 105 mg/dl (74-100); Potassium 4.7 mmoL/L (3.5-5.1); Sodium 134 mmol/L (136-145)
[2023-10-15 07:02] LABS: Lymphocytes % 5 % (10-50); Monocytes % 2 % (2-9); Neutrophils % 93 % (42-76); Platelet Estimate Normal; RBC Morphology Normal; Total Cells Counted 100
--- NOTE | 2023-10-15 08:28 | EXP.ACUTE.PN ---
Subjective *Date: 10/15/23 *Time: 08:48 Interval history: Patient feeling better this am. Less SOA. Denies any pain other than in his feet. Was able to sleep and eat a small amount. Medical Exam Vital signs and Labs for Last 24 Hours: Vital Signs Temp Pulse Pulse Resp BP Pulse Ox O2 Del Method 10/15/23 06:30 Vapotherm 10/15/23 04:00 70 10/15/23 05:00 Vapotherm 10/15/23 04:00 98.2 F 70 20 151/82 H 95 Vapotherm 10/15/23 02:47 Vapotherm 10/15/23 01:00 Vapotherm 10/15/23 00:00 70 10/15/23 00:00 98.6 F 70 20 145/76 H 94 L Nasal Cannula, Vapotherm 10/14/23 23:55 99 Vapotherm 10/15/23 00:37 97 Vapotherm 10/14/23 23:00 Vapotherm 10/14/23 21:00 Vapotherm 10/14/23 20:00 Vapotherm 10/14/23 20:00 70 10/14/23 20:00 98.0 F 71 20 151/79 H Vapotherm 10/14/23 18:45 Nasal Cannula 10/14/23 16:00 70 10/14/23 16:51 Vapotherm 10/14/23 16:00 98.3 F 71 20 136/72 99 Vapotherm 10/14/23 14:55 90 L Nasal Cannula 10/14/23 14:56 Vapotherm 10/14/23 12:00 70 10/14/23 12:00 70 19 151/85 H 98 Vapotherm 10/14/23 13:00 Vapotherm 10/14/23 11:55 97.7 F 10/14/23 10:44 Vapotherm 10/14/23 10:00 70 20 149/78 H 98 Vapotherm 10/14/23 09:00 Vapotherm O2 Flow Rate FiO2 10/15/23 06:30 15 10/15/23 04:00 10/15/23 05:00 15 10/15/23 04:00 15 10/15/23 02:47 15 10/15/23 01:00 15 10/15/23 00:00 10/15/23 00:00 15 10/14/23 23:55 15 55 10/15/23 00:37 15 55 10/14/23 23:00 15 10/14/23 21:00 15 10/14/23 20:00 15 70 10/14/23 20:00 10/14/23 20:00 15 10/14/23 18:45 10/14/23 16:00 10/14/23 16:51 15 10/14/23 16:00 15 60 10/14/23 14:55 15 60 10/14/23 14:56 15 10/14/23 12:00 10/14/23 12:00 15 70 10/14/23 13:00 15 10/14/23 11:55 10/14/23 10:44 15 10/14/23 10:00 15 10/14/23 09:00 15 Intake and Output 10/14/23 10/15/23 10/15/23 19:59 03:59 11:59 Intake Total 1205 / 1510 305 / 1510 Output Total 400 / 585 185 / 585 Balance 805 / 925 120 / 925 Intake: Intake, Oral Amount 540 / 570 30 / 570 Intake, Total IV Amount 665 / 940 275 / 940 Lactated Ringers 1000ML 1,000 665 / 940 275 / 940 ml @ 50 mls/hr IV .Q20H [facility] Rx# :[id number] Output: Output, Urine Amount 400 / 585 185 / 585 Other: Number of Voids 1 Number of Unmeasured Voids 1 Weight 146 lb 12.787 oz Patient Weight 10/15/23 11:59 Weight 146 lb 12.787 oz Laboratory Results - last 24 hr 10/14/23 09:22: Chlamy pneumoniae PCR TNP, Adenovirus (PCR) Not detected, B. pertussis DNA (PCR) TNP, Coronavirus OC43 (PCR) Not detected, Coronavirus HKU1 (PCR) Not detected, Coronavirus 229E (PCR) Not detected, SARS-CoV-2 (PCR) Not detected, Coronavirus NL63 (PCR) Not detected, Human Metapneumovir PCR Not detected, Influenza A (H1) PCR Not detected, Influ A (H1N1/09) PCR Detected A, Influenza A (H3) PCR Not detected, Influenza Type A (PCR) Not detected, Influenza Type B (PCR) Not detected, M. pneumoniae (PCR) TNP, Parainfluenza 1 (PCR) Not detected, Parainfluenza 2 (PCR) Not detected, Parainfluenza 3 (PCR) Not detected, Parainfluenza 4 (PCR) Not detected, RSV (PCR) Not detected, Entero/Rhino (PCR) Not detected 10/15/23 06:01: WBC 9.4 D, RBC 3.54 L, Hgb 12.2 L, Hct 36.6 L, MCV 103.4 H, MCH 34.4 H, MCHC 33.2, RDW 14.6, Plt Count 129 L D, MPV 9.3, Neut % (Auto) 92.5 H, Lymph % (Auto) 5.3 L, [place] % (Auto) 2.0, Eos % (Auto) 0.1, Baso % (Auto) 0.1, Neut # (Auto) 8.7 H, Lymph # (Auto) 0.5 L, [place] # (Auto) 0.2, Eos # (Auto) 0.0, Baso # (Auto) 0.0, Total Counted 100, Neutrophils % (Manual) 93 H, Lymphocytes % (Manual) 5 L, Monocytes % (Manual) 2, Platelet Estimate Normal, RBC Morphology Normal, Sodium 134 L, Potassium 4.7, Chloride 104, Carbon Dioxide 27, Anion Gap 7.7, BUN 44 H, Creatinine 1.20 D, Estimated Creat Clear 44, Estimated GFR 58 L, Est GFR ( Amer) 70 D, Glucose 105 H, Calcium 7.7 L I & O for Labs for Last 24 Hours: Intake & Output 10/12/23 10/13/23 10/14/23 10/15/23 11:59 11:59 11:59 11:59 Intake Total 863 / 863 1510 / 1510 Output Total 585 / 585 Balance 863 / 863 925 / 925 Weight 146 lb 12.8 oz 146 lb 12.787 oz Constitutional: Present no acute distress Respiratory: Present decreased breath sounds and rhonchi Comment:: On Vapotherm Cardiac: Present Reg Rate and Rhythm GI: Present soft and normal bowel sounds; Absent distention or tenderness Extremities: Present edema (trace LE edema bilaterally); Absent clubbing or cyanosis Skin: Present intact Neuro: Present alert and awake Assessment and Plan *Assessment and plan (1) Acute on chronic respiratory failure with hypoxemia: Status: Acute Category: Medical Code(s): J96.21 - Acute and chronic respiratory failure with hypoxia (2) Influenza A: Status: Acute Category: Medical Code(s): J10.1 - Influenza due to other identified influenza virus with other respiratory manifestations (3) Sepsis: Status: Acute Qualifiers: Acute respiratory failure type: with hypoxia Sepsis acute organ dysfunction status: with acute organ dysfunction Sepsis type: sepsis due to unspecified organism Severe sepsis acute organ dysfunction type: acute respiratory failure Severe sepsis shock status: with septic shock Qualified Code(s): A41.9 - Sepsis, unspecified organism; R65.21 - Severe sepsis with septic shock; J96.01 - Acute respiratory failure with hypoxia Category: Medical Code(s): A41.9 - Sepsis, unspecified organism (4) Asthma: Status: Chronic Category: Medical Code(s): J45.909 - Unspecified asthma, uncomplicated (5) Restrictive lung disease: Status: Chronic Category: Medical Code(s): J98.4 - Other disorders of lung (6) Shortness of breath: Status: Chronic Category: Medical Code(s): R06.02 - Shortness of breath (7) Ischemic cardiomyopathy with implantable cardioverter-defibrillator (ICD): Status: Acute Category: Medical Code(s): I25.5 - Ischemic cardiomyopathy; Z95.810 - Presence of automatic (implantable) cardiac defibrillator (8) Carotid arterial disease: Status: Chronic Qualifiers: Carotid artery disease type: stenosis Laterality: bilateral Qualified Code(s): I65.23 - Occlusion and stenosis of bilateral carotid arteries Category: Medical Code(s): I77.9 - Disorder of arteries and arterioles, unspecified (9) S/P carotid endarterectomy: Status: Chronic Category: Surgical Code(s): Z98.890 - Other specified postprocedural states (10) HTN (hypertension): Status: Acute Qualifiers: Hypertension type: primary hypertension Qualified Code(s): I10 - Essential (primary) hypertension Category: Medical Code(s): I10 - Essential (primary) hypertension (11) HLD (hyperlipidemia): Status: Acute Qualifiers: Hyperlipidemia type: mixed hyperlipidemia Qualified Code(s): E78.2 - Mixed hyperlipidemia Category: Medical Code(s): E78.5 - Hyperlipidemia, unspecified (12) Paroxysmal atrial fibrillation: Status: Acute Category: Medical Code(s): I48.0 - Paroxysmal atrial fibrillation (13) CAD (coronary artery disease): Status: Chronic Qualifiers: Associated angina: without angina Coronary Disease-Associated Artery/Lesion type: [place] artery [place] vs. transplanted heart: [place] heart Qualified Code(s): I25.10 - Atherosclerotic heart disease of [place] coronary artery without angina pectoris Category: Medical Code(s): I25.10 - Atherosclerotic heart disease of [place] coronary artery without angina pectoris (14) Hypothyroidism: Status: Chronic Category: Medical Code(s): E03.9 - Hypothyroidism, unspecified (15) On home oxygen therapy: Status: Chronic Category: Medical Code(s): Z99.81 - Dependence on supplemental oxygen (16) ILD (interstitial lung disease): Status: Chronic Category: Medical Code(s): J84.9 - Interstitial pulmonary disease, unspecified (17) Pulmonary fibrosis: Status: Chronic Category: Medical Code(s): J84.10 - Pulmonary fibrosis, unspecified Plan Patient's flu test was positive. He was started on tamiflu yesterday. He is improving today. Will continue current treatment. Dr. Walsh entry - Saw patient, agree with above note. Continue treatment for respiratory failure and influenza. Will stop Vancomycin today.
[2023-10-15] MEDS: OSELTAMIVIR PHOSPHATE 6MG/ML ORAL SUSP 60ML 30 MG PO ×2 (08:49→20:34)
[2023-10-15] MEDS: APIXABAN 5MG TABLET 2.5 MG PO ×2 (09:18→20:33)
[2023-10-15] MEDS: CLOPIDOGREL 75MG TAB 75 MG PO (09:18)
[2023-10-15] MEDS: AMIODARONE 200MG TABLET 200 MG PO (09:19)
[2023-10-15] MEDS: LEVOTHYROXINE 150MCG (0.15MG)TAB 150 MCG PO (09:19)
[2023-10-15] MEDS: DIGOXIN 0.125MG TABLET 125 MCG PO (09:19)
[2023-10-15] MEDS: SODIUM CHLORIDE 3% 15ML NEB 3 ML IH (09:25)
[2023-10-15] MEDS: ATORVASTATIN 40MG TABLET 80 MG PO (20:33)
[2023-10-15] MEDS: TAMSULOSIN 0.4MG CAPSULE 0.400000000000000022 MG PO (21:46)
[2023-10-16] VITALS (7 sets, daily range): BP systolic 143–159; BP diastolic 73–83; PULSE 70–73; RESP 18–24; TEMP 36.4–36.6; O2SAT 94–97; BMI 19.3
[2023-10-16] MEDS: METHYLPREDNISOLONE SOD SUCC 125MG VIAL 80 MG IV ×3 (02:59→18:59)
[2023-10-16] MEDS: LEVOTHYROXINE 150MCG (0.15MG)TAB 150 MCG PO (06:02)
--- NOTE | 2023-10-16 06:32 | PC.NURSE ---
patient has rested quietly t/o the night with no issues or complaints. remains on vapotherm 20L 60% with O2 >90%.
[2023-10-16 07:21] LABS: MANUAL DIFFERENTIAL MANUAL DIFFERENTIAL (MANUAL DIFF)
[2023-10-16 07:42] LABS: Anion Gap 3.6 mEq/L (5-15); Blood Urea Nitrogen 47 mg/dl (9-20); Calcium 8.4 mg/dl (8.4-10.2); Carbon Dioxide 32 mmol/L (22.0-30.0); Chloride 104 mmol/L (98-107); Creatinine Clearance Estimated 39 mL/min (50-200); Estimated Glomerular Filt Rate 48 ml/min (>60); GFR (African American) 59 ML/MIN (>60); Glucose 107 mg/dl (74-100); Potassium 4.6 mmoL/L (3.5-5.1); Sodium 135 mmol/L (136-145)
[2023-10-16 07:43] LABS: Basophils % 0.2 % (0.1-2.0); Hematocrit 38.6 % (42.0-52.0); Hemoglobin 12.5 g/dL (14.1-18.0); Lymphocytes # 0.6 K/mm3 (0.7-4.5); Lymphocytes % 6.9 % (10-50); Mean Corpuscular HGB Conc 32.4 g/dL (31.8-35.4); Mean Corpuscular Hemoglobin 34.4 pg (27.0-31.2); Mean Corpuscular Volume 106.1 fl (80-94); Mean Platelet Volume 9.1 fl (7.4-10.4); Monocytes # 0.2 K/mm3 (0.1-1.0); Monocytes % 2.6 % (1.7-9.3); Neutrophils # 7.7 K/mm3 (1.8-7.8); Neutrophils % 90.2 % (37.0-80.0); Platelet Count 147 K/mm3 (142-424); Red Blood Count 3.64 M/mm3 (4.60-6.20); Red Cell Distribution Width 14.8 % (11.5-17.5); White Blood Count 8.6 K/mm3 (4.8-10.8)
[2023-10-16 08:28] LABS: Lymphocytes % 3 % (10-50); Monocytes % 2 % (2-9); Neutrophils % 95 % (42-76); Total Cells Counted 100
[2023-10-16 08:29] LABS: Macrocytosis 2+
[2023-10-16 08:30] LABS: Platelet Estimate Normal
--- NOTE | 2023-10-16 08:42 | P.PN_ITS ---
Subjective *Date: 10/16/23 *Time: 08:55 Interval history: Patient states he is feeling a lot better today. He is less SOA. Wheezing has improved. He denies any pain and has been able to eat. Medical Exam Vital signs and Labs for Last 24 Hours: Vital Signs Temp Pulse Pulse Resp BP Pulse Ox O2 Del Method 10/16/23 08:00 97.8 F 71 18 152/73 H 94 L Vapotherm 10/16/23 06:24 Vapotherm 10/16/23 04:00 97.7 F 73 24 159/83 H 97 Vapotherm 10/16/23 04:25 Vapotherm 10/16/23 03:00 Vapotherm 10/16/23 01:00 Vapotherm 10/16/23 00:00 70 10/15/23 23:52 98 F 71 16 164/81 H 96 Vapotherm 10/15/23 20:00 70 10/15/23 23:00 Vapotherm 10/15/23 20:00 Vapotherm 10/15/23 21:00 Vapotherm 10/15/23 20:00 97.9 F 70 22 135/72 96 Vapotherm 10/15/23 19:00 Vapotherm 10/15/23 16:00 97.8 F 70 24 133/67 96 Vapotherm 10/15/23 18:39 94 L Vapotherm 10/15/23 16:00 70 10/15/23 17:00 Vapotherm 10/15/23 15:00 Vapotherm 10/15/23 12:00 70 10/15/23 13:00 Vapotherm 10/15/23 11:00 Vapotherm 10/15/23 12:00 98.1 F 70 20 162/83 H 98 Vapotherm 10/15/23 09:19 70 10/15/23 09:00 Vapotherm O2 Flow Rate FiO2 10/16/23 08:00 20 10/16/23 06:24 20 10/16/23 04:00 10/16/23 04:25 20 10/16/23 03:00 20 10/16/23 01:00 20 10/16/23 00:00 10/15/23 23:52 10/15/23 20:00 10/15/23 23:00 20 10/15/23 20:00 20 60 10/15/23 21:00 20 10/15/23 20:00 10/15/23 19:00 10/15/23 16:00 20 60 10/15/23 18:39 20 60 10/15/23 16:00 10/15/23 17:00 10/15/23 15:00 10/15/23 12:00 10/15/23 13:00 10/15/23 11:00 10/15/23 12:00 20 60 10/15/23 09:19 10/15/23 09:00 Intake and Output 10/15/23 10/16/23 10/16/23 19:59 03:59 11:59 Intake Total 495 / 865 130 / 865 240 / 865 Output Total 200 / 200 Balance 495 / 665 -70 / 665 240 / 665 Intake: Intake, Oral Amount 395 / 755 120 / 755 240 / 755 Intake, Other Amount 10 / 10 Intake, Total IV Amount 100 / 100 Lactated Ringers 1000ML 1,000 100 / 100 ml @ 50 mls/hr IV .Q20H [facility] Rx# :[id number] Output: Output, Urine Amount 200 / 200 Other: Intake, Other Source Saline Solution Weight 146 lb 12.54 oz 151 lb 3.2 oz Patient Weight 10/16/23 11:59 Weight 151 lb 3.2 oz Laboratory Results - last 24 hr 10/16/23 06:33: WBC 8.6, RBC 3.64 L, Hgb 12.5 L, Hct 38.6 L, MCV 106.1 H, MCH 34.4 H, MCHC 32.4, RDW 14.8, Plt Count 147, MPV 9.1, Neut % (Auto) 90.2 H, Lymph % (Auto) 6.9 L, [place] % (Auto) 2.6, Eos % (Auto) 0.0 L, Baso % (Auto) 0.2, Neut # (Auto) 7.7, Lymph # (Auto) 0.6 L, [place] # (Auto) 0.2, Eos # (Auto) 0.0, Baso # (Auto) 0.0, Total Counted 100, Neutrophils % (Manual) 95 H, Lymphocytes % (Manual) 3 L, Monocytes % (Manual) 2, Platelet Estimate Normal, Macrocytosis 2+, Sodium 135 L, Potassium 4.6, Chloride 104, Carbon Dioxide 32 H, Anion Gap 3.6 L, BUN 47 H, Creatinine 1.40 H, Estimated Creat Clear 39, Estimated GFR 48 L, Est GFR ( Amer) 59, Glucose 107 H, Calcium 8.4 I & O for Labs for Last 24 Hours: Intake & Output 10/13/23 10/14/23 10/15/23 10/16/23 11:59 11:59 11:59 11:59 Intake Total 863 / 863 1630 / 1630 865 / 865 Output Total 585 / 585 200 / 200 Balance 863 / 863 1045 / 1045 665 / 665 Weight 146 lb 12.8 oz 146 lb 12.787 oz 151 lb 3.2 oz Constitutional: Present no acute distress Respiratory: Present decreased breath sounds (on vapotherm) and rales (fibrotic rales) Comment:: On Vapotherm Cardiac: Present Reg Rate and Rhythm GI: Present soft and normal bowel sounds; Absent distention or tenderness Extremities: Present edema (trace LE edema bilaterally); Absent clubbing or cyanosis Skin: Present intact Neuro: Present alert and awake Assessment and Plan *Assessment and plan (1) Acute on chronic respiratory failure with hypoxemia: Status: Acute Category: Medical Code(s): J96.21 - Acute and chronic respiratory failure with hypoxia (2) Influenza A: Status: Acute Category: Medical Code(s): J10.1 - Influenza due to other identified influenza virus with other respiratory manifestations (3) Sepsis: Status: Acute Qualifiers: Acute respiratory failure type: with hypoxia Sepsis acute organ dysfunction status: with acute organ dysfunction Sepsis type: sepsis due to unspecified organism Severe sepsis acute organ dysfunction type: acute respiratory failure Severe sepsis shock status: with septic shock Qualified Code(s): A41.9 - Sepsis, unspecified organism; R65.21 - Severe sepsis with septic shock; J96.01 - Acute respiratory failure with hypoxia Category: Medical Code(s): A41.9 - Sepsis, unspecified organism (4) Asthma: Status: Chronic Category: Medical Code(s): J45.909 - Unspecified asthma, uncomplicated (5) Restrictive lung disease: Status: Chronic Category: Medical Code(s): J98.4 - Other disorders of lung (6) Shortness of breath: Status: Chronic Category: Medical Code(s): R06.02 - Shortness of breath (7) Ischemic cardiomyopathy with implantable cardioverter-defibrillator (ICD): Status: Acute Category: Medical Code(s): I25.5 - Ischemic cardiomyopathy; Z95.810 - Presence of automatic (implantable) cardiac defibrillator (8) Carotid arterial disease: Status: Chronic Qualifiers: Carotid artery disease type: stenosis Laterality: bilateral Qualified Code(s): I65.23 - Occlusion and stenosis of bilateral carotid arteries Category: Medical Code(s): I77.9 - Disorder of arteries and arterioles, unspecified (9) S/P carotid endarterectomy: Status: Chronic Category: Surgical Code(s): Z98.890 - Other specified postprocedural states (10) HTN (hypertension): Status: Acute Qualifiers: Hypertension type: primary hypertension Qualified Code(s): I10 - Essential (primary) hypertension Category: Medical Code(s): I10 - Essential (primary) hypertension (11) HLD (hyperlipidemia): Status: Acute Qualifiers: Hyperlipidemia type: mixed hyperlipidemia Qualified Code(s): E78.2 - Mixed hyperlipidemia Category: Medical Code(s): E78.5 - Hyperlipidemia, unspecified (12) Paroxysmal atrial fibrillation: Status: Acute Category: Medical Code(s): I48.0 - Paroxysmal atrial fibrillation (13) CAD (coronary artery disease): Status: Chronic Qualifiers: Associated angina: without angina Coronary Disease-Associated Artery/Lesion type: [place] artery [place] vs. transplanted heart: [place] heart Qualified Code(s): I25.10 - Atherosclerotic heart disease of [place] coronary artery without angina pectoris Category: Medical Code(s): I25.10 - Atherosclerotic heart disease of [place] coronary artery without angina pectoris (14) Hypothyroidism: Status: Chronic Category: Medical Code(s): E03.9 - Hypothyroidism, unspecified (15) On home oxygen therapy: Status: Chronic Category: Medical Code(s): Z99.81 - Dependence on supplemental oxygen (16) ILD (interstitial lung disease): Status: Chronic Category: Medical Code(s): J84.9 - Interstitial pulmonary disease, unspecified (17) Pulmonary fibrosis: Status: Chronic Category: Medical Code(s): J84.10 - Pulmonary fibrosis, unspecified Plan Patient is improving. Will try to wean him down on the vapotherm today. Dr. Walsh entry - Saw patient, agree with above note.
[2023-10-16] MEDS: CLOPIDOGREL 75MG TAB 75 MG PO (09:53)
[2023-10-16] MEDS: AMIODARONE 200MG TABLET 200 MG PO (09:54)
[2023-10-16] MEDS: DIGOXIN 0.125MG TABLET 125 MCG PO (09:54)
[2023-10-16] MEDS: FLUOXETINE 10MG CAPSULE 10 MG PO (09:54)
[2023-10-16] MEDS: APIXABAN 5MG TABLET 2.5 MG PO ×2 (09:55→21:53)
[2023-10-16] MEDS: OSELTAMIVIR PHOSPHATE 6MG/ML ORAL SUSP 60ML 30 MG PO ×2 (10:05→21:54)
--- NOTE | 2023-10-16 10:23 | PC.NURSE ---
RESP CARE NOTE: Attempted to wean vapotherm, decreased to 15L/50% FIO2. SPO2 decreased to 77% within 5 mins. Weaning attempt aborted, and patient placed on 20L/60% FIO2 to maintain oxygen saturation at 90% or greater.
--- NOTE | 2023-10-16 10:30 | PC.NURSE ---
RESP CARE NOTE: Vapotherm FIO2 decreased to 50% FIO2, will continue to continuously monitor patient. Will attempt to wean oxygen accordingly.
--- NOTE | 2023-10-16 19:32 | PC.NURSE ---
VO to wean vapotherm; rt unable to wean this shift. attempted to get pt up to chair, pt sat on side of bed unable to stand pt stated, my legs are weak and cramping, i cant stand . pts o2 dropped to 79% while sitting on side of bed, pt had some labored breathing. assisted pt back in bed. made dr deluca aware of poss pt/ot eval and unable to wean o2 at this time. pt has rested on and off, alert and oriented. cb within reach.
[2023-10-16] MEDS: ATORVASTATIN 40MG TABLET 80 MG PO (21:54)
[2023-10-16] MEDS: TAMSULOSIN 0.4MG CAPSULE 0.400000000000000022 MG PO (21:54)
[2023-10-17] VITALS (10 sets, daily range): BP systolic 131–161; BP diastolic 69–90; PULSE 56–75; RESP 20–24; TEMP 36.4–36.8; O2SAT 91–96; BMI 19.5
--- NOTE | 2023-10-17 00:23 | PC.NURSE ---
Patient resting in bed with eyes closed at this time. Vapotherm set @ 20L with FI02 @ 50%. Lung sounds noted with Crackles to RLL. Patient denies any discomfort thus far in shift.
[2023-10-17] MEDS: METHYLPREDNISOLONE SOD SUCC 125MG VIAL 80 MG IV ×3 (02:15→18:15)
[2023-10-17] MEDS: LEVOTHYROXINE 150MCG (0.15MG)TAB 150 MCG PO (06:48)
[2023-10-17 06:58] LABS: MANUAL DIFFERENTIAL MANUAL DIFFERENTIAL (MANUAL DIFF)
[2023-10-17 07:04] LABS: Basophils % 0.1 % (0.1-2.0); Eosinophils % 0.1 % (0.1-12.0); Hematocrit 40.3 % (42.0-52.0); Hemoglobin 13.1 g/dL (14.1-18.0); Lymphocytes # 0.4 K/mm3 (0.7-4.5); Lymphocytes % 4.1 % (10-50); Mean Corpuscular HGB Conc 32.4 g/dL (31.8-35.4); Mean Corpuscular Hemoglobin 33.7 pg (27.0-31.2); Mean Corpuscular Volume 104.1 fl (80-94); Mean Platelet Volume 9.1 fl (7.4-10.4); Monocytes # 0.3 K/mm3 (0.1-1.0); Monocytes % 2.4 % (1.7-9.3); Neutrophils # 9.8 K/mm3 (1.8-7.8); Neutrophils % 93.4 % (37.0-80.0); Platelet Count 153 K/mm3 (142-424); Red Blood Count 3.88 M/mm3 (4.60-6.20); Red Cell Distribution Width 14.7 % (11.5-17.5); White Blood Count 10.5 K/mm3 (4.8-10.8)
[2023-10-17 07:09] LABS: Anion Gap 2.5 mEq/L (5-15); Blood Urea Nitrogen 48 mg/dl (9-20); Calcium 8.4 mg/dl (8.4-10.2); Carbon Dioxide 32 mmol/L (22.0-30.0); Chloride 105 mmol/L (98-107); Creatinine Clearance Estimated 42 mL/min (50-200); Estimated Glomerular Filt Rate 53 ml/min (>60); GFR (African American) 64 ML/MIN (>60); Glucose 112 mg/dl (74-100); Potassium 4.5 mmoL/L (3.5-5.1); Sodium 135 mmol/L (136-145)
[2023-10-17 07:43] LABS: Lymphocytes % 5 % (10-50); Monocytes % 2 % (2-9); Neutrophils % 93 % (42-76); Platelet Estimate Normal; RBC Morphology Normal; Total Cells Counted 100
[2023-10-17] MEDS: APIXABAN 5MG TABLET 2.5 MG PO ×2 (08:44→20:25)
[2023-10-17] MEDS: AMIODARONE 200MG TABLET 200 MG PO (08:44)
[2023-10-17] MEDS: FLUOXETINE 10MG CAPSULE 10 MG PO (08:44)
[2023-10-17] MEDS: CLOPIDOGREL 75MG TAB 75 MG PO (08:44)
[2023-10-17] MEDS: OSELTAMIVIR PHOSPHATE 6MG/ML ORAL SUSP 60ML 30 MG PO ×2 (08:47→20:26)
[2023-10-17] MEDS: DIGOXIN 0.125MG TABLET 125 MCG PO (08:49)
--- NOTE | 2023-10-17 09:32 | P.PN_ITS ---
Subjective *Date: 10/17/23 *Time: 09:32 Interval history: Patient with no new complaints today, unable to wean high flow/vapotherm down yesterday. Medical Exam Vital signs and Labs for Last 24 Hours: Vital Signs Temp Pulse Pulse Resp BP Pulse Ox O2 Del Method 10/17/23 08:00 56 L 10/17/23 08:49 71 10/17/23 07:26 98.2 F 71 20 153/87 H 94 L Vapotherm 10/17/23 05:00 Vapotherm 10/17/23 04:00 97.7 F 70 20 150/82 H 95 Vapotherm 10/17/23 04:00 70 10/17/23 03:00 Vapotherm 10/17/23 01:00 Vapotherm 10/17/23 00:00 97.8 F 70 22 150/80 H 96 Vapotherm 10/17/23 00:00 70 10/16/23 23:00 Vapotherm 10/16/23 21:00 Vapotherm 10/16/23 20:00 Vapotherm 10/16/23 20:00 70 10/16/23 20:00 97.6 F 70 24 153/80 H 97 Vapotherm 10/16/23 18:00 Vapotherm 10/16/23 18:22 Vapotherm 10/16/23 17:00 Vapotherm 10/16/23 16:00 97.8 F 70 20 144/76 H 95 Vapotherm 10/16/23 16:00 70 10/16/23 15:00 Vapotherm 10/16/23 13:00 Vapotherm 10/16/23 11:00 Vapotherm 10/16/23 12:00 70 10/16/23 12:00 97.6 F 70 22 143/78 H 96 Vapotherm 10/16/23 09:54 70 O2 Flow Rate FiO2 10/17/23 08:00 10/17/23 08:49 10/17/23 07:26 10/17/23 05:00 20 10/17/23 04:00 10/17/23 04:00 10/17/23 03:00 20 10/17/23 01:00 20 10/17/23 00:00 10/17/23 00:00 10/16/23 23:00 20 10/16/23 21:00 20 10/16/23 20:00 20 50 10/16/23 20:00 10/16/23 20:00 10/16/23 18:00 20 10/16/23 18:22 20 10/16/23 17:00 10/16/23 16:00 20 10/16/23 16:00 10/16/23 15:00 10/16/23 13:00 10/16/23 11:00 10/16/23 12:00 10/16/23 12:00 10/16/23 09:54 Intake and Output 10/16/23 10/17/23 10/17/23 23:59 07:59 15:59 Intake Total 330 / 690 360 / 360 Output Total 650 / 1000 600 / 600 Balance -320 / -310 -240 / -240 Intake: Intake, Oral Amount 330 / 690 360 / 360 Output: Output, Urine Amount 650 / 1000 600 / 600 Other: Number of Unmeasured Voids 0 Weight 152 lb 6.4 oz Patient Weight 10/17/23 23:59 Weight 152 lb 6.4 oz Laboratory Results - last 24 hr 10/17/23 06:31: WBC 10.5, RBC 3.88 L, Hgb 13.1 L, Hct 40.3 L, MCV 104.1 H, MCH 33.7 H, MCHC 32.4, RDW 14.7, Plt Count 153, MPV 9.1, Neut % (Auto) 93.4 H, Lymph % (Auto) 4.1 L, [place] % (Auto) 2.4, Eos % (Auto) 0.1, Baso % (Auto) 0.1, Neut # (Auto) 9.8 H, Lymph # (Auto) 0.4 L, [place] # (Auto) 0.3, Eos # (Auto) 0.0, Baso # (Auto) 0.0, Total Counted 100, Neutrophils % (Manual) 93 H, Lymphocytes % (Manual) 5 L, Monocytes % (Manual) 2, Platelet Estimate Normal, RBC Morphology Normal, Sodium 135 L, Potassium 4.5, Chloride 105, Carbon Dioxide 32 H, Anion Gap 2.5 L, BUN 48 H, Creatinine 1.30 H, Estimated Creat Clear 42, Estimated GFR 53 L, Est GFR ( Amer) 64, Glucose 112 H, Calcium 8.4 I & O for Labs for Last 24 Hours: Intake & Output 10/14/23 10/15/23 10/16/23 10/17/23 23:59 23:59 23:59 23:59 Intake Total 2373 / 2373 745 / 745 690 / 690 360 / 360 Output Total 410 / 585 375 / 375 750 / 1000 600 / 600 Balance 1963 / 1788 370 / 370 -60 / -310 -240 / -240 Weight 146 lb 12.8 oz 146 lb 12.54 oz 151 lb 3.2 oz 152 lb 6.4 oz Microbiology Reports for the Last 24 Hours: Microbiology 10/13/23 17:25 Blood Blood Culture - Preliminary 10/13/23 17:11 Blood Blood Culture - Preliminary Constitutional: Present no acute distress Respiratory: Present decreased breath sounds (on vapotherm) and rales (fibrotic rales) Comment:: On Vapotherm Cardiac: Present Reg Rate and Rhythm GI: Present soft and normal bowel sounds; Absent distention or tenderness Extremities: Present edema (trace LE edema bilaterally); Absent clubbing or cyanosis Skin: Present intact Neuro: Present alert and awake Assessment and Plan *Assessment and plan (1) Acute on chronic respiratory failure with hypoxemia: Status: Acute Category: Medical Code(s): J96.21 - Acute and chronic respiratory failure with hypoxia (2) Influenza A: Status: Acute Category: Medical Code(s): J10.1 - Influenza due to other identified influenza virus with other respiratory manifestations (3) Sepsis: Status: Acute Qualifiers: Acute respiratory failure type: with hypoxia Sepsis acute organ dysfunction status: with acute organ dysfunction Sepsis type: sepsis due to unspecified organism Severe sepsis acute organ dysfunction type: acute respiratory failure Severe sepsis shock status: with septic shock Qualified Code(s): A41.9 - Sepsis, unspecified organism; R65.21 - Severe sepsis with septic shock; J96.01 - Acute respiratory failure with hypoxia Category: Medical Code(s): A41.9 - Sepsis, unspecified organism (4) Asthma: Status: Chronic Category: Medical Code(s): J45.909 - Unspecified asthma, uncomplicated (5) Restrictive lung disease: Status: Chronic Category: Medical Code(s): J98.4 - Other disorders of lung (6) Shortness of breath: Status: Chronic Category: Medical Code(s): R06.02 - Shortness of breath (7) Ischemic cardiomyopathy with implantable cardioverter-defibrillator (ICD): Status: Acute Category: Medical Code(s): I25.5 - Ischemic cardiomyopathy; Z95.810 - Presence of automatic (implantable) cardiac defibrillator (8) Carotid arterial disease: Status: Chronic Qualifiers: Laterality: bilateral Carotid artery disease type: stenosis Qualified Code(s): I65.23 - Occlusion and stenosis of bilateral carotid arteries Category: Medical Code(s): I77.9 - Disorder of arteries and arterioles, unspecified (9) S/P carotid endarterectomy: Status: Chronic Category: Surgical Code(s): Z98.890 - Other specified postprocedural states (10) HTN (hypertension): Status: Acute Qualifiers: Hypertension type: primary hypertension Qualified Code(s): I10 - Essential (primary) hypertension Category: Medical Code(s): I10 - Essential (primary) hypertension (11) HLD (hyperlipidemia): Status: Acute Qualifiers: Hyperlipidemia type: mixed hyperlipidemia Qualified Code(s): E78.2 - Mixed hyperlipidemia Category: Medical Code(s): E78.5 - Hyperlipidemia, unspecified (12) Paroxysmal atrial fibrillation: Status: Acute Category: Medical Code(s): I48.0 - Paroxysmal atrial fibrillation (13) CAD (coronary artery disease): Status: Chronic Qualifiers: Coronary Disease-Associated Artery/Lesion type: [place] artery [place] vs. transplanted heart: [place] heart Associated angina: without angina Qualified Code(s): I25.10 - Atherosclerotic heart disease of [place] coronary artery without angina pectoris Category: Medical Code(s): I25.10 - Atherosclerotic heart disease of [place] coronary artery without angina pectoris (14) Hypothyroidism: Status: Chronic Category: Medical Code(s): E03.9 - Hypothyroidism, unspecified (15) On home oxygen therapy: Status: Chronic Category: Medical Code(s): Z99.81 - Dependence on supplemental oxygen (16) ILD (interstitial lung disease): Status: Chronic Category: Medical Code(s): J84.9 - Interstitial pulmonary disease, unspecified (17) Pulmonary fibrosis: Status: Chronic Category: Medical Code(s): J84.10 - Pulmonary fibrosis, unspecified Plan Continue current treatment. Wean supplemental oxygen.
--- NOTE | 2023-10-17 12:51 | PC.NURSE ---
RT ABLE TO WEAN VAPOTHERM TO 20/45 AT THIS TIME. PT TOLERATING WELL IN THE LOW TO MID 90S WHILE LAYING IN BED. IF PT SITS ON SIDE OF BED OR TRANSFERS TO CHAIR/BSC, O2 SATS DROP IN THE 70s AND SATS RECOVER IN <5 MINS ONCE SITTING.
--- NOTE | 2023-10-17 18:32 | PC.NURSE ---
Pt has done well today. Pt stated I have had a good day Pt sat in chair for a few hours with family. Pts O2 drops in the 70's while transferring to chair but and son say that pt does this at home on a regular basis. RT able to wean pts vapotherm down to 15/45. Pt lying in bed with family at bedside watching tv. cb in reach. no needs at this time.
[2023-10-17] MEDS: ATORVASTATIN 40MG TABLET 80 MG PO (20:25)
[2023-10-17] MEDS: TAMSULOSIN 0.4MG CAPSULE 0.400000000000000022 MG PO (20:25)
[2023-10-18] VITALS (12 sets, daily range): BP systolic 129–153; BP diastolic 54–86; PULSE 66–82; RESP 17–24; TEMP 36.5–36.9; O2SAT 86–93; BMI 21.7
[2023-10-18] MEDS: METHYLPREDNISOLONE SOD SUCC 125MG VIAL 80 MG IV ×3 (01:26→18:41)
--- NOTE | 2023-10-18 04:43 | PC.NURSE ---
Pt is alert and oriented. Pt has had no complaints through the night and has rested well. Pt remains on the vapotherm 15% 45FiO2, O2 sat >90%. Call light in reach.
[2023-10-18] MEDS: LEVOTHYROXINE 150MCG (0.15MG)TAB 150 MCG PO (06:01)
[2023-10-18] MEDS: APIXABAN 5MG TABLET 2.5 MG PO ×2 (08:31→21:41)
[2023-10-18] MEDS: OSELTAMIVIR PHOSPHATE 6MG/ML ORAL SUSP 60ML 30 MG PO ×2 (08:31→21:43)
[2023-10-18] MEDS: CLOPIDOGREL 75MG TAB 75 MG PO (08:32)
[2023-10-18] MEDS: AMIODARONE 200MG TABLET 200 MG PO (08:32)
[2023-10-18] MEDS: FLUOXETINE 10MG CAPSULE 10 MG PO (08:32)
[2023-10-18] MEDS: DIGOXIN 0.125MG TABLET 125 MCG PO (08:32)
[2023-10-18 08:44] LABS: MANUAL DIFFERENTIAL MANUAL DIFFERENTIAL (MANUAL DIFF)
[2023-10-18 08:55] LABS: Basophils # 0.1 K/mm3 (0-0.2); Basophils % 0.5 % (0.1-2.0); Hematocrit 40.4 % (42.0-52.0); Hemoglobin 13.4 g/dL (14.1-18.0); Lymphocytes # 0.4 K/mm3 (0.7-4.5); Lymphocytes % 2.9 % (10-50); Mean Corpuscular HGB Conc 33.3 g/dL (31.8-35.4); Mean Corpuscular Hemoglobin 34.2 pg (27.0-31.2); Mean Corpuscular Volume 102.7 fl (80-94); Mean Platelet Volume 9.4 fl (7.4-10.4); Monocytes # 0.3 K/mm3 (0.1-1.0); Monocytes % 2.5 % (1.7-9.3); Neutrophils # 12.2 K/mm3 (1.8-7.8); Neutrophils % 94.1 % (37.0-80.0); Platelet Count 157 K/mm3 (142-424); Red Blood Count 3.93 M/mm3 (4.60-6.20); Red Cell Distribution Width 14.6 % (11.5-17.5)
[2023-10-18 09:17] LABS: Anion Gap 6.5 mEq/L (5-15); Blood Urea Nitrogen 46 mg/dl (9-20); Calcium 7.8 mg/dl (8.4-10.2); Carbon Dioxide 31 mmol/L (22.0-30.0); Chloride 105 mmol/L (98-107); Creatinine Clearance Estimated 51 mL/min (50-200); Estimated Glomerular Filt Rate 64 ml/min (>60); GFR (African American) 77 ML/MIN (>60); Glucose 100 mg/dl (74-100); Potassium 4.5 mmoL/L (3.5-5.1); Sodium 138 mmol/L (136-145)
[2023-10-18 09:43] LABS: Lymphocytes % 3 % (10-50); Monocytes % 2 % (2-9); Neutrophils % 95 % (42-76); Platelet Estimate Normal; RBC Morphology Normal; Total Cells Counted 100
--- NOTE | 2023-10-18 10:29 | P.PN_ITS ---
Subjective *Date: 10/18/23 *Time: 10:29 Interval history: Patient with no new complaints today, unable to wean Vapotherm off. Medical Exam Vital signs and Labs for Last 24 Hours: Vital Signs Temp Pulse Pulse Resp BP Pulse Ox O2 Del Method 10/18/23 09:00 Vapotherm 10/18/23 08:00 Vapotherm 10/18/23 08:32 72 10/18/23 07:41 98.1 F 72 22 153/86 H 91 L Vapotherm 10/18/23 06:47 Vapotherm 10/18/23 04:00 70 10/18/23 04:00 98.4 F 70 17 149/70 H 93 L Vapotherm 10/18/23 04:35 Vapotherm 10/18/23 03:00 Vapotherm 10/18/23 00:00 70 10/18/23 01:00 Vapotherm 10/18/23 00:00 97.7 F 66 20 144/71 H 93 L Vapotherm 10/17/23 20:00 70 10/17/23 23:00 Vapotherm 10/17/23 21:00 Vapotherm 10/17/23 20:00 Vapotherm 10/17/23 20:00 97.6 F 66 20 160/71 H 95 Vapotherm 10/17/23 19:09 10/17/23 16:00 70 10/17/23 18:22 Vapotherm 10/17/23 16:58 Vapotherm 10/17/23 15:33 97.5 F L 71 24 161/90 H 91 L Vapotherm 10/17/23 15:00 Vapotherm 10/17/23 12:00 75 10/17/23 12:51 Vapotherm 10/17/23 11:09 98.0 F 69 24 131/69 92 L Vapotherm 10/17/23 10:48 Vapotherm O2 Flow Rate FiO2 10/18/23 09:00 10/18/23 08:00 15 10/18/23 08:32 10/18/23 07:41 10/18/23 06:47 10/18/23 04:00 10/18/23 04:00 10/18/23 04:35 10/18/23 03:00 10/18/23 00:00 10/18/23 01:00 10/18/23 00:00 10/17/23 20:00 10/17/23 23:00 10/17/23 21:00 15 10/17/23 20:00 45 10/17/23 20:00 10/17/23 19:09 20 45 10/17/23 16:00 10/17/23 18:22 15 10/17/23 16:58 15 10/17/23 15:33 10/17/23 15:00 15 10/17/23 12:00 10/17/23 12:51 20 10/17/23 11:09 10/17/23 10:48 20 Intake and Output 10/17/23 10/18/23 10/18/23 23:59 07:59 15:59 Intake Total 270 / 1235 480 / 480 Output Total 200 / 1100 650 / 650 Balance 70 / 135 -170 / -170 Intake: Intake, Oral Amount 270 / 1235 480 / 480 Output: Output, Urine Amount 200 / 1100 650 / 650 Other: Number of Unmeasured Voids 1 0 Weight 155 lb 1.6 oz Patient Weight 10/18/23 23:59 Weight 155 lb 1.6 oz Laboratory Results - last 24 hr 10/18/23 07:20: WBC 13.0 H, RBC 3.93 L, Hgb 13.4 L, Hct 40.4 L, MCV 102.7 H, MCH 34.2 H, MCHC 33.3, RDW 14.6, Plt Count 157, MPV 9.4, Neut % (Auto) 94.1 H, Lymph % (Auto) 2.9 L, [place] % (Auto) 2.5, Eos % (Auto) 0.0 L, Baso % (Auto) 0.5, Neut # (Auto) 12.2 H, Lymph # (Auto) 0.4 L, [place] # (Auto) 0.3, Eos # (Auto) 0.0, Baso # (Auto) 0.1, Total Counted 100, Neutrophils % (Manual) 95 H, Lymphocytes % (Manual) 3 L, Monocytes % (Manual) 2, Platelet Estimate Normal, RBC Morphology Normal, Sodium 138, Potassium 4.5, Chloride 105, Carbon Dioxide 31 H, Anion Gap 6.5, BUN 46 H, Creatinine 1.10, Estimated Creat Clear 51, Estimated GFR 64, Est GFR ( Amer) 77 D, Glucose 100, Calcium 7.8 L I & O for Labs for Last 24 Hours: Intake & Output 10/15/23 10/16/23 10/17/23 10/18/23 23:59 23:59 23:59 23:59 Intake Total 745 / 745 690 / 690 1235 / 1235 480 / 480 Output Total 375 / 375 750 / 1000 800 / 1100 650 / 650 Balance 370 / 370 -60 / -310 435 / 135 -170 / -170 Weight 146 lb 12.54 oz 151 lb 3.2 oz 152 lb 6.4 oz 155 lb 1.6 oz Microbiology Reports for the Last 24 Hours: Microbiology 10/13/23 17:11 Blood Blood Culture - Preliminary 10/13/23 17:25 Blood Blood Culture - Preliminary Constitutional: Present no acute distress Respiratory: Present decreased breath sounds (on vapotherm) and rales (fibrotic rales) Comment:: On Vapotherm Cardiac: Present Reg Rate and Rhythm GI: Present soft and normal bowel sounds; Absent distention or tenderness Extremities: Present edema (trace LE edema bilaterally); Absent clubbing or cyanosis Skin: Present intact Neuro: Present alert and awake Assessment and Plan *Assessment and plan (1) Acute on chronic respiratory failure with hypoxemia: Status: Acute Category: Medical Code(s): J96.21 - Acute and chronic respiratory failure with hypoxia (2) Influenza A: Status: Acute Category: Medical Code(s): J10.1 - Influenza due to other identified influenza virus with other respiratory manifestations (3) Sepsis: Status: Acute Qualifiers: Acute respiratory failure type: with hypoxia Sepsis acute organ dysfunction status: with acute organ dysfunction Sepsis type: sepsis due to unspecified organism Severe sepsis acute organ dysfunction type: acute respiratory failure Severe sepsis shock status: with septic shock Qualified Code(s): A41.9 - Sepsis, unspecified organism; R65.21 - Severe sepsis with septic shock; J96.01 - Acute respiratory failure with hypoxia Category: Medical Code(s): A41.9 - Sepsis, unspecified organism (4) Asthma: Status: Chronic Category: Medical Code(s): J45.909 - Unspecified asthma, uncomplicated (5) Restrictive lung disease: Status: Chronic Category: Medical Code(s): J98.4 - Other disorders of lung (6) Shortness of breath: Status: Chronic Category: Medical Code(s): R06.02 - Shortness of breath (7) Ischemic cardiomyopathy with implantable cardioverter-defibrillator (ICD): Status: Acute Category: Medical Code(s): I25.5 - Ischemic cardiomyopathy; Z95.810 - Presence of automatic (implantable) cardiac defibrillator (8) Carotid arterial disease: Status: Chronic Qualifiers: Laterality: bilateral Carotid artery disease type: stenosis Qualified Code(s): I65.23 - Occlusion and stenosis of bilateral carotid arteries Category: Medical Code(s): I77.9 - Disorder of arteries and arterioles, unspecified (9) S/P carotid endarterectomy: Status: Chronic Category: Surgical Code(s): Z98.890 - Other specified postprocedural states (10) HTN (hypertension): Status: Acute Qualifiers: Hypertension type: primary hypertension Qualified Code(s): I10 - Essential (primary) hypertension Category: Medical Code(s): I10 - Essential (primary) hypertension (11) HLD (hyperlipidemia): Status: Acute Qualifiers: Hyperlipidemia type: mixed hyperlipidemia Qualified Code(s): E78.2 - Mixed hyperlipidemia Category: Medical Code(s): E78.5 - Hyperlipidemia, unspecified (12) Paroxysmal atrial fibrillation: Status: Acute Category: Medical Code(s): I48.0 - Paroxysmal atrial fibrillation (13) CAD (coronary artery disease): Status: Chronic Qualifiers: Coronary Disease-Associated Artery/Lesion type: [place] artery [place] vs. transplanted heart: [place] heart Associated angina: without angina Qualified Code(s): I25.10 - Atherosclerotic heart disease of [place] coronary artery without angina pectoris Category: Medical Code(s): I25.10 - Atherosclerotic heart disease of [place] coronary artery without angina pectoris (14) Hypothyroidism: Status: Chronic Category: Medical Code(s): E03.9 - Hypothyroidism, unspecified (15) On home oxygen therapy: Status: Chronic Category: Medical Code(s): Z99.81 - Dependence on supplemental oxygen (16) ILD (interstitial lung disease): Status: Chronic Category: Medical Code(s): J84.9 - Interstitial pulmonary disease, unspecified (17) Pulmonary fibrosis: Status: Chronic Category: Medical Code(s): J84.10 - Pulmonary fibrosis, unspecified Plan Patient has improved since admission but has plateaued. Will ask Dr. Poon to see patient. Continue current treatment, recheck labs tomorrow.
[2023-10-18] MEDS: IPRATROPIUM/ALBUTEROL 3 ML NEB 6 ML IH (11:24)
--- NOTE | 2023-10-18 12:46 | PC.NURSE ---
techs assisted pt up to chair at bs for lunch. pts o2 dropped to the 70s with labored breathing, after around 20 mins pts o2 was 84%. RT notified, pt now on 20L/50% vapotherm.
[2023-10-18] MEDS: ACETAMINOPHEN 325MG TAB 650 MG PO (14:56)
[2023-10-18] MEDS: TAMSULOSIN 0.4MG CAPSULE 0.400000000000000022 MG PO (21:41)
[2023-10-18] MEDS: ATORVASTATIN 40MG TABLET 80 MG PO (21:42)
[2023-10-18] MEDS: SIMETHICONE 80MG CHEWABLE TABLET 80 MG PO (21:44)
[2023-10-19] VITALS: BP 145/75; PULSE 70; RESP 17; TEMP 36.5; O2SAT 95
[2023-10-19] MEDS: METHYLPREDNISOLONE SOD SUCC 125MG VIAL 80 MG IV ×2 (01:05→09:25)
[2023-10-19 04:00] VITALS: BP 161/76; PULSE 70; RESP 22; TEMP 36.5; O2SAT 96; BMI 21.4
--- NOTE | 2023-10-19 05:26 | PC.NURSE ---
Pt complained of gas 1 time, treated per nov. Pt has had no other complaints through the night and has rested. Pt uses urinal independently. Pt remains on vapotherm 20/50, O2 sat >90%. Lung sounds rales throughout. Call light in reach.
[2023-10-19] MEDS: LEVOTHYROXINE 150MCG (0.15MG)TAB 150 MCG PO (06:05)
[2023-10-19 06:31] LABS: MANUAL DIFFERENTIAL MANUAL DIFFERENTIAL (MANUAL DIFF)
[2023-10-19 06:37] LABS: Hemoglobin 13.4 g/dL (14.1-18.0); Lymphocytes # 0.3 K/mm3 (0.7-4.5); Lymphocytes % 2.1 % (10-50); Mean Corpuscular HGB Conc 33.5 g/dL (31.8-35.4); Mean Corpuscular Hemoglobin 34.6 pg (27.0-31.2); Mean Corpuscular Volume 103.2 fl (80-94); Monocytes # 0.3 K/mm3 (0.1-1.0); Monocytes % 2.3 % (1.7-9.3); Neutrophils # 13.9 K/mm3 (1.8-7.8); Neutrophils % 95.6 % (37.0-80.0); Platelet Count 161 K/mm3 (142-424); Red Blood Count 3.88 M/mm3 (4.60-6.20); White Blood Count 14.5 K/mm3 (4.8-10.8)
[2023-10-19 06:50] LABS: Anion Gap 7.6 mEq/L (5-15); Blood Urea Nitrogen 53 mg/dl (9-20); Calcium 7.9 mg/dl (8.4-10.2); Carbon Dioxide 29 mmol/L (22.0-30.0); Chloride 107 mmol/L (98-107); Creatinine Clearance Estimated 50 mL/min (50-200); Estimated Glomerular Filt Rate 64 ml/min (>60); GFR (African American) 77 ML/MIN (>60); Glucose 112 mg/dl (74-100); Potassium 4.6 mmoL/L (3.5-5.1); Sodium 139 mmol/L (136-145)
[2023-10-19 07:58] LABS: Lymphocytes % 3 % (10-50); Macrocytosis 1+; Monocytes % 1 % (2-9); Neutrophils % 96 % (42-76); Platelet Estimate Normal; Total Cells Counted 100
[2023-10-19 08:00] VITALS: BP 153/74; PULSE 70; PULSE 71; RESP 28; TEMP 36.9; O2SAT 97
--- NOTE | 2023-10-19 08:45 | P.PN_ITS ---
Subjective *Date: 10/19/23 *Time: 08:58 Interval history: Patient states he may feel little bit better. He slept a little. He ate a little. He was up in the chair and did desat when up. O2 remains at 50% for Vapotherm. Medical Exam Vital signs and Labs for Last 24 Hours: Vital Signs Temp Pulse Pulse Resp BP Pulse Ox O2 Del Method 10/19/23 08:00 98.4 F 71 28 H 153/74 H 97 Vapotherm 10/19/23 06:50 Vapotherm 10/19/23 04:00 70 10/19/23 04:00 97.7 F 70 22 161/76 H 96 Vapotherm 10/19/23 05:00 Vapotherm 10/19/23 00:00 70 10/19/23 03:00 Vapotherm 10/19/23 00:00 97.7 F 70 17 145/75 H 95 Vapotherm 10/19/23 00:59 Vapotherm 10/18/23 20:00 70 10/18/23 22:43 Vapotherm 10/18/23 21:00 Vapotherm 10/18/23 20:00 Vapotherm 10/18/23 20:00 97.7 F 69 17 131/69 91 L Vapotherm 10/18/23 19:00 Vapotherm 10/18/23 18:01 Vapotherm 10/18/23 17:00 Vapotherm 10/18/23 16:00 70 10/18/23 15:00 Vapotherm 10/18/23 15:11 98.5 F 70 24 129/54 L 93 L Vapotherm 10/18/23 12:00 70 10/18/23 13:00 Vapotherm 10/18/23 12:44 86 L Vapotherm 10/18/23 11:24 Vapotherm 10/18/23 11:24 82 10/18/23 11:24 78 10/18/23 11:00 Vapotherm 10/18/23 11:11 98.4 F 69 24 142/73 H 90 L Vapotherm 10/18/23 09:00 Vapotherm O2 Flow Rate FiO2 10/19/23 08:00 20 50 10/19/23 06:50 10/19/23 04:00 10/19/23 04:00 10/19/23 05:00 10/19/23 00:00 10/19/23 03:00 10/19/23 00:00 10/19/23 00:59 10/18/23 20:00 10/18/23 22:43 10/18/23 21:00 10/18/23 20:00 20 50 10/18/23 20:00 10/18/23 19:00 15 40 10/18/23 18:01 10/18/23 17:00 10/18/23 16:00 10/18/23 15:00 10/18/23 15:11 10/18/23 12:00 10/18/23 13:00 10/18/23 12:44 15 40 10/18/23 11:24 15 40 10/18/23 11:24 10/18/23 11:24 10/18/23 11:00 10/18/23 11:11 10/18/23 09:00 Intake and Output 10/18/23 10/19/23 10/19/23 19:59 03:59 11:59 Intake Total 540 / 540 390 / 930 Output Total 150 / 150 350 / 500 Balance 540 / 540 -150 / 390 40 / 430 Intake: Intake, Oral Amount 540 / 540 390 / 930 Output: Output, Urine Amount 150 / 150 350 / 500 Other: Number of Voids 0 Number of Unmeasured Voids 0 Weight 152 lb 14.4 oz Patient Weight 10/19/23 11:59 Weight 152 lb 14.4 oz Laboratory Results - last 24 hr 10/18/23 07:20: WBC 13.0 H, RBC 3.93 L, Hgb 13.4 L, Hct 40.4 L, MCV 102.7 H, MCH 34.2 H, MCHC 33.3, RDW 14.6, Plt Count 157, MPV 9.4, Neut % (Auto) 94.1 H, Lymph % (Auto) 2.9 L, [place] % (Auto) 2.5, Eos % (Auto) 0.0 L, Baso % (Auto) 0.5, Neut # (Auto) 12.2 H, Lymph # (Auto) 0.4 L, [place] # (Auto) 0.3, Eos # (Auto) 0.0, Baso # (Auto) 0.1, Total Counted 100, Neutrophils % (Manual) 95 H, Lymphocytes % (Manual) 3 L, Monocytes % (Manual) 2, Platelet Estimate Normal, RBC Morphology Normal, Sodium 138, Potassium 4.5, Chloride 105, Carbon Dioxide 31 H, Anion Gap 6.5, BUN 46 H, Creatinine 1.10, Estimated Creat Clear 51, Estimated GFR 64, Est GFR ( Amer) 77 D, Glucose 100, Calcium 7.8 L 10/19/23 05:51: WBC 14.5 H, RBC 3.88 L, Hgb 13.4 L, Hct 40.0 L, MCV 103.2 H, MCH 34.6 H, MCHC 33.5, RDW 15.0, Plt Count 161, MPV 9.0, Neut % (Auto) 95.6 H, Lymph % (Auto) 2.1 L, [place] % (Auto) 2.3, Eos % (Auto) 0.0 L, Baso % (Auto) 0.0 L, Neut # (Auto) 13.9 H, Lymph # (Auto) 0.3 L, [place] # (Auto) 0.3, Eos # (Auto) 0.0, Baso # (Auto) 0.0, Total Counted 100, Neutrophils % (Manual) 96 H, Lymphocytes % (Manual) 3 L, Monocytes % (Manual) 1 L, Platelet Estimate Normal, Macrocytosis 1+, Sodium 139, Potassium 4.6, Chloride 107, Carbon Dioxide 29, Anion Gap 7.6, BUN 53 H, Creatinine 1.10, Estimated Creat Clear 50, Estimated GFR 64, Est GFR ( Amer) 77, Glucose 112 H, Calcium 7.9 L I & O for Labs for Last 24 Hours: Intake & Output 10/16/23 10/17/23 10/18/23 10/19/23 11:59 11:59 11:59 11:59 Intake Total 865 / 865 810 / 810 1355 / 1355 930 / 930 Output Total 300 / 300 1250 / 1250 1050 / 1050 500 / 500 Balance 565 / 565 -440 / -440 305 / 305 430 / 430 Weight 151 lb 3.2 oz 152 lb 6.4 oz 155 lb 1.6 oz 152 lb 14.4 oz Microbiology Reports for the Last 24 Hours: Microbiology 10/13/23 17:11 Blood Blood Culture - Preliminary 10/13/23 17:25 Blood Blood Culture - Preliminary Constitutional: Present no acute distress and thin Comment:: Lying in bed and appears comfortable Respiratory: Present CTA bilaterally (Anteriorly and posteriorly) Cardiac: Present Regular Rate GI: Present soft and normal bowel sounds; Absent distention, tenderness or guarding Extremities: Absent tenderness or edema Neuro: Present alert, awake and oriented x 3 Assessment and Plan *Assessment and plan (1) Acute on chronic respiratory failure with hypoxemia: Status: Acute Category: Medical Code(s): J96.21 - Acute and chronic respiratory failure with hypoxia (2) Influenza A: Status: Acute Category: Medical Code(s): J10.1 - Influenza due to other identified influenza virus with other respiratory manifestations (3) Sepsis: Status: Acute Qualifiers: Acute respiratory failure type: with hypoxia Sepsis acute organ dysf unction status: with acute organ dysfunction Sepsis type: sepsis due to unspecified organism Severe sepsis acute organ dysfunction type: acute respiratory failure Severe sepsis shock status: with septic shock Qualified Code(s): A41.9 - Sepsis, unspecified organism; R65.21 - Severe sepsis with septic shock; J96.01 - Acute respiratory failure with hypoxia Category: Medical Code(s): A41.9 - Sepsis, unspecified organism (4) Asthma: Status: Chronic Category: Medical Code(s): J45.909 - Unspecified asthma, uncomplicated (5) Restrictive lung disease: Status: Chronic Category: Medical Code(s): J98.4 - Other disorders of lung (6) Shortness of breath: Status: Chronic Category: Medical Code(s): R06.02 - Shortness of breath (7) Ischemic cardiomyopathy with implantable cardioverter-defibrillator (ICD): Status: Acute Category: Medical Code(s): I25.5 - Ischemic cardiomyopathy; Z95.810 - Presence of automatic (implantable) cardiac defibrillator (8) Carotid arterial disease: Status: Chronic Qualifiers: Carotid artery disease type: stenosis Laterality: bilateral Qualified Code(s): I65.23 - Occlusion and stenosis of bilateral carotid arteries Category: Medical Code(s): I77.9 - Disorder of arteries and arterioles, unspecified (9) S/P carotid endarterectomy: Status: Chronic Category: Surgical Code(s): Z98.890 - Other specified postprocedural states (10) HTN (hypertension): Status: Acute Qualifiers: Hypertension type: primary hypertension Qualified Code(s): I10 - Essential (primary) hypertension Category: Medical Code(s): I10 - Essential (primary) hypertension (11) HLD (hyperlipidemia): Status: Acute Qualifiers: Hyperlipidemia type: mixed hyperlipidemia Qualified Code(s): E78.2 - Mixed hyperlipidemia Category: Medical Code(s): E78.5 - Hyperlipidemia, unspecified (12) Paroxysmal atrial fibrillation: Status: Acute Category: Medical Code(s): I48.0 - Paroxysmal atrial fibrillation (13) CAD (coronary artery disease): Status: Chronic Qualifiers: Associated angina: without angina Coronary Disease-Associated Artery/Lesion type: [place] artery [place] vs. transplanted heart: [place] heart Qualified Code(s): I25.10 - Atherosclerotic heart disease of [place] coronary artery without angina pectoris Category: Medical Code(s): I25.10 - Atherosclerotic heart disease of [place] coronary artery without angina pectoris (14) Hypothyroidism: Status: Chronic Category: Medical Code(s): E03.9 - Hypothyroidism, unspecified (15) On home oxygen therapy: Status: Chronic Category: Medical Code(s): Z99.81 - Dependence on supplemental oxygen (16) ILD (interstitial lung disease): Status: Chronic Category: Medical Code(s): J84.9 - Interstitial pulmonary disease, unspecified (17) Pulmonary fibrosis: Status: Chronic Category: Medical Code(s): J84.10 - Pulmonary fibrosis, unspecified Plan Continue to try and wean from Vapotherm. Dr. Poon to see today. Dr. Walsh entry - Patient is stable, unable to wean Vapotherm, no bowel movement in 5 days, will start Senokot today.
--- NOTE | 2023-10-19 09:11 | DIET.NUTRFU ---
No BM noted since admit on 10/14, meal intake fair. Reviewed with provider and senekot added
[2023-10-19] MEDS: SENNOSIDES 8.6MG/DOCUSATE 50MG TABLET 1 TAB PO (09:24)
[2023-10-19] MEDS: FLUOXETINE 10MG CAPSULE 10 MG PO (09:24)
[2023-10-19] MEDS: CLOPIDOGREL 75MG TAB 75 MG PO (09:24)
[2023-10-19] MEDS: APIXABAN 5MG TABLET 2.5 MG PO ×2 (09:25→21:49)
[2023-10-19] MEDS: AMIODARONE 200MG TABLET 200 MG PO (09:25)
[2023-10-19] MEDS: DIGOXIN 0.125MG TABLET 125 MCG PO (09:25)
--- NOTE | 2023-10-19 10:05 | HMH.OTEV ---
OT Inpatient Evaluation Rehab OT IP Evaluation Start: 10/16/23 16:34 Freq: ONCE Status: Active Protocol: Document 10/19/23 09:52 MRAYMARISOL (Rec: 10/19/23 10:04 DOMINICK [id number]) Rehab OT IP Assessment Subjective History 83-year-old male history of pulmonary fibrosis, interstitial lung disease, COPD no longer smoking on 3 to 5 L nasal cannula at home presenting with shortness of breath. states the patient was short of breath the last 2 or 3 days. She stated that his oxygen usually sits mid to high 80s, today it dropped down into the 50s. He has been coughing up greenish-brown sputum for the last couple of days and she thought he had been running a fever, patient denies any febrile symptoms. Cough is new as of 24 hours prior to this visit. No vomiting, diarrhea, patient is having significant shortness of breath. Increased oxygen to 5 to 6 L via oxygen concentrator today. To be noted that patient has severe end-stage lung disease which is complicating care. History was obtained via conversation with patient, . On arrival, patient hemodynamically stable, alert, oriented x4, appropriate, GCS 15, moving all extremities spontaneously, pupils equal and reactive to light. Full physical exam performed and significant for severe respiratory distress. Maintaining blood pressure, but patient initially about 53 % on room air. This did not improve with nasal cannula oxygen. Patient was placed on nonrebreather immediately and oxygen saturation improved to around 70 or 80. Patient has bilateral breath sounds and symmetric chest rise, so low concern for pneumothorax at this time. Because of this, patient was placed on BiPAP 12 /8 with 80% FiO2. Patient's saturations immediately improved to mid 90s, but patient becoming increasingly intolerant. He does have diffuse bilateral wheezes with rales in the right middle lung freedman. No lower extremity edema. Answering questions, patient is also cyanotic. Differential includes pneumonia, bronchitis, PE, pneumothorax, pleural effusion , ACS, [place], dissection, among others. Patient was given DuoNebs, Solu-Medrol, 2 g magnesium IV, BiPAP, 2 mg morphine, Zofran 4 mg, IV fluids, vancomycin, Unasyn for symptomatic management and correction of underlying abnormalities. Workup independently interpreted and significant for leukocytosis 13.8 with lactate elevated at 5.0. Kidney function 1.6. VBG demonstrated respiratory acidosis with pH 7.27, CO2 elevated 57. Patient hypoxemic on VBG with oxygen low at 29. Lactate 6.2 on VBG . Chest x-ray with concern for right middle versus right lower lobe pneumonia see radiology read for full review of final results. Independent interpretation of EKG shows ventricularly paced rhythm 74 beats a minute. Wide QRS at 156 ms with Sgarbossa negative criteria concerning for STEMI. Patient having intermittent ectopic ventricular beats with ST depressions, but inconsistent throughout and nonconcerning for acute, geographic ischemia . Rightward axis. Repeat EKG after patient stabilized on BiPAP demonstrated ventricularly paced rhythm at about 71 bpm. Sgarbossa negative. Patient does have T wave inversions in V6, 1, aVL concerning for subendocardial ischemia, but now reciprocal change. On reevaluation, patient intolerant of BiPAP, switched to heated high flow nasal cannula. Saturating 99% with heart rate 70. Blood pressure 96/50 and breathing about 20 times a minute when more comfortably. Patient mentating without issue. Admitting physician contacted for further definitive management, agreeable to admission. Because patient high risk for clinical decompensation, deemed appropriate for inpatient admission. Results were relayed to patient who voiced understanding and patient was agreeable to inpatient admission and management. Patient was admitted to the hospital for further definitive management. (above as per ER physician) The patient states he has been feeling poorly for the past 4 days. He has been running fever and getting progressively more SOA. He was coughing up thick sputum. He has also had difficulty swallowing solid foods. He got to the point where he was unable to get out of the bed because his oxygen sats were dropping so low. Patient lives at home with and son. Patient lives in 1 [place] home with 1 [place]. Patient ambulates independently at home with 3- 4L of 02 needed. Patient able to complete drsg, toileting and transfers independently at home with needing RB throughout due to SOB. or son assist with bathing. Subjective I would like to get up. Instructed Patient on proper hand and foot placement to complete bed mobility from supine->sit @ EOB->SPT to recliner requiring Min A x2. No LOB noted. Patient demonstrated good dynamic sitting balance and fair+ dynamic standing balance. 88%- 91% of 02 on Vapo. Objective Patient Orientation Person,Place,Name,Age,Birthday ,Year Right Upper Extremity Gross ROM WFL Left Upper Extremity Gross ROM WFL Bed Mobility bed mobility - supine/sit Assist Level Minimal x 2 (25% assist) Transfer Training Sit/Stand/Pivot Transfer Assist Level Minimal x 2 (25% assist) Chair Transfer Ability Minimal x 2 (25% assist) Chair Transfer Technique Sit to/from Ambulatory Chair Transfer Assistive Devices Rolling Walker Rehab OT IP prob,goals,plan Problems Date of Evaluation: 10/19/23 OT IP Problems Bed Mobility,Transfers,Balance ,Self care,Safety Rehab Potential Rehab Potential Good Equipment Needs Assistive Devices None / NA Plan OT intervention Plan Bed Mobility,Transfers,Balance ,Self care,Safety,Therapeutic Exercise OT Plan Frequency Daily Duration LOS Discharge Goals Bed Mobility Ability Assistance x1 Sit to Stand Chair Transfer Ability Minimal x 1 (25% assist) Chair Transfer Ability Minimal x 1 (25% assist) Chair Transfer Technique Sit to/from Ambulatory Chair Transfer Assistive Devices None Discharge Plan OT Discharge Plan If family is able to continue to care for patient, recommend return home with HH. However if family is unable to provide care for patient, after medical d/c recommend placement. Patient will continue to be seen at [facility] for OT IP services. Eval Complexity Eval Charge Codes 53641 - Low Complexity PHYSICIAN CERTIFICATION: I certify the specified therapy services for Scotty Cody are required, authorized, and reviewed every 30 days.
--- NOTE | 2023-10-19 11:00 | P.CONS_ITS ---
History of Present Illness History of present illness: Mr. Cody is a 83-year-old male with history of COPD pulmonary fibrosis CT ILD presented to the hospital on 10/13/2019 with worsening respiratory distress and was admitted for further evaluation and management. Pulmonary was called today for further evaluation and management [facility] Disclaimer: The information contained in this section may have been updated after the patient was seen, as this information can be updated by other users. 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 CAD (coronary artery disease) Carotid arterial disease CHF (congestive heart failure), NYHA class II Chronic respiratory failure with hypoxia Diarrhea due to drug H1N1 influenza with pneumonia History of atrial fibrillation History of atrial flutter HLD (hyperlipidemia) HTN (hypertension) Hypothyroidism ILD (interstitial lung disease) Inguinal hernia Ischemic cardiomyopathy Ischemic cardiomyopathy with implantable cardioverter-defibrillator (ICD) On home oxygen therapy Paroxysmal atrial fibrillation Pneumonia Pulmonary fibrosis Respiratory failure with hypoxia Restrictive lung disease Shortness of breath Surgical History History of AAA (abdominal aortic aneurysm) repair History of carotid endarterectomy History of colonoscopy History of coronary artery bypass graft History of esophagogastroduodenoscopy (EGD) History of hernia repair History of implantable cardiac defibrillator (ICD) S/P carotid endarterectomy Family History Hyperlipidemia Heart attack Cancer Hypertension Social History Smoking Status: Former smoker tobacco type: cigarettes packs per day: 1 smoking status start date: 1954 years smoked: 30 smoking status stop date: 1984 second hand exposure: No alcohol intake: never substance use type: denies use current occupational status: unemployed and disabled Travel in the last 8 weeks: None household members: spouse housing: house lives independently: Yes marital status: current occupational exposures/hazards: No caffeine: Yes Review of Systems Constitutional Constitutional: Reports fatigue, Reports headache(s) and Reports weakness Eyes Eyes: Denies eye discharge, Denies dry eyes, Denies irritation and Denies itchy eyes ENT Ears, Nose, Mouth, and Throat: Reports headache(s), Denies lip swelling, Denies throat swelling and Reports vertigo *Cardiovascular Cardiovascular: Reports dyspnea, Reports dyspnea on exertion, Reports leg edema and Reports orthopnea *Respiratory Respiratory: Reports chest congestion, Reports cough, Reports dyspnea, Reports dyspnea on exertion, Denies excessive phlegm production, Denies hemoptysis, Denies pain on inspiration, Denies pain with cough and Denies wheezing *Gastrointestinal Gastrointestinal: Denies abdominal pain, Denies belching and Denies cramping *Musculoskeletal Musculoskeletal: Reports back pain, Reports myalgias and Reports other (No small joint swelling or Pain) *Neurologic Neurologic: Reports headache(s), Reports vertigo and Reports weakness Psychiatric Psychiatric: Denies homicidal ideation and Denies suicidal ideation Endocrine Endocrine: Reports fatigue and Denies heat intolerance Hematologic/Lymphatic Hematologic/Lymphatic: Denies easy bleeding and Denies lymphadenopathy Allergic/Immunologic Allergic/Immunologic: Denies itchy eyes, Denies lip swelling, Denies throat swelling and Denies wheezing Pulmonology Exam Inpatient Vital signs and Labs for Last 24 Hours: Temp Pulse Resp BP Pulse Ox O2 Del Method O2 Flow Rate 98.4 F 71 28 H 153/74 H 97 Vapotherm 20 10/19/23 08:00 10/19/23 08:00 10/19/23 08:00 10/19/23 08:00 10/19/23 08:00 10/19/23 09:25 10/19/23 09:25 FiO2 50 10/19/23 08:00 Laboratory Results - last 24 hr 10/19/23 05:51: WBC 14.5 H, RBC 3.88 L, Hgb 13.4 L, Hct 40.0 L, MCV 103.2 H, MCH 34.6 H, MCHC 33.5, RDW 15.0, Plt Count 161, MPV 9.0, Neut % (Auto) 95.6 H, Lymph % (Auto) 2.1 L, Delta % (Auto) 2.3, Eos % (Auto) 0.0 L, Baso % (Auto) 0.0 L, Neut # (Auto) 13.9 H, Lymph # (Auto) 0.3 L, Delta # (Auto) 0.3, Eos # (Auto) 0.0, Baso # (Auto) 0.0, Total Counted 100, Neutrophils % (Manual) 96 H, Lymphocytes % (Manual) 3 L, Monocytes % (Manual) 1 L, Platelet Estimate Normal, Macrocytosis 1+, Sodium 139, Potassium 4.6, Chloride 107, Carbon Dioxide 29, Anion Gap 7.6, BUN 53 H, Creatinine 1.10, Estimated Creat Clear 50, Estimated GFR 64, Est GFR ( Amer) 77, Glucose 112 H, Calcium 7.9 L I & O for Labs for Last 24 Hours: Intake & Output 10/16/23 10/17/23 10/18/23 10/19/23 23:59 23:59 23:59 23:59 Intake Total 690 / 690 1235 / 1235 1020 / 1020 390 / 390 Output Total 750 / 1000 800 / 1100 850 / 850 500 / 500 Balance -60 / -310 435 / 135 170 / 170 -110 / -110 Weight 151 lb 3.2 oz 152 lb 6.4 oz 155 lb 1.6 oz 152 lb 14.4 oz Microbiology Reports for the Last 24 Hours: Microbiology 10/13/23 17:11 Blood Blood Culture - Preliminary 10/13/23 17:25 Blood Blood Culture - Preliminary Constitutional: Present severe distress Head: Present normocephalic and atraumatic ENT: Present normal exam, normal oropharynx and mucous membranes moist Neck: Present normal inspection and full ROM Respiratory: Present respiratory distress and crackles; Absent wheezes or able to speak in complete sentences Cardiac: Present S1/S2, Tachycardia and radial pulses present GI: Present soft and distention; Absent tenderness or guarding Skin: Present intact; Absent cyanosis or jaundice Neuro: Present alert, awake and oriented x 3 Extremities: Present normal inspection and edema; Absent clubbing or cyanosis Psychiatric: Present normal affect and cooperative Meds Home Medications and Allergies Home Medications Medication Instructions Recorded Confirmed Type atorvastatin 80 mg tablet 80 mg PO HS 01/21/18 10/13/23 History fish oil-dha-epa 1,200 mg-144 1 each PO DAILY Supplement 01/21/18 10/13/23 History mg-216 mg capsule fluoxetine 10 mg capsule 10 mg PO DAILY 01/21/18 10/13/23 History tamsulosin 0.4 mg capsule 0.4 mg PO DAILY 01/21/18 10/13/23 History vitamin E succinate 268 mg (400 400 units PO DAILY Supplement 01/21/18 10/13/23 History unit) tablet ferrous sulfate 325 mg (65 mg 325 mg PO DAILY 01/15/21 10/13/23 History iron) tablet mecobalamin (vitamin B12) 1,000 1,000 mcg PO DAILY Supplement 01/15/21 10/13/23 History mcg chewable tablet multivitamin 1 each PO DAILY Supplement 01/15/21 10/13/23 History apixaban 2.5 mg tablet (Eliquis) 2.5 mg PO BID 10/13/23 10/13/23 History clopidogrel 75 mg tablet 75 mg PO DAILY 10/13/23 10/13/23 History furosemide 40 mg tablet 40 mg PO MOWEFR 10/13/23 10/14/23 History amiodarone 200 mg tablet 200 mg PO DAILY 10/14/23 10/14/23 History digoxin 125 mcg (0.125 mg) tablet 125 mcg PO DAILY 10/14/23 10/13/23 History levothyroxine 150 mcg tablet 150 mcg PO AM 10/14/23 10/14/23 History loperamide 2 mg capsule 2 mg PO Q6H PRN Diarrhea 10/14/23 10/14/23 History prednisone 20 mg tablet 20 mg PO DAILY 10/14/23 10/14/23 History spironolactone 25 mg tablet 25 mg PO MOWEFR 10/14/23 10/14/23 History New Prescriptions to Start Prescriptions: Allergies Allergy/AdvReac Type Severity Reaction Status Date / Time No Known Allergies Allergy Verified 10/06/23 15:17 Results Laboratory Findings 10/19/23 05:51 10/19/23 05:51 Abnormal lab findings: Abnormal Labs 10/13/23 10/13/23 10/13/23 17:05 17:36 20:43 WBC 13.8 H RBC Hgb Hct MCV 108.3 H MCH 34.4 H Plt Count Neut % (Auto) 89.3 H Lymph % (Auto) 7.3 L Eos % (Auto) Baso % (Auto) Neut # (Auto) 12.3 H Lymph # (Auto) Neutrophils % (Manual) 89 H Lymphocytes % (Manual) Monocytes % (Manual) 1 L VBG pH 7.27 L VBG pCO2 57.5 H VBG Total CO2 27.5 H VBG O2 Saturation 46.2 L Sodium Carbon Dioxide Anion Gap BUN 42 H Creatinine 1.60 H Estimated GFR 41 L Est GFR ( Amer) 50 L Glucose 130 H Lactate 5.0 H Calcium AST 246 H ALT 234 H Alkaline Phosphatase 159 H Troponin I 0.13 H 0.19 H NT-Pro-B Natriuret Pep 8500 H Globulin 3.4 H Influ A (H1N1) PCR 10/13/23 10/13/23 10/14/23 21:07 21:27 09:22 WBC RBC Hgb Hct MCV MCH Plt Count Neut % (Auto) Lymph % (Auto) Eos % (Auto) Baso % (Auto) Neut # (Auto) Lymph # (Auto) Neutrophils % (Manual) Lymphocytes % (Manual) Monocytes % (Manual) VBG pH VBG pCO2 VBG Total CO2 VBG O2 Saturation Sodium Carbon Dioxide Anion Gap BUN Creatinine Estimated GFR Est GFR ( Amer) Glucose Lactate 2.3 H Calcium AST ALT Alkaline Phosphatase Troponin I 0.19 H NT-Pro-B Natriuret Pep Globulin Influ A (H1N1) PCR Detected A 10/15/23 10/16/23 10/17/23 06:01 06:33 06:31 WBC RBC 3.54 L 3.64 L 3.88 L Hgb 12.2 L 12.5 L 13.1 L Hct 36.6 L 38.6 L 40.3 L MCV 103.4 H 106.1 H 104.1 H MCH 34.4 H 34.4 H 33.7 H Plt Count 129 L D Neut % (Auto) 92.5 H 90.2 H 93.4 H Lymph % (Auto) 5.3 L 6.9 L 4.1 L Eos % (Auto) 0.0 L Baso % (Auto) Neut # (Auto) 8.7 H 9.8 H Lymph # (Auto) 0.5 L 0.6 L 0.4 L Neutrophils % (Manual) 93 H 95 H 93 H Lymphocytes % (Manual) 5 L 3 L 5 L Monocytes % (Manual) VBG pH VBG pCO2 VBG Total CO2 VBG O2 Saturation Sodium 134 L 135 L 135 L Carbon Dioxide 32 H 32 H Anion Gap 3.6 L 2.5 L BUN 44 H 47 H 48 H Creatinine 1.40 H 1.30 H Estimated GFR 58 L 48 L 53 L Est GFR ( Amer) Glucose 105 H 107 H 112 H Lactate Calcium 7.7 L AST ALT Alkaline Phosphatase Troponin I NT-Pro-B Natriuret Pep Globulin Influ A (H1N1) PCR 10/18/23 10/19/23 07:20 05:51 WBC 13.0 H 14.5 H RBC 3.93 L 3.88 L Hgb 13.4 L 13.4 L Hct 40.4 L 40.0 L MCV 102.7 H 103.2 H MCH 34.2 H 34.6 H Plt Count Neut % (Auto) 94.1 H 95.6 H Lymph % (Auto) 2.9 L 2.1 L Eos % (Auto) 0.0 L 0.0 L Baso % (Auto) 0.0 L Neut # (Auto) 12.2 H 13.9 H Lymph # (Auto) 0.4 L 0.3 L Neutrophils % (Manual) 95 H 96 H Lymphocytes % (Manual) 3 L 3 L Monocytes % (Manual) 1 L VBG pH VBG pCO2 VBG Total CO2 VBG O2 Saturation Sodium Carbon Dioxide 31 H Anion Gap BUN 46 H 53 H Creatinine Estimated GFR Est GFR ( Amer) Glucose 112 H Lactate Calcium 7.8 L 7.9 L AST ALT Alkaline Phosphatase Troponin I NT-Pro-B Natriuret Pep Globulin Influ A (H1N1) PCR Assessment and Plan *Assessment and plan (1) Acute on chronic respiratory failure with hypoxemia: Status: Acute Category: Medical Code(s): J96.21 - Acute and chronic respiratory failure with hypoxia (2) H1N1 influenza with pneumonia: Status: Acute Category: Medical Code(s): J10.00 - Influenza due to other identified influenza virus with unspecified type of pneumonia (3) Restrictive lung disease: Status: Chronic Category: Medical Code(s): J98.4 - Other disorders of lung (4) ILD (interstitial lung disease): Status: Chronic Category: Medical Code(s): J84.9 - Interstitial pulmonary disease, unspecified (5) Pulmonary fibrosis: Status: Chronic Category: Medical Code(s): J84.10 - Pulmonary fibrosis, unspecified Plan Mr. Cody is a 83-year-old male with history of COPD pulmonary fibrosis CT ILD presented to the hospital on 10/13/2023 with worsening respiratory distress and was admitted for further evaluation and management. Pulmonary was called today for further evaluation and management VBG on admission also concerning for respiratory acidosis. Patient received 3 days of Vanco and one dose of Unasyn. Received 5-day course of Tamiflu for H1N1 influenza. He continued to receive methylprednisolone 80 mg every 8 hours since admission. Blood cultures no growth so far. No sputum cultures available. Chest x-ray upon admission no dense consolidation with increasing interstitial infiltrates concerning for volume overload/atypical pneumonia. Etiology of this patient's current respiratory failure is likely a combination of his chronic ongoing fibrosis superimposed with volume overload and viral infection. Bilateral crackles and 2+ lower extremity edema on examination. Plan: -Continue HFNC to maintain saturation goal of 90 to 95% - currently on 20 L 50%. -Follow with CTA PE protocol. -Follow with echocardiogram and BNP. -Wean steroids to prednisone 40 mg daily -DuoNebs every 6 hours on as-needed basis Thank you for involving pulmonary in this patient care. Will continue to follow
--- NOTE | 2023-10-19 11:04 | XR_ITS ---
FINAL REPORT TECHNIQUE: Single view chest CLINICAL HISTORY: Hypoxia COMPARISON: 10/13/2023 FINDINGS: A single view of the chest was obtained. There is mild to moderate cardiomegaly. Pacemaker is in place. There are chronic interstitial opacities, particularly the left lung base likely related to chronic fibrosis. There is no pneumothorax. Osseous structures are unremarkable. IMPRESSION: Interstitial opacities likely related to chronic fibrosis. Reviewed, Interpreted and Dictated by Radhames Gong MD Transcribed by Kelly Vaca Authenticated and [facility]
[2023-10-19 12:00] VITALS: BP 161/81; PULSE 70; RESP 28; TEMP 36.4; O2SAT 93
--- NOTE | 2023-10-19 12:46 | CT_ITS ---
FINAL REPORT TECHNIQUE: The patient was injected with IV contrast. Axial images were obtained through the chest in a PE protocol. 3-D reconstruction images were also performed. Individualized dose reduction techniques using automated exposure control or adjustment of the MA and/or KV according to patient's size were employed. CLINICAL HISTORY: Hypoxia COMPARISON: CT of the chest dated 10/06/2023 FINDINGS: Mediastinal vasculature is adequately opacified. No pulmonary artery filling defects are identified to suggest PE. There is no aortic dissection. There is no axillary adenopathy. There is no hilar or mediastinal adenopathy. The heart size is normal. A pacemaker is once again identified. There is no pericardial or pleural effusion. There are extensive coarse appearing interstitial opacities seen on the prior CT, consistent with interstitial fibrosis. There are new patchy bilateral airspace opacities, worrisome for pneumonia. Gallstones are once again identified in the gallbladder. There is a low density in the upper pole of the left kidney consistent with a renal cyst. IMPRESSION: No pulmonary embolus or dissection. Extensive coarse interstitial opacity consistent with interstitial fibrosis, stable since the prior CT. There are new patchy bilateral airspace opacities, worrisome for pneumonia. Reviewed, Interpreted and Dictated by Radhames Gong MD Transcribed by Phoebe Pack Authenticated and [facility]
--- NOTE | 2023-10-19 12:46 | CA_ITS ---
APPROVED REPORT EXAM: Comprehensive 2D, Doppler, and color-flow Echocardiogram Hop Sorter: My Yun CRT Ht: 5 ft 10 in Wt: 153lbs BSA: 1.86 BP: 153/74 mmHg Indications: Flu +, Pulmonary fibrosis, CABG, Congestive Heart Failure, Shortness of Breath, Atrial Fibrillation, CAD, Cardiomyopathy, AICD 2D Dimensions LA Volume 24.30 mL LA Volume Index 12.70 mL/m2 (M/F) 16-34 M-Mode Dimensions RVDd 2.78 cm (0.9-2.6) LA Diam 2.55 cm (1.9-4.0) LVDd 4.30 cm (3.5-5.7) LVDs 3.16 cm (3.5-5.7) IVSd 1.95 cm (0.6-1.1) PWd 0.63 cm (0.6-1.1) EF (Teich) 52.20% FS 26.50% EDV (Teich) 83.10 mL TAPSE 2.43 (<1.7) ESV (Teich) 39.70 mL LV Diastology E Decel Time 67 (160-240 msec) E/A Ratio 0.60 MED A' 9.20 cm/s LAT A' 10.90 cm/s Aortic Valve CHAPIN Index 0.89 cm2/m2 AoV Peak Zach. 198.0 (50-130 cm/s) AO Peak GR. 15.80 mmHg AO Mean GR. 9.30 (<5 mmHg) AO VTI 34.6 (18-25 cm) CHAPIN (VTI) 1.70 (2.5-4.5 cm2) Mitral Valve MV A Velocity 76.0 (40-130 cm/s) E/A Ratio 0.60 Pulmonary Valve PV Peak Velocity 192.0 (50-150 cm/s) Tricuspid Valve TR P. Velocity 428.00 cm/s RAP Estimate 10.00 mmHg RVSP 83.10 mmHg Left Ventricle The left ventricle is normal size. The left ventricular systolic function is normal. The left ventricular ejection fraction is within the normal range. There is increased LV wall thickness. There is normal LV segmental wall motion. Transmitral Doppler flow pattern suggests impaired LV relaxation. LVEF is 55%. Right Ventricle Right ventricle is mildly dilated. The right ventricular systolic function is normal. There is a device lead present in the right ventricle. Atria The left atrium is mildly dilated. The right atrium size is normal. The interatrial septum is not well-visualized. Aortic Valve The aortic valve is mildly thickened. There is aortic sclerosis, but no evidence of aortic stenosis. CHAPIN by 2D planimetry is 2.1 cm2. Trace aortic regurgitation. Mitral Valve Mild mitral annular calcification. The mitral valve leaflets are mildly thickened. No evidence of mitral valve stenosis. Mild mitral regurgitation. Tricuspid Valve The tricuspid valve leaflets are thin and pliable. Mild tricuspid regurgitation. RVSP is 40 mmHg + RA pressure. Pulmonic Valve The pulmonary valve is normal in structure. Mild pulmonic regurgitation. Great Vessels The aortic root is normal in size. The ascending aorta is not well-visualized. The IVC is not well-visualized. Pericardium There is no pericardial effusion. Other Information Study Quality: Fair Conclusion Normal biventricular systolic function. Mild RV dilation. Mild LA dilation. Mild MR. Mild TR. Mild PI. Elevated RVSP 40 mmHg+ RA pressure. Electronically signed by : Hayley Lee MD 10/20/2023 12:01:22
[2023-10-19] MEDS: 0.9 % SODIUM CHLORIDE 50 ML VIAL IV (15:43)
[2023-10-19] MEDS: SODIUM CHLORIDE 0.9% 10ML SYR (RAD ONLY) 10 ML IV (15:43)
[2023-10-19] MEDS: IOPAMIDOL-370 (76%);100ML BOTTLE 100 ML IV (15:43)
[2023-10-19 16:00] VITALS: BP 163/79; PULSE 70; RESP 28; TEMP 36.7; O2SAT 98
[2023-10-19] MEDS: CEFEPIME HCL 2 GM in 0.9 % SODIUM CHLORIDE 100 ML IV ×2 (16:05→22:00)
[2023-10-19] MEDS: LINEZOLID 600 MG/300 ML IV.SOLN 300 MG IV (16:35)
--- NOTE | 2023-10-19 16:53 | PC.NURSE ---
Patient able to have a bowel movement this shift. VS stable and patient remained on 2L50% vapotherm. Lung sounds crackles. Patient able to sit in chair for a couple of hours during shift. No acute changes noted.
[2023-10-19 20:00] VITALS: BP 149/81; PULSE 70; PULSE 80; RESP 24; TEMP 37.2; O2SAT 94
[2023-10-19] MEDS: ATORVASTATIN 40MG TABLET 80 MG PO (21:49)
[2023-10-19] MEDS: TAMSULOSIN 0.4MG CAPSULE 0.400000000000000022 MG PO (21:49)
[2023-10-20] VITALS (15 sets, daily range): BP systolic 112–152; BP diastolic 58–70; PULSE 68–89; RESP 17–28; TEMP 36.6–36.8; O2SAT 89–95; BMI 21.7
[2023-10-20] MEDS: diphenhydrAMINE 25MG CAPSULE 25 MG PO (02:22)
[2023-10-20] MEDS: LINEZOLID 600 MG/300 ML IV.SOLN 300 MG IV ×2 (04:13→16:41)
[2023-10-20] MEDS: IPRATROPIUM/ALBUTEROL 3 ML NEB 6 ML IH ×2 (04:20→08:30)
--- NOTE | 2023-10-20 04:28 | PC.NURSE ---
Pt is alert and oriented x4, and currently on vapotherm . Pt has complained of SOB and coughing this shift, contacted RT to admin nebs. Pt C/O trouble sleeping contacted MD sld inclusion teacher for something to help with sleep, pt treated per NOV. Pt has not reated much this shift and states that he is miserable. Measures to make pt comfortable attempted and repeat. Pt has turned per Q2 schedule this shift. Pt denies pain and needs at this time.
[2023-10-20 06:01] LABS: Basophils % 0.1 % (0.1-2.0); Hematocrit 38.6 % (42.0-52.0); Hemoglobin 12.8 g/dL (14.1-18.0); Lymphocytes # 0.5 K/mm3 (0.7-4.5); Lymphocytes % 4.1 % (10-50); Mean Corpuscular Hemoglobin 34.1 pg (27.0-31.2); Mean Corpuscular Volume 103.2 fl (80-94); Mean Platelet Volume 9.1 fl (7.4-10.4); Monocytes # 0.3 K/mm3 (0.1-1.0); Monocytes % 2.3 % (1.7-9.3); Neutrophils # 12.2 K/mm3 (1.8-7.8); Neutrophils % 93.5 % (37.0-80.0); Platelet Count 154 K/mm3 (142-424); Red Blood Count 3.74 M/mm3 (4.60-6.20); Red Cell Distribution Width 14.9 % (11.5-17.5); White Blood Count 13.1 K/mm3 (4.8-10.8)
[2023-10-20 06:03] LABS: MANUAL DIFFERENTIAL MANUAL DIFFERENTIAL (MANUAL DIFF)
[2023-10-20 06:09] LABS: Anion Gap 6.5 mEq/L (5-15); Blood Urea Nitrogen 47 mg/dl (9-20); Calcium 7.8 mg/dl (8.4-10.2); Carbon Dioxide 30 mmol/L (22.0-30.0); Chloride 106 mmol/L (98-107); Creatinine Clearance Estimated 50 mL/min (50-200); Estimated Glomerular Filt Rate 64 ml/min (>60); GFR (African American) 77 ML/MIN (>60); Glucose 101 mg/dl (74-100); Potassium 4.5 mmoL/L (3.5-5.1); Sodium 138 mmol/L (136-145)
[2023-10-20] MEDS: LEVOTHYROXINE 150MCG (0.15MG)TAB 150 MCG PO (06:10)
[2023-10-20 06:22] LABS: Lymphocytes % 6 % (10-50); Macrocytosis 1+; Monocytes % 2 % (2-9); Neutrophils % 92 % (42-76); Platelet Estimate Normal; Total Cells Counted 100
[2023-10-20] MEDS: SENNOSIDES 8.6MG/DOCUSATE 50MG TABLET 1 TAB PO (07:54)
[2023-10-20] MEDS: AMIODARONE 200MG TABLET 200 MG PO ×2 (07:54→07:55)
[2023-10-20] MEDS: CLOPIDOGREL 75MG TAB 75 MG PO (07:54)
[2023-10-20] MEDS: ACETAMINOPHEN 325MG TAB 650 MG PO (07:55)
[2023-10-20] MEDS: FLUOXETINE 10MG CAPSULE 10 MG PO (07:56)
[2023-10-20] MEDS: DIGOXIN 0.125MG TABLET 125 MCG PO (07:56)
--- NOTE | 2023-10-20 08:11 | P.PN_ITS ---
Subjective *Date: 10/20/23 *Time: 08:55 Interval history: Patient states he feels terrible this morning. He hurts all over to include his chest and his abdomen. He has a frequent nonproductive loose cough. He did sit out of bed yesterday for 2 hours. He thought he did well. He went remains on high flow oxygen at 50%. Bowels have moved he states 3 times Labs this morning show white blood cell count of 13,100. Electrolytes are all normal. Kidney function is stable. Medical Exam Vital signs and Labs for Last 24 Hours: Vital Signs Temp Pulse Pulse Resp BP Pulse Ox O2 Del Method 10/20/23 08:06 Venturi Mask 10/20/23 07:56 80 10/20/23 06:46 Vapotherm 10/20/23 04:00 98.2 F 72 22 117/62 91 L Vapotherm 10/20/23 00:00 97.8 F 70 22 152/70 H Vapotherm 10/20/23 04:00 80 10/20/23 04:21 68 10/20/23 04:21 68 10/20/23 04:34 Vapotherm 10/20/23 03:00 Vapotherm 10/20/23 01:00 Vapotherm 10/20/23 00:00 70 10/19/23 20:00 98.9 F 70 24 149/81 H 94 L Vapotherm 10/19/23 22:35 Vapotherm 10/19/23 21:00 Vapotherm 10/19/23 20:00 94 L Vapotherm 10/19/23 20:00 80 10/19/23 18:37 Vapotherm 10/19/23 18:36 Vapotherm 10/19/23 16:00 70 10/19/23 16:00 98.0 F 70 28 H 163/79 H 98 Vapotherm 10/19/23 16:51 Vapotherm 10/19/23 12:00 70 10/19/23 14:50 Vapotherm 10/19/23 13:00 Vapotherm 10/19/23 12:00 97.5 F L 70 28 H 161/81 H 93 L Vapotherm 10/19/23 11:02 Vapotherm 10/19/23 09:25 Vapotherm O2 Flow Rate FiO2 10/20/23 08:06 20 10/20/23 07:56 10/20/23 06:46 20 10/20/23 04:00 20 50 10/20/23 00:00 10/20/23 04:00 10/20/23 04:21 10/20/23 04:21 10/20/23 04:34 20 10/20/23 03:00 20 10/20/23 01:00 20 10/20/23 00:00 10/19/23 20:00 20 10/19/23 22:35 20 10/19/23 21:00 20 10/19/23 20:00 20 80 10/19/23 20:00 10/19/23 18:37 20 50 10/19/23 18:36 20 10/19/23 16:00 10/19/23 16:00 20 50 10/19/23 16:51 20 10/19/23 12:00 10/19/23 14:50 20 10/19/23 13:00 10/19/23 12:00 20 50 10/19/23 11:02 20 10/19/23 09:25 20 Intake and Output 10/19/23 10/20/23 10/20/23 19:59 03:59 11:59 Intake Total 940 / 940 120 / 1060 Output Total 375 / 375 350 / 725 Balance 565 / 565 -230 / 335 Intake: Intake, Oral Amount 540 / 540 120 / 660 Intake, Total IV Amount 400 / 400 Cefepime HCl 2 gm In 0.9 % 100 / 100 Sodium Chloride 100 ml @ 200 mls/hr IV 1100,2300 DHAVAL Rx#: [id number] Linezolid 600 mg In 300 ml @ 300 / 300 300 mls/hr IV Q12H [facility] Rx#: [id number] Output: Output, Urine Amount 375 / 375 350 / 725 Other: Number of Unmeasured Voids 0 1 Number of Bowel Movements 1 Weight 155 lb 4 oz Patient Weight 10/20/23 11:59 Weight 155 lb 4 oz Laboratory Results - last 24 hr 10/19/23 06:57: NT-Pro-B Natriuret Pep 377.0 10/20/23 05:42: WBC 13.1 H, RBC 3.74 L, Hgb 12.8 L, Hct 38.6 L, MCV 103.2 H, MCH 34.1 H, MCHC 33.0, RDW 14.9, Plt Count 154, MPV 9.1, Neut % (Auto) 93.5 H, Lymph % (Auto) 4.1 L, [place] % (Auto) 2.3, Eos % (Auto) 0.0 L, Baso % (Auto) 0.1, Neut # (Auto) 12.2 H, Lymph # (Auto) 0.5 L, [place] # (Auto) 0.3, Eos # (Auto) 0.0, Baso # (Auto) 0.0, Total Counted 100, Neutrophils % (Manual) 92 H, Lymphocytes % (Manual) 6 L, Monocytes % (Manual) 2, Platelet Estimate Normal, Macrocytosis 1+, Sodium 138, Potassium 4.5, Chloride 106, Carbon Dioxide 30, Anion Gap 6.5, BUN 47 H, Creatinine 1.10, Estimated Creat Clear 50, Estimated GFR 64, Est GFR ( Amer) 77, Glucose 101 H, Calcium 7.8 L I & O for Labs for Last 24 Hours: Intake & Output 10/17/23 10/18/23 10/19/23 10/20/23 11:59 11:59 11:59 11:59 Intake Total 810 / 810 1355 / 1355 930 / 930 1060 / 1060 Output Total 1250 / 1250 1050 / 1050 500 / 500 725 / 725 Balance -440 / -440 305 / 305 430 / 430 335 / 335 Weight 152 lb 6.4 oz 155 lb 1.6 oz 152 lb 14.4 oz 155 lb 4 oz Constitutional: Present mild distress (Labored respiratory effort with any exertion.) and thin Respiratory: Present rhonchi (Coarse rhonchi anteriorly and sounds clear posteriorly); Absent wheezes Cardiac: Present Regular Rhythm GI: Present soft, tenderness (Diffusely) and normal bowel sounds; Absent distention Neuro: Present alert and awake Assessment and Plan *Assessment and plan (1) Acute on chronic respiratory failure with hypoxemia: Status: Acute Category: Medical Code(s): J96.21 - Acute and chronic respiratory failure with hypoxia (2) H1N1 influenza with pneumonia: Status: Acute Category: Medical Code(s): J10.00 - Influenza due to other identified influenza virus with unspecified type of pneumonia (3) Restrictive lung disease: Status: Chronic Category: Medical Code(s): J98.4 - Other disorders of lung (4) ILD (interstitial lung disease): Status: Chronic Category: Medical Code(s): J84.9 - Interstitial pulmonary disease, unspecified (5) Pulmonary fibrosis: Status: Chronic Category: Medical Code(s): J84.10 - Pulmonary fibrosis, unspecified (6) Sepsis: Status: Acute Qualifiers: Acute respiratory failure type: with hypoxia Sepsis acute organ dysfunction status: with acute organ dysfunction Sepsis type: sepsis due to unspecified organism Severe sepsis acute organ dysfunction type: acute respiratory failure Severe sepsis shock status: with septic shock Qualified Code(s): A41.9 - Sepsis, unspecified organism; R65.21 - Severe sepsis with septic shock; J96.01 - Acute respiratory failure with hypoxia Category: Medical Code(s): A41.9 - Sepsis, unspecified organism (7) Right middle lobe pneumonia: Status: Acute Category: Medical Code(s): J18.9 - Pneumonia, unspecified organism (8) Asthma: Status: Chronic Category: Medical Code(s): J45.909 - Unspecified asthma, uncomplicated (9) On amiodarone therapy: Status: Acute Category: Medical Code(s): Z79.899 - Other middle or intermediate school principal (current) drug therapy (10) Confusion: Status: Acute Category: Medical Code(s): R41.0 - Disorientation, unspecified (11) Hypotension: Status: Acute Category: Medical Code(s): I95.9 - Hypotension, unspecified (12) Dyspnea: Status: Acute Qualifiers: Dyspnea type: shortness of breath Qualified Code(s): R06.02 - Shortness of breath Category: Medical Code(s): R06.00 - Dyspnea, unspecified (13) Dizziness: Status: Acute Category: Medical Code(s): R42 - Dizziness and giddiness Plan Will schedule DuoNebs this a.m. Will give Tylenol for his pain. Will continue with new antibiotics as per Dr. Poon, pulmonology again to follow-up today. Dr. Walsh entry - Patient seems worse today, FiO2 is up to 70%, appreciate pulmonology input.
--- NOTE | 2023-10-20 09:56 | EXP.PULM.PN ---
Subjective *Date: 10/20/23 *Time: 12:27 Interval history: Patient admits worsening respiratory symptoms. Pulmonology Exam Inpatient Vital signs and Labs for Last 24 Hours: Temp Pulse Resp BP Pulse Ox O2 Del Method O2 Flow Rate 97.8 F 72 28 H 112/65 92 L Venturi Mask 20 10/20/23 08:00 10/20/23 08:32 10/20/23 08:00 10/20/23 08:00 10/20/23 08:00 10/20/23 08:06 10/20/23 08:06 FiO2 70 10/20/23 08:00 Laboratory Results - last 24 hr 10/19/23 06:57: NT-Pro-B Natriuret Pep 377.0 10/20/23 05:42: WBC 13.1 H, RBC 3.74 L, Hgb 12.8 L, Hct 38.6 L, MCV 103.2 H, MCH 34.1 H, MCHC 33.0, RDW 14.9, Plt Count 154, MPV 9.1, Neut % (Auto) 93.5 H, Lymph % (Auto) 4.1 L, Duval % (Auto) 2.3, Eos % (Auto) 0.0 L, Baso % (Auto) 0.1, Neut # (Auto) 12.2 H, Lymph # (Auto) 0.5 L, Duval # (Auto) 0.3, Eos # (Auto) 0.0, Baso # (Auto) 0.0, Total Counted 100, Neutrophils % (Manual) 92 H, Lymphocytes % (Manual) 6 L, Monocytes % (Manual) 2, Platelet Estimate Normal, Macrocytosis 1+, Sodium 138, Potassium 4.5, Chloride 106, Carbon Dioxide 30, Anion Gap 6.5, BUN 47 H, Creatinine 1.10, Estimated Creat Clear 50, Estimated GFR 64, Est GFR ( Amer) 77, Glucose 101 H, Calcium 7.8 L I & O for Labs for Last 24 Hours: Intake & Output 10/17/23 10/18/23 10/19/23 10/20/23 23:59 23:59 23:59 23:59 Intake Total 1235 / 1235 1020 / 1020 1330 / 1450 120 / 120 Output Total 800 / 1100 850 / 850 875 / 1225 350 / 350 Balance 435 / 135 170 / 170 455 / 225 -230 / -230 Weight 152 lb 6.4 oz 155 lb 1.6 oz 152 lb 14.4 oz 155 lb 4 oz Microbiology Reports for the Last 24 Hours: Microbiology 10/13/23 17:11 Blood Blood Culture - Preliminary 10/13/23 17:25 Blood Blood Culture - Preliminary Constitutional: Present severe distress Head: Present normocephalic and atraumatic ENT: Present normal exam, normal oropharynx and mucous membranes moist Neck: Present normal inspection and full ROM Respiratory: Present respiratory distress and crackles; Absent wheezes or able to speak in complete sentences Cardiac: Present S1/S2, Tachycardia and radial pulses present GI: Present soft and distention; Absent tenderness or guarding Skin: Present intact; Absent cyanosis or jaundice Neuro: Present alert, awake and oriented x 3 Extremities: Present normal inspection and edema; Absent clubbing or cyanosis Psychiatric: Present normal affect and cooperative Assessment and Plan *Assessment and plan (1) Acute on chronic respiratory failure with hypoxemia: Status: Acute Category: Medical Code(s): J96.21 - Acute and chronic respiratory failure with hypoxia (2) H1N1 influenza with pneumonia: Status: Acute Category: Medical Code(s): J10.00 - Influenza due to other identified influenza virus with unspecified type of pneumonia (3) Restrictive lung disease: Status: Chronic Category: Medical Code(s): J98.4 - Other disorders of lung (4) ILD (interstitial lung disease): Status: Chronic Category: Medical Code(s): J84.9 - Interstitial pulmonary disease, unspecified (5) Pulmonary fibrosis: Status: Chronic Category: Medical Code(s): J84.10 - Pulmonary fibrosis, unspecified (6) Pneumonia: Status: Acute Qualifiers: Pneumonia type: due to unspecified organism Laterality: left Lung location: lower lobe of lung Qualified Code(s): J18.9 - Pneumonia, unspecified organism Category: Medical Code(s): J18.9 - Pneumonia, unspecified organism Plan Mr. Cody is a 83-year-old male with history of COPD pulmonary fibrosis CT ILD presented to the hospital on 10/13/2023 with worsening respiratory distress and was admitted for further evaluation and management. Pulmonary was called today for further evaluation and management VBG on admission also concerning for respiratory acidosis. Patient received 3 days of Vanco and one dose of Unasyn. Received 5-day course of Tamiflu for H1N1 influenza. He continued to receive methylprednisolone 80 mg every 8 hours since admission. Blood cultures no growth so far. No sputum cultures available. Chest x-ray upon admission no dense consolidation with increasing interstitial infiltrates concerning for volume overload/atypical pneumonia. CTA no evidence of pulmonary embolism but stable fibrosis along with bilateral lower lobe airspace disease. Etiology of this patient's current respiratory failure is likely a combination of his chronic ongoing fibrosis superimposed with volume overload and viral infection. Bilateral crackles and 2+ lower extremity edema on examination. Interval update: Worsening respiratory symptoms. Increasing oxygen demands normal at 35 L 100%. Significant desats noted with even minimal exertion. Stable leukocytosis slightly improved. Initiate linezolid and cefepime. BNP WNL Steroids weaned to prednisone 40 mg daily yesterday. Will continue to closely monitor. Plan: -Lasix 40 mg IV once -Continue linezolid and cefepime pending culture results -Continue HFNC to maintain saturation goal of 90 to 95% - currently on 20 L 50%. -Continue prednisone 40 mg daily -DuoNebs every 6 hours scheduled Thank you for involving pulmonary in this patient care. Will continue to follow
--- NOTE | 2023-10-20 10:39 | PC.NURSE ---
Dr. puga pt is having some pain around chest area and the patient wants something other than tylenol.
[2023-10-20] MEDS: TRAMADOL 50MG TABLET 50 MG PO ×2 (10:48→20:16)
[2023-10-20] MEDS: CEFEPIME HCL 2 GM in 0.9 % SODIUM CHLORIDE 100 ML IV ×2 (10:48→22:24)
[2023-10-20] MEDS: IPRATROPIUM/ALBUTEROL 3 ML NEB IH ×3 (11:08→23:28)
--- NOTE | 2023-10-20 11:10 | PC.NURSE ---
RESP CARE NOTE: Dr Poon at bedside, Patient oxygen has been increased to 40L/100% due to activity at bedside. SPO2 remains at 92% on 40L/100%. Dr Poon decreased flow to 35L for patient comfort and pt c/o chest pain and soreness. He also states that SPO2 above 88% is totally acceptable for this patient. We will continue to monitor patient.
[2023-10-20] MEDS: FUROSEMIDE 40MG/4ML VIAL 40 MG IV (13:20)
--- NOTE | 2023-10-20 15:42 | PC.NURSE ---
Addendum entered by Gamal Álvarez RN 10/20/23 16:54: f/c anchored. Original Note: Pt. c/o not being able to urinate after getting his lasix. Bladderscan shows greater than 700. I and O cath with 1,000 out.
--- NOTE | 2023-10-20 16:46 | PC.NURSE ---
urine sent to lab.
[2023-10-20] MEDS: APIXABAN 5MG TABLET 2.5 MG PO (20:17)
[2023-10-20] MEDS: ATORVASTATIN 40MG TABLET 80 MG PO (20:18)
[2023-10-20] MEDS: TAMSULOSIN 0.4MG CAPSULE 0.400000000000000022 MG PO (20:18)
[2023-10-21] VITALS (23 sets, daily range): BP systolic 115–136; BP diastolic 51–65; PULSE 68–93; RESP 16–24; TEMP 36.6–37.3; O2SAT 70–97; BMI 20.9
[2023-10-21] MEDS: LINEZOLID 600 MG/300 ML IV.SOLN 300 MG IV ×2 (04:07→17:58)
[2023-10-21] MEDS: LEVOTHYROXINE 150MCG (0.15MG)TAB 150 MCG PO (06:08)
[2023-10-21] MEDS: IPRATROPIUM/ALBUTEROL 3 ML NEB IH ×4 (06:35→23:04)
--- NOTE | 2023-10-21 08:34 | P.PN_ITS ---
Subjective *Date: 10/21/23 *Time: 09:11 Interval history: Patient states he is feeling about the same today. He denies any pain other than in his heels from lying in the bed. His breathing is about the same. He slept off and on throughout the night but did not feel like eating breakfast this morning Medical Exam Vital signs and Labs for Last 24 Hours: Vital Signs Temp Pulse Pulse Resp BP Pulse Ox O2 Del Method 10/21/23 08:00 98.9 F 70 20 126/57 L 91 L Vapotherm 10/21/23 06:35 68 10/21/23 06:35 70 10/21/23 06:35 94 L Vapotherm 10/21/23 04:00 99.1 F 77 22 131/55 L 94 L Vapotherm 10/21/23 04:00 70 10/21/23 00:00 70 10/21/23 04:59 Vapotherm 10/21/23 03:00 Vapotherm 10/21/23 00:40 Room Air, Venturi Mask 10/21/23 00:00 98.3 F 70 24 128/53 L 95 Vapotherm 10/20/23 23:34 87 10/20/23 23:33 84 10/20/23 23:00 Vapotherm 10/20/23 21:00 Vapotherm 10/20/23 20:00 70 10/20/23 20:00 98 F 70 24 149/66 H 95 Vapotherm 10/20/23 19:26 94 L Vapotherm 10/20/23 16:00 98.2 F 70 17 134/58 L 92 L Vapotherm 10/20/23 12:00 71 22 126/59 L 95 Vapotherm 10/20/23 16:00 70 10/20/23 19:04 Vapotherm 10/20/23 19:03 87 10/20/23 18:56 82 10/20/23 17:43 Vapotherm 10/20/23 16:05 Vapotherm 10/20/23 12:00 70 10/20/23 13:50 Vapotherm 10/20/23 12:22 Vapotherm 10/20/23 11:08 83 10/20/23 11:08 89 10/20/23 11:08 89 L Vapotherm 10/20/23 10:06 Vapotherm O2 Flow Rate FiO2 10/21/23 08:00 10/21/23 06:35 10/21/23 06:35 10/21/23 06:35 30 60 10/21/23 04:00 10/21/23 04:00 10/21/23 00:00 10/21/23 04:59 30 10/21/23 03:00 30 10/21/23 00:40 10/21/23 00:00 10/20/23 23:34 10/20/23 23:33 10/20/23 23:00 30 10/20/23 21:00 30 10/20/23 20:00 10/20/23 20:00 10/20/23 19:26 30 60 10/20/23 16:00 30 60 10/20/23 12:00 30 60 10/20/23 16:00 10/20/23 19:04 35 100 10/20/23 19:03 10/20/23 18:56 10/20/23 17:43 30 10/20/23 16:05 30 10/20/23 12:00 10/20/23 13:50 35 10/20/23 12:22 35 10/20/23 11:08 10/20/23 11:08 10/20/23 11:08 35 100 10/20/23 10:06 20 Intake and Output 10/20/23 10/21/23 10/21/23 19:59 03:59 11:59 Intake Total 570 / 930 120 / 930 240 / 930 Output Total 1299 / 1999 700 / 1999 Balance -730 / -1070 -580 / -1070 240 / -1070 Intake: Intake, Oral Amount 170 / 530 120 / 530 240 / 530 Intake, Total IV Amount 400 / 400 Cefepime HCl 2 gm In 0.9 % 100 / 100 Sodium Chloride 100 ml @ 200 mls/hr IV 1100,2300 [facility] Rx#: [id number] Linezolid 600 mg In 300 ml @ 300 / 300 300 mls/hr IV Q12H [facility] Rx#: [id number] Output: Output, Urine Amount 1300 / 1999 700 / 1999 Other: Weight 149 lb 8 oz Patient Weight 10/21/23 11:59 Weight 149 lb 8 oz I & O for Labs for Last 24 Hours: Intake & Output 01/21/10/19/23 10/20/23 10/21/23 11:59 11:59 11:59 11:59 Intake Total 1355 / 1355 930 / 930 1060 / 1060 930 / 930 Output Total 1050 / 1050 500 / 500 900 / 900 1999 / 1999 Balance 305 / 305 430 / 430 160 / 160 -1070 / -1070 Weight 155 lb 1.6 oz 152 lb 14.4 oz 155 lb 4 oz 149 lb 8 oz Microbiology Reports for the Last 24 Hours: Microbiology 10/13/23 17:11 Blood Blood Culture - Final 10/13/23 17:25 Blood Blood Culture - Final Constitutional: Present mild distress (Labored respiratory effort with any exertion.) and thin Respiratory: Present rhonchi (Coarse rhonchi anteriorly and sounds clear posteriorly); Absent wheezes Cardiac: Present Regular Rhythm GI: Present soft and normal bowel sounds; Absent distention or tenderness Extremities: Absent edema Skin: Present intact Neuro: Present alert and awake Assessment and Plan *Assessment and plan (1) Acute on chronic respiratory failure with hypoxemia: Status: Acute Category: Medical Code(s): J96.21 - Acute and chronic respiratory failure with hypoxia (2) H1N1 influenza with pneumonia: Status: Acute Category: Medical Code(s): J10.00 - Influenza due to other identified influenza virus with unspecified type of pneumonia (3) Restrictive lung disease: Status: Chronic Category: Medical Code(s): J98.4 - Other disorders of lung (4) ILD (interstitial lung disease): Status: Chronic Category: Medical Code(s): J84.9 - Interstitial pulmonary disease, unspecified (5) Pulmonary fibrosis: Status: Chronic Category: Medical Code(s): J84.10 - Pulmonary fibrosis, unspecified (6) Sepsis: Status: Acute Qualifiers: Acute respiratory failure type: with hypoxia Sepsis acute organ dy sfunction status: with acute organ dysfunction Sepsis type: sepsis due to unspecified organism Severe sepsis acute organ dysfunction type: acute respiratory failure Severe sepsis shock status: with septic shock Qualified Code(s): A41.9 - Sepsis, unspecified organism; R65.21 - Severe sepsis with septic shock; J96.01 - Acute respiratory failure with hypoxia Category: Medical Code(s): A41.9 - Sepsis, unspecified organism (7) Right middle lobe pneumonia: Status: Acute Category: Medical Code(s): J18.9 - Pneumonia, unspecified organism (8) Asthma: Status: Chronic Category: Medical Code(s): J45.909 - Unspecified asthma, uncomplicated (9) On amiodarone therapy: Status: Acute Category: Medical Code(s): Z79.899 - Other terminal computer operator (current) drug therapy (10) Confusion: Status: Acute Category: Medical Code(s): R41.0 - Disorientation, unspecified (11) Hypotension: Status: Acute Category: Medical Code(s): I95.9 - Hypotension, unspecified (12) Dyspnea: Status: Acute Qualifiers: Dyspnea type: shortness of breath Qualified Code(s): R06.02 - Shortness of breath Category: Medical Code(s): R06.00 - Dyspnea, unspecified (13) Dizziness: Status: Acute Category: Medical Code(s): R42 - Dizziness and giddiness Plan Pulmonology to continue to follow. He gave a one-time dose of Lasix yesterday and wanted to continue linezolid and cefepime pending culture results. He also wanted DuoNeb scheduled and prednisone continued. Dr. Walsh entry - Saw patient, agree with above note.
[2023-10-21] MEDS: APIXABAN 5MG TABLET 2.5 MG PO ×2 (09:11→21:45)
[2023-10-21] MEDS: AMIODARONE 200MG TABLET 200 MG PO (09:11)
[2023-10-21] MEDS: SENNOSIDES 8.6MG/DOCUSATE 50MG TABLET 1 TAB PO (09:12)
[2023-10-21] MEDS: FLUOXETINE 10MG CAPSULE 10 MG PO (09:12)
[2023-10-21] MEDS: CLOPIDOGREL 75MG TAB 75 MG PO (09:12)
[2023-10-21] MEDS: DIGOXIN 0.125MG TABLET 125 MCG PO (09:12)
--- NOTE | 2023-10-21 09:42 | P.PN_ITS ---
Subjective *Date: 10/21/23 *Time: 12:50 Interval history: No acute respiratory vents overnight. Patient admits improvement in her respiratory symptoms. Admits good night sleep. Pulmonology Exam Inpatient Vital signs and Labs for Last 24 Hours: Temp Pulse Resp BP Pulse Ox O2 Del Method O2 Flow Rate 98.9 F 93 H 20 126/57 L 91 L Vapotherm 30 10/21/23 08:00 10/21/23 09:12 10/21/23 08:00 10/21/23 08:00 10/21/23 08:00 10/21/23 08:00 10/21/23 06:35 FiO2 60 10/21/23 06:35 I & O for Labs for Last 24 Hours: Intake & Output 10/18/23 10/19/23 10/20/23 10/21/23 23:59 23:59 23:59 23:59 Intake Total 1020 / 1020 1330 / 1450 690 / 810 360 / 360 Output Total 850 / 850 875 / 1225 2525 / 2525 Balance 170 / 170 455 / 225 -1835 / -1715 360 / 360 Weight 155 lb 1.6 oz 152 lb 14.4 oz 155 lb 4 oz 149 lb 8 oz Microbiology Reports for the Last 24 Hours: Microbiology 10/13/23 17:11 Blood Blood Culture - Final 10/13/23 17:25 Blood Blood Culture - Final Constitutional: Present severe distress Head: Present normocephalic and atraumatic ENT: Present normal exam, normal oropharynx and mucous membranes moist Neck: Present normal inspection and full ROM Respiratory: Present respiratory distress and crackles; Absent wheezes or able to speak in complete sentences Cardiac: Present S1/S2, Tachycardia and radial pulses present GI: Present soft and distention; Absent tenderness or guarding Skin: Present intact; Absent cyanosis or jaundice Neuro: Present alert, awake and oriented x 3 Extremities: Present normal inspection and edema; Absent clubbing or cyanosis Psychiatric: Present normal affect and cooperative Assessment and Plan *Assessment and plan (1) Acute on chronic respiratory failure with hypoxemia: Status: Acute Category: Medical Code(s): J96.21 - Acute and chronic respiratory failure with hypoxia (2) H1N1 influenza with pneumonia: Status: Acute Category: Medical Code(s): J10.00 - Influenza due to other identified influenza virus with unspecified type of pneumonia (3) Restrictive lung disease: Status: Chronic Category: Medical Code(s): J98.4 - Other disorders of lung (4) ILD (interstitial lung disease): Status: Chronic Category: Medical Code(s): J84.9 - Interstitial pulmonary disease, unspecified (5) Pulmonary fibrosis: Status: Chronic Category: Medical Code(s): J84.10 - Pulmonary fibrosis, unspecified (6) Pneumonia: Status: Acute Qualifiers: Laterality: left Lung location: lower lobe of lung Pneumonia type: due to unspecified organism Qualified Code(s): J18.9 - Pneumonia, unspecified organism Category: Medical Code(s): J18.9 - Pneumonia, unspecified organism Plan Mr. Cody is a 83-year-old male with history of COPD pulmonary fibrosis CT ILD presented to the hospital on 10/13/2023 with worsening respiratory distress and was admitted for further evaluation and management. Pulmonary was called today for further evaluation and management VBG on admission also concerning for respiratory acidosis. Patient received 3 days of Vanco and one dose of Unasyn. Received 5-day course of Tamiflu for H1N1 influenza. He continued to receive methylprednisolone 80 mg every 8 hours since admission. Blood cultures no growth so far. No sputum cultures available. Chest x-ray upon admission no dense consolidation with increasing interstitial infiltrates concerning for volume overload/atypical pneumonia. CTA no evidence of pulmonary embolism but stable fibrosis along with bilateral lower lobe airspace disease. Etiology of this patient's current respiratory failure is likely a combination of his chronic ongoing fibrosis superimposed with volume overload and viral infection. Bilateral crackles and 2+ lower extremity edema on examination. Interval update: Patient admits improved to clinical patient does not appear to be having any improved distress than yesterday. Improving ox requirements currently on 30 L 60%. Received 40 of Lasix yesterday with adequate urine output. Plan: -Follow with sputum cultures, not yet collected -Continue HFNC to maintain saturation goal of 90 to 95% - currently on 30 L 60%. -Recommend transfer to ICU level of status given continued need for high flow na cocnha cannula with no significant improvement -Continue linezolid and cefepime pending sputum culture results and nasal MRSA PCR. Blood cultures negative on this admission -Continue prednisone 40 mg daily -DuoNebs every 6 hours scheduled Thank you for involving pulmonary in this patient care. Will continue to follow
[2023-10-21] MEDS: CEFEPIME HCL 2 GM in 0.9 % SODIUM CHLORIDE 100 ML IV ×2 (11:09→23:50)
[2023-10-21] MEDS: TRAMADOL 50MG TABLET 50 MG PO (15:40)
[2023-10-21] MEDS: TAMSULOSIN 0.4MG CAPSULE 0.400000000000000022 MG PO (21:45)
[2023-10-21] MEDS: ATORVASTATIN 40MG TABLET 80 MG PO (21:45)
[2023-10-22] VITALS (17 sets, daily range): BP systolic 84–131; BP diastolic 42–63; PULSE 69–93; RESP 18–24; TEMP 36.3–37.1; O2SAT 86–99; BMI 21.3
[2023-10-22] MEDS: IPRATROPIUM/ALBUTEROL 3 ML NEB IH ×3 (05:07→23:32)
[2023-10-22] MEDS: LINEZOLID 600 MG/300 ML IV.SOLN 300 MG IV (05:40)
[2023-10-22] MEDS: LEVOTHYROXINE 150MCG (0.15MG)TAB 150 MCG PO (06:51)
[2023-10-22 07:33] LABS: Anion Gap 5.1 mEq/L (5-15); Blood Urea Nitrogen 38 mg/dl (9-20); Calcium 7.6 mg/dl (8.4-10.2); Carbon Dioxide 33 mmol/L (22.0-30.0); Chloride 102 mmol/L (98-107); Creatinine Clearance Estimated 42 mL/min (50-200); Estimated Glomerular Filt Rate 53 ml/min (>60); GFR (African American) 64 ML/MIN (>60); Glucose 77 mg/dl (74-100); Potassium 4.1 mmoL/L (3.5-5.1); Sodium 136 mmol/L (136-145)
[2023-10-22 07:41] LABS: Eosinophils # 0.1 K/mm3 (0.0-0.4); Hematocrit 35.3 % (42.0-52.0); Hemoglobin 11.8 g/dL (14.1-18.0); Lymphocytes # 0.6 K/mm3 (0.7-4.5); Mean Corpuscular HGB Conc 33.3 g/dL (31.8-35.4); Mean Corpuscular Hemoglobin 34.1 pg (27.0-31.2); Mean Corpuscular Volume 102.3 fl (80-94); Mean Platelet Volume 9.6 fl (7.4-10.4); Monocytes # 0.3 K/mm3 (0.1-1.0); Monocytes % 2.4 % (1.7-9.3); Neutrophils # 11.5 K/mm3 (1.8-7.8); Neutrophils % 91.5 % (37.0-80.0); Platelet Count 130 K/mm3 (142-424); Red Blood Count 3.45 M/mm3 (4.60-6.20); Red Cell Distribution Width 14.5 % (11.5-17.5); White Blood Count 12.6 K/mm3 (4.8-10.8)
[2023-10-22 07:42] LABS: MANUAL DIFFERENTIAL MANUAL DIFFERENTIAL (MANUAL DIFF)
--- NOTE | 2023-10-22 07:50 | P.PN_ITS ---
Subjective *Date: 10/22/23 *Time: 07:50 Medical Exam Vital signs and Labs for Last 24 Hours: Vital Signs Temp Pulse Pulse Resp BP BP Pulse Ox 10/22/23 06:44 10/22/23 04:00 70 10/22/23 06:00 70 22 84/42 L 94 L 10/22/23 05:00 10/22/23 05:07 75 10/22/23 05:07 70 10/22/23 05:07 86 L 10/22/23 04:00 97.3 F L 24 98/48 L 93 L 10/22/23 03:00 10/22/23 02:00 70 20 131/61 93 L 10/22/23 01:00 10/22/23 00:00 70 10/22/23 00:00 98.1 F 75 20 131/63 93 L 10/21/23 20:00 70 10/21/23 23:00 10/21/23 23:04 84 10/21/23 23:04 84 10/21/23 22:00 98.3 F 69 16 134/65 96 10/21/23 21:00 10/21/23 20:00 95 10/21/23 20:00 70 20 129/57 L 95 10/21/23 18:55 10/21/23 18:40 70 10/21/23 18:40 70 10/21/23 18:40 94 L 10/21/23 18:00 70 20 132/58 L 93 L 10/21/23 17:00 70 20 129/57 L 96 10/21/23 16:00 70 20 131/56 L 95 10/21/23 15:00 90 20 130/60 95 10/21/23 14:00 70 18 117/51 L 91 L 10/21/23 13:00 70 20 115/52 L 92 L 10/21/23 12:00 70 18 123/57 L 91 L 10/21/23 11:00 70 18 136/62 90 L 10/21/23 10:38 70 20 136/57 L 90 L 10/21/23 17:04 10/21/23 16:00 70 10/21/23 15:53 70 97 10/21/23 12:30 70 70 L 10/21/23 15:20 98.3 F 10/21/23 12:00 70 10/21/23 15:00 10/21/23 13:00 10/21/23 11:32 88 10/21/23 11:32 80 10/21/23 11:00 10/21/23 09:00 10/21/23 08:00 24 92 L 10/21/23 11:17 97.8 F 70 21 136/62 95 10/21/23 09:12 93 H 10/21/23 08:00 70 10/21/23 08:00 98.9 F 70 20 126/57 L 91 L O2 Del Method O2 Flow Rate FiO2 10/22/23 06:44 Vapotherm 30 10/22/23 04:00 10/22/23 06:00 Vapotherm 30 65 10/22/23 05:00 Vapotherm 30 10/22/23 05:07 10/22/23 05:07 10/22/23 05:07 Vapotherm 30 60 10/22/23 04:00 Vapotherm 10/22/23 03:00 Vapotherm 30 10/22/23 02:00 Vapotherm 30 60 10/22/23 01:00 Room Air 10/22/23 00:00 10/22/23 00:00 Vapotherm 30 60 10/21/23 20:00 10/21/23 23:00 Vapotherm 30 10/21/23 23:04 10/21/23 23:04 10/21/23 22:00 Vapotherm 30 60 10/21/23 21:00 Room Air, Vapotherm 30 10/21/23 20:00 Vapotherm 30 60 10/21/23 20:00 Vapotherm 30 60 10/21/23 18:55 Vapotherm 30 10/21/23 18:40 10/21/23 18:40 10/21/23 18:40 Vapotherm 30 60 10/21/23 18:00 Vapotherm 30 60 10/21/23 17:00 Vapotherm 30 60 10/21/23 16:00 Vapotherm 30 60 10/21/23 15:00 Vapotherm 30 60 10/21/23 14:00 Vapotherm 30 60 10/21/23 13:00 Vapotherm 30 60 10/21/23 12:00 Vapotherm 30 60 10/21/23 11:00 Mechanical Ventilation 30 60 10/21/23 10:38 Vapotherm 30 60 10/21/23 17:04 Vapotherm 30 10/21/23 16:00 10/21/23 15:53 Vapotherm 30 60 10/21/23 12:30 Vapotherm 30 60 10/21/23 15:20 10/21/23 12:00 10/21/23 15:00 Vapotherm 30 10/21/23 13:00 Vapotherm 30 10/21/23 11:32 10/21/23 11:32 10/21/23 11:00 Vapotherm 30 10/21/23 09:00 Vapotherm 30 10/21/23 08:00 Vapotherm 30 60 10/21/23 11:17 Vapotherm 10/21/23 09:12 10/21/23 08:00 10/21/23 08:00 Vapotherm Intake and Output 10/21/23 10/21/23 10/22/23 15:59 23:59 07:59 Intake Total 480 / 1105 405 / 1105 500 / 500 Output Total 0 / 700 700 / 700 325 / 325 Balance 480 / 405 -295 / 405 175 / 175 Intake: Intake, Oral Amount 480 / 720 120 / 720 Intake, Total IV Amount 285 / 385 500 / 500 Cefepime HCl 2 gm In 0.9 % 200 / 200 Sodium Chloride 100 ml @ 200 mls/hr IV 1100,2300 [facility] Rx#: [id number] Linezolid 600 mg In 300 ml @ 285 / 285 300 / 300 300 mls/hr IV Q12H [facility] Rx#: [id number] Output: Output, Urine Amount 0 / 700 700 / 700 Output, Urine Amount (Catheter) 325 / 325 Godfrey 325 / 325 Other: Number of Unmeasured Voids 0 0 Weight 69.037 kg Patient Weight 10/22/23 23:59 Weight 69.037 kg Laboratory Results - last 24 hr 10/22/23 06:59: WBC 12.6 H, RBC 3.45 L, Hgb 11.8 L, Hct 35.3 L, MCV 102.3 H, MCH 34.1 H, MCHC 33.3, RDW 14.5, Plt Count 130 L, MPV 9.6, Neut % (Auto) 91.5 H, Lymph % (Auto) 5.0 L, Reeves % (Auto) 2.4, Eos % (Auto) 1.0, Baso % (Auto) 0.0 L, Neut # (Auto) 11.5 H, Lymph # (Auto) 0.6 L, Reeves # (Auto) 0.3, Eos # (Auto) 0.1, Baso # (Auto) 0.0, Sodium 136, Potassium 4.1, Chloride 102, Carbon Dioxide 33 H, Anion Gap 5.1, BUN 38 H, Creatinine 1.30 H, Estimated Creat Clear 42, Estimated GFR 53 L, Est GFR ( Amer) 64, Glucose 77, Calcium 7.6 L I & O for Labs for Last 24 Hours: Intake & Output 10/19/23 10/20/23 10/21/23 10/22/23 23:59 23:59 23:59 23:59 Intake Total 1330 / 1450 690 / 810 1005 / 1105 500 / 500 Output Total 875 / 1225 2525 / 2525 700 / 700 325 / 325 Balance 455 / 225 -1835 / -1715 305 / 405 175 / 175 Weight 69.354 kg 70.42 kg 67.812 kg 69.037 kg Microbiology Reports for the Last 24 Hours: Microbiology 10/19/23 16:40 Nose - Nasal MRSA Culture - Final The patient's infection will respond to the chosen ABx?: Yes Is the patient receiving the right drug, dose, and route?: Yes Could a more targeted ABx be ordered?: No (Resp. symptoms improving, bld cx x2 neg, nasal MRSA neg, MD continuing abx.)
--- NOTE | 2023-10-22 09:03 | EXP.ACUTE.PN ---
Subjective *Date: 10/22/23 *Time: 09:07 Interval history: Patient states he feels about the same this morning. He denies any pain and states he was able to eat a small amount. Medical Exam Vital signs and Labs for Last 24 Hours: Vital Signs Temp Pulse Pulse Resp BP BP Pulse Ox 10/22/23 08:00 98.2 F 10/22/23 08:00 70 22 104/57 L 95 10/22/23 06:44 10/22/23 04:00 70 10/22/23 06:00 70 22 84/42 L 94 L 10/22/23 05:00 10/22/23 05:07 75 10/22/23 05:07 70 10/22/23 05:07 86 L 10/22/23 04:00 97.3 F L 72 24 98/48 L 93 L 10/22/23 03:00 10/22/23 02:00 70 20 131/61 93 L 10/22/23 01:00 10/22/23 00:00 70 10/22/23 00:00 98.1 F 75 20 131/63 93 L 10/21/23 20:00 70 10/21/23 23:00 10/21/23 23:04 84 10/21/23 23:04 84 10/21/23 22:00 98.3 F 69 16 134/65 96 10/21/23 21:00 10/21/23 20:00 95 10/21/23 20:00 70 20 129/57 L 95 10/21/23 18:55 10/21/23 18:40 70 10/21/23 18:40 70 10/21/23 18:40 94 L 10/21/23 18:00 70 20 132/58 L 93 L 10/21/23 17:00 70 20 129/57 L 96 10/21/23 16:00 70 20 131/56 L 95 10/21/23 15:00 90 20 130/60 95 10/21/23 14:00 70 18 117/51 L 91 L 10/21/23 13:00 70 20 115/52 L 92 L 10/21/23 12:00 70 18 123/57 L 91 L 10/21/23 11:00 70 18 136/62 90 L 10/21/23 10:38 70 20 136/57 L 90 L 10/21/23 17:04 10/21/23 16:00 70 10/21/23 15:53 70 97 10/21/23 12:30 70 70 L 10/21/23 15:20 98.3 F 10/21/23 12:00 70 10/21/23 15:00 10/21/23 13:00 10/21/23 11:32 88 10/21/23 11:32 80 10/21/23 11:00 10/21/23 11:17 97.8 F 70 21 136/62 95 10/21/23 09:12 93 H O2 Del Method O2 Flow Rate FiO2 10/22/23 08:00 10/22/23 08:00 Vapotherm 30 65 10/22/23 06:44 Vapotherm 30 10/22/23 04:00 10/22/23 06:00 Vapotherm 30 65 10/22/23 05:00 Vapotherm 30 10/22/23 05:07 10/22/23 05:07 10/22/23 05:07 Vapotherm 30 60 10/22/23 04:00 Vapotherm 10/22/23 03:00 Vapotherm 30 10/22/23 02:00 Vapotherm 30 60 10/22/23 01:00 Room Air 10/22/23 00:00 10/22/23 00:00 Vapotherm 30 60 10/21/23 20:00 10/21/23 23:00 Vapotherm 30 10/21/23 23:04 10/21/23 23:04 10/21/23 22:00 Vapotherm 30 60 10/21/23 21:00 Room Air, Vapotherm 30 10/21/23 20:00 Vapotherm 30 60 10/21/23 20:00 Vapotherm 30 60 10/21/23 18:55 Vapotherm 30 10/21/23 18:40 10/21/23 18:40 10/21/23 18:40 Vapotherm 30 60 10/21/23 18:00 Vapotherm 30 60 10/21/23 17:00 Vapotherm 30 60 10/21/23 16:00 Vapotherm 30 60 10/21/23 15:00 Vapotherm 30 60 10/21/23 14:00 Vapotherm 30 60 10/21/23 13:00 Vapotherm 30 60 10/21/23 12:00 Vapotherm 30 60 10/21/23 11:00 Mechanical Ventilation 30 60 10/21/23 10:38 Vapotherm 30 60 10/21/23 17:04 Vapotherm 30 10/21/23 16:00 10/21/23 15:53 Vapotherm 30 60 10/21/23 12:30 Vapotherm 30 60 10/21/23 15:20 10/21/23 12:00 10/21/23 15:00 Vapotherm 30 10/21/23 13:00 Vapotherm 30 10/21/23 11:32 10/21/23 11:32 10/21/23 11:00 Vapotherm 30 10/21/23 11:17 Vapotherm 10/21/23 09:12 Intake and Output 10/21/23 10/22/23 10/22/23 19:59 03:59 11:59 Intake Total 360 / 1355 385 / 1355 610 / 1355 Output Total 700 / 1025 325 / 1025 Balance -340 / 330 385 / 330 285 / 330 Intake: Intake, Oral Amount 360 / 570 210 / 570 Intake, Total IV Amount 385 / 785 400 / 785 Cefepime HCl 2 gm In 0.9 % 100 / 200 100 / 200 Sodium Chloride 100 ml @ 200 mls/hr IV 1100,2300 [facility] Rx#: [id number] Linezolid 600 mg In 300 ml @ 285 / 585 300 / 585 300 mls/hr IV Q12H [facility] Rx#: [id number] Output: Output, Urine Amount 700 / 700 Output, Urine Amount (Catheter) 325 / 325 Godfrey 325 / 325 Other: Number of Unmeasured Voids 0 Weight 152 lb 3.2 oz Patient Weight 10/22/23 11:59 Weight 152 lb 3.2 oz Laboratory Results - last 24 hr 10/22/23 06:59: WBC 12.6 H, RBC 3.45 L, Hgb 11.8 L, Hct 35.3 L, MCV 102.3 H, MCH 34.1 H, MCHC 33.3, RDW 14.5, Plt Count 130 L, MPV 9.6, Neut % (Auto) 91.5 H, Lymph % (Auto) 5.0 L, [place] % (Auto) 2.4, Eos % (Auto) 1.0, Baso % (Auto) 0.0 L, Neut # (Auto) 11.5 H, Lymph # (Auto) 0.6 L, [place] # (Auto) 0.3, Eos # (Auto) 0.1, Baso # (Auto) 0.0, Sodium 136, Potassium 4.1, Chloride 102, Carbon Dioxide 33 H, Anion Gap 5.1, BUN 38 H, Creatinine 1.30 H, Estimated Creat Clear 42, Estimated GFR 53 L, Est GFR ( Amer) 64, Glucose 77, Calcium 7.6 L I & O for Labs for Last 24 Hours: Intake & Output 10/19/23 10/20/23 10/21/23 10/22/23 11:59 11:59 11:59 11:59 Intake Total 930 / 930 1060 / 1060 930 / 930 1355 / 1355 Output Total 500 / 500 900 / 900 2000 / 2000 1025 / 1025 Balance 430 / 430 160 / 160 -1070 / -1070 330 / 330 Weight 152 lb 14.4 oz 155 lb 4 oz 149 lb 8 oz 152 lb 3.2 oz Microbiology Reports for the Last 24 Hours: Microbiology 10/19/23 16:40 Nose - Nasal MRSA Culture - Final Constitutional: Present mild distress (Labored respiratory effort with any exertion.) and thin Respiratory: Present rales (fibrotic rales in both bases) and rhonchi (Coarse rhonchi anteriorly and sounds clear posteriorly); Absent wheezes Cardiac: Present Regular Rhythm GI: Present soft and normal bowel sounds; Absent distention or tenderness Extremities: Absent edema Skin: Present intact Neuro: Present alert and awake Assessment and Plan *Assessment and plan (1) Acute on chronic respiratory failure with hypoxemia: Status: Acute Category: Medical Code(s): J96.21 - Acute and chronic respiratory failure with hypoxia (2) H1N1 influenza with pneumonia: Status: Acute Category: Medical Code(s): J10.00 - Influenza due to other identified influenza virus with unspecified type of pneumonia (3) Restrictive lung disease: Status: Chronic Category: Medical Code(s): J98.4 - Other disorders of lung (4) ILD (interstitial lung disease): Status: Chronic Category: Medical Code(s): J84.9 - Interstitial pulmonary disease, unspecified (5) Pulmonary fibrosis: Status: Chronic Category: Medical Code(s): J84.10 - Pulmonary fibrosis, unspecified (6) Sepsis: Status: Acute Qualifiers: Acute respiratory failure type: with hypoxia Sepsis acute organ dysfunction status: with acute organ dysfunction Sepsis type: sepsis due to unspecified organism Severe sepsis acute organ dysfunction type: acute respiratory failure Severe sepsis shock status: with septic shock Qualified Code(s): A41.9 - Sepsis, unspecified organism; R65.21 - Severe sepsis with septic shock; J96.01 - Acute respiratory failure with hypoxia Category: Medical Code(s): A41.9 - Sepsis, unspecified organism (7) Right middle lobe pneumonia: Status: Acute Category: Medical Code(s): J18.9 - Pneumonia, unspecified organism (8) Asthma: Status: Chronic Category: Medical Code(s): J45.909 - Unspecified asthma, uncomplicated (9) On amiodarone therapy: Status: Acute Category: Medical Code(s): Z79.899 - Other chcf (current) drug therapy (10) Confusion: Status: Acute Category: Medical Code(s): R41.0 - Disorientation, unspecified (11) Hypotension: Status: Acute Category: Medical Code(s): I95.9 - Hypotension, unspecified (12) Dyspnea: Status: Acute Qualifiers: Dyspnea type: shortness of breath Qualified Code(s): R06.02 - Shortness of breath Category: Medical Code(s): R06.00 - Dyspnea, unspecified (13) Dizziness: Status: Acute Category: Medical Code(s): R42 - Dizziness and giddiness Plan Pulmonology saw the patient and wanted to continue with Vapotherm as well as his antibiotics. He also wanted to continue prednisone and DuoNebs. Will discuss further care with Dr. Walsh. Dr. Walsh entry - Saw patient, agree with above note.
[2023-10-22 09:17] LABS: Lymphocytes % 5 % (10-50); Monocytes % 1 % (2-9); Neutrophils % 94 % (42-76); Total Cells Counted 100
[2023-10-22 09:18] LABS: Macrocytosis 1+; Platelet Estimate Normal
[2023-10-22] MEDS: DIGOXIN 0.125MG TABLET 125 MCG PO (09:25)
[2023-10-22] MEDS: APIXABAN 5MG TABLET 2.5 MG PO ×2 (09:25→21:41)
[2023-10-22] MEDS: CLOPIDOGREL 75MG TAB 75 MG PO (09:25)
[2023-10-22] MEDS: FLUOXETINE 10MG CAPSULE 10 MG PO (09:25)
[2023-10-22] MEDS: AMIODARONE 200MG TABLET 200 MG PO (09:25)
[2023-10-22] MEDS: SENNOSIDES 8.6MG/DOCUSATE 50MG TABLET 1 TAB PO (09:26)
--- NOTE | 2023-10-22 09:54 | P.PN_ITS ---
Subjective *Date: 10/22/23 *Time: 14:41 Interval history: No acute respiratory vents overnight. No significant improvement in respiratory distress. Pulmonology Exam Inpatient Vital signs and Labs for Last 24 Hours: Temp Pulse Resp BP Pulse Ox O2 Del Method O2 Flow Rate 98.2 F 92 H 22 104/57 L 95 Vapotherm 30 10/22/23 08:00 10/22/23 09:25 10/22/23 08:00 10/22/23 08:00 10/22/23 08:00 10/22/23 08:00 10/22/23 08:00 FiO2 65 10/22/23 08:00 Laboratory Results - last 24 hr 10/22/23 06:59: WBC 12.6 H, RBC 3.45 L, Hgb 11.8 L, Hct 35.3 L, MCV 102.3 H, MCH 34.1 H, MCHC 33.3, RDW 14.5, Plt Count 130 L, MPV 9.6, Neut % (Auto) 91.5 H, Lymph % (Auto) 5.0 L, [place] % (Auto) 2.4, Eos % (Auto) 1.0, Baso % (Auto) 0.0 L, Neut # (Auto) 11.5 H, Lymph # (Auto) 0.6 L, [place] # (Auto) 0.3, Eos # (Auto) 0.1, Baso # (Auto) 0.0, Total Counted 100, Neutrophils % (Manual) 94 H, Lymphocytes % (Manual) 5 L, Monocytes % (Manual) 1 L, Platelet Estimate Normal, Macrocytosis 1+, Sodium 136, Potassium 4.1, Chloride 102, Carbon Dioxide 33 H, Anion Gap 5.1, BUN 38 H, Creatinine 1.30 H, Estimated Creat Clear 42, Estimated GFR 53 L, Est GFR ( Amer) 64, Glucose 77, Calcium 7.6 L I & O for Labs for Last 24 Hours: Intake & Output 10/19/23 10/20/23 10/21/23 10/22/23 23:59 23:59 23:59 23:59 Intake Total 1330 / 1450 690 / 810 1005 / 1105 710 / 710 Output Total 875 / 1225 2525 / 2525 700 / 700 325 / 325 Balance 455 / 225 -1835 / -1715 305 / 405 385 / 385 Weight 152 lb 14.4 oz 155 lb 4 oz 149 lb 8 oz 152 lb 3.2 oz Microbiology Reports for the Last 24 Hours: Microbiology 10/19/23 16:40 Nose - Nasal MRSA Culture - Final Constitutional: Present severe distress Head: Present normocephalic and atraumatic ENT: Present normal exam, normal oropharynx and mucous membranes moist Neck: Present normal inspection and full ROM Respiratory: Present rales and respiratory distress; Absent wheezes or able to speak in complete sentences Cardiac: Present S1/S2, Tachycardia and radial pulses present GI: Present soft and distention; Absent tenderness or guarding Skin: Present intact; Absent cyanosis or jaundice Neuro: Present alert, awake and oriented x 3 Extremities: Present normal inspection and edema; Absent clubbing or cyanosis Psychiatric: Present normal affect and cooperative Assessment and Plan *Assessment and plan (1) Acute on chronic respiratory failure with hypoxemia: Status: Acute Category: Medical Code(s): J96.21 - Acute and chronic respiratory failure with hypoxia (2) H1N1 influenza with pneumonia: Status: Acute Category: Medical Code(s): J10.00 - Influenza due to other identified influenza virus with unspecified type of pneumonia (3) Restrictive lung disease: Status: Chronic Category: Medical Code(s): J98.4 - Other disorders of lung (4) ILD (interstitial lung disease): Status: Chronic Category: Medical Code(s): J84.9 - Interstitial pulmonary disease, unspecified (5) Pulmonary fibrosis: Status: Chronic Category: Medical Code(s): J84.10 - Pulmonary fibrosis, unspecified (6) Pneumonia: Status: Acute Qualifiers: Laterality: left Lung location: lower lobe of lung Pneumonia type: due to unspecified organism Qualified Code(s): J18.9 - Pneumonia, unspecified organism Category: Medical Code(s): J18.9 - Pneumonia, unspecified organism Plan Mr. Cody is a 83-year-old male with history of COPD pulmonary fibrosis CT ILD presented to the hospital on 10/13/2023 with worsening respiratory distress and was admitted for further evaluation and management. Pulmonary was called today for further evaluation and management VBG on admission also concerning for respiratory acidosis. Patient received 3 days of Vanco and one dose of Unasyn. Received 5-day course of Tamiflu for H1N1 influenza. He continued to receive methylprednisolone 80 mg every 8 hours since admission. Blood cultures no growth so far. No sputum cultures available. Chest x-ray upon admission no dense consolidation with increasing interstitial infiltrates concerning for volume overload/atypical pneumonia. CTA no evidence of pulmonary embolism but stable fibrosis along with bilateral lower lobe airspace disease. Etiology of this patient's current respiratory failure is likely a combination of his chronic ongoing fibrosis superimposed with volume overload and viral infection. Bilateral crackles and 2+ lower extremity edema on examination. Interval update: No acute respiratory vents overnight. Stable leukocytosis. No significant improvement in respiratory status currently remains on 30 L 60%. Patient complaining of nasal discomfort with high flow, attempted to wean to Ventimask 50 with saturations dropped to 87 to 88%, placed back on high flow at 20 L 100%. Adequate saturations. Patient also having decreased p.o. intake and have discussed with family and the plan was made to proceed with NG tube and tube feeding at this point of time. Received Lasix 40 mg IV once on 10/20/2023. Adequate urine output. Nasal MRSA PCR negative. Chest x-ray from this morning stable with no acute changes Plan: -Discontinue linezolid. Continue and cefepime pending sputum culture results Blood cultures negative on this admission -Follow with sputum cultures, not yet collected -Continue HFNC to maintain saturation goal of 90 to 95% - currently on 20 L 100%. -Continue prednisone 40 mg daily -DuoNebs every 6 hours scheduled Thank you for involving pulmonary in this patient care. Will continue to follow
--- NOTE | 2023-10-22 09:56 | XR_ITS ---
FINAL REPORT CLINICAL HISTORY: Hypoxia COMPARISON: 10/19/2023 FINDINGS: A single portable view of the chest was obtained. Moderate cardiomegaly remains present. A left subclavian pacer is present as well, stable. There are patchy bibasilar infiltrates, which are slightly more evident than noted on the prior exam of October 19, likely edema and/or pneumonia, possibly superimposed on chronic fibrosis. The mediastinum is within normal limits. The bony thorax is intact. IMPRESSION: Moderate cardiomegaly. Patchy bilateral infiltrates, slightly more evident than noted on the prior exam of October 19. These are likely related to edema and/or pneumonia, possibly superimposed on chronic fibrosis. Reviewed, Interpreted and Dictated by Radhames Gong MD Transcribed by Phoebe Pack Authenticated and [facility]
[2023-10-22] MEDS: CEFEPIME HCL 2 GM in 0.9 % SODIUM CHLORIDE 100 ML IV ×2 (10:59→22:47)
[2023-10-22] MEDS: LACTATED RINGERS 1000ML 500 ML 100 ML IV (11:50)
[2023-10-22] MEDS: ACETAMINOPHEN 325MG TAB 650 MG PO (14:00)
--- NOTE | 2023-10-22 14:09 | PC.NURSE ---
called RT to notify them pt O2 100% on 20L/100%, no changes made
[2023-10-22] MEDS: predniSONE 20MG TAB 40 MG PO (15:20)
--- NOTE | 2023-10-22 15:29 | DIET.NUTRFU ---
Spoke to family in depth about nutrition and tubefeeding. He likes the ensure and agreed to at least drink 4 daily plus eat at all meals. Today he consumed 25% of eggs. He had trouble with the pork chop today and is agreeable to ground diet with gravies and sauces to help with swallowing. He also likes the pudding will add pudding to lunch and dinner. Family was present and agreeable to try to ensure QID and then revisit on TF decisions tomorrow. Patient feels he is feeling and doing better family was just really concerned about nutrition. He was also started on prednisone today which will increase appetite. Nursing aware of decisions and will review with [employer].
--- NOTE | 2023-10-22 15:38 | PC.NURSE ---
called Dr. Poon's office to notify him that family wanted to wait overnight before starting tube feeds, spoke with Kendal, she stated she would notify Dr. Poon
[2023-10-22] MEDS: TAMSULOSIN 0.4MG CAPSULE 0.400000000000000022 MG PO (21:41)
[2023-10-22] MEDS: ATORVASTATIN 40MG TABLET 80 MG PO (21:42)
[2023-10-23] VITALS (17 sets, daily range): BP systolic 107–152; BP diastolic 49–73; PULSE 60–110; RESP 18–23; TEMP 36.4–36.6; O2SAT 89–98; BMI 32.1
[2023-10-23] MEDS: LEVOTHYROXINE 150MCG (0.15MG)TAB 150 MCG PO (06:34)
[2023-10-23] MEDS: IPRATROPIUM/ALBUTEROL 3 ML NEB IH ×4 (06:58→23:53)
[2023-10-23 07:29] LABS: Lactate Dehydrogenase 363 U/L (313-618)
[2023-10-23 07:47] LABS: Procalcitonin 1.02 ng/mL (0.0-2.0)
--- NOTE | 2023-10-23 08:45 | EXP.ACUTE.PN ---
Subjective *Date: 10/23/23 *Time: 09:06 Interval history: Patient states he is feeling a little bit better this morning. His nurse states he ate 50% of his breakfast and has been drinking an Ensure twice a day. He denies any pain his oxygen requirements have decreased. Medical Exam Vital signs and Labs for Last 24 Hours: Vital Signs Temp Pulse Pulse Resp BP Pulse Ox O2 Del Method 10/23/23 07:36 97.8 F 10/23/23 06:59 70 10/23/23 06:59 75 10/23/23 06:59 92 L Vapotherm 10/23/23 06:00 64 20 131/60 93 L Vapotherm 10/23/23 06:50 Vapotherm 10/23/23 05:00 Vapotherm 10/23/23 04:00 60 10/23/23 04:00 98 F 70 18 121/55 L 93 L Vapotherm 10/23/23 03:00 Vapotherm 10/23/23 00:00 70 20 111/61 95 Vapotherm 10/23/23 00:00 Vapotherm 10/23/23 00:00 70 10/22/23 23:38 70 10/22/23 23:38 70 10/22/23 23:38 Vapotherm 10/22/23 22:00 70 18 130/59 L 99 Vapotherm 10/22/23 20:00 78 18 130/60 92 L Vapotherm 10/22/23 20:00 70 10/22/23 18:59 Vapotherm 10/22/23 18:00 70 22 126/60 96 Vapotherm 10/22/23 18:29 71 10/22/23 18:29 69 10/22/23 18:29 97 Vapotherm 10/22/23 17:00 Vapotherm 10/22/23 16:00 98.7 F 70 20 105/52 L 99 Vapotherm 10/22/23 16:00 70 99 Vapotherm 10/22/23 15:00 Vapotherm 10/22/23 16:00 70 10/22/23 12:00 70 10/22/23 14:00 70 22 111/52 L 99 Vapotherm 10/22/23 13:00 Venturi Mask 10/22/23 12:00 93 H 20 101/48 L 91 L Venturi Mask 10/22/23 11:58 98.1 F 10/22/23 11:00 Vapotherm 10/22/23 10:00 84 23 93/44 L 92 L Vapotherm 10/22/23 09:00 Vapotherm 10/22/23 09:25 92 H O2 Flow Rate FiO2 10/23/23 07:36 10/23/23 06:59 10/23/23 06:59 10/23/23 06:59 20 50 10/23/23 06:00 20 50 10/23/23 06:50 20 10/23/23 05:00 20 10/23/23 04:00 10/23/23 04:00 20 50 10/23/23 03:00 10/23/23 00:00 20 10/23/23 00:00 10/23/23 00:00 10/22/23 23:38 10/22/23 23:38 10/22/23 23:38 20 50 10/22/23 22:00 20 10/22/23 20:00 20 10/22/23 20:00 10/22/23 18:59 20 10/22/23 18:00 20 100 10/22/23 18:29 10/22/23 18:29 10/22/23 18:29 20 80 10/22/23 17:00 20 10/22/23 16:00 20 100 10/22/23 16:00 20 100 10/22/23 15:00 20 10/22/23 16:00 10/22/23 12:00 10/22/23 14:00 20 100 10/22/23 13:00 10/22/23 12:00 10/22/23 11:58 10/22/23 11:00 30 10/22/23 10:00 30 65 10/22/23 09:00 30 10/22/23 09:25 Intake and Output 10/22/23 10/23/23 10/23/23 19:59 03:59 11:59 Intake Total 598 / 1058 220 / 1058 240 / 1058 Output Total 200 / 350 150 / 350 Balance 398 / 708 70 / 708 240 / 708 Intake: Intake, Oral Amount 598 / 958 120 / 958 240 / 958 Intake, Total IV Amount 100 / 100 Cefepime HCl 2 gm In 0.9 % 100 / 100 Sodium Chloride 100 ml @ 200 mls/hr IV 1100,2300 [facility] Rx#: [id number] Output: Output, Urine Amount (Catheter) 200 / 350 150 / 350 Godfrey 200 / 350 150 / 350 Other: Number of Bowel Movements 1 Weight 229 lb 12.8 oz Patient Weight 10/23/23 11:59 Weight 229 lb 12.8 oz Laboratory Results - last 24 hr 10/22/23 06:59: Total Counted 100, Neutrophils % (Manual) 94 H, Lymphocytes % (Manual) 5 L, Monocytes % (Manual) 1 L, Platelet Estimate Normal, RBC Morphology Not Reportable, Macrocytosis 1+ 10/23/23 06:33: Lactate Dehydrogenase 363, C-Reactive Protein 268.0 H, Procalcitonin 1.02 I & O for Labs for Last 24 Hours: Intake & Output 10/20/23 10/21/23 10/22/23 10/23/23 11:59 11:59 11:59 11:59 Intake Total 1060 / 1060 930 / 930 1355 / 1355 1058 / 1058 Output Total 900 / 900 1999 / 1999 1025 / 1025 350 / 350 Balance 160 / 160 -1070 / -1070 330 / 330 708 / 708 Weight 155 lb 4 oz 149 lb 8 oz 152 lb 3.2 oz 229 lb 12.8 oz Microbiology Reports for the Last 24 Hours: Microbiology 10/19/23 16:40 Nose - Nasal MRSA Culture - Final Constitutional: Present no acute distress and thin Respiratory: Present rales (fibrotic rales in both bases) and rhonchi (Coarse rhonchi anteriorly and sounds clear posteriorly); Absent wheezes Cardiac: Present Regular Rhythm GI: Present soft and normal bowel sounds; Absent distention or tenderness Extremities: Absent edema Skin: Present intact Neuro: Present alert and awake Assessment and Plan *Assessment and plan (1) Acute on chronic respiratory failure with hypoxemia: Status: Acute Category: Medical Code(s): J96.21 - Acute and chronic respiratory failure with hypoxia (2) H1N1 influenza with pneumonia: Status: Acute Category: Medical Code(s): J10.00 - Influenza due to other identified influenza virus with unspecified type of pneumonia (3) Restrictive lung disease: Status: Chronic Category: Medical Code(s): J98.4 - Other disorders of lung (4) ILD (interstitial lung disease): Status: Chronic Category: Medical Code(s): J84.9 - Interstitial pulmonary disease, unspecified (5) Pulmonary fibrosis: Status: Chronic Category: Medical Code(s): J84.10 - Pulmonary fibrosis, unspecified (6) Sepsis: Status: Acute Qualifiers: Acute respiratory failure type: with hypoxia Sepsis acute organ dysfunction status: with acute organ dysfunction Sepsis type: sepsis due to unspecified organism Severe sepsis acute organ dysfunction type: acute respiratory failure Severe sepsis shock status: with septic shock Qualified Code(s): A41.9 - Sepsis, unspecified organism; R65.21 - Severe sepsis with septic shock; J96.01 - Acute respiratory failure with hypoxia Category: Medical Code(s): A41.9 - Sepsis, unspecified organism (7) Right middle lobe pneumonia: Status: Acute Category: Medical Code(s): J18.9 - Pneumonia, unspecified organism (8) Asthma: Status: Chronic Category: Medical Code(s): J45.909 - Unspecified asthma, uncomplicated (9) On amiodarone therapy: Status: Acute Category: Medical Code(s): Z79.899 - Other alf (current) drug therapy (10) Confusion: Status: Acute Category: Medical Code(s): R41.0 - Disorientation, unspecified (11) Hypotension: Status: Acute Category: Medical Code(s): I95.9 - Hypotension, unspecified (12) Dyspnea: Status: Acute Qualifiers: Dyspnea type: shortness of breath Qualified Code(s): R06.02 - Shortness of breath Category: Medical Code(s): R06.00 - Dyspnea, unspecified (13) Dizziness: Status: Acute Category: Medical Code(s): R42 - Dizziness and giddiness Plan Pulmonology wanted to discontinue his linezolid. He wanted to continue prednisone and nebs and high flow nasal cannula to maintain sats of 90 to 95%. He is eating better today. Dr. Walsh entry - Saw patient, agree with above note.
[2023-10-23] MEDS: FLUOXETINE 10MG CAPSULE 10 MG PO (08:46)
[2023-10-23] MEDS: predniSONE 20MG TAB 40 MG PO (08:46)
[2023-10-23] MEDS: APIXABAN 5MG TABLET 2.5 MG PO ×2 (08:46→20:59)
[2023-10-23] MEDS: CLOPIDOGREL 75MG TAB 75 MG PO (08:46)
[2023-10-23] MEDS: DIGOXIN 0.125MG TABLET 125 MCG PO (08:46)
[2023-10-23] MEDS: AMIODARONE 200MG TABLET 200 MG PO (08:46)
[2023-10-23] MEDS: SENNOSIDES 8.6MG/DOCUSATE 50MG TABLET 1 TAB PO (08:46)
--- NOTE | 2023-10-23 09:23 | DIET.NUTRFU ---
RD saw patient today, he consumed 3.5 ensures yesterday plus 25% at dinner which is roughly 150kcal in meal intake plus 1225kcal and 56gm protein from supplements. Today consumed 50% of biscuits and gravy approx 350kcal and 100% entxib=290vcgf/16gm protein. when reviewed plan family wants to continue to push oral intake and he feels like he can consume 4 or more ensures' per day. Nutritional needs are 1725-1900kcal and 83-90gm protein. With 4 ensure/day he is consuming 1400kcal and 64gm protein (80% of needs). They would like continue to hold off on TF at this time. Patient appears more alert today. Reviewed plan with Dr. Walsh. Will continue to monitor meal intake.
--- NOTE | 2023-10-23 09:55 | EXP.PULM.PN ---
Subjective *Date: 10/23/23 *Time: 12:38 Interval history: No acute respiratory vents overnight. Patient admits significant improvement in his respiratory symptoms. Pulmonology Exam Inpatient Vital signs and Labs for Last 24 Hours: Temp Pulse Resp BP Pulse Ox O2 Del Method O2 Flow Rate 97.8 F 110 H 23 107/49 L 90 L Room Air 20 10/23/23 07:36 10/23/23 08:00 10/23/23 08:00 10/23/23 08:00 10/23/23 08:00 10/23/23 08:50 10/23/23 08:50 FiO2 50 10/23/23 08:50 Laboratory Results - last 24 hr 10/22/23 06:59: RBC Morphology Not Reportable 10/23/23 06:33: Lactate Dehydrogenase 363, C-Reactive Protein 268.0 H, Procalcitonin 1.02 I & O for Labs for Last 24 Hours: Intake & Output 10/20/23 10/21/23 10/22/23 10/23/23 23:59 23:59 23:59 23:59 Intake Total 690 / 810 1005 / 1105 1428 / 1528 340 / 340 Output Total 2525 / 2525 700 / 700 525 / 675 150 / 150 Balance -1835 / -1715 305 / 405 903 / 853 190 / 190 Weight 155 lb 4 oz 149 lb 8 oz 152 lb 3.2 oz 229 lb 12.8 oz Microbiology Reports for the Last 24 Hours: Microbiology 10/19/23 16:40 Nose - Nasal MRSA Culture - Final Constitutional: Present severe distress Head: Present normocephalic and atraumatic ENT: Present normal exam, normal oropharynx and mucous membranes moist Neck: Present normal inspection and full ROM Respiratory: Present rales and respiratory distress; Absent wheezes or able to speak in complete sentences Cardiac: Present S1/S2, Tachycardia and radial pulses present GI: Present soft and distention; Absent tenderness or guarding Skin: Present intact; Absent cyanosis or jaundice Neuro: Present alert, awake and oriented x 3 Extremities: Present normal inspection and edema; Absent clubbing or cyanosis Psychiatric: Present normal affect and cooperative Assessment and Plan *Assessment and plan (1) Acute on chronic respiratory failure with hypoxemia: Status: Acute Category: Medical Code(s): J96.21 - Acute and chronic respiratory failure with hypoxia (2) H1N1 influenza with pneumonia: Status: Acute Category: Medical Code(s): J10.00 - Influenza due to other identified influenza virus with unspecified type of pneumonia (3) Restrictive lung disease: Status: Chronic Category: Medical Code(s): J98.4 - Other disorders of lung (4) ILD (interstitial lung disease): Status: Chronic Category: Medical Code(s): J84.9 - Interstitial pulmonary disease, unspecified (5) Pulmonary fibrosis: Status: Chronic Category: Medical Code(s): J84.10 - Pulmonary fibrosis, unspecified (6) Pneumonia: Status: Acute Qualifiers: Laterality: left Lung location: lower lobe of lung Pneumonia type: due to unspecified organism Qualified Code(s): J18.9 - Pneumonia, unspecified organism Category: Medical Code(s): J18.9 - Pneumonia, unspecified organism Plan Mr. Cody is a 83-year-old male with history of COPD pulmonary fibrosis CT ILD presented to the hospital on 10/13/2023 with worsening respiratory distress and was admitted for further evaluation and management. Pulmonary was called today for further evaluation and management VBG on admission also concerning for respiratory acidosis. Patient received 3 days of Vanco and one dose of Unasyn. Received 5-day course of Tamiflu for H1N1 influenza. He continued to receive methylprednisolone 80 mg every 8 hours since admission. Blood cultures no growth so far. No sputum cultures available. Chest x-ray upon admission no dense consolidation with increasing interstitial infiltrates concerning for volume overload/atypical pneumonia. CTA no evidence of pulmonary embolism but stable fibrosis along with bilateral lower lobe airspace disease. Etiology of this patient's current respiratory failure is likely a combination of his chronic ongoing fibrosis superimposed with volume overload and viral infection. Bilateral crackles and 2+ lower extremity edema on examination. Interval update: No acute respiratory events overnight. Patient with significant improvement in his respiratory symptoms. Tolerating Ventimask well. Adequate oral intake, will hold off on placing NG tube and tube feeding at this point of time. Plan: -Continue and cefepime pending sputum culture results Blood cultures negative on this admission -Continue HFNC / VM to maintain saturation goal of 90 to 95% - currently on 20 L 50% HFNC. -Continue prednisone 40 mg daily -DuoNebs every 6 hours scheduled Thank you for involving pulmonary in this patient care. Will continue to follow
[2023-10-23] MEDS: CEFEPIME HCL 2 GM in 0.9 % SODIUM CHLORIDE 100 ML IV ×2 (11:34→23:23)
--- NOTE | 2023-10-23 15:57 | PC.NURSE ---
RESP CARE NOTE: Pt placed on 20L/70% to maintain SPO2 above 90%. Will continue to monitor patient.
--- NOTE | 2023-10-23 16:46 | PC.NURSE ---
Patient oxygen saturation at 86% on 20L 50% vapotherm, respiratory notified and oxygen increased to 70%. Lung sounds crackles throughout. Patient alert and oriented. Turn q2
[2023-10-23] MEDS: ATORVASTATIN 40MG TABLET 80 MG PO (20:59)
[2023-10-23] MEDS: TAMSULOSIN 0.4MG CAPSULE 0.400000000000000022 MG PO (21:00)
[2023-10-23] MEDS: MAGIC MOUTHWASH 300ML BOTTLE PO (21:00)
[2023-10-23] MEDS: TRAMADOL 50MG TABLET 50 MG PO (23:23)
[2023-10-24] VITALS (17 sets, daily range): BP systolic 133–169; BP diastolic 65–85; PULSE 62–89; RESP 16–30; TEMP 36.4–36.6; O2SAT 81–99; BMI 22.6
[2023-10-24] MEDS: TRAMADOL 50MG TABLET 50 MG PO (04:37)
[2023-10-24] MEDS: LEVOTHYROXINE 150MCG (0.15MG)TAB 150 MCG PO (06:12)
[2023-10-24] MEDS: IPRATROPIUM/ALBUTEROL 3 ML NEB IH ×4 (06:40→22:52)
[2023-10-24 07:08] LABS: Anion Gap 9.8 mEq/L (5-15); Blood Urea Nitrogen 55 mg/dl (9-20); Calcium 8.1 mg/dl (8.4-10.2); Carbon Dioxide 29 mmol/L (22.0-30.0); Chloride 101 mmol/L (98-107); Creatinine Clearance Estimated 39 mL/min (50-200); Estimated Glomerular Filt Rate 45 ml/min (>60); GFR (African American) 54 ML/MIN (>60); Glucose 126 mg/dl (74-100); Potassium 4.8 mmoL/L (3.5-5.1); Sodium 135 mmol/L (136-145)
[2023-10-24 07:16] LABS: Eosinophils % 0.1 % (0.1-12.0); Hematocrit 36.6 % (42.0-52.0); Lymphocytes # 0.6 K/mm3 (0.7-4.5); Lymphocytes % 3.7 % (10-50); Mean Corpuscular HGB Conc 32.6 g/dL (31.8-35.4); Mean Corpuscular Hemoglobin 33.7 pg (27.0-31.2); Mean Corpuscular Volume 103.3 fl (80-94); Mean Platelet Volume 9.3 fl (7.4-10.4); Monocytes # 0.4 K/mm3 (0.1-1.0); Monocytes % 2.8 % (1.7-9.3); Neutrophils # 13.6 K/mm3 (1.8-7.8); Neutrophils % 93.3 % (37.0-80.0); Platelet Count 164 K/mm3 (142-424); Red Blood Count 3.55 M/mm3 (4.60-6.20); Red Cell Distribution Width 14.7 % (11.5-17.5); White Blood Count 14.6 K/mm3 (4.8-10.8)
[2023-10-24 07:22] LABS: MANUAL DIFFERENTIAL MANUAL DIFFERENTIAL (MANUAL DIFF)
[2023-10-24 08:47] LABS: Eosinophils % 1 % (0-3); Lymphocytes % 3 % (10-50); Macrocytosis 1+; Monocytes % 3 % (2-9); Neutrophils % 93 % (42-76); Platelet Estimate Normal; Total Cells Counted 100
--- NOTE | 2023-10-24 08:55 | EXP.ACUTE.PN ---
Subjective *Date: 10/24/23 *Time: 08:55 Interval history: Patient states he did not rest well last night. Breathing is unchanged Medical Exam Vital signs and Labs for Last 24 Hours: Vital Signs Temp Pulse Pulse Resp BP Pulse Ox O2 Del Method 10/24/23 06:40 70 10/24/23 06:40 73 10/24/23 06:40 99 Vapotherm 10/24/23 06:00 70 20 139/65 99 Vapotherm 10/24/23 06:42 Vapotherm 10/23/23 20:00 Vapotherm 10/24/23 04:00 Vapotherm 10/24/23 05:00 Vapotherm 10/24/23 04:00 70 10/24/23 00:00 70 10/24/23 04:00 97.8 F 70 18 150/75 H 99 Vapotherm 10/24/23 02:00 70 18 154/74 H 98 Vapotherm 10/24/23 03:00 Vapotherm 10/24/23 00:00 97.6 F 70 20 163/75 H 94 L Vapotherm 10/24/23 01:00 Vapotherm 10/23/23 23:00 Vapotherm 10/23/23 20:00 70 10/23/23 23:54 70 10/23/23 23:54 70 10/23/23 23:54 95 Vapotherm 10/23/23 21:00 Vapotherm 10/23/23 22:00 90 18 132/62 94 L Vapotherm 10/23/23 20:00 97.6 F 102 H 20 145/64 H 96 Vapotherm 10/23/23 18:49 Vapotherm 10/23/23 18:09 70 10/23/23 18:09 70 10/23/23 18:09 93 L Vapotherm 10/23/23 18:00 70 20 152/73 H 98 Vapotherm 10/23/23 16:00 70 10/23/23 16:00 70 21 141/71 H 95 Vapotherm 10/23/23 16:45 Vapotherm 10/23/23 16:00 Vapotherm 10/23/23 15:45 97.6 F 10/23/23 14:00 70 22 140/60 89 L Vapotherm 10/23/23 15:03 Vapotherm 10/23/23 12:00 70 10/23/23 12:00 70 22 135/62 93 L Vapotherm 10/23/23 13:16 Room Air 10/23/23 11:10 Vapotherm 10/23/23 11:32 97.6 F 10/23/23 11:08 65 10/23/23 11:08 65 O2 Flow Rate FiO2 10/24/23 06:40 10/24/23 06:40 10/24/23 06:40 25 70 10/24/23 06:00 25 10/24/23 06:42 20 10/23/23 20:00 20 70 10/24/23 04:00 25 70 10/24/23 05:00 25 10/24/23 04:00 10/24/23 00:00 10/24/23 04:00 25 10/24/23 02:00 25 10/24/23 03:00 25 10/24/23 00:00 25 10/24/23 01:00 10/23/23 23:00 10/23/23 20:00 10/23/23 23:54 10/23/23 23:54 10/23/23 23:54 25 70 10/23/23 21:00 10/23/23 22:00 10/23/23 20:00 20 10/23/23 18:49 20 10/23/23 18:09 10/23/23 18:09 10/23/23 18:09 20 70 10/23/23 18:00 20 70 10/23/23 16:00 10/23/23 16:00 20 10/23/23 16:45 20 10/23/23 16:00 20 70 10/23/23 15:45 10/23/23 14:00 20 10/23/23 15:03 20 10/23/23 12:00 10/23/23 12:00 20 10/23/23 13:16 10/23/23 11:10 20 10/23/23 11:32 10/23/23 11:08 10/23/23 11:08 Intake and Output 10/23/23 10/24/23 10/24/23 23:59 07:59 15:59 Intake Total 568 / 1676 100 / 100 Output Total 250 / 400 300 / 300 Balance 318 / 1276 -200 / -200 Intake: Intake, Oral Amount 568 / 1376 Intake, Total IV Amount 100 / 100 Cefepime HCl 2 gm In 0.9 % 100 / 100 Sodium Chloride 100 ml @ 200 mls/hr IV 1100,2300 [facility] Rx#: [id number] Output: Output, Urine Amount 250 / 250 Output, Urine Amount (Catheter) 300 / 300 Godfrey 300 / 300 Other: Number of Unmeasured Voids 0 Number of Bowel Movements 1 Weight 161 lb 8 oz Patient Weight 10/24/23 23:59 Weight 161 lb 8 oz Laboratory Results - last 24 hr 10/24/23 06:10: WBC 14.6 H, RBC 3.55 L, Hgb 12.0 L, Hct 36.6 L, MCV 103.3 H, MCH 33.7 H, MCHC 32.6, RDW 14.7, Plt Count 164 D, MPV 9.3, Neut % (Auto) 93.3 H, Lymph % (Auto) 3.7 L, [place] % (Auto) 2.8, Eos % (Auto) 0.1, Baso % (Auto) 0.0 L, Neut # (Auto) 13.6 H, Lymph # (Auto) 0.6 L, [place] # (Auto) 0.4, Eos # (Auto) 0.0, Baso # (Auto) 0.0, Total Counted 100, Neutrophils % (Manual) 93 H, Lymphocytes % (Manual) 3 L, Monocytes % (Manual) 3, Eosinophils % (Manual) 1, Platelet Estimate Normal, Macrocytosis 1+, Sodium 135 L, Potassium 4.8, Chloride 101, Carbon Dioxide 29, Anion Gap 9.8, BUN 55 H D, Creatinine 1.50 H, Estimated Creat Clear 39, Estimated GFR 45 L, Est GFR ( Amer) 54 L, Glucose 126 H, Calcium 8.1 L I & O for Labs for Last 24 Hours: Intake & Output 10/21/23 10/22/23 10/23/23 10/24/23 23:59 23:59 23:59 23:59 Intake Total 1005 / 1105 1428 / 1528 1576 / 1676 100 / 100 Output Total 700 / 700 525 / 675 400 / 400 300 / 300 Balance 305 / 405 903 / 853 1176 / 1276 -200 / -200 Weight 149 lb 8 oz 152 lb 3.2 oz 229 lb 12.8 oz 161 lb 8 oz Constitutional: Present no acute distress and thin Respiratory: Present rales (fibrotic rales in both bases) and rhonchi (Coarse rhonchi anteriorly and sounds clear posteriorly); Absent wheezes Cardiac: Present Regular Rhythm GI: Present soft and normal bowel sounds; Absent distention or tenderness Extremities: Absent edema Skin: Present intact Neuro: Present alert and awake Assessment and Plan *Assessment and plan (1) Acute on chronic respiratory failure with hypoxemia: Status: Acute Category: Medical Code(s): J96.21 - Acute and chronic respiratory failure with hypoxia (2) H1N1 influenza with pneumonia: Status: Acute Category: Medical Code(s): J10.00 - Influenza due to other identified influenza virus with unspecified type of pneumonia (3) Restrictive lung disease: Status: Chronic Category: Medical Code(s): J98.4 - Other disorders of lung (4) ILD (interstitial lung disease): Status: Chronic Category: Medical Code(s): J84.9 - Interstitial pulmonary disease, unspecified (5) Pulmonary fibrosis: Status: Chronic Category: Medical Code(s): J84.10 - Pulmonary fibrosis, unspecified (6) Sepsis: Status: Acute Qualifiers: Acute respiratory failure type: with hypoxia Sepsis acute organ dysfunction status: with acute organ dysfunction Sepsis type: sepsis due to unspecified organism Severe sepsis acute organ dysfunction type: acute respiratory failure Severe sepsis shock status: with septic shock Qualified Code(s): A41.9 - Sepsis, unspecified organism; R65.21 - Severe sepsis with septic shock; J96.01 - Acute respiratory failure with hypoxia Category: Medical Code(s): A41.9 - Sepsis, unspecified organism (7) Right middle lobe pneumonia: Status: Acute Category: Medical Code(s): J18.9 - Pneumonia, unspecified organism (8) Asthma: Status: Chronic Category: Medical Code(s): J45.909 - Unspecified asthma, uncomplicated (9) On amiodarone therapy: Status: Acute Category: Medical Code(s): Z79.899 - Other exterminator termite (current) drug therapy (10) Confusion: Status: Acute Category: Medical Code(s): R41.0 - Disorientation, unspecified (11) Hypotension: Status: Acute Category: Medical Code(s): I95.9 - Hypotension, unspecified (12) Dyspnea: Status: Acute Qualifiers: Dyspnea type: shortness of breath Qualified Code(s): R06.02 - Shortness of breath Category: Medical Code(s): R06.00 - Dyspnea, unspecified (13) Dizziness: Status: Acute Category: Medical Code(s): R42 - Dizziness and giddiness Plan Patient with minimal change in status today, encouraged PO intake, add Melatonin at bedtime.
[2023-10-24] MEDS: DIGOXIN 0.125MG TABLET 125 MCG PO (09:55)
[2023-10-24] MEDS: predniSONE 20MG TAB 40 MG PO (09:55)
[2023-10-24] MEDS: MAGIC MOUTHWASH 300ML BOTTLE PO ×3 (09:56→20:43)
[2023-10-24] MEDS: AMIODARONE 200MG TABLET 200 MG PO (09:56)
[2023-10-24] MEDS: SENNOSIDES 8.6MG/DOCUSATE 50MG TABLET 1 TAB PO (09:56)
[2023-10-24] MEDS: FLUOXETINE 10MG CAPSULE 10 MG PO (09:56)
[2023-10-24] MEDS: CLOPIDOGREL 75MG TAB 75 MG PO (09:56)
[2023-10-24] MEDS: APIXABAN 5MG TABLET 2.5 MG PO ×2 (09:57→20:42)
[2023-10-24] MEDS: CEFEPIME HCL 2 GM in 0.9 % SODIUM CHLORIDE 100 ML IV ×2 (11:09→23:55)
--- NOTE | 2023-10-24 12:34 | PC.NURSE ---
patient is no longer in droplet precautions per MD order
--- NOTE | 2023-10-24 18:18 | PC.NURSE ---
patient remains on 20L of oxygen at 80% via vapotherm, he is alert and oriented x4 and vital signs are stable. Patient and were educated on the importance of chin tucking when swallowing, and the need for rest periods in between bites. Patient drank a full Ensure shake with his dinner.
[2023-10-24] MEDS: MELATONIN 5MG TABLET 5 MG PO (20:43)
[2023-10-24] MEDS: TAMSULOSIN 0.4MG CAPSULE 0.400000000000000022 MG PO (20:43)
[2023-10-24] MEDS: ATORVASTATIN 40MG TABLET 80 MG PO (20:43)
--- NOTE | 2023-10-24 22:06 | XR_ITS ---
PROCEDURE INFORMATION: Exam: XR Chest Exam date and time: 10/24/2023 10:16 PM Age: 83 years old Clinical indication: Shortness of breath; Additional info: Resp distress TECHNIQUE: Imaging protocol: Radiologic exam of the chest. Views: 1 view. COMPARISON: CR XR CHEST PORTABLE 10/22/2023 10:21 AM FINDINGS: Tubes, catheters and devices: Pacer/AICD electrodes. Lungs: Coarse reticular interstitial pattern in the lungs similar to 10/22/2023. Pleural spaces: Unremarkable. No pleural effusion. No pneumothorax. Heart/Mediastinum: Moderate cardiomegaly. Prior CABG. Bones/joints: Unremarkable. IMPRESSION: 1. Moderate cardiomegaly. 2. Pacer/AICD electrodes. 3. Prior CABG. 4. Coarse reticular interstitial pattern in the lungs similar to 10/22/2023. Differential diagnosis includes edema and/or pneumonia possibly superimposed on chronic fibrosis. CT chest may be helpful to further delineate this finding.
[2023-10-24 22:24] LABS: ABG Base Excess -2.3 mmol/L (-2.4-2.3); ABG HCO3 23.3 mmhg (22.0-26.0); ABG Oxygen Saturation 90 % (90-100); ABG PCO2 43.5 mmhg (35.0-45.0); ABG PH 7.35 mmol/L (7.35-7.45); ABG PO2 58.2 mmhg (80-100); ABG TCO2 24.7 mmhg (23-27); Allen's Test ACCEPTABLE; Oxygen 70% %
[2023-10-24 22:25] LABS: Source R RADIAL
[2023-10-24 23:24] LABS: NT Pro Brain Natriuretic Pep. 18600 pg/mL (0-450)
[2023-10-25] VITALS (17 sets, daily range): BP systolic 100–154; BP diastolic 58–85; PULSE 70–83; RESP 20–25; TEMP 36.3–36.7; O2SAT 92–100; BMI 28.3
[2023-10-25] MEDS: FUROSEMIDE 20 MG/2 ML VIAL IV (00:07)
--- NOTE | 2023-10-25 00:22 | PC.NURSE ---
@ 2200 THIS PT'S O2 SATS WERE IN THE 70'S AND PT IS C/O SOA AND STRUGGLING TO BREATHE. THIS RN ASSESSED THE PT AND CALLED RT TO BEDSIDE TO ASSESS WELL. ABG, CXR, BNP, AND TWO BREATHING TREATMENTS WERE COMPLETED. PT'S EDEMA SEEMS TO BE WORSENING AND CRACKLES ARE HEARD ON AUSCULTATION. RT INCREASED VAPOTHERM SETTINGS TO HELP PT. ONCE BREATHING TREATMENTS WERE COMPLETED, LABS RESULTS, AND CXR WAS READ, THIS RN PAGED DR. MONSIVAIS @ 2082 TO MAKE HIM AWARE OF THE NEW RESULTS AND TO UPDATE HIM ON PT'S CHANGE IN CONDITION AND PT IS STATING THAT HE'S GETTING WORSE. NEW TELEPHONE ORDERS TAKEN AND PUT IN / SENT TO PHARMACY; SEE ORDERS. YODIT CALLED RT TO UPDATE RT ON NEW ORDERS
[2023-10-25] MEDS: PHA TO NURSING INSTRUCTION 1 EACH NOTAPPLIC (01:07)
[2023-10-25] MEDS: VANCOMYCIN/WATER FOR INJ (PEG) 1.5 GM/300 ML PIGGYBACK IV ×2 (01:07→21:08)
[2023-10-25] MEDS: IPRATROPIUM/ALBUTEROL 3 ML NEB IH ×4 (07:21→23:33)
--- NOTE | 2023-10-25 09:13 | EXP.PHA.CONS ---
Pharmacy Consult Date: 10/25/23 Time: 09:13 Referring provider: DR. CHAVARRIA Reason for Consult:: VANCOMYCIN DOSING Allergies Allergy/AdvReac Type Severity Reaction Status Date / Time No Known Allergies Allergy Verified 10/06/23 15:17 Home Medications Medication Instructions Recorded Confirmed Type atorvastatin 80 mg tablet 80 mg PO HS 01/21/18 10/13/23 History fish oil-dha-epa 1,200 mg-144 1 each PO DAILY Supplement 01/21/18 10/13/23 History mg-216 mg capsule fluoxetine 10 mg capsule 10 mg PO DAILY 01/21/18 10/13/23 History tamsulosin 0.4 mg capsule 0.4 mg PO DAILY 01/21/18 10/13/23 History vitamin E succinate 268 mg (400 400 units PO DAILY Supplement 01/21/18 10/13/23 History unit) tablet ferrous sulfate 325 mg (65 mg 325 mg PO DAILY 01/15/21 10/13/23 History iron) tablet mecobalamin (vitamin B12) 1,000 1,000 mcg PO DAILY Supplement 01/15/21 10/13/23 History mcg chewable tablet multivitamin 1 each PO DAILY Supplement 01/15/21 10/13/23 History apixaban 2.5 mg tablet (Eliquis) 2.5 mg PO BID 10/13/23 10/13/23 History clopidogrel 75 mg tablet 75 mg PO DAILY 10/13/23 10/13/23 History furosemide 40 mg tablet 40 mg PO MOWEFR 10/13/23 10/14/23 History amiodarone 200 mg tablet 200 mg PO DAILY 10/14/23 10/14/23 History digoxin 125 mcg (0.125 mg) tablet 125 mcg PO DAILY 10/14/23 10/13/23 History levothyroxine 150 mcg tablet 150 mcg PO AM 10/14/23 10/14/23 History loperamide 2 mg capsule 2 mg PO Q6H PRN Diarrhea 10/14/23 10/14/23 History prednisone 20 mg tablet 20 mg PO DAILY 10/14/23 10/14/23 History spironolactone 25 mg tablet 25 mg PO MOWEFR 10/14/23 10/14/23 History New Prescriptions to Start Prescriptions: Height: 1.8 m Weight: 91.852 kg Laboratory Results:: Laboratory Results - last 24 hr 10/24/23 22:06: Specimen Source R radial, O2 % 70%, ABG pH 7.35, ABG pCO2 43.5, ABG pO2 58.2 L, ABG HCO3 23.3, ABG Total CO2 24.7, ABG O2 Saturation 90, ABG Base Excess -2.3, Dave Test Acceptable 10/24/23 22:53: NT-Pro-B Natriuret Pep 71282 H Medical History: Medical History (Updated 10/19/23 @ 13:35 by Megna Poon MD) Acute and chronic respiratory failure with hypoxia 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 CAD (coronary artery disease) Carotid arterial disease CHF (congestive heart failure), NYHA class II Chronic respiratory failure with hypoxia Diarrhea due to drug H1N1 influenza with pneumonia History of atrial fibrillation History of atrial flutter HLD (hyperlipidemia) HTN (hypertension) Hypothyroidism ILD (interstitial lung disease) Inguinal hernia Ischemic cardiomyopathy Ischemic cardiomyopathy with implantable cardioverter-defibrillator (ICD) On home oxygen therapy Paroxysmal atrial fibrillation Pneumonia Pulmonary fibrosis Respiratory failure with hypoxia Restrictive lung disease Shortness of breath Assessment and Plan Assessment and plan all Dx Assessment and Plan for all problems:: Pharmacokinetic dosing service Patient: Floor: Age: 83 yo Serum creatinine: 1.5 mg/dL Height: 70.9 Inches Weight (kg): 91.9 Assessment: IBW (kg): 75.07 Dosing wt(kg): 91.9 Estimated Creatinine clearance (ml/min): 39.6 CRCL method: Cockcroft and Gault using ibw(default). Drug selected: Vancomycin Loading dose (mg): 0 Vd (liters): 73.5 (factor used: 0.8 L/kg) Simon (hr-1): 0.037 Half life (hrs): 18.73 Recommended dose: 1500 mg Interval: 24 hrs Infusion time (hrs): 2.0 Predicted peak (mcg/mL): 33.4 Predicted trough (mcg/mL): 14.80 Total body weight is being used for vancomycin dosing. Recommendations: Give Vancomycin 1500 mg q 24 hrs with an expected Cpeak of 33.4 mcg/ml and an expected Ctrough of 14.80 mcg/ml ----Vanco only - ignore for aminoglycosides----- CLvanco= 2.72 L/hr AUC 0-24 /FADIA Data: FADIA 0.5 mcg/mL: AUC/FADIA: 1102.9 FADIA 1.0 mcg/mL: AUC/FADIA: 551.5
[2023-10-25] MEDS: MEROPENEM 1 GM in 0.9 % SODIUM CHLORIDE 100 ML IV ×2 (09:14→21:07)
[2023-10-25] MEDS: MAGIC MOUTHWASH 300ML BOTTLE PO ×2 (09:15→13:15)
[2023-10-25] MEDS: DIGOXIN 0.125MG TABLET 125 MCG PO (09:15)
[2023-10-25] MEDS: AMIODARONE 200MG TABLET 200 MG PO (09:15)
[2023-10-25] MEDS: APIXABAN 5MG TABLET 2.5 MG PO ×2 (09:15→21:09)
[2023-10-25] MEDS: FLUOXETINE 10MG CAPSULE 10 MG PO (09:15)
[2023-10-25] MEDS: CLOPIDOGREL 75MG TAB 75 MG PO (09:15)
[2023-10-25] MEDS: SENNOSIDES 8.6MG/DOCUSATE 50MG TABLET 1 TAB PO (09:16)
[2023-10-25] MEDS: predniSONE 20MG TAB 40 MG PO (09:16)
--- NOTE | 2023-10-25 10:08 | P.PN_ITS ---
Subjective *Date: 10/25/23 *Time: 10:08 Interval history: Evidently patient has some trouble breathing overnight and Dr. Poon was called. FiO2 was increased to 100%. Patient seems to be better now. Respiratory therapist noticed patient had breathing trouble after eating. Medical Exam Vital signs and Labs for Last 24 Hours: Vital Signs Temp Pulse Pulse Resp BP Pulse Ox O2 Del Method 10/25/23 08:00 70 10/25/23 09:15 70 10/25/23 08:00 70 123/64 100 Vapotherm 10/25/23 08:00 97.8 F 10/25/23 06:55 70 10/25/23 06:55 70 10/25/23 06:55 100 Vapotherm 10/25/23 04:00 70 24 110/62 100 Vapotherm 10/25/23 04:00 98.0 F 10/25/23 00:00 97.8 F 10/25/23 00:06 Vapotherm 10/24/23 20:00 70 25 H 140/85 92 L Vapotherm 10/24/23 22:00 71 30 H 169/84 H 81 L Vapotherm 10/24/23 21:00 Vapotherm 10/24/23 22:52 87 10/24/23 22:52 89 10/24/23 22:52 94 L Vapotherm 10/25/23 06:00 70 22 134/75 100 Vapotherm 10/25/23 04:00 Vapotherm 10/25/23 05:00 Vapotherm 10/25/23 03:00 Vapotherm 10/25/23 01:00 Vapotherm 10/24/23 23:00 Vapotherm 10/24/23 20:00 Vapotherm 10/24/23 20:00 97.7 F 10/24/23 18:54 70 10/24/23 18:54 70 10/24/23 18:54 96 Vapotherm 10/24/23 18:53 Nasal Cannula, Vapotherm 10/24/23 18:00 81 16 155/80 H 94 L Nasal Cannula, Vapotherm 10/24/23 16:00 70 16 166/82 H 90 L Nasal Cannula, Vapotherm 10/24/23 17:00 Nasal Cannula, Vapotherm 10/24/23 16:00 97 Nasal Cannula, Vapotherm 10/24/23 16:00 97.6 F 10/24/23 15:00 Nasal Cannula, Vapotherm 10/24/23 13:57 70 133/67 97 Nasal Cannula, Vapotherm 10/24/23 12:00 70 10/24/23 13:00 Nasal Cannula, Vapotherm 10/24/23 12:00 70 16 155/84 H 91 L Nasal Cannula, Vapotherm 10/24/23 11:45 70 10/24/23 11:45 70 10/24/23 11:45 93 L Vapotherm 10/24/23 11:00 Nasal Cannula, Vapotherm O2 Flow Rate FiO2 10/25/23 08:00 10/25/23 09:15 10/25/23 08:00 10/25/23 08:00 10/25/23 06:55 10/25/23 06:55 10/25/23 06:55 40 100 10/25/23 04:00 10/25/23 04:00 10/25/23 00:00 10/25/23 00:06 40 100 10/24/23 20:00 20 70 10/24/23 22:00 20 70 10/24/23 21:00 20 10/24/23 22:52 10/24/23 22:52 10/24/23 22:52 30 85 10/25/23 06:00 10/25/23 04:00 10/25/23 05:00 10/25/23 03:00 10/25/23 01:00 10/24/23 23:00 85 10/24/23 20:00 20 70 10/24/23 20:00 10/24/23 18:54 10/24/23 18:54 10/24/23 18:54 20 80 10/24/23 18:53 20 10/24/23 18:00 20 10/24/23 16:00 10/24/23 17:00 20 10/24/23 16:00 20 10/24/23 16:00 10/24/23 15:00 10/24/23 13:57 20 10/24/23 12:00 10/24/23 13:00 20 10/24/23 12:00 10/24/23 11:45 10/24/23 11:45 10/24/23 11:45 20 60 10/24/23 11:00 20 Intake and Output 10/24/23 10/25/23 10/25/23 23:59 07:59 15:59 Intake Total 360 / 944 Output Total 225 / 275 50 / 275 Balance 360 / 294 -225 / -275 -50 / -275 Intake: Intake, Oral Amount 360 / 844 Output: Output, Urine Amount 225 / 275 50 / 275 Other: Number of Unmeasured Voids 0 Weight 202 lb 8 oz 202 lb 8 oz Patient Weight 10/25/23 23:59 Weight 202 lb 8 oz Laboratory Results - last 24 hr 10/24/23 22:06: Specimen Source R radial, O2 % 70%, ABG pH 7.35, ABG pCO2 43.5, ABG pO2 58.2 L, ABG HCO3 23.3, ABG Total CO2 24.7, ABG O2 Saturation 90, ABG Base Excess -2.3, Dave Test Acceptable 10/24/23 22:53: NT-Pro-B Natriuret Pep 48876 H I & O for Labs for Last 24 Hours: Intake & Output 10/22/23 10/23/23 10/24/23 10/25/23 23:59 23:59 23:59 23:59 Intake Total 1428 / 1528 1576 / 1676 944 / 944 Output Total 525 / 675 400 / 400 425 / 650 275 / 275 Balance 903 / 853 1176 / 1276 519 / 294 -275 / -275 Weight 152 lb 3.2 oz 229 lb 12.8 oz 161 lb 8 oz 202 lb 8 oz Constitutional: Present no acute distress and thin Respiratory: Present rales (fibrotic rales in both bases) and rhonchi; Absent wheezes Cardiac: Present Regular Rhythm GI: Present soft and normal bowel sounds; Absent distention or tenderness Extremities: Absent edema Skin: Present intact Neuro: Present alert and awake Assessment and Plan *Assessment and plan (1) Acute on chronic respiratory failure with hypoxemia: Status: Acute Category: Medical Code(s): J96.21 - Acute and chronic respiratory failure with hypoxia (2) H1N1 influenza with pneumonia: Status: Acute Category: Medical Code(s): J10.00 - Influenza due to other identified influenza virus with unspecified type of pneumonia (3) Restrictive lung disease: Status: Chronic Category: Medical Code(s): J98.4 - Other disorders of lung (4) ILD (interstitial lung disease): Status: Chronic Category: Medical Code(s): J84.9 - Interstitial pulmonary disease, unspecified (5) Pulmonary fibrosis: Status: Chronic Category: Medical Code(s): J84.10 - Pulmonary fibrosis, unspecified (6) Sepsis: Status: Acute Qualifiers: Acute respiratory failure type: with hypoxia Sepsis acute organ dysfunction status: with acute organ dysfunction Sepsis type: sepsis due to unspecified organism Severe sepsis acute organ dysfunction type: acute respiratory failure Severe sepsis shock status: with septic shock Qualified Code(s): A41.9 - Sepsis, unspecified organism; R65.21 - Severe sepsis with septic shock; J96.01 - Acute respiratory failure with hypoxia Category: Medical Code(s): A41.9 - Sepsis, unspecified organism (7) Right middle lobe pneumonia: Status: Acute Category: Medical Code(s): J18.9 - Pneumonia, unspecified organism (8) Asthma: Status: Chronic Category: Medical Code(s): J45.909 - Unspecified asthma, uncomplicated (9) On amiodarone therapy: Status: Acute Category: Medical Code(s): Z79.899 - Other penitentiary (current) drug therapy (10) Confusion: Status: Acute Category: Medical Code(s): R41.0 - Disorientation, unspecified (11) Hypotension: Status: Acute Category: Medical Code(s): I95.9 - Hypotension, unspecified (12) Dyspnea: Status: Acute Qualifiers: Dyspnea type: shortness of breath Qualified Code(s): R06.02 - Shortness of breath Category: Medical Code(s): R06.00 - Dyspnea, unspecified (13) Dizziness: Status: Acute Category: Medical Code(s): R42 - Dizziness and giddiness Plan Continue current treatment, order swallow evaluation.
[2023-10-25] MEDS: MELATONIN 5MG TABLET 5 MG PO (21:09)
[2023-10-25] MEDS: TAMSULOSIN 0.4MG CAPSULE 0.400000000000000022 MG PO (21:09)
[2023-10-25] MEDS: ATORVASTATIN 40MG TABLET 80 MG PO (21:09)
[2023-10-26] VITALS (22 sets, daily range): BP systolic 94–142; BP diastolic 55–66; PULSE 30–88; RESP 20–30; TEMP 36.3–36.8; O2SAT 85–100; BMI 23.0
[2023-10-26] MEDS: IPRATROPIUM/ALBUTEROL 3 ML NEB IH ×3 (05:44→18:28)
[2023-10-26] MEDS: LEVOTHYROXINE 150MCG (0.15MG)TAB 150 MCG PO (06:17)
[2023-10-26 06:27] LABS: Eosinophils % 0.1 % (0.1-12.0); Hematocrit 36.3 % (42.0-52.0); Hemoglobin 11.7 g/dL (14.1-18.0); Lymphocytes # 0.5 K/mm3 (0.7-4.5); Lymphocytes % 3.5 % (10-50); Mean Corpuscular HGB Conc 32.2 g/dL (31.8-35.4); Mean Corpuscular Hemoglobin 33.4 pg (27.0-31.2); Mean Corpuscular Volume 103.6 fl (80-94); Mean Platelet Volume 8.9 fl (7.4-10.4); Monocytes # 0.7 K/mm3 (0.1-1.0); Monocytes % 4.2 % (1.7-9.3); Neutrophils # 14.2 K/mm3 (1.8-7.8); Neutrophils % 92.2 % (37.0-80.0); Platelet Count 135 K/mm3 (142-424); Red Blood Count 3.51 M/mm3 (4.60-6.20); Red Cell Distribution Width 14.5 % (11.5-17.5); White Blood Count 15.4 K/mm3 (4.8-10.8)
[2023-10-26 06:40] LABS: Anion Gap 7.5 mEq/L (5-15); Blood Urea Nitrogen 67 mg/dl (9-20); Calcium 8.1 mg/dl (8.4-10.2); Carbon Dioxide 28 mmol/L (22.0-30.0); Chloride 103 mmol/L (98-107); Creatinine Clearance Estimated 33 mL/min (50-200); Estimated Glomerular Filt Rate 36 ml/min (>60); GFR (African American) 44 ML/MIN (>60); Glucose 108 mg/dl (74-100); MANUAL DIFFERENTIAL MANUAL DIFFERENTIAL (MANUAL DIFF); Potassium 5.5 mmoL/L (3.5-5.1); Sodium 133 mmol/L (136-145)
[2023-10-26 06:46] LABS: C-Reactive Protein 46.2 mg/L (0-4)
[2023-10-26 07:45] LABS: Lymphocytes % 2 % (10-50); Monocytes % 6 % (2-9); Neutrophils % 91 % (42-76); Total Cells Counted 100
[2023-10-26 07:46] LABS: Anisocytosis 1+; Macrocytosis 1+; Platelet Estimate Normal
[2023-10-26 07:47] LABS: Burr Cells 1+
[2023-10-26 08:02] LABS: NT Pro Brain Natriuretic Pep. 20500 pg/mL (0-450)
--- NOTE | 2023-10-26 08:27 | EXP.ACUTE.PN ---
Subjective *Date: 10/26/23 *Time: 08:27 Interval history: Patient reports one episode of respiratory distress overnight, after receiving a neb treatment he felt better. Medical Exam Vital signs and Labs for Last 24 Hours: Vital Signs Temp Pulse Pulse Resp BP Pulse Ox O2 Del Method 10/26/23 07:43 97.6 F 10/26/23 05:45 70 10/26/23 05:45 70 10/26/23 05:45 100 Vapotherm 10/26/23 04:00 97.6 F 10/25/23 21:35 Vapotherm 10/26/23 00:00 97.3 F L 10/26/23 06:59 Vapotherm 10/26/23 06:00 70 30 H 126/61 100 Vapotherm 10/26/23 05:00 Vapotherm 10/26/23 04:00 Vapotherm 10/26/23 03:00 Vapotherm 10/26/23 02:00 70 25 H 125/64 99 Vapotherm 10/26/23 01:00 Vapotherm 10/26/23 00:00 70 26 H 97/55 L Vapotherm 10/25/23 22:00 70 25 H 120/59 L 98 Vapotherm 10/25/23 23:00 Nasal Cannula 10/25/23 23:34 76 10/25/23 23:34 77 10/25/23 21:00 Vapotherm 10/25/23 20:00 Vapotherm 10/25/23 20:00 97.4 F L 10/25/23 19:02 77 10/25/23 19:02 74 10/25/23 18:47 Vapotherm 10/25/23 18:00 70 23 154/77 H 96 Vapotherm 10/25/23 16:00 100 Vapotherm 10/25/23 16:58 Vapotherm 10/25/23 16:00 70 20 149/85 H 100 Vapotherm 10/25/23 16:00 70 10/25/23 12:00 70 10/25/23 14:37 Vapotherm 10/25/23 13:00 Vapotherm 10/25/23 14:00 70 22 100/61 L 100 Vapotherm 10/25/23 12:00 83 22 106/58 L 96 Vapotherm 10/25/23 11:47 70 10/25/23 11:47 70 10/25/23 11:47 100 Vapotherm 10/25/23 11:44 97.4 F L 10/25/23 11:00 Vapotherm 10/25/23 09:00 Vapotherm 10/25/23 10:00 70 24 116/58 L 92 L Vapotherm 10/25/23 09:15 70 O2 Flow Rate FiO2 10/26/23 07:43 10/26/23 05:45 10/26/23 05:45 10/26/23 05:45 90 10/26/23 04:00 10/25/23 21:35 20 90 10/26/23 00:00 10/26/23 06:59 10/26/23 06:00 20 90 10/26/23 05:00 10/26/23 04:00 20 90 10/26/23 03:00 10/26/23 02:00 20 90 10/26/23 01:00 10/26/23 00:00 20 90 10/25/23 22:00 20 90 10/25/23 23:00 2 10/25/23 23:34 10/25/23 23:34 10/25/23 21:00 10/25/23 20:00 20 90 10/25/23 20:00 10/25/23 19:02 10/25/23 19:02 10/25/23 18:47 20 10/25/23 18:00 20 90 10/25/23 16:00 20 90 10/25/23 16:58 20 10/25/23 16:00 20 90 10/25/23 16:00 10/25/23 12:00 10/25/23 14:37 20 10/25/23 13:00 20 10/25/23 14:00 20 90 10/25/23 12:00 20 80 10/25/23 11:47 10/25/23 11:47 10/25/23 11:47 20 100 10/25/23 11:44 10/25/23 11:00 20 10/25/23 09:00 20 10/25/23 10:00 10/25/23 09:15 Intake and Output 10/25/23 10/26/23 10/26/23 23:59 07:59 15:59 Intake Total 360 / 834 240 / 240 Output Total 325 / 1100 500 / 500 Balance 35 / -266 -260 / -260 Intake: Intake, Oral Amount 360 / 834 240 / 240 Output: Output, Urine Amount 325 / 1100 500 / 500 Other: Number of Unmeasured Voids 0 Number of Bowel Movements 1 Weight 164 lb 7 oz Patient Weight 10/26/23 23:59 Weight 164 lb 7 oz Laboratory Results - last 24 hr 10/26/23 05:50: WBC 15.4 H, RBC 3.51 L, Hgb 11.7 L, Hct 36.3 L, MCV 103.6 H, MCH 33.4 H, MCHC 32.2, RDW 14.5, Plt Count 135 L, MPV 8.9, Neut % (Auto) 92.2 H, Lymph % (Auto) 3.5 L, [place] % (Auto) 4.2, Eos % (Auto) 0.1, Baso % (Auto) 0.0 L, Neut # (Auto) 14.2 H, Lymph # (Auto) 0.5 L, [place] # (Auto) 0.7, Eos # (Auto) 0.0, Baso # (Auto) 0.0, Total Counted 100, Neutrophils % (Manual) 91 H, Band Neutrophils % 1.0, Lymphocytes % (Manual) 2 L, Monocytes % (Manual) 6, Platelet Estimate Normal, Anisocytosis 1+, Macrocytosis 1+, Shannan Cells 1+, Sodium 133 L, Potassium 5.5 H, Chloride 103, Carbon Dioxide 28, Anion Gap 7.5, BUN 67 H, Creatinine 1.80 H, Estimated Creat Clear 33, Estimated GFR 36 L, Est GFR ( Amer) 44 L, Glucose 108 H, Calcium 8.1 L, C-Reactive Protein 46.2 H D, NT-Pro-B Natriuret Pep 28753 H I & O for Labs for Last 24 Hours: Intake & Output 10/23/23 10/24/23 10/25/23 10/26/23 23:59 23:59 23:59 23:59 Intake Total 1576 / 1676 944 / 944 834 / 834 240 / 240 Output Total 400 / 400 425 / 650 600 / 1100 500 / 500 Balance 1176 / 1276 519 / 294 234 / -266 -260 / -260 Weight 229 lb 12.8 oz 161 lb 8 oz 202 lb 8 oz 164 lb 7 oz Microbiology Reports for the Last 24 Hours: Microbiology 10/22/23 10:25 Sputum - Expectorated Sputum Gram Stain - Final 10/22/23 10:25 Sputum - Expectorated Sputum Sputum Culture - Final Constitutional: Present no acute distress and thin Respiratory: Present rales (fibrotic rales in both bases) and rhonchi; Absent wheezes Comment:: increase work of breathing, FiO2 still at 90% Cardiac: Present Regular Rhythm GI: Present soft and normal bowel sounds; Absent distention or tenderness Extremities: Absent edema Skin: Present intact Neuro: Present alert and awake Assessment and Plan *Assessment and plan (1) Acute on chronic respiratory failure with hypoxemia: Status: Acute Category: Medical Code(s): J96.21 - Acute and chronic respiratory failure with hypoxia (2) H1N1 influenza with pneumonia: Status: Acute Category: Medical Code(s): J10.00 - Influenza due to other identified influenza virus with unspecified type of pneumonia (3) Restrictive lung disease: Status: Chronic Category: Medical Code(s): J98.4 - Other disorders of lung (4) ILD (interstitial lung disease): Status: Chronic Category: Medical Code(s): J84.9 - Interstitial pulmonary disease, unspecified (5) Pulmonary fibrosis: Status: Chronic Category: Medical Code(s): J84.10 - Pulmonary fibrosis, unspecified (6) Sepsis: Status: Acute Qualifiers: Acute respiratory failure type: with hypoxia Sepsis acute organ dysfunction status: with acute organ dysfunction Sepsis type: sepsis due to unspecified organism Severe sepsis acute organ dysfunction type: acute respiratory failure Severe sepsis shock status: with septic shock Qualified Code(s): A41.9 - Sepsis, unspecified organism; R65.21 - Severe sepsis with septic shock; J96.01 - Acute respiratory failure with hypoxia Category: Medical Code(s): A41.9 - Sepsis, unspecified organism (7) Right middle lobe pneumonia: Status: Acute Category: Medical Code(s): J18.9 - Pneumonia, unspecified organism (8) Asthma: Status: Chronic Category: Medical Code(s): J45.909 - Unspecified asthma, uncomplicated (9) On amiodarone therapy: Status: Acute Category: Medical Code(s): Z79.899 - Other chcf (current) drug therapy (10) Confusion: Status: Acute Category: Medical Code(s): R41.0 - Disorientation, unspecified (11) Hypotension: Status: Acute Category: Medical Code(s): I95.9 - Hypotension, unspecified (12) Dyspnea: Status: Acute Qualifiers: Dyspnea type: shortness of breath Qualified Code(s): R06.02 - Shortness of breath Category: Medical Code(s): R06.00 - Dyspnea, unspecified (13) Dizziness: Status: Acute Category: Medical Code(s): R42 - Dizziness and giddiness (14) Dysphagia: Status: Acute Category: Medical Code(s): R13.10 - Dysphagia, unspecified Plan Patient has not improved, still on Vapotherm with FiO2 of 90%, speech therapy to see patient today.
--- NOTE | 2023-10-26 09:36 | HMH.SLDYSPHA ---
Speech & Language Evaluation Speech/Language Dysphagia Evaluation Start: 10/26/23 09:08 Freq: ONCE Status: Active Protocol: Document 10/26/23 09:08 EJ (Rec: 10/26/23 09:36 [email or web address] [id number]) Dysphagia Assess/Goals/Plan Assessment Date of Evaluation: 10/26/23 Evaluation Type Initial Certification Assessment/Problems respiratory distress after eating per MD order Does Patient Qualify for Service Yes Qualify/Failure Comment Based on clinical observations made during the bedside swallow evaluation, pt would benefit from follow up for diet texture analysis and tolerance. Recommendations PHYSICIAN CERTIFICATION: The specified therapy services are required, authorized, and reviewed every 30 days. Pt will be seen # times/week 1 for # weeks 1 Diet Recommendations Pureed Liquid Type Recommendations Normal/Thin SL Swallow Guidelines Assist w/all meals,High aspiration risk Crush Meds Crush all meds Dysphagia Swallow Precautions/Strategies Sitting Upright (90 deg),Small Bites and Sips,Alternate Liquids/Solids Plan Pt/Guardian verbally ack understanding Yes of dx/prognosis/goals G -code Required No Education Instructions provided Discussed CSE results, downgraded diet and recommendations, aspiration precautions, and potential MBSS to further assess swallow with pt and his , nursing , and MD's office all of which expressed understanding. Pt/Caregiver able to recall information Able to recall/restate Reinforcement needed No Speech & Language HPI History Present Illness Description of Patient Problem TRACTOR MECHANIC HELPER pulled following information from H&P dated , 83-year-old male history of pulmonary fibrosis, interstitial lung disease, COPD no longer smoking on 3 to 5 L nasal cannula at home presenting with shortness of breath. states the patient was short of breath the last 2 or 3 days. She stated that his oxygen usually sits mid to high 80s, today it dropped down into the 50s. He has been coughing up greenish-brown sputum for the last couple of days and she thought he had been running a fever, patient denies any febrile symptoms. Cough is new as of 24 hours prior to this visit. No vomiting, diarrhea, patient is having significant shortness of breath. Increased oxygen to 5 to 6 L via oxygen concentrator today. To be noted that patient has severe end-stage lung disease which is complicating care. History was obtained via conversation with patient, . On arrival, patient hemodynamically stable, alert, oriented x4, appropriate, GCS 15, moving all extremities spontaneously, pupils equal and reactive to light. Full physical exam performed and significant for severe respiratory distress. Maintaining blood pressure, but patient initially about 53 % on room air. This did not improve with nasal cannula oxygen. Patient was placed on nonrebreather immediately and oxygen saturation improved to around 70 or 80. Patient has bilateral breath sounds and symmetric chest rise, so low concern for pneumothorax at this time. Because of this, patient was placed on BiPAP 12 /8 with 80% FiO2. Patient's saturations immediately improved to mid 90s, but patient becoming increasingly intolerant. He does have diffuse bilateral wheezes with rales in the right middle lung freedman. No lower extremity edema. Answering questions, patient is also cyanotic. Differential includes pneumonia, bronchitis , PE, pneumothorax, pleural effusion, ACS, PR, dissection, among others. The patient states he has been feeling poorly for the past 4 days. He has been running fever and getting progressively more SOA . He was coughing up thick sputum. He has also had difficulty swallowing solid foods. He got to the point where he was unable to get out of the bed because his oxygen sats were dropping so low. Pt/Caregiver Concerns reports decline in PO intake, stating he drinks fine but is not wanting to eat and that when he does, he is avoidant of solids such as meats and breads; primarily eating mashed potatoes, soups, puddings, and jello. Rehab Services Assessed Speech therapy General Information General Current Food Consistancy Dysphagia Mechanical Soft, Ground Meats,Thin Liquids Dentition Edentulous Oxygen Status Vapotherm Patient Orientation Person,Place,Time,Situation Ability to Follow Directions Good Communication Ability Mild Impairment Dysphagia:Food Presentation Evaluation Food Type Pureed,Liquid,Pudding Dysphagia Evaluation Summary Pt was sitting upright in his bed with his present at the bedside. He was A&O x4. TRACTOR MECHANIC HELPER took part in caregiver interview with to gain hx of any swallowing difficulties or issues from Mr Inga Cody. No recurrent pnas were reported from and recent decline of PO intake over past several months with weight loss mentioned. Mr. Cody was hesitant to take part in CSE and accept bolus administration trials. He was agreeable to all PO outside of mechanical soft trial per difficulty and that he was tired. Fatigue observed throughout eval, thin liquids trialed via ice chips, spoonfuls of water, open cup/ straw sips, and two consecutive sips from straw. Notable O2 decline with subsequent sips from a straw, with mild coughing. TRACTOR MECHANIC HELPER trialed straw sips x3 for consistency. He was then provided two spoons of pudding and one trial of applesauce prior to requesting to terminate trials. Overall, mastication and manipulation of bolus, as well as swallowing appear to be WFL with some signs of fatigue. TRACTOR MECHANIC HELPER educated on aspiration precautions and compensatory strategies, downgraded Mr. Cody to jean 2' reports of difficulty and refusal to trial solids during CSE and both he and his expressed understanding. TRACTOR MECHANIC HELPER will f/u for diet toerance. Stroke Dysphagia Assessment PHYSICIAN CERTIFICATION: I certify the specified therapy services for Scotty Cody are required, authorized, and reviewed every 30 days.
--- NOTE | 2023-10-26 09:56 | P.PN_ITS ---
Subjective *Date: 10/26/23 *Time: 11:03 Interval history: Significant worsening respiratory decline over the weekend. Patient admits worsening respiratory distress. Pulmonology Exam Inpatient Vital signs and Labs for Last 24 Hours: Temp Pulse Resp BP Pulse Ox O2 Del Method O2 Flow Rate 97.6 F 70 30 H 126/61 100 Vapotherm 20 10/26/23 07:43 10/26/23 06:00 10/26/23 06:00 10/26/23 06:00 10/26/23 06:00 10/26/23 09:08 10/26/23 06:00 FiO2 90 10/26/23 06:00 Laboratory Results - last 24 hr 10/26/23 05:50: WBC 15.4 H, RBC 3.51 L, Hgb 11.7 L, Hct 36.3 L, MCV 103.6 H, MCH 33.4 H, MCHC 32.2, RDW 14.5, Plt Count 135 L, MPV 8.9, Neut % (Auto) 92.2 H, Lymph % (Auto) 3.5 L, [place] % (Auto) 4.2, Eos % (Auto) 0.1, Baso % (Auto) 0.0 L, Neut # (Auto) 14.2 H, Lymph # (Auto) 0.5 L, [place] # (Auto) 0.7, Eos # (Auto) 0.0, Baso # (Auto) 0.0, Total Counted 100, Neutrophils % (Manual) 91 H, Band Neutrophils % 1.0, Lymphocytes % (Manual) 2 L, Monocytes % (Manual) 6, Platelet Estimate Normal, Anisocytosis 1+, Macrocytosis 1+, Shannan Cells 1+, Sodium 133 L, Potassium 5.5 H, Chloride 103, Carbon Dioxide 28, Anion Gap 7.5, BUN 67 H, Creatinine 1.80 H, Estimated Creat Clear 33, Estimated GFR 36 L, Est GFR ( Amer) 44 L, Glucose 108 H, Calcium 8.1 L, C-Reactive Protein 46.2 H D, NT-Pro-B Natriuret Pep 00486 H I & O for Labs for Last 24 Hours: Intake & Output 10/23/23 10/24/23 10/25/23 10/26/23 23:59 23:59 23:59 23:59 Intake Total 1576 / 1676 944 / 944 834 / 834 240 / 240 Output Total 400 / 400 425 / 650 600 / 1100 500 / 500 Balance 1176 / 1276 519 / 294 234 / -266 -260 / -260 Weight 229 lb 12.8 oz 161 lb 8 oz 202 lb 8 oz 164 lb 7 oz Microbiology Reports for the Last 24 Hours: Microbiology 10/22/23 10:25 Sputum - Expectorated Sputum Gram Stain - Final 10/22/23 10:25 Sputum - Expectorated Sputum Sputum Culture - Final Constitutional: Present severe distress Head: Present normocephalic and atraumatic ENT: Present normal exam, normal oropharynx and mucous membranes moist Neck: Present normal inspection and full ROM Respiratory: Present rales, respiratory distress and crackles; Absent wheezes or able to speak in complete sentences Cardiac: Present S1/S2, Tachycardia and radial pulses present GI: Present soft and distention; Absent tenderness or guarding Skin: Present intact; Absent cyanosis or jaundice Neuro: Present alert, awake and oriented x 3 Extremities: Present normal inspection and edema; Absent clubbing or cyanosis Psychiatric: Present normal affect and cooperative Assessment and Plan *Assessment and plan (1) Acute on chronic respiratory failure with hypoxemia: Status: Acute Category: Medical Code(s): J96.21 - Acute and chronic respiratory failure with hypoxia (2) H1N1 influenza with pneumonia: Status: Acute Category: Medical Code(s): J10.00 - Influenza due to other identified influenza virus with unspecified type of pneumonia (3) Restrictive lung disease: Status: Chronic Category: Medical Code(s): J98.4 - Other disorders of lung (4) ILD (interstitial lung disease): Status: Chronic Category: Medical Code(s): J84.9 - Interstitial pulmonary disease, unspecified (5) Pulmonary fibrosis: Status: Chronic Category: Medical Code(s): J84.10 - Pulmonary fibrosis, unspecified (6) Pneumonia: Status: Acute Qualifiers: Pneumonia type: due to unspecified organism Laterality: left Lung location: lower lobe of lung Qualified Code(s): J18.9 - Pneumonia, unspecified organism Category: Medical Code(s): J18.9 - Pneumonia, unspecified organism Plan Mr. Cody is a 83-year-old male with history of COPD pulmonary fibrosis CT ILD presented to the hospital on 10/13/2023 with worsening respiratory distress and was admitted for further evaluation and management. Pulmonary was called today for further evaluation and management VBG on admission also concerning for respiratory acidosis. Patient received 3 days of Vanco and one dose of Unasyn. Received 5-day course of Tamiflu for H1N1 influenza. He continued to receive methylprednisolone 80 mg every 8 hours since admission. Blood cultures no growth so far. No sputum cultures available. Chest x-ray upon admission no dense consolidation with increasing interstitial infiltrates concerning for volume overload/atypical pneumonia. CTA no evidence of pulmonary embolism but stable fibrosis along with bilateral lower lobe airspace disease. Interval update: Significant respiratory decline over the weekend. Chest x-ray on admission showed worsening left lower lobe airspace disease prior along with worsening respiratory distress syndrome for aspiration apnea. Antibiotics were escalated to vancomycin and meropenem over the weekend. Slight worsening leukocytosis. Patient currently on 20 L 90% FiO2. Respiratory distress noted percent from prior. Patient also noted to have worsening renal function over the weekend. BNP 6 currently elevated. Bilateral lower extremity edema again noted left greater than right. Positive volume status throughout his hospital admission. Plan: -Follow with speech recommendations. Aspiration precautions. -Change antibiotic to linezolid, meropenem and clindamycin pending repeat culture results Lasix 40 mg IV once Left lower extremity venous Doppler -Continue HFNC to maintain saturation goal of 90 to 95% - currently on 20 L 90% HFNC. -Continue prednisone 40 mg daily -DuoNebs every 6 hours scheduled Thank you for involving pulmonary in this patient care. Will continue to follow
--- NOTE | 2023-10-26 09:58 | XR_ITS ---
FINAL REPORT CLINICAL HISTORY: hypoxia..flu COMPARISON: 10/24/2023 FINDINGS: Airspace disease in both lung bases is similar to the prior study and could be due to pneumonia or edema. There is no evidence of effusion or pneumothorax. Mediastinum is unremarkable. Status post CABG. Left-sided pacer is present. Heart size is normal. IMPRESSION: Stable bilateral airspace disease. Reviewed, Interpreted and Dictated by Tressa Liz MD Transcribed by Coreen Jacobo Authenticated and [facility]
[2023-10-26] MEDS: MEROPENEM 1 GM in 0.9 % SODIUM CHLORIDE 100 ML IV ×2 (10:04→19:52)
[2023-10-26] MEDS: predniSONE 20MG TAB 40 MG PO (10:11)
[2023-10-26] MEDS: FLUOXETINE 10MG CAPSULE 10 MG PO (10:11)
[2023-10-26] MEDS: AMIODARONE 200MG TABLET 200 MG PO (10:11)
[2023-10-26] MEDS: CLOPIDOGREL 75MG TAB 75 MG PO (10:11)
[2023-10-26] MEDS: DIGOXIN 0.125MG TABLET 125 MCG PO (10:11)
[2023-10-26] MEDS: SENNOSIDES 8.6MG/DOCUSATE 50MG TABLET 1 TAB PO (10:11)
[2023-10-26] MEDS: APIXABAN 5MG TABLET 2.5 MG PO ×2 (10:12→19:51)
[2023-10-26] MEDS: MAGIC MOUTHWASH 300ML BOTTLE PO (10:22)
--- NOTE | 2023-10-26 11:01 | CA_ITS ---
FINAL REPORT TECHNIQUE: Compression kidd scale and Doppler evaluation CLINICAL HISTORY: HYPOXIA,EDEMA COMPARISON: None FINDINGS: Femoral and popliteal veins show normal compressibility and flow. Visualized portion of the calf veins are patent by Doppler exam. IMPRESSION: No evidence of left lower extremity deep venous thrombosis Reviewed, Interpreted and Dictated by Tressa Liz MD Transcribed by Phoebe Pack Authenticated and [facility]
[2023-10-26] MEDS: CLINDAMYCIN PHOSPHATE 900 MG in 0.9 % SODIUM CHLORIDE 50 ML 56 MG IV ×2 (11:19→19:12)
[2023-10-26] MEDS: FUROSEMIDE 40MG/4ML VIAL 40 MG IV (12:37)
[2023-10-26] MEDS: LINEZOLID 600 MG/300 ML IV.SOLN 300 MG IV ×2 (12:37→19:52)
--- NOTE | 2023-10-26 13:49 | DIET.NUTRFU ---
RD saw patient today, he seemed weaker then when I saw last week. He still has been able to drink ensure, already drank 2, working on third at lunch. But not eating much else. Too tired and weak to situp for meals. He was downgraded to pureed diet-per CLINICAL DATA ASSISTANT, reviewed foods that are already in pureed state-pudding/yogurt and ice cream) agreed to silvino upon visit. Significant respiratory decline over the weekend along with renal decline was noted per provider. Lasix was given today. Will continue current POC
[2023-10-26] MEDS: ACETAMINOPHEN 325MG TAB 650 MG PO (16:58)
--- NOTE | 2023-10-26 17:37 | PC.NURSE ---
New IV placed to the JAMEE. Pt tolerated well.
[2023-10-26] MEDS: ATORVASTATIN 40MG TABLET 80 MG PO (19:50)
[2023-10-26] MEDS: TAMSULOSIN 0.4MG CAPSULE 0.400000000000000022 MG PO (19:51)
[2023-10-26] MEDS: TRAMADOL 50MG TABLET 50 MG PO (19:51)
[2023-10-26] MEDS: MELATONIN 5MG TABLET 5 MG PO (19:51)
--- NOTE | 2023-10-26 20:58 | PC.NURSE ---
@2049 PT'S SIGNED DNR D/T WORSENING CONDITION AND PT MAKING IT VERY CLEAR TO THIS RN AND FAMILY THAT HE DOES NOT WANT TO BE INTUBATED OR ON A VENTILATOR. PT'S QRS COMPLEXES HAVE CHANGED D/T RESP DISTRESS; PT HAS AN AICD THAT IS KEEPING PT A AND V PACED.\ PT CONTINUES TO GRUNT, SOA WHILE AT REST AND TALKING. DR. GARCÍA WAS PAGED AND UPDATED ON PT AND FAMILY WISHES TO BE A DNR AND CONTINUE TO COMFORT CARE ONCE FAMILY ARRIVES.
[2023-10-26] MEDS: HYDROMORPHONE 2MG/ML SYRINGE 0.5 MG IV (22:23)
--- NOTE | 2023-10-26 22:40 | PC.NURSE ---
@ [address] GARCÍA AT FAMILY'S REQUEST D/T PT NOT SEEMING COMFORTABLE AND CONTINUE TO GRUNT; DR. GARCÍA SAID HIS DILAUDID CAN BE GIVEN Q2H INSTEAD OF Q3H
--- NOTE | 2023-10-26 22:43 | PC.NURSE ---
FAMILY DEMANDED DR. CHAVARRIA BE PAGED; THIS RN PAGED DEON
[2023-10-26] MEDS: LORazepam 2MG/ML VIAL 1 MG IV (22:55)
[2023-10-27] VITALS: PULSE 16; PULSE 24; O2SAT 91
[2023-10-27 01:00] VITALS: PULSE 16; O2SAT 94
[2023-10-27 02:00] VITALS: BP 74/54; PULSE 70; RESP 10; O2SAT 94
[2023-10-27] MEDS: LORazepam 2MG/ML VIAL 1 MG IV (02:51)
[2023-10-27 03:00] VITALS: PULSE 70; RESP 8; O2SAT 90
--- NOTE | 2023-10-27 04:04 | PC.NURSE ---
PT @ 0345; PACED TO ASYSTOLE. THIS RN VERIFIED ABSENT HEART TONES AND RESPIRATIONS; ER MD NOTIFIED TO VERIFY ABSENT HEART TONES. ER MD (SANTOS) @ BEDSIDE TO CONFIRM PT EXPIRATION @ 0406 FAMILY AT BEDSIDE DURING EXPIRATION AND AWARE OF PT EXPIRATION DR. GARCÍA NOTIFIED @ 0407
--- NOTE | 2023-10-27 04:33 | PC.NURSE ---
[facility] contacted at 04:28
--- NOTE | 2023-10-27 05:02 | EXP.DEATH.NO ---
Pronouncement Note Date and Time of Date of : 10/27/23 Time of : 04:06 PCOD Preliminary cause of : Pulmonary fibrosis Contributing Factors (1) Acute on chronic respiratory failure with hypoxemia: (2) H1N1 influenza with pneumonia: (3) Restrictive lung disease: (4) ILD (interstitial lung disease): (5) Pulmonary fibrosis: (6) Pneumonia: Summary Additional details: I was called to bedside for pronouncement of patient who was DNR prior to his and admitted with complications of pulmonary fibrosis, shortness of breath. Patient had been asystolic for an extended period prior to my arrival. I evaluated the patient who had no findings of neurologic activity, no respiratory drive, no pulses, no cardiac sounds. I pronounced patient at 0406 AM Additional Data Confirmation of : no pulse, no respirations, no heart sounds and pupils fixed and dilated Family: at bedside (Family was at bedside and witnessed the patient passing prior to my arrival. They had left by the time I was able to evaluate the patient.) Additional persons at bedside: other (Bedside nurse) Attending/PCP notified?: Yes Attending physician: Ellis Walsh MD Was code activated?: No Autopsy requested?: No
--- NOTE | 2023-10-27 05:11 | PC.NURSE ---
[facility] picked up at 05:10.
--- NOTE | 2023-11-03 23:58 | P.DS_ITS ---
General Admission date:: 10/13/23 Discharge date: 10/27/23 HPI HPI HPI: 83-year-old male history of pulmonary fibrosis, interstitial lung disease, COPD no longer smoking on 3 to 5 L nasal cannula at home presenting with shortness of breath. states the patient was short of breath the last 2 or 3 days. She stated that his oxygen usually sits mid to high 80s, today it dropped down into the 50s. He has been coughing up greenish-brown sputum for the last couple of days and she thought he had been running a fever, patient denies any febrile symptoms. Cough is new as of 24 hours prior to this visit. No vomiting, diarrhea, patient is having significant shortness of breath. Increased oxygen to 5 to 6 L via oxygen concentrator today. To be noted that patient has severe end-stage lung disease which is complicating care. History was obtained via conversation with patient, . On arrival, patient hemodynamically stable, alert, oriented x4, appropriate, GCS 15, moving all extremities spontaneously, pupils equal and reactive to light. Full physical exam performed and significant for severe respiratory distress. Maintaining blood pressure, but patient initially about 53% on room air. This d id not improve with nasal cannula oxygen. Patient was placed on nonrebreather immediately and oxygen saturation improved to around 70 or 80. Patient has bilateral breath sounds and symmetric chest rise, so low concern for pneumothorax at this time. Because of this, patient was placed on BiPAP 12/8 with 80% FiO2. Patient's saturations immediately improved to mid 90s, but patient becoming increasingly intolerant. He does have diffuse bilateral wheezes with rales in the right middle lung freedman. No lower extremity edema. Answering questions, patient is also cyanotic. Differential includes pneumonia, bronchitis, PE, pneumothorax, pleural effusion, ACS, UT, dissection, among others. Patient was given DuoNebs, Solu-Medrol, 2 g magnesium IV, BiPAP, 2 mg morphine, Zofran 4 mg, IV fluids, vancomycin, Unasyn for symptomatic management and correction of underlying abnormalities. Workup independently interpreted and significant for leukocytosis 13.8 with lactate elevated at 5.0. Kidney function 1.6. VBG demonstrated respiratory acidosis with pH 7.27, CO2 elevated 57. Patient hypoxemic on VBG with oxygen low at 29. Lactate 6.2 on VBG. Chest x-ray with concern for right middle versus right lower lobe pneumonia see radiology read for full review of final results. Independent interpretation of EKG shows ventricularly paced rhythm 74 beats a minute. Wide QRS at 156 ms with Sgarbossa negative criteria concerning for STEMI. Patient having intermittent ectopic ventricular beats with ST depressions, but inconsistent throughout and nonconcerning for acute, geographic ischemia. Rightward axis. Repeat EKG after patient stabilized on BiPAP demonstrated ventricularly paced rhythm at about 71 bpm. Sgarbossa negative. Patient does have T wave inversions in V6, 1, aVL concerning for subendocardial ischemia, but now reciprocal change. On reevaluation, patient intolerant of BiPAP, switched to heated high flow nasal cannula. Saturating 99% with heart rate 70. Blood pressure 96/50 and breathing about 20 times a minute when more comfortably. Patient mentating without issue. Admitting physician contacted for further definitive management, agreeable to admission. Because patient high risk for clinical decompensation, deemed appropriate for inpatient admission. Results were relayed to patient who voiced understanding and patient was agreeable to inpatient admission and management. Patient was admitted to the hospital for further definitive management. (above as per ER physician) The patient states he has been feeling poorly for the past 4 days. He has been running fever and getting progressively more SOA. He was coughing up thick sputum. He has also had difficulty swallowing solid foods. He got to the point where he was unable to get out of the bed because his oxygen sats were dropping so low. Hospital Course Hospital Course Hospital Course: The patient's initial chest x-ray showed low lung volumes and coarse bilateral pulmonary opacities consistent with interstitial lung disease. Radiology could not exclude superimposed infection. The patient had not had a respiratory panel ordered in the ER and this was ordered on admission. His flu test was positive. He was able to be taken off of BiPAP in the ER and placed on Vapotherm. He was started on Tamiflu. His vancomycin that had been started in the ER was discontinued. His shortness of breath and wheezing did improve. He was able to eat. His Vapotherm was unable to be weaned, therefore pulmonology was consulted. He was also started on Senokot for constipation. He was seen by pulmonology who wanted him continued on Vapotherm. He ordered a CTA along with an echocardiogram. He wanted to wean the steroids to prednisone 40 mg daily and use DuoNebs on an as-needed basis. The patient CTA showed no evidence of PE. Consolidative changes were noted which were new from his most recent imaging. Pulmonology did start the patient on linezolid and cefepime. By 10/20/2023 he began feeling worse. He hurt all over and his cough was worsening. His bowels were moving. He was unable to be weaned from the Vapotherm. His DuoNebs were scheduled. Pulmonology ordered a one-time dose of 40 mg of IV Lasix. Pulmonology recommended transfer to ICU due to need for high flow oxygen with no significant improvement. Blood cultures were negative and sputum cultures were pending. He was continued on antibiotics and prednisone along with DuoNebs every 6 hours. His linezolid was discontinued on 10/22/2023, but he was continued on cefepime. On the evening of 10/25/2023 the patient had some trouble breathing and pulmonology was called. His FiO2 was increased to 100%. The respiratory therapist noticed the patient had breathing trouble after eating. A swallowing evaluation was ordered. After receiving a neb treatment he did feel better. A speech evaluation was ordered and aspiration precautions were taken. Linezolid, meropenem, and clindamycin were all ordered pending repeat cultures. The patient was given a one-time dose of IV Lasix and pulmonology wanted to order a left lower extremity venous Doppler. On 10/27/2023 at 0406, the patient was pronounced by the ER physician. Exam Data for Last 24 hours Vital signs and Labs for Last 24 Hours: Temp Pulse Resp BP Pulse Ox O2 Del Method O2 Flow Rate 98.3 F 70 8 L 74/54 L 90 L Non-Rebreather 5 10/26/23 20:00 10/27/23 03:00 10/27/23 03:00 10/27/23 02:00 10/27/23 03:00 10/27/23 03:00 10/27/23 03:00 FiO2 90 10/26/23 20:00 Narrative: Constitutional Constitutional: no acute distress *Routine HEENT Exam Head: Present normocephalic and atraumatic Eye: Present EOMI and PERRL ENT: Present mucous membranes dry *Routine Neck Exam Neck: Present supple and full ROM *Routine Respiratory Exam Respiratory: Present decreased breath sounds and wheezes *Routine Cardiovascular Exam Cardiovascular: Present RRR *Routine Abdominal Exam Abdominal: Present soft, normoactive bowel sounds and tenderness (diffuse) *Routine Rectal Exam Rectal:: deferred *Routine Genitalia Exam Genitalia:: deferred *Routine Extremities Exam Extremities: Present edema (trace bilateral LE's); Absent cyanosis or clubbing *Routine Skin Exam Skin: Present intact; Absent erythema *Routine Neurological Exam Neurological: Present alert and oriented X3 DS: Diagnosis Discharge Diagnosis (1) Acute on chronic respiratory failure with hypoxemia: Status: Acute Code(s): J96.21 - Acute and chronic respiratory failure with hypoxia (2) H1N1 influenza with pneumonia: Status: Acute Code(s): J10.00 - Influenza due to other identified influenza virus with unspecified type of pneumonia (3) Restrictive lung disease: Status: Chronic Code(s): J98.4 - Other disorders of lung (4) ILD (interstitial lung disease): Status: Chronic Code(s): J84.9 - Interstitial pulmonary disease, unspecified (5) Pulmonary fibrosis: Status: Chronic Code(s): J84.10 - Pulmonary fibrosis, unspecified (6) Pneumonia: Status: Acute Code(s): J18.9 - Pneumonia, unspecified organism Qualifiers: Pneumonia type: due to unspecified organism Laterality: left Lung location: lower lobe of lung Qualified Code(s): J18.9 - Pneumonia, unspecified organism Meds Home Medications and Allergies Home Medications Medication Instructions Recorded Confirmed Type atorvastatin 80 mg tablet 80 mg PO HS 01/21/18 10/13/23 History fish oil-dha-epa 1,200 mg-144 1 each PO DAILY Supplement 01/21/18 10/13/23 History mg-216 mg capsule fluoxetine 10 mg capsule 10 mg PO DAILY 01/21/18 10/13/23 History tamsulosin 0.4 mg capsule 0.4 mg PO DAILY 01/21/18 10/13/23 History vitamin E succinate 268 mg (400 400 units PO DAILY Supplement 01/21/18 10/13/23 History unit) tablet ferrous sulfate 325 mg (65 mg 325 mg PO DAILY 01/15/21 10/13/23 History iron) tablet mecobalamin (vitamin B12) 1,000 1,000 mcg PO DAILY Supplement 01/15/21 10/13/23 History mcg chewable tablet multivitamin 1 each PO DAILY Supplement 01/15/21 10/13/23 History apixaban 2.5 mg tablet (Eliquis) 2.5 mg PO BID 10/13/23 10/13/23 History clopidogrel 75 mg tablet 75 mg PO DAILY 10/13/23 10/13/23 History furosemide 40 mg tablet 40 mg PO MOWEFR 10/13/23 10/14/23 History amiodarone 200 mg tablet 200 mg PO DAILY 10/14/23 10/14/23 History digoxin 125 mcg (0.125 mg) tablet 125 mcg PO DAILY 10/14/23 10/13/23 History levothyroxine 150 mcg tablet 150 mcg PO AM 10/14/23 10/14/23 History loperamide 2 mg capsule 2 mg PO Q6H PRN Diarrhea 10/14/23 10/14/23 History prednisone 20 mg tablet 20 mg PO DAILY 10/14/23 10/14/23 History spironolactone 25 mg tablet 25 mg PO MOWEFR 10/14/23 10/14/23 History New Prescriptions to Start Prescriptions: Allergies Allergy/AdvReac Type Severity Reaction Status Date / Time No Known Allergies Allergy Verified 10/06/23 15:17 Discharge Plan Disposition Patient Disposition: Date/Time Date/Time: 10/27/23 05:10 Providers Primary Care Provider: Sachin Ndiaye Admit Provider: Neil Yoo Attending Provider: Ellis Walsh
== END 2023-10-27 05:10 | disposition expired | DRG 871 ==
LOC: ER 18:58 → 2ND 10-14 01:13
PROVIDERS: Internal Medicine Pulmonary Disease; Physician Assistant; Admitting Provider Internal Medicine Adolescent Medicine; Emergency Provider Emergency Medicine; PCP Family Medicine; Visit Provider Family Medicine
DX: A41.9 Sepsis, unspecified organism (principal); J11.00 Influenza due to unidentified influenza virus with unspecified type of pneumonia; R65.21 Severe sepsis with septic shock; J96.21 Acute and chronic respiratory failure with hypoxia; J18.9 Pneumonia, unspecified organism; I25.5 Ischemic cardiomyopathy; Z95.810 Presence of automatic (implantable) cardiac defibrillator; I65.23 Occlusion and stenosis of bilateral carotid arteries; J44.9 Chronic obstructive pulmonary disease, unspecified; Z87.891 Personal history of nicotine dependence; E78.2 Mixed hyperlipidemia; I48.91 Unspecified atrial fibrillation; Z85.810 Personal history of malignant neoplasm of tongue; J84.10 Pulmonary fibrosis, unspecified; I11.0 Hypertensive heart disease with heart failure; I50.9 Heart failure, unspecified; Z99.81 Dependence on supplemental oxygen; E03.9 Hypothyroidism, unspecified; I48.0 Paroxysmal atrial fibrillation
CPT/HCPCS: 36415; 71045; 71275; 80048; 80053; 82803; 83605; 83615; 83880; 84145; 84484; 85007; 85014; 85018; 85025; 85048; 85049; 86140; 87040; 87070; 87081; 87205; 87632; 87635; 92610; 93005; 93306; 93971; 94640; 94660; 94760; 94761; 97110; 97163; 97165; 97530; 97535; 99291; J0736; J2020; J2185; J2405; J3475; Q9967